=== PATIENT | male | born 1945 | race Caucasian/White ===

== ENCOUNTER 2016-04-08 06:10 | Inpatient (IN) | payer OTHER, MEDICARE ==
[~2016-04-08] VITALS: Ht 180.3 cm; Wt 88.0 kg
[~2016-04-08 06:10] MED LIST: ALBUTEROL0.09 MG/A1 INH; AMLODIPINE BESYL5 M1 PO; ASPIRIN EC81 M1 PO; AUGMENTIN 875875 MG PO; CIPRO500 M1 PO; FLAGYL500 MG PO; LOSARTAN POTAS100 M1 PO; METFORMIN HCL500 M3 PO; MULTI-DAY VITA1 EACH PO; PERCOCET 5-3251 EACH PO; PREDNISONE10 MG PO; ROBITUSSIN W/CO10 ML PO; SIMVASTATIN20 M2 PO; TOPROL XL50 M1 PO; VITAMIN B-121000 MC3 PO; VITAMIN C1000 M4 PO
--- NOTE | 2016-04-08 07:07 | ED DYSPNEA/ASTHMA COMPLAINT ---
History of Present Illness General Chief Complaint: Dyspnea (COPD, CHF, Other) Stated Complaint: PER PT HAVING DIFFICULTY CATCHING BREATH Source: patient, family, old records Exam Limitations: no limitations Vital Signs & Intake/Output Vital Signs & Intake/Output Vital Signs Date Time Temp Pulse Resp B/P Pulse O2 O2 Flow FiO2 Ox Delivery Rate 04/08 1536 98.0 84 20 130/82 94 Room Air 04/08 1100 97.0 84 20 115/04/08 1100 97.0 84 20 11504/08 1048 97.0 84 20 94 Room Air 04/08 0959 96.3 83 20 118/61 94 Room Air 04/08 0822 98.0 89 164/103 04/08 0800 94 Room Air 04/08 0630 98.9 90 21 127/63 95 Room Air Allergies Coded Allergies: Iodinated Contrast Media - Oral and (UNKNOWN 03/30/16) Reconcile Medications Amlodipine Besylate 5 MG TABLET 1 TAB PO DAILY BP (Reported) Ascorbic Acid (Vitamin C) (Unknown Strength) TABLET 250 MG PO DAILY SUPPLEMENT (Reported) Aspirin (Ecotrin*) 81 MG TABLET.DR 1 TAB PO DAILY HEART/BLOOD (Reported) Ciprofloxacin HCl (Cipro) 500 MG TABLET 1 TAB PO BID diverticulitis Cyanocobalamin (Vitamin B-12) (Vitamin B12) (Unknown Strength) TABLET (Unknown Dose) PO DAILY SUPPLEMENT (Reported) Losartan Potassium 100 MG TABLET 1 TAB PO DAILY BP (Reported) Metformin HCl 500 MG TABLET 1 TAB PO BID DM (Reported) Metoprolol Succ XL (Toprol XL) 25 MG TAB 100 MG PO DAILY HEART (Reported) Metronidazole (Flagyl) 500 MG TABLET 1 TAB PO BID diverticulitis Multivitamin (Multi-Day Vitamins) 1 EACH TABLET 1 TAB PO DAILY SUPPLEMENT ( Reported) Oxycodone HCl/Acetaminophen (Percocet 5-325 MG Tablet) 5 MG-325 MG TABLET 1 TAB PO TID severe pain Simvastatin (Simvastatin*) 20 MG TABLET 1 TAB PO QPM CHOLESTEROL (Reported) Triage Nurses Notes Reviewed? yes Onset: Abrupt Duration: minute(s): (30) Timing: single episode today Severity: severe Activities at Onset: trying to go to work this morning Associated Symptoms: chest/abdominal pain, vomiting, dyspnea, weakness HPI: This is a 70-year-old male with history of coronary disease, 2 stents recently diagnosed with cancer in his lung and liver last week presents to ER with his for chief complaint of an episode of chest pain, abdominal pain and lightheadedness this morning. He states he was attempting to go to work when he felt very dizzy. He felt it was impacted and vomited twice. He has some difficulty breathing at that time. Denies any chest pain or difficulty breathing lying down at this time. Denies any fever or chills. He's been having persistent left flank pain since his workup last week in the hospital which they should be to bronchitis. He is also currently on Cipro and Flagyl for a flare of diverticulitis. Secondary to the antibiotics and pain medicines he's been very bad up last bowel movement was a few days ago. He is due to see Dr. THORNTON on April 14. Past History Travel History Traveled to [place] past 21 day No Medical History Any Pertinent Medical History? see below for history Neurological: NONE EENT: NONE Cardiovascular: hypertension, hyperlipidemia, myocardial infarction Respiratory: bronchitis Gastrointestinal: NONE Hepatic: NONE Renal: right partial nephrectomy Musculoskeletal: disk herniation Endocrine: BORDERLINE DIABETIC Blood Disorders: NONE Cancer(s): BENIGN KIDNEY TUMOR CPAS/Reproductive: NONE History of MRSA: No History of VRE: No History of CDIFF: No Influenza Vaccine: 04/22/06 Surgical History Surgical History: PARTIAL RIGHT NEPHRECTOMY Psychosocial History Who do you live with Family What is your primary language Afghan Family History Hx Contributory? No Review of Systems Review of Systems Constitutional: Reports: weakness. Denies: chills, fever. EENTM: Reports: no symptoms. Respiratory: Reports: cough, short of breath. Denies: sputum production. Cardiovascular: Reports: chest pain. Denies: palpitations. GI: Reports: abdominal pain, nausea, vomiting. Genitourinary: Reports: no symptoms. Musculoskeletal: Reports: no symptoms. Skin: Reports: no symptoms. Neurological/Psychological: Reports: anxiety. Hematologic/Endocrine: Denies: bruising, bleeding, polyuria, polydipsia. Immunologic/Allergic: Denies: splenectomy. All Other Systems: Reviewed and Negative Physical Exam Physical Exam General Appearance: well developed/nourished, alert, awake, anxious, mild distress Head: atraumatic, normal appearance Eyes: Bilateral: normal appearance. Neck: normal inspection, supple, full range of motion Respiratory: DIMINISHED BREATH SOUNDS RIGHT BASE Cardiovascular: regular rate/rhythm Peripheral Pulses: 2+ radial (R), 2+ radial (L) Gastrointestinal: normal bowel sounds, soft, non-tender Extremities: normal inspection, normal capillary refill, normal range of motion, no edema Neurologic/Psych: no motor/sensory deficits, awake, alert, oriented x 3 Skin: intact, normal color, warm/dry Core Measures ACS in differential dx? No Severe Sepsis Present: No Septic Shock Present: No Progress Differential Diagnosis: AMI, bronchitis, pulmonary embolism, pneumonia, pneumothorax, unstable angina, DEHYDRATION, CARRILLO, ANXIETY Plan of Care: Orders Procedure Date/time Status HEPATIC FUNCTION PANEL 04/09 06 Active CBC WITHOUT DIFFERENTIAL 04/09 06 Active BASIC ELECTROLYTES PLUS BUN&CR 04/09 06 Active Nothing by Mouth 04/08 L Complete Clear Liquid Diet 04/08 D Active RAPID VIRAL INFLUENZA A 04/08 2021 Active Vital Signs 04/08 1716 Active Teach/Educate 04/08 171 Active Nutritional Intake, Monitor 04/08 1716 Active Isolation 04/08 1716 Active Intake & Output 04/08 1716 Active Patient Care Conference 04/08 1716 Active Activity/Ambulation 04/08 1716 Active Change service to 04/08 1333 Active Pathway - chart 04/08 1006 Active House Staff 04/08 1006 Active Code Status 04/08 1006 Active STREP PNEUMO URINARY ANTIGEN 04/08 1001 Active LEGIONELLA URINARY ANTIGEN 04/08 1001 Active LOWER RESPIRATORY CULTURE 04/08 0955 Active Patient Data 04/08 0912 Active Admit to inpatient 04/08 0847 Active Code Status 04/08 0847 Complete BLOOD CULTURE 04/08 0740 Active FingerStick- Glucose 04/08 0727 Active MISTAKE 04/08 0721 Active TROPONIN LEVEL 04/08 0648 Complete LIPASE 04/08 0648 Complete HEPATIC FUNCTION PANEL 04/08 0648 Complete D-DIMER 04/08 0648 Complete CBC WITHOUT DIFFERENTIAL 04/08 0648 Complete BASIC METABOLIC PANEL 04/08 0648 Complete AMYLASE 04/08 0648 Complete Intake & Output 04/08 0629 Active EKG 04/08 0612 Active VTE Mechanical Prophylaxis 04/08 UNK Active Current Medications Sig/Noemí Start time Last Medication Dose Stop Time Status Admin Ceftriaxone Sodium 1,000 MG DAILY 04/09 1000 CAN (Rocephin) Losartan Potassium 100 MG DAILY 04/09 1000 AC (Cozaar) Insulin Aspart 0 TIDAC 04/08 1200 AC (NovoLOG) Metronidazole 500 MG IQ8 04/08 1015 CAN (Flagyl) N/A 1 UNIT (No Carrier) Amlodipine Besylate 5 MG DAILY 04/08 1000 AC (Norvasc) Laboratory Tests 04/08/16 0717: Anion Gap 8, Estimated GFR > 60, BUN/Creatinine Ratio 15.5, Glucose 114 H, Calcium 9.5, Total Bilirubin 0.5, Direct Bilirubin 0.3, AST 92 H, ALT 64, Alkaline Phosphatase 214 H, Troponin I 0.02, Total Protein 6.2 L, Albumin 3.3 L, Amylase 370 H, Lipase 2537 H, D-Dimer 4381 H, CBC w Diff NO MAN DIFF REQ, RBC 4.08 L, MCV 89.1, MCH 30.8, RDW 13.5, MPV 7.4, Gran % 76.5 H, Lymphocytes % 15.0 L, Monocytes % 6.3, Eosinophils % 1.5, Basophils % 0.7, Absolute Granulocytes 4.7, Absolute Lymphocytes 0.9 L, Absolute Monocytes 0.4, Absolute Eosinophils 0.1, Absolute Basophils 0, PUBS MCHC 34.6 Microbiology 04/08 1001 URINE ROUT: Legionella Antigen - COLB 04/08 1001 URINE ROUT: Streptococcus pneumoniae Antigen (M - COLB 04/08 0955 LOWER RESP: Respiratory Culture - COLB 04/08 0955 LOWER RESP: Gram Stain - COLB 04/08 0805 BLOOD: Blood Culture - RECD 04/08 0800 BLOOD: Blood Culture - RECD LABS, CULTURES, XRAY, EKG, TROPONIN. NS ORDERED. MORPHINE ORDERED FOR PAIN. CXR SHOWS RLL INFILTRATED, ? POST OBSTRUCTIVE PNEUMONIA. PATIENT EXPERIENCING INCREASE IN DYSPNEA. IV ABX ORDERED. D/W HOSPITALIST FOR ADMISSION. 9:30 AM Dilaudid ordered for pain. (KIARA JONES,BILLIE) Diagnostic Imaging: Viewed by Me: Radiology Read. Discussed w/RAD: Radiology Read. Initial ED EKG: NSR Comments: EXAM TYPE: RAD - XRY-PORTABLE CHEST XRAY EXAMINATION: XR PORTABLE CHEST CLINICAL INFORMATION: Dyspnea COMPARISON: 03/27/2016 TECHNIQUE: Portable AP view of the chest was obtained. FINDINGS: There is an ill-defined opacity at the right lung base which may represent atelectasis and/or consolidation. Prominent right infrahilar and paratracheal soft tissue density compatible with the adenopathy demonstrated on the recent CT. Stable cardiomediastinal silhouette. The left lung appears clear. IMPRESSION: New ill-defined opacity at the right lung base may represent atelectasis and/or consolidation. Persistent right perihilar and right paratracheal adenopathy. Departure Departure Disposition: STILL A PATIENT Condition: Stable Clinical Impression Primary Impression: Pneumonia Secondary Impressions: Metastatic cancer, Pancreatitis Referrals: MELISSA JONES,PANCHO Zaman (PCP/Family) Referred to [facility] as new patient No Departure Forms: Customer Survey General Discharge Information Admission Note Spoke With: ENDY CHO MD Documentation of Exam: Documentation of any treatments & extenuating circumstances including Concerns Regarding Discharge (functional status, medication knowledge or non-compliance, living conditions, etc.) that warrant an admission rather than observation: [IV ABX, F/U BLOOD AND SPUTUM CULTURES, ONCOLOGY CONSULTATION] Critical Care Note Critical Care Note Critical Care Time: non-applicable ED Sepsis Exam Date of Focused Sepsis Exam: 04/08/16 Time of Focused Sepsis Exam: 0800 Sepsis Cardiac Exam: Regular Rate/Rhythm Sepsis Resp Exam: Ronchi (RIGHT BASE) Sepsis Cap Refill Exam: <2 Sec Sepsis Peripheral Pulse Exam: Normal Sepsis Peripheral Pulse Location: Radial Sepsis Skin Color Exam: Normal for Ethnicity Skin Temp/Moisture Exam: Warm/Dry
[2016-04-08 07:33] LABS: ABSOLUTE BASOPHIL COUNT 0 /CUMM (0.0-0.2); ABSOLUTE EOSINOPHIL COUNT 0.1 /CUMM (0.0-0.7); ABSOLUTE GRANULOCYTE CT 4.7 /CUMM (1.4-6.5); ABSOLUTE LYMPH COUNT 0.9 /CUMM (1.2-3.4); ABSOLUTE MONOCYTE COUNT 0.4 /CUMM (0.10-0.60); BASOPHIL % 0.7 % (0.0-2.0); EOSINOPHIL % 1.5 % (0-5); GRANULOCYTE % 76.5 % (42.2-75.2); HEMATOCRIT 36.3 % (42-52); MEAN CORPUSCULAR HGB 30.8 PG (27.0-31.0); MEAN CORPUSCULAR HGB CONC 34.6 G/DL (33.0-37.0); MEAN CORPUSCULAR VOLUME 89.1 FL (80.0-94.0); MEAN PLATELET VOLUME 7.4 FL (7.4-10.4); PLATELET COUNT 135 /CUMM (130-400); RBC DISTRIBUTION WIDTH 13.5 % (11.5-14.5); RED BLOOD CELL CT 4.08 /CUMM (4.70-6.10); WHITE BLOOD CELL COUNT 6.2 /CUMM (4.8-10.8)
--- NOTE | 2016-04-08 07:34 | RADIOLOGY REPORT ---
EXAMINATION: XR PORTABLE CHEST CLINICAL INFORMATION: Dyspnea COMPARISON: 03/27/2016 TECHNIQUE: Portable AP view of the chest was obtained. FINDINGS: There is an ill-defined opacity at the right lung base which may represent atelectasis and/or consolidation. Prominent right infrahilar and paratracheal soft tissue density compatible with the adenopathy demonstrated on the recent CT. Stable cardiomediastinal silhouette. The left lung appears clear. IMPRESSION: New ill-defined opacity at the right lung base may represent atelectasis and/or consolidation. Persistent right perihilar and right paratracheal adenopathy.
--- NOTE | 2016-04-08 10:10 | PN- Housestaff ---
Objective Last 24 Hrs of Vital Signs/I&O Vital Signs Date Time Temp Pulse Resp B/P Pulse O2 O2 Flow FiO2 Ox Delivery Rate 04/08 0959 96.3 83 20 118/61 94 Room Air 04/08 0822 98.0 89 164/103 04/08 0630 98.9 90 21 127/63 95 Room Air Intake & Output 04/08 1600 04/08 0800 04/08 0000 Intake Total 500 Output Total Balance 500 Intake, IV 500 Patient 192 lb Weight Physical Exam General Appearance: Alert, Oriented X3, Cooperative, No Acute Distress Assessment/Plan Pain Ratin Pain Location: left flank Pain Goal: Pain 4 or less Pain Plan: IV dilaudid
--- NOTE | 2016-04-08 11:41 | Admission Certification ---
Admission Certification Certification Statement - As attending physician, I certify that at the time of - admission, based on clinical presentation, severity of - symptoms, need for further diagnostic testing and - therapeutic interventions, and risk of adverse outcomes - without in-hospital treatment, in my clinical assessment, - this patient requires an acute hospital stay for a minimum - of two nights or longer. I have also considered psychsocial - factors such as support system, advanced age, financial - issues, cognitive issues, and failed out-patient treatments, - past re-admission history, safety of patient, and lack of - compliance as applicable. Specific rationale supporting this admission is: Flank pain and elevated lipase in patient with suspected metastatic carcinoma.
--- NOTE | 2016-04-08 14:04 | CT SCAN REPORT ---
EXAMINATION: CT CHEST AND ABDOMEN WITHOUT IV CONTRAST CLINICAL INFORMATION: Lung mass. Question pneumonia. Left upper quadrant pain. Elevated lipase. Evaluate for pancreatitis. COMPARISON: Previous chest x-rays most recent from earlier today, previous chest CT 03/31/[address] 03/30/2016. TECHNIQUE: Axial images through the chest and abdomen without oral or IV contrast. Sagittal and coronal reconstructions on the technologist workstation were performed. DLP: 467 mGy-cm. FINDINGS: CHEST: There is evidence of paraseptal. There is narrowing of the right lower lobe bronchus. There is abnormal soft tissue seen surrounding the segmental and subsegmental right lower lobe bronchi. There is question of right lower lobe postobstructive pneumonia versus neoplasm. There are multiple satellite right lower lobe nodules. These are not appreciably changed from 12/31/2015 CT. Largest nodule is a 9 mm right lower lobe nodule axial image 40 series 2. There is a 6 mm right middle lobe nodule axial image 45 series 2. There is a 4 x 5 mm lingular nodule axial image 43 series 2. There are markedly enlarged right-sided mediastinal and hilar lymph nodes. Largest lymph nodes are a subcarinal lymph nodes measuring approximately 3 x 4 cm axial image 33 series 2 and right paratracheal lymph node measuring 3 x 4 cm axial image 23 series 2. Mediastinal lymph nodes across the midline. There is substernal internal mammary or internal thoracic lymphadenopathy as well, measuring 2 x 4 cm on the right axial image 17 series 2 and a smaller 0.8 x 1.2 cm lymph node posterior to the left side of the sternum axial image 17 series 2. There is evidence of atherosclerotic disease and coronary artery calcification. The thoracic aorta is slightly dilated, ascending thoracic aorta measuring 4.2 cm. There is a trace pericardial effusion and trace right pleural effusion. There is no left pleural effusion. There is a small subcutaneous nodule in the right anterior chest wall measuring 5 mm axial image 47 series 2. No other chest wall mass or axillary adenopathy is seen. ABDOMEN AND PELVIS: There are multiple low-attenuation liver lesions. These are better appreciated on contrast enhanced exam but do not appear appreciably changed. Findings are again suggestive of metastatic disease to the liver. These spleen is upper normal in size measuring 13 cm. The pancreas is unremarkable. No evidence of pancreatitis is seen. The adrenal glands are normal. There is severe right hydronephrosis. This appears chronic with marked right renal cortical thinning. The right ureter does not appear dilated and this may represent UPJ obstruction. There are several low-attenuation left renal lesions questionable for cysts. The gallbladder is normal. There is evidence of diverticulosis. There is stranding of the fat of the visualized distal left colon, questionable for mild diverticulitis. This is similar to 03/30/2016 exam. The abdominal aorta is normal in caliber. IMPRESSION: 1. Chest: Emphysema. Markedly enlarged mediastinal and right hilar lymph nodes. Luminal narrowing of the right lower lobe bronchus and abnormal soft tissue extending to the right lung base. It is uncertain whether this represents neoplasm or postobstructive pneumonia. This does not appear appreciably changed from 03/31/2016 exam. Numerous pulmonary nodules also unchanged from previous exam. Small right pleural effusion and pericardial effusion also unchanged. Atherosclerotic disease, coronary artery calcification and upper normal size ascending thoracic aorta. Small 5 mm subcutaneous nodule in the right anterior lower chest wall. 2. Abdomen and Pelvis: Multiple low-attenuation liver lesions again suggestive of metastatic disease. Upper normal size spleen. Diverticulosis. Question diverticulitis of the visualized ascending colon. No evidence of pancreatitis. Severe chronic appearing right hydronephrosis. Question left renal cyst.
--- NOTE | 2016-04-08 14:30 | History & Physical ---
JACINDA ALLAN 04/08/16 1411: General Information and HPI MD Statement: I have seen and personally examined MARJORIE GLASER and documented this H&P. The patient is a 70 year old M who presented with a patient stated chief complaint of [nausea vomiting shortness of breath]. Source of Information: patient, family, old records Exam Limitations: no limitations History of Present Illness: 70-year-old man with past medical history of hypertension, partial right nephrectomy(2006), CAD with 2(1997) stents off aspirin for possible biopsy , hyperlipidemia, recently found lung mass with liver metastasis, heavy smoker quit about 10 days ago , recently discharged from the hospital with diagnosis of diverticulitis came back to the hospital with chief complaint of nausea, 2 times vomiting, shortness of breath and not feeling good. Patient reporting the morning he felt a pressure in his chest and dizzy and shortness of breath and had 2 episodes of nausea and vomiting. Patient denies any LOC, excessive cough, phlegm production, changes in urinary habits. patient does report that he has constipation due to using narcotics, he also has residual left flank pain which is chronic and 6 out of 6. Reports that he has completed his course of Cipro and Flagyl and one day left. he is off aspirin for possible liver and lung biopsy and he has not seen yet. Vital signs on admission were stable, no fevers, good o2 saturation on room air Hemoglobin 2.6, AST 92, IUP 214, albumin 3.3, amylase 370, lipase 2537 Dimer is 4384 Chest x-ray showed possible postobstructive pneumonia CT scan of the abdomen and chest did not show any major changes since last scan But cannot rule out the postobstructive pneumonia. Allergies/Medications Allergies: Coded Allergies: Iodinated Contrast Media - Oral and (UNKNOWN 03/30/16) Home Med list Amlodipine Besylate 5 MG TABLET 1 TAB PO DAILY BP (Reported) Ascorbic Acid (Vitamin C) (Unknown Strength) TABLET 250 MG PO DAILY SUPPLEMENT (Reported) Aspirin (Ecotrin*) 81 MG TABLET.DR 1 TAB PO DAILY HEART/BLOOD (Reported) Ciprofloxacin HCl (Cipro) 500 MG TABLET 1 TAB PO BID diverticulitis Cyanocobalamin (Vitamin B-12) (Vitamin B12) (Unknown Strength) TABLET (Unknown Dose) PO DAILY SUPPLEMENT (Reported) Losartan Potassium 100 MG TABLET 1 TAB PO DAILY BP (Reported) Metformin HCl 500 MG TABLET 1 TAB PO BID DM (Reported) Metoprolol Succ XL (Toprol XL) 25 MG TAB 100 MG PO DAILY HEART (Reported) Metronidazole (Flagyl) 500 MG TABLET 1 TAB PO BID diverticulitis Multivitamin (Multi-Day Vitamins) 1 EACH TABLET 1 TAB PO DAILY SUPPLEMENT ( Reported) Oxycodone HCl/Acetaminophen (Percocet 5-325 MG Tablet) 5 MG-325 MG TABLET 1 TAB PO TID severe pain Simvastatin (Simvastatin*) 20 MG TABLET 1 TAB PO QPM CHOLESTEROL (Reported) Past History Travel History Traveled to [place] past 21 day No Medical History Neurological: NONE EENT: NONE Cardiovascular: hypertension, hyperlipidemia, myocardial infarction Respiratory: bronchitis Gastrointestinal: diverticulitis Hepatic: NONE Renal: right partial nephrectomy Musculoskeletal: disk herniation Endocrine: BORDERLINE DIABETIC Blood Disorders: NONE Cancer(s): BENIGN KIDNEY TUMOR 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 Ambulation: independent IADLs Independent: shopping, housework, finances, food prep, telephone, transportation , medication admin. Review of Systems Review of Systems Constitutional: Reports: see HPI. Exam & Diagnostic Data Last 24 Hrs of Vital Signs/I&O Vital Signs Date Time Temp Pulse Resp B/P Pulse O2 O2 Flow FiO2 Ox Delivery Rate 04/08 1100 97.0 84 20 115/67 04/08 1100 97.0 84 20 11567 04/08 1048 97.0 84 94 Room Air 04/08 0959 96.3 83 20 118/61 94 Room Air 04/08 0822 98.0 89 164/103 04/08 0800 94 Room Air 04/08 0630 98.9 90 21 127/63 95 Room Air Intake & Output 04/08 1600 04/08 0800 04/08 0000 Intake Total 500 Output Total Balance 500 Intake, IV 500 Patient 192 lb Weight Physical Exam General Appearance Alert, Oriented X3, Cooperative, No Acute Distress Cardiovascular Regular Rate, No Murmurs Lungs reduced breath sounds on the right lung Abdomen Normal Bowel Sounds, Soft, tenderness under the left rib cage, no rebound Extremities No Clubbing, No Cyanosis, No Edema Assessment/Plan Assessment: 70-year-old man with past medical history of hypertension, partial right nephrectomy(2006), CAD with 2(1997) stents off aspirin for possible biopsy , hyperlipidemia, recently found lung mass with liver metastasis, heavy smoker quit about 10 days ago , recently discharged from the hospital with diagnosis of diverticulitis came back to the hospital with chief complaint of nausea, 2 times vomiting, shortness of breath and not feeling good. Patient reporting the morning he felt a pressure in his chest and dizzy and shortness of breath and had 2 episodes of nausea and vomiting. Patient denies any LOC, excessive cough, phlegm production, changes in urinary habits. Vital signs on admission were stable, no fevers, good o2 saturation on room air Hemoglobin 2.6, AST 92, ALP 214, albumin 3.3, amylase 370, lipase 2537 Dimer is 4384 Chest x-ray showed possible postobstructive pneumonia CT scan of the abdomen and chest did not show any major changes since last scan But cannot rule out the postobstructive pneumonia. EKG sinus rhythm, with PVCs, QTC 471, heart rate 94, no acute ST_T changes comparing to previous EKG Assessment and plan post obstructive pneumonia versus lung mass * Continue ceftriaxone and azithromycin for now * Try to get sputum cultures * Urine Legionella and and strep antigen * Dr. Neil has already been called Nausea, vomiting, abdominal pain/diverticulitis/elevated lipase * Zofran for nausea * Continue IV fluids for now * No evidence of pancreatitis in the CT scan * IV Dilaudid for pain * agreesive bowel regimen * No need to continue Flagyl and ciprofloxacin * Will monitor LFTs Diabetes * Sliding scale insulin * Accu-Cheks 3 times a day HTN, hyperlipidemia * Continue statin, Cozaar, metoprolol, amlodipine DVT prophylaxis mechanical and subcutaneous heparin, diabetic diet, IV Dilaudid for pain, full code As Ranked By This Provider Problem List: 1. Pancreatitis Core Measures/Miscellaneous Acute Coronary Syndrome ACS Diagnosis: No Cerebrovascular Accident CVA/TIA Diagnosis: No Congestive Heart Failure CHF Diagnosis: No Venous Thromboembolism VTE Risk Factors: Age > 40 VTE Prophylaxis Ordered Inpt: Mech & Pharm No Mech VTE prophylaxis d/t: No contraindications No VTE Pharm Prophylaxis d/t: No contraindications VTE Diagnosis: No VTE Type: NONE VTE Confirmed by (Test): NONE Severe Sepsis Severe Sepsis Present: No Septic Shock Septic Shock Present: No Miscellaneous Documentation Attending Case Discussed With: ENDY CHO MD Primary Care Physician: PANCHO TORRES MD Patient sees these Specialists yet to see dr neil yet Level of Patient Care: General Medicine REE TORRES MD 04/08/16 1523: Attending MD Review Statement Attending Statement Attending MD Statement: examined this patient, discuss w/resident/PA/ASSISTANT SPA DIRECTOR, agreed w/resident/PA/ASSISTANT SPA DIRECTOR, reviewed EMR data (avail), discussed with nursing, discussed with case mgmt Attending Assessment/Plan: 70-year-old male with past medical history of recently diagnosed diverticulitis on day 10 off his Cipro and Flagyl and recently found pulmonary nodule with liver lesion suspicious for metastase,s he was scheduled to see Dr. Neil is arrange a biopsy of these which he hasn't done. He is here with left-sided flank and left under the rib cage pain. In the ER the chest x-ray was suspicious for pneumonia so he's been brought in as a pneumonia. The CT of the chest and abdomen which we repeated shows the lung mass essentially unchanged and I think this is what they are reading as pneumonia. He doesn't have a fever or white count or a cough and he is already finished 9 days of antibiotics. I'm unclear as to the source of his pain. His lipase is elevated but he doesn't have anything suggestive of pancreatitis and I think this early diverticulitis on the CT is just a remnant of what he had before. At this point will advance his diet as tolerated, treat his constipation aggressively, have oncology see him and follow-up.
--- NOTE | 2016-04-08 18:07 | Cons- Oncology ---
General Information and HPI Consulting Request Date of Consult: 04/08/16 Requested By: REE TORRES MD Reason for Consult: liver mass Source of Information: patient, old records Exam Limitations: no limitations History of Present Illness: Mr. Morales is a 70-year-old man with CAD s/p 2 stent (1997), partial right nephrectomy(2006), HTN, and HLD who presents to the hospital with nausea, vomiting, shortness of breath, and generally feeling sick. He was recently hospitalized from 03/30 to 03/31/2016 for shortness of breath, cough, and left flank pain. During the hospitalization, CT of the chest demonstrated an irregular 2.3 x 2.9 cm subpleural nodule in the medial basal segment of the right lower lobe. There were bilateral pulmonary nodules likely represent metastases and there are multiple hepatic metastases. The right lower lobe bronchus is compressed by surrounding lymphadenopathy/tumor and there is extensive mediastinal lymphadenopathy. He was to follow up as an outpatient to obtain biopsy. He reports that he had chest pressure, dizziness, and shortness of breath this morning. He subsequently had nausea and vomiting. He has not had any fever or chills. He does report constipation with pain medication. On admission, chest x-ray showed possible postobstructive pneumonia. CT scan of the chest and abdomen without contrast were unchanged. Allergies/Medications Allergies: Coded Allergies: Iodinated Contrast Media - Oral and (UNKNOWN 03/30/16) Home Med List: Amlodipine Besylate 5 MG TABLET 1 TAB PO DAILY BP (Reported) Ascorbic Acid (Vitamin C) (Unknown Strength) TABLET 250 MG PO DAILY SUPPLEMENT (Reported) Aspirin (Ecotrin*) 81 MG TABLET.DR 1 TAB PO DAILY HEART/BLOOD (Reported) Ciprofloxacin HCl (Cipro) 500 MG TABLET 1 TAB PO BID diverticulitis Cyanocobalamin (Vitamin B-12) (Vitamin B12) (Unknown Strength) TABLET (Unknown Dose) PO DAILY SUPPLEMENT (Reported) Losartan Potassium 100 MG TABLET 1 TAB PO DAILY BP (Reported) Metformin HCl 500 MG TABLET 1 TAB PO BID DM (Reported) Metoprolol Succ XL (Toprol XL) 25 MG TAB 100 MG PO DAILY HEART (Reported) Metronidazole (Flagyl) 500 MG TABLET 1 TAB PO BID diverticulitis Multivitamin (Multi-Day Vitamins) 1 EACH TABLET 1 TAB PO DAILY SUPPLEMENT ( Reported) Oxycodone HCl/Acetaminophen (Percocet 5-325 MG Tablet) 5 MG-325 MG TABLET 1 TAB PO TID severe pain Simvastatin (Simvastatin*) 20 MG TABLET 1 TAB PO QPM CHOLESTEROL (Reported) Current Medications: Current Medications Sig/Noemí Start time Last Medication Dose Route Stop Time Status Admin Amlodipine Besylate 5 MG DAILY 04/08 1000 AC PO Ascorbic Acid 250 MG DAILY 04/08 1000 AC 04/08 PO 1100 Atorvastatin Calcium 10 MG 1700 04/08 1700 AC 04/08 PO 1714 Azithromycin 500 MG Q24H 04/09 1015 DC Sodium Chloride 250 ML IV Azithromycin 500 MG ONCE ONE 04/08 0745 DC 04/08 Sodium Chloride 250 ML IV 04/08 0844 0807 Ceftriaxone Sodium 1,000 MG DAILY 04/09 1000 CAN IV Ceftriaxone Sodium 0 .STK-MED ONE 04/08 0756 DC .ROUTE Ceftriaxone Sodium 1,000 MG ONCE ONE 04/08 0745 DC 04/08 IV 04/08 0746 0807 Docusate Sodium 100 MG BID 04/08 1141 AC 04/08 PO 1228 Heparin Sodium 5,000 UNIT Q8 04/08 1400 AC 04/08 (Porcine) SC 1400 Hydromorphone HCl 0 .STK-MED ONE 04/08 1222 DC .ROUTE Hydromorphone HCl 0.4 MG Q4P PRN 04/08 1000 AC 04/08 IV 1630 Hydromorphone HCl 1 MG ONCE ONE 04/08 0930 DC 04/08 IV 04/08 0931 0919 Hydromorphone HCl 0 .STK-MED ONE 04/08 0903 DC .ROUTE Insulin Aspart 0 TIDAC 04/08 1200 AC SC Losartan Potassium 100 MG DAILY 04/09 1000 AC PO Losartan Potassium 100 MG DAILY 04/08 1000 DC 04/08 PO 1047 Metoprolol Succinate 100 MG DAILY 04/08 1000 AC 04/08 PO 1100 Metronidazole 500 MG IQ8 04/08 1015 CAN N/A 1 UNIT IV Morphine Sulfate 4 MG ONCE ONE 04/08 0745 DC 04/08 IV 04/08 0746 0735 Morphine Sulfate 0 .STK-MED ONE 04/08 0731 DC .ROUTE Ondansetron HCl 4 MG Q6P PRN 04/08 1445 AC IV Polyethylene Glycol 17 GM DAILY 04/08 1433 AC 04/08 PO 1535 Senna/Docusate Sodium 1 TAB BID PRN 04/08 1145 AC PO Sodium Chloride 1,000 ML Q10H 04/08 1145 DC 04/08 IV 1228 Sodium Chloride 500 ML BOLUS ONE 04/08 0730 DC 04/08 IV 04/08 0829 0736 Thiamine HCl 100 MG DAILY 04/08 1000 AC 04/08 PO 1100 Review of Systems Review of Systems Constitutional: Reports: malaise. Denies: chills, fever, unexplained weight loss. EENTM: Denies: blurred vision, double vision. Cardiovascular: Denies: chest pain, palpitations. Respiratory: Reports: short of breath. Denies: cough, hemoptysis, sputum production. GI: Reports: abdominal pain, nausea, vomiting. Genitourinary: Denies: discharge, dysuria, frequency, hematuria. Musculoskeletal: Reports: back pain. Neurological/Psychological: Denies: anxiety. Immunologic/Allergic: Denies: lymphadenopathy. 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 Ambulation: independent IADLs Independent: shopping, housework, finances, food prep, telephone, transportation , medication admin. Exam & Diagnostic Data Vital Signs and I&O Vital Signs Date Time Temp Pulse Resp B/P Pulse O2 O2 Flow FiO2 Ox Delivery Rate 04/08 1536 98.0 84 20 130/82 94 Room Air 04/08 1100 97.0 84 20 115/67 04/08 1100 97.0 84 20 115/67 04/08 1048 97.0 84 20 115/67 94 Room Air 04/08 0959 96.3 83 20 118/61 94 Room Air 04/08 0822 98.0 89 164/103 04/08 0800 94 Room Air 04/08 0630 98.9 90 21 127/63 95 Room Air Intake & Output 04/08 1600 04/08 0800 04/08 0000 Intake Total 500 Output Total Balance 500 Intake, IV 500 Patient 87.09 kg Weight Physical Exam General Appearance: alert, awake, comfortable Head: atraumatic, normal appearance Eyes: Bilateral: PERRL. Ears, Nose, Throat: normal pharynx, normal ENT inspection, moist mucus membranes Neck: supple Respiratory: normal breath sounds, chest non-tender, no respiratory distress Cardiovascular: regular rate/rhythm Gastrointestinal: normal bowel sounds, soft, non-tender, no organomegaly Extremities: no edema Neurologic/Psych: alert, oriented x 3 Skin: normal color, warm/dry Lymphatic: no anterior cervical girish Last 48 Hours of Lab Results: Laboratory Tests 04/08 0717 Chemistry Sodium (137 - 145 mmol/L) 139 Potassium (3.5 - 5.1 mmol/L) 4.2 Chloride (98 - 107 mmol/L) 107 Carbon Dioxide (22 - 30 mmol/L) 24 Anion Gap (5 - 16) 8 BUN (9 - 20 mg/dL) 17 Creatinine (0.7 - 1.2 mg/dL) 1.1 Estimated GFR (>60 ml/min) > 60 BUN/Creatinine Ratio (7 - 25 %) 15.5 Glucose (65 - 99 mg/dL) 114 H Calcium (8.4 - 10.2 mg/dL) 9.5 Total Bilirubin (0.2 - 1.3 mg/dL) 0.5 Direct Bilirubin (< 0.4 mg/dL) 0.3 AST (17 - 59 U/L) 92 H ALT (21 - 72 U/L) 64 Alkaline Phosphatase (< 127 U/L) 214 H Troponin I (<0.11 ng/ml) 0.02 Total Protein (6.3 - 8.2 g/dL) 6.2 L Albumin (3.5 - 5.0 g/dL) 3.3 L Amylase (30 - 110 U/L) 370 H Lipase (23 - 300 U/L) 2537 H Coagulation D-Dimer (70 - 232 ng/ml) 4381 H Hematology CBC w Diff NO MAN DIFF REQ WBC (4.8 - 10.8 /CUMM) 6.2 RBC (4.70 - 6.10 /CUMM) 4.08 L Hgb (14.0 - 18.0 G/DL) 12.6 L Hct (42 - 52 %) 36.3 L MCV (80.0 - 94.0 FL) 89.1 MCH (27.0 - 31.0 PG) 30.8 RDW (11.5 - 14.5 %) 13.5 Plt Count (130 - 400 /CUMM) 135 MPV (7.4 - 10.4 FL) 7.4 Gran % (42.2 - 75.2 %) 76.5 H Lymphocytes % (20.5 - 51.1 %) 15.0 L Monocytes % (1.7 - 9.3 %) 6.3 Eosinophils % (0 - 5 %) 1.5 Basophils % (0.0 - 2.0 %) 0.7 Absolute Granulocytes (1.4 - 6.5 /CUMM) 4.7 Absolute Lymphocytes (1.2 - 3.4 /CUMM) 0.9 L Absolute Monocytes (0.10 - 0.60 /CUMM) 0.4 Absolute Eosinophils (0.0 - 0.7 /CUMM) 0.1 Absolute Basophils (0.0 - 0.2 /CUMM) 0 PUBS MCHC (33.0 - 37.0 G/DL) 34.6 Imaging/Other Studies: CT chest/abdomen without contrast 04/08/2016: 1. Chest: Emphysema. Markedly enlarged mediastinal and right hilar lymph nodes. Luminal narrowing of the right lower lobe bronchus and abnormal soft tissue extending to the right lung base. It is uncertain whether this represents neoplasm or postobstructive pneumonia. This does not appear appreciably changed from 03/31/2016 exam. Numerous pulmonary nodules also unchanged from previous exam. Small right pleural effusion and pericardial effusion also unchanged. Atherosclerotic disease, coronary artery calcification and upper normal size ascending thoracic aorta. Small 5 mm subcutaneous nodule in the right anterior lower chest wall. 2. Abdomen and Pelvis: Multiple low-attenuation liver lesions again suggestive of metastatic disease. Upper normal size spleen. Diverticulosis. Question diverticulitis of the visualized ascending colon. No evidence of pancreatitis. Severe chronic appearing right hydronephrosis. Question left renal cyst. CT abdomen/pelvis with contrast 03/30/2016: 1. Pancolonic diverticulosis, most extensive along the descending and rectosigmoid colon. Circumferential thickening and pericolonic inflammatory changes surrounding a short segment of the descending colon, spanning approximately 6.2 cm in length within the left lower quadrant of the abdomen. Primary diagnostic consideration is for acute diverticulitis. No extraluminal foci of air to suggest perforation. No pericolonic fluid collections. 2. Partially visualized masslike consolidation within the right hilar region with additional pulmonary nodules and masses visualized within the right middle lobe as well as within the right lower lobe, as described above. This finding is suspicious for underlying malignancy. Recommend correlation with contrast-enhanced chest CT. 3. Innumerable ill-defined hypoattenuating lesions scattered throughout the right and left hepatic lobes, incompletely characterized on this examination. These lesions were not definitely visualized on a prior CT of the abdomen and pelvis dating back to 2012. Primary diagnostic consideration is for widespread liver metastases. A dedicated multiphase contrast-enhanced CT or MRI of the abdomen may be obtained for further characterization, depending on the patient's renal status. Also consider interventional radiology consultation to assess for image guided biopsy of a liver lesion. 4. A contour deforming lesion along the upper to midpole of the left kidney. This lesion is incompletely characterized on this exam. This may be assessed on the recommended contrast enhanced CT or MRI of the abdomen. If the patient is not a candidate for intravenous contrast secondary to impaired renal function, an ultrasound of the kidney may be obtained for further evaluation. 5. 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 No appreciable nephrolithiasis of either kidney. No ureteral stones. Assessment/Plan Assessment: Mr. Morales is a 70-year-old man with CAD s/p 2 stent (1997), partial right nephrectomy(2006), HTN, and HLD who presents to the hospital with nausea, vomiting, shortness of breath, and generally feeling sick. He was recently hospitalized from 03/30 to 03/31/2016 for shortness of breath, cough, and left flank pain. During the hospitalization, CT of the chest demonstrated an irregular 2.3 x 2.9 cm subpleural nodule in the medial basal segment of the right lower lobe. There were bilateral pulmonary nodules likely represent metastases and there are multiple hepatic metastases. The right lower lobe bronchus is compressed by surrounding lymphadenopathy/tumor and there is extensive mediastinal lymphadenopathy. He likely has metastatic disease of pulmonary origin given his tobacco use history. Patient will need tissue biopsy to determine etiology. Liver biopsy would be the best option for the patient. Recommendations: 1. IR for biopsy of liver mass 2. Follow up as outpatient to discuss pathology 3. If persistent dizziness, would obtain brain MRI to evaluate for metastatic disease Problem List: 1. Metastatic disease Other Findings/Comments: Please call [phone] with any questions or concerns. Consult Acknowledgment - Thank you for your consult request.
[2016-04-09 00:13] VITALS: BP 128/84
--- NOTE | 2016-04-09 07:21 | PN- Housestaff ---
JACINDA ALLAN 04/09/16 0721: Subjective Follow-up For: nausea, vomiting lung malignancy Subjective: I have seen and examined the patient. still has abdominal pain. diluad dose increased. pt had a BM. patient will liver biopsy tomorrow. VSS. patient had one episode of nausea and vomiting. Review of Systems Constitutional: Reports: see HPI. Objective Last 24 Hrs of Vital Signs/I&O Vital Signs Date Time Temp Pulse Resp B/P Pulse O2 O2 Flow FiO2 Ox Delivery Rate 04/09 0013 98.3 85 19 128/84 92 Room Air 04/08 1536 98.0 84 20 130/82 94 Room Air 04/08 1100 97.0 84 20 115/67 04/08 1100 97.0 84 20 115/67 04/08 1048 97.0 84 20 115 94 Room Air 04/08 0959 96.3 83 20 118/61 94 Room Air 04/08 0822 98.0 89 164/103 Intake & Output 04/09 1600 04/09 0800 04/09 0000 Intake Total 100 900 Output Total 350 Balance 100 550 Intake, Oral 100 900 Output, Urine 350 Patient 194 lb Weight Physical Exam General Appearance: Alert, Oriented X3, Cooperative Lungs: Clear to Auscultation, Normal Air Movement Abdomen: Normal Bowel Sounds, Soft, tenderness in under left rib cage Extremities: No Clubbing, No Cyanosis, No Edema, Normal Pulses, No Tenderness/ Swelling Current Medications: Current Medications Sig/Noemí Start time Last Medication Dose Route Stop Time Status Admin Amlodipine Besylate 5 MG DAILY 04/08 1000 AC PO Ascorbic Acid 250 MG DAILY 04/08 1000 AC 04/08 PO 1100 Atorvastatin Calcium 10 MG 1700 04/08 1700 AC 04/08 PO 1714 Azithromycin 500 MG Q24H 04/09 1015 DC Sodium Chloride 250 ML IV Azithromycin 500 MG ONCE ONE 04/08 0745 DC 04/08 Sodium Chloride 250 ML IV 04/08 0844 0807 Ceftriaxone Sodium 1,000 MG DAILY 04/09 1000 CAN IV Docusate Sodium 100 MG BID 04/08 1141 DC 04/08 PO 2130 Heparin Sodium 5,000 UNIT Q8 04/08 1400 AC 04/09 (Porcine) SC 0540 Hydromorphone HCl 0 .STK-MED ONE 04/08 1222 DC .ROUTE Hydromorphone HCl 0.4 MG Q4P PRN 04/08 1000 AC 04/09 IV 0537 Hydromorphone HCl 1 MG ONCE ONE 04/08 0930 DC 04/08 IV 04/08 0931 0919 Hydromorphone HCl 0 .STK-MED ONE 04/08 0903 DC .ROUTE Ibuprofen 400 MG ONCE ONE 04/08 2030 DC 04/08 PO 04/08 203 2130 Influenza Virus 0.5 ML ONCE ONE 04/08 1930 DC Vaccine IM 04/08 193 Insulin Aspart 0 TIDAC 04/08 1200 AC SC Losartan Potassium 100 MG DAILY 04/09 1000 AC PO Losartan Potassium 100 MG DAILY 04/08 1000 DC 04/08 PO 1047 Metoprolol Succinate 100 MG DAILY 04/08 1000 AC 04/08 PO 1100 Metronidazole 500 MG IQ8 04/08 1015 CAN N/A 1 UNIT IV Ondansetron HCl 4 MG Q6P PRN 04/08 1445 AC 04/08 IV 2134 Polyethylene Glycol 17 GM DAILY 04/08 1433 AC 04/08 PO 1535 Senna/Docusate Sodium 1 TAB BID PRN 04/08 1145 AC 04/08 PO 2130 Sodium Chloride 1,000 ML Q10H 04/08 1145 DC 04/08 IV 1228 Sodium Chloride 500 ML BOLUS ONE 04/08 0730 DC 04/08 IV 04/08 0829 0736 Thiamine HCl 100 MG DAILY 04/08 1000 AC 04/08 PO 1100 Assessment/Plan Assessment: 70-year-old man with past medical history of hypertension, partial right nephrectomy(2006), CAD with 2(1997) stents off aspirin for possible biopsy , hyperlipidemia, recently found lung mass with liver metastasis, heavy smoker quit about 10 days ago , recently discharged from the hospital with diagnosis of diverticulitis came back to the hospital with chief complaint of nausea, 2 times vomiting, shortness of breath and not feeling good. Patient reporting the morning he felt a pressure in his chest and dizzy and shortness of breath and had 2 episodes of nausea and vomiting. Patient denies any LOC, excessive cough, phlegm production, changes in urinary habits. Vital signs on admission were stable, no fevers, good o2 saturation on room air Hemoglobin 2.6, AST 92, ALP 214, albumin 3.3, amylase 370, lipase 2537 Dimer is 4384 Chest x-ray showed possible postobstructive pneumonia CT scan of the abdomen and chest did not show any major changes since last scan But cannot rule out the postobstructive pneumonia. EKG sinus rhythm, with PVCs, QTC 471, heart rate 94, no acute ST_T changes comparing to previous EKG Assessment and plan post obstructive pneumonia versus lung mass * dc ceftriaxone and azithromycin , no fevers, elevated WBC * Try to get sputum cultures * Urine Legionella and and strep antigen * patient to get ultrasound-guided liver biopsy tomorrow * Outpatient follow-up with * No subcutaneous heparin today Nausea, vomiting, abdominal pain/diverticulitis/elevated lipase * Zofran for nausea * NPO from midnight for liver biopsy with IV fluids * No evidence of pancreatitis in the CT scan , * IV Dilaudid for pain, dose is increased * agreesive bowel regimen * No need to continue Flagyl and ciprofloxacin * Will monitor LFTs: Trending up Diabetes * Sliding scale insulin(Novolin for tomorrow because patient is NPO) * Accu-Cheks 3 times a day HTN, hyperlipidemia * Continue statin, Cozaar, metoprolol, amlodipine DVT prophylaxis mechanical and subcutaneous heparin, diabetic diet, IV Dilaudid for pain, full code Problem List: 1. Metastatic disease Pain Ratin Pain Location: left flank Pain Goal: Pain 4 or less Pain Plan: Increase Dilaudid Tomorrow's Labs & Rationales: cbc bep REE TORRES MD 04/09/16 1325: Attending MD Review Statement Attending Statement Attending MD Statement: examined this patient, discuss w/resident/PA/AUTOMOTIVE REFINISHER, agreed w/resident/PA/AUTOMOTIVE REFINISHER, reviewed EMR data (avail), discussed with nursing Attending Assessment/Plan: Patient was severely constipated and moved his bowels after multiple stool softeners. He is also in quite a lot of pain and I increased his Dilaudid from 0.4-0.8 mg. He is worried about the IR guided biopsy and he wants to talk to Dr. Rivero. Dr. Rivero had treated him with a partial nephrectomy in the past and he like to talk to him before making a decision. We are treating his pain and his constipation and the plan for IR guided liver biopsy in a.m. of the liver lesions.
[2016-04-09 08:06] LABS: ABSOLUTE BASOPHIL COUNT 0 /CUMM (0.0-0.2); ABSOLUTE EOSINOPHIL COUNT 0.1 /CUMM (0.0-0.7); ABSOLUTE GRANULOCYTE CT 3.5 /CUMM (1.4-6.5); ABSOLUTE LYMPH COUNT 1.2 /CUMM (1.2-3.4); ABSOLUTE MONOCYTE COUNT 0.5 /CUMM (0.10-0.60); BASOPHIL % 0.4 % (0.0-2.0); EOSINOPHIL % 2.4 % (0-5); GRANULOCYTE % 65.8 % (42.2-75.2); HEMATOCRIT 33.7 % (42-52); MEAN CORPUSCULAR HGB 30.2 PG (27.0-31.0); MEAN CORPUSCULAR VOLUME 88.9 FL (80.0-94.0); MEAN PLATELET VOLUME 7.7 FL (7.4-10.4); PLATELET COUNT 131 /CUMM (130-400); RBC DISTRIBUTION WIDTH 13.7 % (11.5-14.5); RED BLOOD CELL CT 3.79 /CUMM (4.70-6.10); WHITE BLOOD CELL COUNT 5.3 /CUMM (4.8-10.8)
[2016-04-09 08:37] VITALS: BP 122/70
--- NOTE | 2016-04-09 09:08 | PN- Oncology ---
Subjective Subjective: He reports persistent cough. He denies any fever or chills. He denies any new symptoms. He moved his bowel after multiple stool softener. Review of Systems: Constitutional: Reports: malaise. Denies: chills, fever, unexplained weight loss. EENTM: Denies: blurred vision, double vision. Cardiovascular: Denies: chest pain, palpitations. Respiratory: Reports: short of breath. Cough. Denies: hemoptysis, sputum production. GI: Reports: abdominal pain, nausea, vomiting. Genitourinary: Denies: discharge, dysuria, frequency, hematuria. Musculoskeletal: Reports: back pain. Neurological/Psychological: Denies: anxiety. Immunologic/Allergic: Denies: lymphadenopathy. All Other Systems: Reviewed and Negative Objective Vital Signs and I&Os Vital Signs Date Time Temp Pulse Resp B/P Pulse O2 O2 Flow FiO2 Ox Delivery Rate 04/09 0837 98.1 88 20 122/70 93 Room Air 04/09 0013 98.3 85 19 128/84 92 Room Air 04/08 1536 98.0 84 20 130/82 94 Room Air 04/08 1100 97.0 84 20 115/67 04/08 1100 97.0 84 20 115/67 04/08 1048 97.0 84 20 115/67 94 Room Air 04/08 0959 96.3 83 20 118/61 94 Room Air Intake & Output 04/09 1600 04/09 0800 04/09 0000 04/08 1600 04/08 0800 04/08 0000 Intake Total 100 900 500 Output Total 350 Balance 100 550 500 Intake, IV 500 Intake, Oral 100 900 Output, Urine 350 Patient 87.997 kg 87.09 kg Weight Physical Exam: General Appearance: alert, awake, comfortable Head: atraumatic, normal appearance Eyes: Bilateral: PERRL. Ears, Nose, Throat: normal pharynx, normal ENT inspection, moist mucus membranes Neck: supple Respiratory: normal breath sounds, chest non-tender, no respiratory distress Cardiovascular: regular rate/rhythm Gastrointestinal: normal bowel sounds, soft, non-tender, no organomegaly Extremities: no edema Neurologic/Psych: alert, oriented x 3 Skin: normal color, warm/dry Lymphatic: no anterior cervical girish Current Medications: Current Medications Sig/Noemí Start time Last Medication Dose Route Stop Time Status Admin Amlodipine Besylate 5 MG DAILY 04/08 1000 AC PO Ascorbic Acid 250 MG DAILY 04/08 1000 AC 04/08 PO 1100 Atorvastatin Calcium 10 MG 1700 04/08 1700 AC 04/08 PO 1714 Azithromycin 500 MG Q24H 04/09 1015 DC Sodium Chloride 250 ML IV Ceftriaxone Sodium 1,000 MG DAILY 04/09 1000 CAN IV Docusate Sodium 100 MG BID 04/08 1141 DC 04/08 PO 2130 Guaifenesin 600 MG Q12 04/09 1000 AC PO Heparin Sodium 5,000 UNIT Q8 04/08 1400 AC 04/09 (Porcine) SC 0540 Hydromorphone HCl 0 .STK-MED ONE 04/08 1222 DC .ROUTE Hydromorphone HCl 0.4 MG Q4P PRN 04/08 1000 AC 04/09 IV 0537 Hydromorphone HCl 1 MG ONCE ONE 04/08 0930 DC 04/08 IV 04/08 0931 0919 Hydromorphone HCl 0 .STK-MED ONE 04/08 0903 DC .ROUTE Ibuprofen 400 MG ONCE ONE 04/08 2030 DC 04/08 PO 04/080 Influenza Virus 0.5 ML ONCE ONE 04/08 1930 DC Vaccine IM 04/08 193 Insulin Aspart 0 TIDAC 04/08 1200 AC SC Losartan Potassium 100 MG DAILY 04/09 1000 AC PO Losartan Potassium 100 MG DAILY 04/08 1000 DC 04/08 PO 1047 Metoprolol Succinate 100 MG DAILY 04/08 1000 AC 04/08 PO 1100 Metronidazole 500 MG IQ8 04/08 1015 CAN N/A 1 UNIT IV Ondansetron HCl 4 MG Q6P PRN 04/08 1445 AC 04/08 IV 2134 Polyethylene Glycol 17 GM DAILY 04/08 1433 AC 04/08 PO 1535 Senna/Docusate Sodium 1 TAB BID PRN 04/08 1145 AC 04/08 PO 2130 Sodium Chloride 1,000 ML Q10H 04/08 1145 DC 04/08 IV 1228 Thiamine HCl 100 MG DAILY 04/08 1000 AC 04/08 PO 1100 Results Last 24 Hours of Lab Results: Laboratory Tests 04/09 0640 Chemistry Sodium (137 - 145 mmol/L) 139 Potassium (3.5 - 5.1 mmol/L) 3.9 Chloride (98 - 107 mmol/L) 104 Carbon Dioxide (22 - 30 mmol/L) 25 Anion Gap (5 - 16) 10 BUN (9 - 20 mg/dL) 14 Creatinine (0.7 - 1.2 mg/dL) 1.1 Estimated GFR (>60 ml/min) > 60 BUN/Creatinine Ratio (7 - 25 %) 12.7 Total Bilirubin (0.2 - 1.3 mg/dL) 0.5 Direct Bilirubin (< 0.4 mg/dL) 0.3 AST (17 - 59 U/L) 133 H ALT (21 - 72 U/L) 78 H Alkaline Phosphatase (< 127 U/L) 263 H Total Protein (6.3 - 8.2 g/dL) 5.9 L Albumin (3.5 - 5.0 g/dL) 3.2 L Hematology CBC w Diff NO MAN DIFF REQ WBC (4.8 - 10.8 /CUMM) 5.3 RBC (4.70 - 6.10 /CUMM) 3.79 L Hgb (14.0 - 18.0 G/DL) 11.5 L Hct (42 - 52 %) 33.7 L MCV (80.0 - 94.0 FL) 88.9 MCH (27.0 - 31.0 PG) 30.2 RDW (11.5 - 14.5 %) 13.7 Plt Count (130 - 400 /CUMM) 131 MPV (7.4 - 10.4 FL) 7.7 Gran % (42.2 - 75.2 %) 65.8 Lymphocytes % (20.5 - 51.1 %) 22.4 Monocytes % (1.7 - 9.3 %) 9.0 Eosinophils % (0 - 5 %) 2.4 Basophils % (0.0 - 2.0 %) 0.4 Absolute Granulocytes (1.4 - 6.5 /CUMM) 3.5 Absolute Lymphocytes (1.2 - 3.4 /CUMM) 1.2 Absolute Monocytes (0.10 - 0.60 /CUMM) 0.5 Absolute Eosinophils (0.0 - 0.7 /CUMM) 0.1 Absolute Basophils (0.0 - 0.2 /CUMM) 0 PUBS MCHC (33.0 - 37.0 G/DL) 34.0 Assessment/Plan Assessment/Recommendations: Mr. Morales is a 70-year-old man with CAD s/p 2 stent (1997), partial right nephrectomy(2006), HTN, and HLD who presents to the hospital with nausea, vomiting, shortness of breath, and generally feeling sick. He was recently hospitalized from 03/30 to 03/31/2016 for shortness of breath, cough, and left flank pain. During the hospitalization, CT of the chest demonstrated an irregular 2.3 x 2.9 cm subpleural nodule in the medial basal segment of the right lower lobe. There were bilateral pulmonary nodules likely represent metastases and there are multiple hepatic metastases. The right lower lobe bronchus is compressed by surrounding lymphadenopathy/tumor and there is extensive mediastinal lymphadenopathy. He likely has metastatic disease of pulmonary origin given his tobacco use history. Patient will need tissue biopsy to determine etiology. Liver biopsy would be the best option for the patient. He is currently being treated for potentially postobstructive pneumonia. He is afebrile. He denies any new symptoms. He has no neurological symptoms at the moment. Recommendations: 1. IR for biopsy of liver mass 2. Follow up as outpatient to discuss pathology 3. If new neurological symptoms, would obtain brain MRI to evaluate for metastatic disease Please call [phone] with any questions or concerns. Problem List: 1. Metastatic disease
[2016-04-09 11:31] LABS: PT 13.5 SEC (9.4-12.5); PTT 29 SEC (25-37)
[2016-04-09 17:16] VITALS: BP 122/78
[2016-04-10 01:02] VITALS: BP 170/86
[2016-04-10 01:46] VITALS: BP 149/105
[2016-04-10 07:06] VITALS: BP 131/71
--- NOTE | 2016-04-10 07:21 | PN- Housestaff ---
JACINDA ALLAN 04/10/16 0720: Subjective Follow-up For: abdominal pain liver mets Subjective: I have seen and examined the patient. He still has ke LUQ abdominal pain. patient had a bowel movement. we will increase the dilaudid to 1 mg Q3. Review of Systems Constitutional: Reports: see HPI. Objective Last 24 Hrs of Vital Signs/I&O Vital Signs Date Time Temp Pulse Resp B/P Pulse O2 O2 Flow FiO2 Ox Delivery Rate 04/10 0706 83 131/71 04/10 0146 149/105 04/10 0102 97.2 84 18 170/86 94 04/09 1928 94 Room Air Room Air 04/09 1716 97.6 88 20 122/78 92 04/09 0913 Room Air Room Air 04/09 0913 93 Room Air Room Air 04/09 0846 88 122/70 04/09 0845 88 122/70 04/09 0845 88 122/70 04/09 0837 98.1 88 20 122/70 93 Room Air Intake & Output 04/10 1600 04/10 0800 04/10 0000 Intake Total 700 Output Total Balance 700 Intake, Oral 700 Physical Exam General Appearance: Alert, Oriented X3, Cooperative, No Acute Distress Cardiovascular: Regular Rate, No Murmurs Lungs: decreased breath sounds on the right Abdomen: Normal Bowel Sounds, Soft, moderate to severe tenderness under the left rib cage Extremities: No Clubbing, No Cyanosis, No Edema, Normal Pulses, No Tenderness/ Swelling Current Medications: Current Medications Sig/Noemí Start time Last Medication Dose Route Stop Time Status Admin Albuterol Sulfate 3 ML BID 04/09 1000 AC 04/09 INH 1927 Amlodipine Besylate 5 MG DAILY 04/08 1000 AC 04/09 PO 0845 Ascorbic Acid 250 MG DAILY 04/08 1000 AC 04/09 PO 0846 Atorvastatin Calcium 10 MG 1700 04/08 1700 AC 04/09 PO 1716 Azithromycin 500 MG Q24H 04/09 1015 DC Sodium Chloride 250 ML IV Cyanocobalamin 1,000 MCG DAILY 04/09 1522 AC 04/09 PO 2101 Dextrose/Sodium 1,000 ML Q20H 04/10 0600 DC Chloride IV Dextrose/Sodium 1,000 ML Q20H 04/10 0130 AC 04/10 Chloride IV 0219 Guaifenesin 600 MG Q12 04/09 1000 AC 04/09 PO 2101 Heparin Sodium 5,000 UNIT Q8 04/08 1400 DC 04/09 (Porcine) SC 04/09 2000 140 Hydromorphone HCl 1 MG Q3P PRN 04/10 0730 AC 04/10 IV 0733 Hydromorphone HCl 0.8 MG Q4P PRN 04/09 0915 DC 04/10 IV 0421 Hydromorphone HCl 0.4 MG Q4P PRN 04/08 1000 DC 04/09 IV 0537 Insulin Aspart 0 TIDAC 04/08 1200 DC SC 04/10 0400 Insulin Human Regular 0 Q6 04/10 0600 AC 04/10 SC 0613 Losartan Potassium 100 MG DAILY 04/09 1000 AC 04/09 PO 0845 Metoprolol Succinate 100 MG DAILY 04/08 1000 AC 04/09 PO 0846 Ondansetron HCl 4 MG Q6P PRN 04/08 1445 AC 04/08 IV 2134 Polyethylene Glycol 17 GM DAILY 04/08 1433 DC 04/09 PO 0842 Senna/Docusate Sodium 1 TAB BID PRN 04/08 1145 AC 04/08 PO 2130 Thiamine HCl 100 MG DAILY 04/08 1000 AC 04/09 PO 0846 Assessment/Plan Assessment: 70-year-old man with past medical history of hypertension, partial right nephrectomy(2006), CAD with 2(1997) stents off aspirin for possible biopsy , hyperlipidemia, recently found lung mass with liver metastasis, heavy smoker quit about 10 days ago , recently discharged from the hospital with diagnosis of diverticulitis came back to the hospital with chief complaint of nausea, 2 times vomiting, shortness of breath and not feeling good. Patient reporting the morning he felt a pressure in his chest and dizzy and shortness of breath and had 2 episodes of nausea and vomiting. Patient denies any LOC, excessive cough, phlegm production, changes in urinary habits. Vital signs on admission were stable, no fevers, good o2 saturation on room air Hemoglobin 2.6, AST 92, ALP 214, albumin 3.3, amylase 370, lipase 2537 Dimer is 4384 Chest x-ray showed possible postobstructive pneumonia CT scan of the abdomen and chest did not show any major changes since last scan But cannot rule out the postobstructive pneumonia. EKG sinus rhythm, with PVCs, QTC 471, heart rate 94, no acute ST_T changes comparing to previous EKG Assessment and plan post obstructive pneumonia versus lung mass * dc ceftriaxone and azithromycin , no fevers, elevated WBC * Try to get sputum cultures * Urine Legionella and and strep antigen * patient to get ultrasound-guided liver biopsy possibly today * Outpatient follow-up with * No subcutaneous heparin today Nausea, vomiting, abdominal pain/diverticulitis/elevated lipase * Zofran for nausea * NPO from midnight for liver biopsy with IV fluids * No evidence of pancreatitis in the CT scan , * IV Dilaudid for pain, dose is increased * decrease the bowel regemin for now to Senna PRN * No need to continue Flagyl and ciprofloxacin * Will monitor LFTs: Trending up Diabetes * Sliding scale insulin(Novolin for tomorrow because patient is NPO) * Accu-Cheks 3 times a day HTN, hyperlipidemia * Continue statin, Cozaar, metoprolol, amlodipine DVT prophylaxis mechanical and subcutaneous heparin, diabetic diet, IV Dilaudid for pain, full code Problem List: 1. Metastatic disease Pain Ratin Pain Location: under the left rib cage Pain Goal: Pain 4 or less Pain Plan: increase Tomorrow's Labs & Rationales: bep cbc lung mets BRIAN JONES,REE 04/10/16 0958: Attending MD Review Statement Attending Statement Attending MD Statement: examined this patient, discuss w/resident/PA/ADULT EDUCATION MANAGER, agreed w/resident/PA/ADULT EDUCATION MANAGER, reviewed EMR data (avail), discussed with nursing Attending Assessment/Plan: Pt continues to have a lot of pain and the dilaudid needed to be increased to 1 mg. The etiology of his pain is unclear as it's primarily on the left upper quadrant under the left rib cage. He has a history of nephrectomy, coronary artery disease with stents in the remote past who now has a lung mass with possible liver metastases. The plan is an IR guided biopsy today. He got 1 dose of Motrin 400 mg on 04/08 but I believe, in my medical opinion, the benefits of doing the biopsy outweigh the risks of bleeding. His coags and platelets are normal and I don't believe the one dose of Motrin will cause any issues. I am worried as to the cause of his ongoing pain and the high LFTs and will call GI to see him.
[2016-04-10 08:06] LABS: ABSOLUTE BASOPHIL COUNT 0 /CUMM (0.0-0.2); ABSOLUTE EOSINOPHIL COUNT 0.1 /CUMM (0.0-0.7); ABSOLUTE LYMPH COUNT 1.3 /CUMM (1.2-3.4); ABSOLUTE MONOCYTE COUNT 0.4 /CUMM (0.10-0.60); BASOPHIL % 0.5 % (0.0-2.0); EOSINOPHIL % 2.2 % (0-5); GRANULOCYTE % 67.2 % (42.2-75.2); HEMATOCRIT 35.2 % (42-52); MEAN CORPUSCULAR HGB 30.4 PG (27.0-31.0); MEAN CORPUSCULAR HGB CONC 33.8 G/DL (33.0-37.0); MEAN CORPUSCULAR VOLUME 89.9 FL (80.0-94.0); MEAN PLATELET VOLUME 7.7 FL (7.4-10.4); PLATELET COUNT 144 /CUMM (130-400); RBC DISTRIBUTION WIDTH 13.5 % (11.5-14.5); RED BLOOD CELL CT 3.91 /CUMM (4.70-6.10); WHITE BLOOD CELL COUNT 5.9 /CUMM (4.8-10.8)
[2016-04-10 08:17] VITALS: BP 130/60
--- NOTE | 2016-04-10 10:59 | Discharge Summary ---
Visit Information Visit Dates Admission Date: 04/08/16 Discharge Date: 04/14/16 Hospital Course Course Attending Physician: BRIAN JONES,REE Jane Primary Care Physician: MELISSA JONES,PANCHO Zaman Consulting Request: Consulting Specialty: Hematology/Oncology Consulting Physician: Dr CABALLERO Reason for Consult: lung mass with liver mass Hospital Course: 70-year-old man with past medical history of hypertension, partial right nephrectomy(2006), CAD with 2(1997) stents off aspirin for possible biopsy , hyperlipidemia, recently found lung mass with liver metastasis, heavy smoker quit about 10 days ago , recently discharged from the hospital with diagnosis of diverticulitis came back to the hospital with chief complaint of nausea, 2 times vomiting, shortness of breath and not feeling good. Patient reported that in the morning he felt a pressure in his chest and dizzy and shortness of breath and had 2 episodes of nausea and vomiting. Patient denied any LOC, excessive cough, phlegm production, changes in urinary habits. Vital signs on admission were stable, no fevers, good o2 saturation on room air Hemoglobin 2.6, AST 92, ALP 214, albumin 3.3, amylase 370, lipase 2537 Dimer is 4384 Physical Exam General Appearance Alert, Oriented X3, Cooperative, No Acute Distress Cardiovascular Regular Rate, No Murmurs Lungs reduced breath sounds on the right lung Abdomen Normal Bowel Sounds, Soft, tenderness under the left rib cage, no rebound Extremities No Clubbing, No Cyanosis, No Edema Chest x-ray showed possible postobstructive pneumonia CT scan of the abdomen and chest did not show any major changes since last scan But cannot rule out the postobstructive pneumonia. EKG sinus rhythm, with PVCs, QTC 471, heart rate 94, no acute ST_T changes comparing to previous EKG Assessment and plan #post obstructive pneumonia versus lung mass(with liver mets) he was initially received ceftriaxone and azithromycin, however we stopped it once we reviewed the results of the CT scan. .Urine Legionella and and strep antigenwere negative. Subsequently, he underwent liver biopsy of the metatstaic lesion. While we were awaiting the biopsy results the ongoing issue was abdominal pain. Transition him from short-acting opiates to fentanyl patch and oral dilaudid Patient pain was treated with fentanyl patch 50 micgm and oral dilaudid. He should follow up with Hem/Onc in an outpatient setting. * Dr. Mosley has already been called and the patient's has scheduled an appointment to see him to go over the biopsy results. Nausea, vomiting, abdominal pain/elevated lipase Initially patient had midly elevated LFTs and lipase. lipase trended down during the hositalization but LFTs remained mildly elevated. The etiology of this ongoing abdominal pain was unclear. The pain was in the left upper quadrant his left rib cage. His lung mass was on the right side and the liver lesions were on the right side. We did call GI to see him with the patient was very unclean on seeing multiple doctors. He felt that there were too many doctors involved in his care and his primary priority was to see Dr. Oreilly. Later on we felt the pain was probably due to severe constipation which he was developing from the ongoing opiate use and we prescribed a very active bowel regimen. On April 14 he was stable to leave. He is going to leave on the high-dose opiates with a bowel regimen. I went over at length with him and his the likely diagnosis of metastatic lung CA, and the overall poor prognosis. I also went over the side effects off the opiate medications including constipation and respiratory depression. They understand the need for close follow-up specifically to follow-up on the results of the biopsy. I set him up with visiting nurse service and home health services. TTS coordinating dc was 38 minutes Allergies: Coded Allergies: Iodinated Contrast Media - Oral and (UNKNOWN 03/30/16) Disposition Summary Disposition Principal Diagnosis: Probable Lung carcinoma with liver metastases (biopsy results pending) Additional Diagnosis: Hypertension Diabetes Left upper quadrant abdominal pain and constipation Discharge Disposition: home health services Discharge Instructions General Discharge Information Code Status: Full Code Patient's Diet: Low fiber, diabetic Patient's Activity: As tolerated Follow-Up Instructions/Appts: -Please follow-up with your primary care provider within 7 days after discharge. -Please follow-up with your oncologist within 7 days after discharge. -We have made changes to your home medications, please read the instructions carefully. -Please come back to the hospital if your symptoms got worse. Medications at Discharge Discharge Medications: Stop taking the following medications: Ciprofloxacin HCl (Cipro) 500 MG TABLET ORAL TWICE DAILY Days = 9 Metronidazole (Flagyl) 500 MG TABLET ORAL TWICE DAILY Days = 9 Continue taking these medications: Metformin HCl (Metformin HCl) 500 MG TABLET 1 Tablet ORAL TWICE DAILY Qty = 60 Comments: Last Taken:NOT GIVEN IN HOSPITAL Time: Simvastatin (Simvastatin*) 20 MG TABLET 1 Tablet ORAL Every night Qty = 90 Comments: NOT GIVEN IN HOSPITAL ALTERNATIVE, LIPITOR Last Taken:04/13/16 Time: 4 PM Amlodipine Besylate (Amlodipine Besylate) 5 MG TABLET 1 Tablet ORAL DAILY Qty = 90 Comments: Last Taken:04/22/16 Time: 1000 Losartan Potassium (Losartan Potassium) 100 MG TABLET 1 Tablet ORAL DAILY Qty = 100 Comments: Last Taken:04/22/16 Time: 1000 Aspirin (Ecotrin*) 81 MG TABLET.DR 1 Tablet ORAL DAILY Days = 30 Comments: Last Taken:04/22/16 Time:1000 Multivitamin (Multi-Day Vitamins) 1 EACH TABLET 1 Tablet ORAL DAILY Comments: NOT GIVEN Start taking the following new medications: Fentanyl Citrate (Duragesic) 50 MCG/HOUR PATCH.TD72 50 Microgram On the skin Q72H Qty = 10 No Refills Comments: Last Taken:04/14/16 Time: 12 PM Polyethylene Glycol 3350 (Miralax) 17 GRAM/DOSE POWDER 17 Gram ORAL DAILY Days = 28 No Refills Comments: Last Taken:04/21/16 Time:1000 Sennosides/Docusate Sodium (Senna Plus Tablet) 8.6 MG-50 MG TABLET 1 Tablet ORAL TWICE DAILY as needed for CONSTIPATION Days = 28 No Refills Comments: Last Taken:04/22/16 Time:1230 PM Albuterol Sulfate (Proair Hfa) 90 MCG HFA.AER.AD 2 Puff Inhale through mouth EVERY 4-6 HOURS NEEDED as needed for COPD Qty = 1 No Refills Comments: ALBUTEROL NEB TX GIVEN IN HOSPITAL Last Taken: Time: NOT GIVEN IN HOSPITAL Ondansetron (Zofran Odt) 4 MG TAB.RAPDIS 1 Tablet SUBLINGUAL THREE TIMES DAILY as needed for NAUSEA Qty = 10 No Refills Comments: IV ZOFRAN GIVEN IN HOSPITAL Last Taken:04/08/16 Time: 9:30 PM Copies To: OLLIE CABALLERO MD; HILLARY JONES,EDA Jane; TAD JONES,IGNACIO Nogueira; MELISSA JONES,PANCHO Zaman Attending MD Review Statement Documenting Attending: REE TORRES MD Last Taken:04/08/16 Time: 9:30 PM Copies To: OLLIE CABALLERO MD; IGNACIO MISHRA MD; PANCHO TORRES MD. Copies To: OLLIE CABALLERO MD; IGNACIO MISHRA MD; PANCHO TORRES MD
[2016-04-10 16:48] VITALS: BP 114/82
--- NOTE | 2016-04-10 17:40 | ULTRASOUND REPORT ---
CLINICAL HISTORY: This patient is a 70 years old Male with multiple liver masses, suspect to be metastatic lung cancer, who presents to interventional radiology for percutaneous liver biopsy. PROCEDURE: 1. Limited sonographic evaluation of the liver. 2. Ultrasound-guided targeted needle biopsy of one of the right-sided liver lesions. PHYSICIANS: Dr. Brandi Mills (attending). MONITORING: The procedure was performed with conscious sedation and analgesia under my direct supervision. Continuous blood pressure, pulse oximetry as well as heartrate monitoring was performed by an independent registered nurse. Physician intraservice sedation time was 25 minutes. MEDICATIONS: 1. 2 mg of Versed and 100 micrograms of fentanyl were administered. 2. 10 mL of 1% lidocaine SQ. COMPLICATIONS: None. ESTIMATED BLOOD LOSS: <50 mL. SPECIMENS: Fine-needle aspiration. CONTRAST: None. PROCEDURE NOTE: Informed consent was obtained from the patient prior to the procedure. During this process, the procedure and potential alternatives were explained along with the intended outcome and benefits. The risks of the procedure, including the possibility of an unsuccessful procedure, as well as the risk of not doing the procedure, were discussed. The patient was given the opportunity to ask questions regarding the procedure and appeared competent to make decisions. A signed consent form documenting this discussion was placed in the medical record. A time-out procedure was performed. The patient was placed supine on the procedure table. The right upper abdomen was prepped and draped in the usual sterile fashion. Focal ultrasound of the right liver was performed to access for an approach. Local anesthetic with lidocaine was administered under ultrasound guidance. Under ultrasound guidance, a 20-gauge Hiwot needle was advanced into one of the liver lesions and an aspiration was performed. Initial cytological evaluation indicated an excellent diagnostic specimen. Manual pressure was applied to the track until hemostasis was achieved. FINDINGS: 1. Successful fine-needle aspiration biopsy of the right-sided liver lesion. 2. No hepatic hematoma or subcapsular hematoma after removal of the biopsy needle. IMPRESSION: Successful core needle biopsy of a right liver lesion. PLAN: 1. The patient was stable after the procedure and was transferred to the interventional recovery area for observation. The patient will be transferred to the floor. 2. Patient will be instructed to lay on the site of biopsy for 1 hour to minimize risk of subcapsular hematoma. 3. Fine-needle aspiration biopsy samples were sent to pathology.
--- NOTE | 2016-04-10 21:30 | Event Note ---
Event Note Event Note: I was asked to see this patient for abdominal pain and abnormal liver function tests. However, the patient declined the consultation. He stated that it was unexpected, and unnecessary. Please reconsult the gastroenterology service`if the situation changes. Thank you.
[2016-04-11 00:26] VITALS: BP 142/82
--- NOTE | 2016-04-11 07:31 | PN- Housestaff ---
JACINDA ALLAN 04/11/16 0731: Subjective Follow-up For: Lung cancer with liver metastases Abdominal pain Elevated liver enzymes Subjective: I have seen and examined the patient. Patient underwent liver biopsy yesterday with no complications. Patient did not want to see GI yesterday but possibly we will reconsult GI today. Patient also requested master barber. Vital Signs are stable. Review of Systems Constitutional: Reports: see HPI. Objective Last 24 Hrs of Vital Signs/I&O Vital Signs Date Time Temp Pulse Resp B/P Pulse O2 O2 Flow FiO2 Ox Delivery Rate 04/11 0818 97.9 84 20 130/70 94 Room Air 04/11 0800 92 Room Air 04/11 0026 97.5 89 20 142/82 92 04/10 1648 97.7 89 20 114/82 93 04/10 1540 93 Room Air 04/10 1153 93 Room Air 04/10 1000 90 130/60 04/10 1000 90 130/60 04/10 0959 90 130/60 Intake & Output 04/11 1600 04/11 0800 04/11 0000 Intake Total Output Total 200 750 Balance -200 -750 Output, Urine 200 750 Physical Exam General Appearance: Alert, Oriented X3, Cooperative Other Physical Findings: Cardiovascular: Regular Rate, No Murmurs Lungs: decreased breath sounds on the right Abdomen: Normal Bowel Sounds, Soft, moderate tenderness under the left rib cage Extremities: No Clubbing, No Cyanosis, No Edema, Normal Pulses, No Tenderness/ Swelling Current Medications: Current Medications Sig/Noemí Start time Last Medication Dose Route Stop Time Status Admin Albuterol Sulfate 3 ML BID 04/09 1000 AC 04/10 INH 2040 Amlodipine Besylate 5 MG DAILY 04/08 1000 AC 04/10 PO 1000 Ascorbic Acid 250 MG DAILY 04/08 1000 AC 04/10 PO 0959 Atorvastatin Calcium 10 MG 1700 04/08 1700 AC 04/10 PO 1752 Cyanocobalamin 1,000 MCG DAILY 04/09 1522 AC 04/10 PO 1001 Dextrose/Sodium 1,000 ML Q20H 04/10 0130 DC 04/10 Chloride IV 0219 Guaifenesin 600 MG Q12 04/09 1000 AC 04/10 PO 2058 Hydromorphone HCl 1 MG Q3P PRN 04/10 0730 AC 04/11 IV 0831 Insulin Aspart 0 TIDAC 04/10 1700 AC 04/10 SC 1757 Insulin Human Regular 0 Q6 04/10 0600 DC 04/10 SC 1221 Lidocaine 1 ML .STK-MED ONE 04/10 1528 DC ID 04/10 1529 Losartan Potassium 100 MG DAILY 04/09 1000 AC 04/10 PO 0959 Metoprolol Succinate 100 MG DAILY 04/08 1000 AC 04/10 PO 1000 Ondansetron HCl 4 MG Q6P PRN 04/08 1445 AC 04/08 IV 2134 Senna/Docusate Sodium 1 TAB BID PRN 04/08 1145 AC 04/11 PO 0002 Sodium Bicarbonate 50 MEQ .STK-MED ONE 04/10 1528 DC OTHER 04/10 1529 Thiamine HCl 100 MG DAILY 04/08 1000 AC 04/10 PO 0959 Last 24 Hrs of Lab/Wiliam Results Last 24 Hrs of Labs/Mics: Laboratory Tests 04/11/16 0700: Anion Gap 7, Estimated GFR > 60, BUN/Creatinine Ratio 13.0, Total Bilirubin 0.5, Direct Bilirubin 0.4, AST 141 H, ALT 93 H, Alkaline Phosphatase 275 H, Total Protein 6.1 L, Albumin 3.1 L, CBC w Diff NO MAN DIFF REQ, RBC 3.82 L, MCV 89.3, MCH 30.6, RDW 13.5, MPV 7.4, Gran % 67.9, Lymphocytes % 20.6, Monocytes % 9.0, Eosinophils % 2.1, Basophils % 0.4, Absolute Granulocytes 4.3, Absolute Lymphocytes 1.3, Absolute Monocytes 0.6, Absolute Eosinophils 0.1, Absolute Basophils 0, PUBS MCHC 34.2 Assessment/Plan Assessment: 70-year-old man with past medical history of hypertension, partial right nephrectomy(2006), CAD with 2(1997) stents off aspirin for possible biopsy , hyperlipidemia, recently found lung mass with liver metastasis, heavy smoker quit about 10 days ago , recently discharged from the hospital with diagnosis of diverticulitis came back to the hospital with chief complaint of nausea, 2 times vomiting, shortness of breath and not feeling good. Patient reporting the morning he felt a pressure in his chest and dizzy and shortness of breath and had 2 episodes of nausea and vomiting. Patient denies any LOC, excessive cough, phlegm production, changes in urinary habits. Vital signs on admission were stable, no fevers, good o2 saturation on room air Hemoglobin 2.6, AST 92, ALP 214, albumin 3.3, amylase 370, lipase 2537 Dimer is 4384 Chest x-ray showed possible postobstructive pneumonia CT scan of the abdomen and chest did not show any major changes since last scan But cannot rule out the postobstructive pneumonia. EKG sinus rhythm, with PVCs, QTC 471, heart rate 94, no acute ST_T changes comparing to previous EKG Assessment and plan post obstructive pneumonia versus lung mass * dc ceftriaxone and azithromycin , no fevers, normal WBC * Try to get sputum cultures * Urine Legionella and and strep antigen: Negative * Status post liver biopsy * Outpatient follow-up with * No subcutaneous heparin today, will restart tomorrow Nausea, vomiting, abdominal pain/diverticulitis/elevated lipase * Zofran for nausea * No evidence of pancreatitis in the CT scan * IV Dilaudid for pain, dose is increased + we will start the patient on 12 mg fentanyl patch * decrease the bowel regemin for now to Senna PRN * No need to continue Flagyl and ciprofloxacin * Will monitor LFTs: Plateaued today * Psych consult since patient is overwhelmed * pastural care Diabetes * Sliding scale insulin * Accu-Cheks 3 times a day * Blood sugars are controlled HTN, hyperlipidemia * Continue statin, Cozaar, metoprolol, amlodipine DVT prophylaxis mechanical and subcutaneous heparin, diabetic diet, IV Dilaudid for pain, full code Problem List: 1. Metastatic disease Pain Ratin Pain Location: left rib cage Pain Goal: Pain 4 or less Pain Plan: same, may change to PO dilauid or fentanyl patch Tomorrow's Labs & Rationales: cbc bEP Consulting Request: Consulting Specialty: Hematology/Oncology Consulting Physician: Dr CABALLERO Reason for Consult: lung mass with liver mass REE TORRES MD 04/11/16 0950: Attending MD Review Statement Attending Statement Attending MD Statement: examined this patient, discuss w/resident/PA/CASTING ROOM HELPER, agreed w/resident/PA/CASTING ROOM HELPER, reviewed EMR data (avail), discussed with nursing Attending Assessment/Plan: Patient still continues to have severe pain. His pain is all in the left upper quadrant and left lower chest area. He is getting the IV dilaudid and today we spoke to him about transitioning him to a fentanyl patch. With the hope of requiring less IV dilaudid. If he can get his pain under control and his constipation well treated and the plan will be discharge over the weekend. He is going to see the oncologist on Apr to follow-up on the biopsy results.
[2016-04-11 08:05] LABS: ABSOLUTE BASOPHIL COUNT 0 /CUMM (0.0-0.2); ABSOLUTE EOSINOPHIL COUNT 0.1 /CUMM (0.0-0.7); ABSOLUTE GRANULOCYTE CT 4.3 /CUMM (1.4-6.5); ABSOLUTE LYMPH COUNT 1.3 /CUMM (1.2-3.4); ABSOLUTE MONOCYTE COUNT 0.6 /CUMM (0.10-0.60); BASOPHIL % 0.4 % (0.0-2.0); EOSINOPHIL % 2.1 % (0-5); GRANULOCYTE % 67.9 % (42.2-75.2); HEMATOCRIT 34.1 % (42-52); MEAN CORPUSCULAR HGB 30.6 PG (27.0-31.0); MEAN CORPUSCULAR HGB CONC 34.2 G/DL (33.0-37.0); MEAN CORPUSCULAR VOLUME 89.3 FL (80.0-94.0); MEAN PLATELET VOLUME 7.4 FL (7.4-10.4); PLATELET COUNT 139 /CUMM (130-400); RBC DISTRIBUTION WIDTH 13.5 % (11.5-14.5); RED BLOOD CELL CT 3.82 /CUMM (4.70-6.10); WHITE BLOOD CELL COUNT 6.3 /CUMM (4.8-10.8)
[2016-04-11 08:18] VITALS: BP 130/70
--- NOTE | 2016-04-11 09:02 | Patient Discharge Instructions ---
Discharge Instructions General Discharge Information You were seen/treated for: Abdominal pain and nausea and vomiting Chest pain Elevated liver enzymes Malignancy in the lung with metastasis to the liver You had these procedures: Liver biopsy Special Instructions: -Please follow-up with your primary care provider within 7 days after discharge. -Please follow-up with your oncologist within 7 days after discharge. -We have made changes to your home medications, please read the instructions carefully. -Please come back to the hospital if your symptoms got worse. Diet Recommended Diet: Diabetic Activity Full Activity/No Limits: Yes (as tolerated) Acute Coronary Syndrome Inclusion Criteria At DC or during hospital stay patient has or had the following: ACS DIAGNOSIS No Discharge Core Measures Meds if any: Prescribed or Continued at Discharge Meds if any: NOT Prescribed or Continued at Discharge Congestive Heart Failure Inclusion Criteria At DC or during hospital stay patient has or had the following: CHF DIAGNOSIS No Discharge Core Measures Meds if any: Prescribed or Continued at Discharge Meds if any: NOT Prescribed or Continued at Discharge Cerebrovascular accident Inclusion Criteria At DC or during hospital stay patient has or had the following: CVA/TIA Diagnosis No Discharge Core Measures Meds if any: Prescribed or Continued at Discharge Meds if any: NOT Prescribed or Continued at Discharge Venous thromboembolism Inclusion Criteria VTE Diagnosis No VTE Type NONE VTE Confirmed by (Test) NONE Discharge Core Measures - Per Current guidelines, there needs to be overlap - treatment for the first 5 days of Warfarin therapy. - If discharged on Warfarin prior to 5 days of - overlap therapy, the patient will need to be - assessed for post discharge needs including - *Post discharge parental anticoagulation - *Warfarin and/or parental anticoagulation education - *Follow up date to check INR post discharge At least 5 days overlap therapy as Inpatient No Meds if any: Prescribed or Continued at Discharge Note: Overlap Therapy is Warfarin and Anticoagulant Meds if any: NOT Prescribed or Continued at Discharge
[2016-04-11 16:06] VITALS: BP 138/72
--- NOTE | 2016-04-11 19:15 | Cons- Psychiatry ---
See Addendum Psychiatric Consult Date of Consult: 04/11/16 Reason for Consult: "Newly found possible lung cancer with metastases. Patient is overwhelmed with news, we appreciate your in port better cope" History of Present Illness: 70-year-old male presented to the ED on 04/08/2016 at 0720, reporting that he felt hot and dizzy, complaining of abdominal pain and chest pain earlier in the day. The patient stated that he had recently been diagnosed with cancer the previous week, and was to follow up with Dr. Mosley in April. Allergies: Coded Allergies: Iodinated Contrast Media - Oral and (UNKNOWN 03/30/16) Current Medications: The patient currently has no prescribed psychotropic medications. Past History Past Medical History Neurological: NONE EENT: NONE Cardiovascular: hypertension, hyperlipidemia, myocardial infarction, STENTS Respiratory: bronchitis Gastrointestinal: diverticulitis Hepatic: NONE Renal: right partial nephrectomy Musculoskeletal: NONE, disk herniation Psychiatric: anxiety Endocrine: BORDERLINE DIABETIC Blood Disorders: NONE Cancer(s): BENIGN KIDNEY TUMOR ASSET AVAILABILITY LEADER/Reproductive: NONE Past Surgical History Surgical History: PARTIAL RIGHT NEPHRECTOMY L4-L5 DISCECTOMY, UMBILICAL TUMOR BURST WHEN HE WAS 8YRS OLD Psychosocial History Strengths/Capabilities: Motivated for treatment, and 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 Psychiatric Treatment History Psych Treatment Psychiatric Treatment No (denies) Risk Factors: age (under 24/over 65), male Substance Use/Abuse History Drug Use/Abuse Substances Used/Abused No (denies) Substance Abuse Treatment Substance Abuse Treatment Past Substance Abuse [place] No Assessment/Plan Mental Status Mental Status Exam: The patient is alert and oriented. His supportive spouse, Adeline, is present, at the patient's request. He reports his current level of anxiety as 4-5/10, and depression as 2-3/10; 10/10 would be the most severe in this scaling system. He denies feelings of hopelessness and worthlessness, but endorses helplessness. The patient's insight and judgment are intact, and he reports that he is quitting smoking, in light of his new cancer. He states that he does not use street or recreational drugs, and reports that he has a meeting with some friends every Sourav afternoon for several beers, and then goes home; this is corroborated by his spouse. He is concerned that his , who is disabled and unable to work, and has a history of depression, will need his financial support, since her treatments are not supported by insurance. The patient and his have an adopted daughter, who lives in [place], and who comes to visit frequently. The spouse reports that the patient has a history of anxiety, and that occasionally, she shares a lorazepam with him, which helps him get to sleep. They verbalize understanding that there are better solutions for insomnia, including melatonin, which I will last the medical team to order as a trial. He denies suicidal or homicidal ideation, and denies any history of suicide attempts. Diffential Diagnosis: Adjustment disorder Rule out anxiety disorder Rule out major depressive disorder, single event Impression: The patient is in agreement to come to [facility] outpatient psychiatry, and an appointment has been procured for him; the information, repeated below, was put on a business card and given to the patient's spouse. We do not recommend any psychotropic intervention at this moment, with the exception of a trial of melatonin 3-5 mg before bed to help with insomnia. All labs were reviewed. EKG of 04/08/2016 at 0619 shows sinus rhythm, 94 BPM, QTC 471 ms, with a PVC noted every sixth beat. Provisional Treatment Plan: 1. Intake appointment at [facility] outpatient psychiatry on April 23 at 245 p.m., at [address], [place] The patient has been instructed to bring his photo ID an insurance cards. 2. No psychotropic interventions at this time. Thank you for asking us to participate in Tommie's care. We do not anticipate further visits, as we expect the patient will discharge over the weekend. Vick Quevedo APRN, pager [phone].
[2016-04-12 00:41] VITALS: BP 126/88
[2016-04-12 08:00] VITALS: BP 124/80
[2016-04-12 08:42] LABS: ABSOLUTE BASOPHIL COUNT 0 /CUMM (0.0-0.2); ABSOLUTE EOSINOPHIL COUNT 0.1 /CUMM (0.0-0.7); ABSOLUTE GRANULOCYTE CT 4.2 /CUMM (1.4-6.5); ABSOLUTE LYMPH COUNT 1.3 /CUMM (1.2-3.4); ABSOLUTE MONOCYTE COUNT 0.5 /CUMM (0.10-0.60); BASOPHIL % 0.5 % (0.0-2.0); EOSINOPHIL % 1.9 % (0-5); GRANULOCYTE % 68.5 % (42.2-75.2); HEMATOCRIT 33.8 % (42-52); MEAN CORPUSCULAR HGB 30.5 PG (27.0-31.0); MEAN CORPUSCULAR HGB CONC 34.3 G/DL (33.0-37.0); MEAN CORPUSCULAR VOLUME 88.9 FL (80.0-94.0); MEAN PLATELET VOLUME 7.5 FL (7.4-10.4); PLATELET COUNT 139 /CUMM (130-400); WHITE BLOOD CELL COUNT 6.1 /CUMM (4.8-10.8)
--- NOTE | 2016-04-12 09:22 | PN- Housestaff ---
KAREN ACHARYA 04/12/16 0921: Subjective Follow-up For: Lung cancer with liver metastases Abdominal pain Elevated liver enzymes Complaints: left sided abdominal pain Subjective: Patient was seen and examined this morning. He was lying comfortable in bed as he had IV Dilaudid given earlier. He still complaining of left-sided abdominal pain and needs to get IV Dilaudid every 3 hours. At this moment his pain worse 3 out of 10 and his abdomen is tender also. He remains afebrile with normal vital signs. He denied nausea and vomiting and able to move around without any complaints. Review of Systems Constitutional: Denies: chills, fever, malaise. Cardiovascular: Denies: chest pain. Respiratory: Denies: cough, orthopnea. Gastrointestinal: Reports: abdominal pain. Genitourinary: Denies: dysuria. Objective Last 24 Hrs of Vital Signs/I&O Vital Signs Date Time Temp Pulse Resp B/P Pulse O2 O2 Flow FiO2 Ox Delivery Rate 04/12 1014 82 124/80 04/12 1014 82 124/80 04/12 1014 82 124/80 04/12 0800 Room Air 04/12 0800 97.6 82 18 124/80 93 Room Air 04/12 0041 97.8 83 19 126/88 94 Room Air 04/12 0000 Room Air 04/11 1910 93 Room Air 04/11 1606 97.8 78 20 138/72 93 04/11 1123 86 138/64 04/11 1122 86 138/64 04/11 1122 86 138/64 Intake & Output 04/12 1600 04/12 0800 04/12 0000 Intake Total 240 360 Output Total Balance 240 360 Intake, Oral 240 360 Output, Urine Physical Exam General Appearance: Alert, Oriented X3, No Acute Distress Cardiovascular: Normal S1, Normal S2, No Murmurs Lungs: Normal Air Movement Abdomen: left sided tenderness, Extremities: No Clubbing, No Cyanosis, No Edema Current Medications: Current Medications Sig/Noemí Start time Last Medication Dose Route Stop Time Status Admin Acetaminophen 650 MG Q4P PRN 04/12 0030 AC PO Albuterol Sulfate 3 ML BID 04/09 1000 AC 04/11 INH 1910 Amlodipine Besylate 5 MG DAILY 04/08 1000 AC 04/12 PO 1014 Ascorbic Acid 250 MG DAILY 04/08 1000 AC 04/12 PO 1014 Atorvastatin Calcium 10 MG 1700 04/08 1700 AC 04/11 PO 1648 Cyanocobalamin 1,000 MCG DAILY 04/09 1522 AC 04/12 PO 1014 Fentanyl Citrate 25 MCG Q72H 04/11 1515 AC 04/11 TOP 1647 Fentanyl Citrate 12 MCG Q72H 04/11 1000 NH 04/11 TOP 1121 Guaifenesin 600 MG Q12 04/09 1000 AC 04/12 PO 1014 Hydromorphone HCl 1 MG Q3P PRN 04/10 0730 AC 04/12 IV 1010 Insulin Aspart 0 TIDAC 04/10 1700 AC 04/10 SC 1757 Losartan Potassium 100 MG DAILY 04/09 1000 AC 04/12 PO 1014 Melatonin 5 MG AT BEDTIME 04/12 2200 UNVr PO Metoprolol Succinate 100 MG DAILY 04/08 1000 AC 04/12 PO 1014 Ondansetron HCl 4 MG Q6P PRN 04/08 1445 AC 04/08 IV 2134 Senna/Docusate Sodium 1 TAB BID PRN 04/08 1145 AC 04/11 PO 0002 Thiamine HCl 100 MG DAILY 04/08 1000 AC 04/12 PO 1014 Last 24 Hrs of Lab/Wiliam Results Last 24 Hrs of Labs/Mics: Laboratory Tests 04/12/16 0653: Anion Gap 9, Estimated GFR > 60, BUN/Creatinine Ratio 14.0, CBC w Diff NO MAN DIFF REQ, RBC 3.80 L, MCV 88.9, MCH 30.5, RDW 14.0, MPV 7.5, Gran % 68.5, Lymphocytes % 21.2, Monocytes % 7.9, Eosinophils % 1.9, Basophils % 0.5, Absolute Granulocytes 4.2, Absolute Lymphocytes 1.3, Absolute Monocytes 0.5, Absolute Eosinophils 0.1, Absolute Basophils 0, PUBS MCHC 34.3 Microbiology 04/11 1305 LOWER RESP: Respiratory Culture - COLB 04/11 1305 LOWER RESP: Gram Stain - COLB Assessment/Plan Assessment: 70-year-old man with past medical history of hypertension, partial right nephrectomy(2006), CAD with 2(1997) stents off aspirin for possible biopsy , hyperlipidemia, recently found lung mass with liver metastasis, heavy smoker quit about 10 days ago , recently discharged from the hospital with diagnosis of diverticulitis came back to the hospital with chief complaint of nausea, 2 times vomiting, shortness of breath and not feeling good. Patient reporting the morning he felt a pressure in his chest and dizzy and shortness of breath and had 2 episodes of nausea and vomiting. Patient denies any LOC, excessive cough, phlegm production, changes in urinary habits. Vital signs on admission were stable, no fevers, good o2 saturation on room air Hemoglobin 2.6, AST 92, ALP 214, albumin 3.3, amylase 370, lipase 2537 Dimer is 4384 Chest x-ray showed possible postobstructive pneumonia CT scan of the abdomen and chest did not show any major changes since last scan But cannot rule out the postobstructive pneumonia. EKG sinus rhythm, with PVCs, QTC 471, heart rate 94, no acute ST_T changes comparing to previous EKG Assessment and plan post obstructive pneumonia versus lung mass * Try to get sputum cultures * Urine Legionella and and strep antigen: Negative * Status post liver biopsy * Outpatient follow-up with * Subcutaneous heparin was started today Nausea, vomiting, abdominal pain/diverticulitis/elevated lipase * Zofran for nausea * No evidence of pancreatitis in the CT scan * IV Dilaudid for pain, dose is increased + we will start the patient on 12 mg fentanyl patch and patient is receiving IV Dilaudid every 3 hours. We will consider to start patient on long acting oral analgesics as well as IV when necessary. * decrease the bowel regemin for now to Senna PRN * No need to continue Flagyl and ciproflo * Psych consult since patient is overwhelmed * pastural care Diabetes * Sliding scale insulin * Accu-Cheks 3 times a day * Blood sugars are controlled HTN, hyperlipidemia * Continue statin, Cozaar, metoprolol, amlodipine DVT prophylaxis mechanical and subcutaneous heparin, diabetic diet, IV Dilaudid for pain, full code Problem List: 1. Metastatic disease Pain Ratin Pain Location: Left abdomen Pain Goal: Pain 4 or less Pain Plan: Dilaudid Tomorrow's Labs & Rationales: CBC, BMP and LFTs Consulting Request: Consulting Specialty: Hematology/Oncology Consulting Physician: Dr CABALLERO Reason for Consult: lung mass with liver mass REE TORRES MD 04/12/16 1314: Attending MD Review Statement Attending Statement Attending MD Statement: examined this patient, discuss w/resident/PA/PATENT CHEMIST, agreed w/resident/PA/PATENT CHEMIST, discussed with family, reviewed EMR data (avail), discussed with nursing Attending Assessment/Plan: Patient is having ongoing pain. The etiology of this pain is really unclear but he takes the Dilaudid every 3hrs [id number]. We started the fentanyl patch and we did 12 and upped it to 25 g but it doesn't seem to be affecting him. I'll order a UA urine culture although I did not appreciate any flank tenderness. I increased her fentanyl patch to 50 g and I also started oral Dilaudid when necessary and asked him to try the oral Dilaudid first before the IV. He has suspected lung cancer with liver metastases and I spoke to him and his at length. The plan is to get the pain under control and discharge him likely Thursday with plan to see Dr. Oreilly in the office early next week. Start Lovenox for DVT prophylaxis and follow closely.
--- NOTE | 2016-04-12 16:10 | RADIOLOGY REPORT ---
EXAMINATION: XR ABDOMEN MULTIPLE VIEWS CLINICAL INDICATION: Abdominal pain. COMPARISON: [facility] from 08/09/2013. Abdomen CT from 04/08/2016. TECHNIQUE: Abdomen, 2 views FINDINGS: Small right pleural effusion. The peribronchial thickening in the medial right lower lobe is suboptimally visualized on this radiographic exam. The bowel gas pattern is normal and gas is seen to level the rectum. No pneumoperitoneum. Atherosclerotic calcification of the aorta and splenic artery. No suspicious bone lesions. IMPRESSION: No acute findings; no evidence of bowel obstruction or pneumoperitoneum.
[2016-04-12 17:07] VITALS: BP 128/70
[2016-04-13 00:36] VITALS: BP 120/72
[2016-04-13 08:08] VITALS: BP 130/80
[2016-04-13 08:11] LABS: ABSOLUTE BASOPHIL COUNT 0 /CUMM (0.0-0.2); ABSOLUTE EOSINOPHIL COUNT 0.1 /CUMM (0.0-0.7); ABSOLUTE GRANULOCYTE CT 3.9 /CUMM (1.4-6.5); ABSOLUTE LYMPH COUNT 1.2 /CUMM (1.2-3.4); ABSOLUTE MONOCYTE COUNT 0.5 /CUMM (0.10-0.60); BASOPHIL % 0.5 % (0.0-2.0); EOSINOPHIL % 2.3 % (0-5); GRANULOCYTE % 67.5 % (42.2-75.2); HEMATOCRIT 33.8 % (42-52); MEAN CORPUSCULAR HGB 30.4 PG (27.0-31.0); MEAN CORPUSCULAR VOLUME 89.3 FL (80.0-94.0); MEAN PLATELET VOLUME 7.4 FL (7.4-10.4); PLATELET COUNT 141 /CUMM (130-400); RBC DISTRIBUTION WIDTH 13.5 % (11.5-14.5); RED BLOOD CELL CT 3.78 /CUMM (4.70-6.10); WHITE BLOOD CELL COUNT 5.8 /CUMM (4.8-10.8)
--- NOTE | 2016-04-13 09:00 | PN- Housestaff ---
[facility] 04/13/16 0859: Subjective Follow-up For: -Metastatic lung cancer -Liver metastasis -Abdominal pain -Elevated liver enzyme Complaints: pain scale (0-10) Subjective: Patient seen and examined at the bedside, he is comfortable in the bed with no acute distress Yesterday his pain management plan was changed to oral medication, fentanyl patch was increased to 50 MCG, patient stated that after his medication changed to oral his pain is improved, he feels longer duration of action compared to IV medication, his left side abdominal pain is improving but right side abdominal pain started to acting up. He thinks severe left-sided abdominal pain overcoming right-sided pain, and now when his left-sided pain controlled he started to feel right-sided pain. He passes all of the gases, yesterday he feels nauseated when he eats his supper but today he ate his breakfast with no nausea. He still feels constipated. No fever, chills, shortness of breath. Review of Systems Constitutional: Reports: no symptoms. EENTM: Reports: no symptoms. Cardiovascular: Reports: no symptoms. Respiratory: Reports: no symptoms. Gastrointestinal: Reports: abdominal pain, constipation. Genitourinary: Reports: no symptoms. Musculoskeletal: Reports: no symptoms. Skin: Reports: no symptoms. Neurological/Psychological: Reports: no symptoms. Hematologic/Endocrine: Reports: no symptoms. Immunologic/Allergic: Reports: no symptoms. Objective Last 24 Hrs of Vital Signs/I&O Vital Signs Date Time Temp Pulse Resp B/P Pulse O2 O2 Flow FiO2 Ox Delivery Rate 04/13 0925 80 130/80 04/13 0924 80 130/80 04/13 0924 80 130/80 04/13 0808 98.0 80 20 130/80 98 04/13 0036 98.3 94 20 120/72 93 04/13 0000 Room Air 04/12 2001 95 Room Air 04/12 1707 97.7 83 18 128/70 93 04/12 1108 93 Room Air 04/12 1014 82 124/80 04/12 1014 82 124/80 04/12 1014 82 124/80 Intake & Output 04/13 1600 04/13 0800 04/13 0000 Intake Total 480 Output Total Balance 480 Intake, Oral 480 Physical Exam General Appearance: Alert, Oriented X3, Cooperative Skin: No Rashes, No Breakdown, No Significant Lesion HEENT: Atraumatic, PERRLA, EOMI, Mucous Membr. moist/pink Neck: Supple, No JVD, No thryomegaly, +2 Carotid Pulse wo Bruit Lymphatic: Axillary nl, Cervical nl Cardiovascular: Regular Rate, Normal S1, Normal S2, No Murmurs Lungs: Clear to Auscultation, Normal Air Movement Abdomen: Normal Bowel Sounds, Soft, b/l upper quadrant tenderness Neurological: Normal Gait, Normal Speech, Normal Tone, Sensation Intact Extremities: No Clubbing, No Cyanosis, No Edema, Normal Pulses Vascular: Normal Pulses, Pulses Symmetrical Current Medications: Current Medications Sig/Noemí Start time Last Medication Dose Route Stop Time Status Admin Acetaminophen 650 MG Q4P PRN 04/12 0030 AC PO Albuterol Sulfate 3 ML BID 04/09 1000 AC 04/12 INH 1940 Amlodipine Besylate 5 MG DAILY 04/08 1000 AC 04/13 PO 0924 Ascorbic Acid 250 MG DAILY 04/08 1000 AC 04/13 PO 0924 Atorvastatin Calcium 10 MG 1700 04/08 1700 AC 04/12 PO 1617 Cyanocobalamin 1,000 MCG DAILY 04/09 1522 AC 04/13 PO 0924 Docusate Sodium 100 MG DAILY NEEDED PRN 04/13 1015 AC PO Enoxaparin Sodium 40 MG DAILY 04/12 1100 AC 04/13 SC 0925 Fentanyl Citrate 50 MCG Q72H 04/14 1515 MO TOP Fentanyl Citrate 50 MCG Q72H 04/14 1345 04/12 TOP 1346 Fentanyl Citrate 50 MCG .STK-MED ONE 04/12 1332 DC TOP 04/12 1333 Fentanyl Citrate 25 MCG Q72H 04/11 1515 MO 04/11 TOP 1647 Guaifenesin 600 MG Q12 04/09 1000 AC 04/13 PO 0924 Hydromorphone HCl 3 MG Q3P PRN 04/12 1315 AC 04/13 PO 0959 Hydromorphone HCl 1 MG Q3P PRN 04/10 0730 AC 04/12 IV 1314 Insulin Aspart 0 TIDAC 04/10 1700 AC 04/10 SC 1757 Losartan Potassium 100 MG DAILY 04/09 1000 AC 04/13 PO 0925 Melatonin 5 MG AT BEDTIME 04/12 2200 AC 04/12 PO 2250 Metoprolol Succinate 100 MG DAILY 04/08 1000 AC 04/13 PO 0924 Ondansetron HCl 4 MG Q6P PRN 04/08 1445 AC 04/08 IV 2134 Patient Medication 1 UNIT ONE NR 04/12 1115 [facility] ER ED 04/12 1130 Polyethylene Glycol 17 GM DAILY 04/13 1011 AC PO Senna/Docusate Sodium 1 TAB BID PRN 04/08 1145 AC 04/11 PO 0002 Thiamine HCl 100 MG DAILY 04/08 1000 AC 04/13 PO 0924 Last 24 Hrs of Lab/Wiliam Results Last 24 Hrs of Labs/Mics: Laboratory Tests 04/13/16 0650: Anion Gap 9, Estimated GFR > 60, BUN/Creatinine Ratio 15.0, Total Bilirubin 0.5, Direct Bilirubin 0.3, AST 136 H, ALT 100 H, Alkaline Phosphatase 279 H, Total Protein 6.3, Albumin 3.3 L, CBC w Diff NO MAN DIFF REQ, RBC 3.78 L, MCV 89.3, MCH 30.4, RDW 13.5, MPV 7.4, Gran % 67.5, Lymphocytes % 21.3, Monocytes % 8.4, Eosinophils % 2.3, Basophils % 0.5, Absolute Granulocytes 3.9, Absolute Lymphocytes 1.2, Absolute Monocytes 0.5, Absolute Eosinophils 0.1, Absolute Basophils 0, PUBS MCHC 34.0 04/12/16 1800: Urinalysis LIGHT H, Urine Color YEL, Urine Clarity CLEAR, Urine pH 6.0, Ur Specific [place] >= 1.030, Urine Protein 30 H, Urine Ketones NEG, Urine Nitrite NEG, Urine Bilirubin NEG, Urine Urobilinogen 0.2, Ur Leukocyte Esterase NEG, Ur Microscopic SEDIMENT EXAMINED, Urine RBC 1-3, Urine WBC 1-3 H, Hyaline Casts RARE H, Granular Casts RARE H, Urine Mucus MOD H, Urine Hemoglobin NEG, Urine Glucose NEG Microbiology 04/12 1800 URINE ROUT: Urine Culture - RECD Assessment/Plan Assessment: 70-year-old man with past medical history of hypertension, partial right nephrectomy(2006), CAD with 2(1997) stents off aspirin for possible biopsy , hyperlipidemia, recently found lung mass with liver metastasis, heavy smoker quit about 10 days ago , recently discharged from the hospital with diagnosis of diverticulitis came back to the hospital with chief complaint of nausea, 2 times vomiting, shortness of breath and not feeling good. Patient reporting the morning he felt a pressure in his chest and dizzy and shortness of breath and had 2 episodes of nausea and vomiting. Patient denies any LOC, excessive cough, phlegm production, changes in urinary habits. Vital signs on admission were stable, no fevers, good o2 saturation on room air Hemoglobin 2.6, AST 92, ALP 214, albumin 3.3, amylase 370, lipase 2537 Dimer is 4384 Chest x-ray showed possible postobstructive pneumonia CT scan of the abdomen and chest did not show any major changes since last scan But cannot rule out the postobstructive pneumonia. EKG sinus rhythm, with PVCs, QTC 471, heart rate 94, no acute ST_T changes comparing to previous EKG Assessment and plan post obstructive pneumonia versus lung mass * Urine Legionella and and strep antigen: Negative * Status post liver biopsy * Outpatient follow-up with Nausea, vomiting, abdominal pain/diverticulitis/elevated lipase * Zofran for nausea * No evidence of pancreatitis in the CT scan * We'll continue by mouth Dilaudid for pain management, and fentanyl patch at the current dose * Nausea, is improving, he is eating a regular diet * Liver enzyme is still elevated but it's stable * pastural care * His pain remains controlled, he is possible discharge tomorrow and he will follow-up with his oncologist Diabetes * Sliding scale insulin * Accu-Cheks 3 times a day * Blood sugars are controlled HTN, hyperlipidemia * Continue statin, Cozaar, metoprolol, amlodipine Constipation: * We'll start the patient on bowel regimen DVT prophylaxis mechanical and subcutaneous Lovenox, diabetic diet, IV Dilaudid for pain, full code Problem List: 1. Metastatic disease Pain Ratin Pain Location: Left and right upper quadrant Pain Goal: Pain 4 or less Pain Plan: Oral diluded, Fentanyl patch Tomorrow's Labs & Rationales: BEP, LFT, CBC DVT/Prophylaxis: pharmacological Consulting Request: Consulting Specialty: Hematology/Oncology Consulting Physician: Dr CABALLERO Reason for Consult: lung mass with liver mass REE TORRES MD 04/13/16 1047: Attending MD Review Statement Attending Statement Attending MD Statement: examined this patient, discuss w/resident/PA/CYBER [employer]SPORT SYSTEMS SPECIALIST, agreed w/resident/PA/CYBER [employer]SP[employer] SYSTEMS SPECIALIST, discussed with family, reviewed EMR data (avail), discussed with nursing Attending Assessment/Plan: Overall patient is doing better. He hasn't required any more IV pain meds since yesterday afternoon. He is on the fentanyl patch 50 g every 72 hours with the Dilaudid tablet when necessary. His constipation remains partially relieved and I have started the senna S twice a day standing and now today we also started MiraLAX. We were hesitant to start MiraLAX because of the resolving diverticulitis but given the lack of any white count or fever I think it's safe to do so. Plan is if he continues to be stable and the constipation gets relief then discharge in a.m.
[2016-04-13 16:37] VITALS: BP 142/70
[2016-04-13 17:53] VITALS: BP 132/74
[2016-04-13 23:51] VITALS: BP 130/70
[2016-04-14 08:13] VITALS: BP 118/70
[2016-04-14 09:06] VITALS: BP 118/70
--- NOTE | 2016-04-14 10:23 | PN- Housestaff ---
JACINDA ALLAN 04/14/16 1023: Subjective Follow-up For: lung mass with liver metastases Subjective: I Seen and examined the patient. Patient pain is somewhat controlled by Dilaudid. Possibly discharge today.. Review of Systems Constitutional: Reports: see HPI. Objective Last 24 Hrs of Vital Signs/I&O Vital Signs Date Time Temp Pulse Resp B/P Pulse O2 O2 Flow FiO2 Ox Delivery Rate 04/14 09 89 118/70 04/14 0905 89 118/70 04/14 0905 89 118/70 04/14 0813 98.2 89 20 118/70 93 / 0800 Room Air 04/14 0000 Room Air 04/13 2351 98.4 80 20 130/70 94 Room Air 04/13 1855 93 Room Air 04/13 1753 98.5 83 18 132/74 95 Room Air 04/13 1637 97.9 82 20 142/70 94 Intake & Output 04/14 1600 04/14 0800 04/14 0000 Intake Total 250 400 Output Total 400 Balance -150 400 Intake, Oral 250 400 Output, Urine 400 Physical Exam General Appearance: Alert, Oriented X3, Cooperative HEENT: PERRLA Cardiovascular: Regular Rate, Normal S1, Normal S2 Lungs: decreased rigth sided breath sounds Extremities: No Clubbing, No Cyanosis, No Edema Current Medications: Current Medications Sig/Noemí Start time Last Medication Dose Route Stop Time Status Admin Acetaminophen 650 MG Q4P PRN 04/12 0030 AC PO Albuterol Sulfate 3 ML BID 04/09 1000 AC 04/13 INH 1855 Alprazolam 0.5 MG ONCE ONE 04/13 1900 DC 04/13 PO 04/13 190 1902 Amlodipine Besylate 5 MG DAILY 04/08 1000 AC 04/14 PO 0905 Ascorbic Acid 250 MG DAILY 04/08 1000 AC 04/14 PO 0907 Atorvastatin Calcium 10 MG 1700 04/08 1700 AC 04/13 PO 1604 Bisacodyl 10 MG DAILY PRN 04/13 1100 AC [place] Cyanocobalamin 1,000 MCG DAILY 04/09 1522 AC 04/14 PO 0907 Docusate Sodium 100 MG DAILY NEEDED PRN 04/13 1015 AC 04/13 PO 1307 Enoxaparin Sodium 40 MG DAILY 04/12 1100 AC 04/14 SC 0903 Fentanyl Citrate 50 MCG Q72H 04/14 1345 AC 04/12 TOP 1346 Guaifenesin 600 MG Q12 04/09 1000 AC 04/14 PO 0905 Hydromorphone HCl 3 MG Q3P PRN 04/12 1315 AC 04/14 PO 1024 Hydromorphone HCl 1 MG Q3P PRN 04/10 0730 AC 04/12 IV 1314 Insulin Aspart 0 TIDAC 04/10 1700 AC 04/10 SC 1757 Losartan Potassium 100 MG DAILY 04/09 1000 AC 04/14 PO 0905 Melatonin 5 MG AT BEDTIME 04/12 2200 AC 04/13 PO 2212 Metoprolol Succinate 100 MG DAILY 04/08 1000 AC 04/14 PO 0906 Ondansetron HCl 4 MG Q6P PRN 04/08 1445 AC 04/08 IV 2134 Polyethylene Glycol 17 GM DAILY 04/13 1011 AC 04/14 PO 0902 Senna/Docusate Sodium 1 TAB BID 04/13 2200 AC 04/14 PO 0906 Senna/Docusate Sodium 1 TAB BID PRN 04/08 1145 DC 04/11 PO 04/13 2159 0002 Thiamine HCl 100 MG DAILY 04/08 1000 AC 04/14 PO 0907 Assessment/Plan Assessment: 70-year-old man with past medical history of hypertension, partial right nephrectomy(2006), CAD with 2(1997) stents off aspirin for possible biopsy , hyperlipidemia, recently found lung mass with liver metastasis, heavy smoker quit about 10 days ago , recently discharged from the hospital with diagnosis of diverticulitis came back to the hospital with chief complaint of nausea, 2 times vomiting, shortness of breath and not feeling good. Patient reporting the morning he felt a pressure in his chest and dizzy and shortness of breath and had 2 episodes of nausea and vomiting. Patient denies any LOC, excessive cough, phlegm production, changes in urinary habits. Vital signs on admission were stable, no fevers, good o2 saturation on room air Hemoglobin 2.6, AST 92, ALP 214, albumin 3.3, amylase 370, lipase 2537 Dimer is 4384 Chest x-ray showed possible postobstructive pneumonia CT scan of the abdomen and chest did not show any major changes since last scan But cannot rule out the postobstructive pneumonia. EKG sinus rhythm, with PVCs, QTC 471, heart rate 94, no acute ST_T changes comparing to previous EKG Assessment and plan post obstructive pneumonia versus lung mass * Urine Legionella and and strep antigen: Negative * Status post liver biopsy * Outpatient follow-up with Nausea, vomiting, abdominal pain/diverticulitis/elevated lipase * Zofran for nausea * No evidence of pancreatitis in the CT scan * We'll continue by mouth Dilaudid for pain management, and fentanyl patch at the current dose * Nausea, is improving, he is eating a regular diet * Liver enzyme is still elevated but it's stable * pastural care * His pain remains controlled, discharge today on Zofran, by mouth Dilaudid, aggressive bowel regimen, and fentanyl patch Diabetes * Sliding scale insulin * Accu-Cheks 3 times a day * Blood sugars are controlled HTN, hyperlipidemia * Continue statin, Cozaar, metoprolol, amlodipine Constipation: * We'll start the patient on bowel regimen DVT prophylaxis mechanical and subcutaneous Lovenox, diabetic diet,, full code Problem List: 1. Metastatic disease Pain Ratin Pain Location: left abdomen Pain Goal: Pain 4 or less Pain Plan: same Tomorrow's Labs & Rationales: dc today Consulting Request: Consulting Specialty: Hematology/Oncology Consulting Physician: Dr CABALLERO Reason for Consult: lung mass with liver mass REE TORRES MD 04/14/16 1105: Attending MD Review Statement Attending Statement Attending MD Statement: examined this patient, discuss w/resident/PA/TECHNICAL SPEC, agreed w/resident/PA/TECHNICAL SPEC, reviewed EMR data (avail), discussed with nursing Attending Assessment/Plan: Patient is feeling nauseous. But otherwise he is okay. He hasn't required any more IV dilaudid. He is a 70-year-old with newly diagnosed probable lung CA with liver metastases. He has a history of nephrectomy and coronary artery disease. The plan is discharge today on oral Dilaudid with fentanyl patch with an aggressive bowel regimen and Zofran when necessary nausea and he has an appointment to see the oncologist on to follow-up on the liver biopsy results. I'm also setting him up with visiting nurse services for home care.
[2016-04-14] MEDS ORDERED: ZOFRAN ODT4 M1 SL (10:55)
[2016-04-14] MEDS ORDERED: PROAIR HFA8.5 GM INH (10:55)
[2016-04-14] MEDS ORDERED: HYDROMORPHONE HC2 M1 PO (10:58)
[2016-04-14] MEDS ORDERED: MIRALAX119 GM PO (10:58)
[2016-04-14] MEDS ORDERED: SENNA PLUS TAB1 EACH PO (10:58)
[2016-04-14] MEDS ORDERED: DURAGESIC1 EAC2 TOP (10:58)
[2016-04-14] MEDS ORDERED: SPACE CHAMBER1 EACH PO (22:22)
[2016-04-14] MEDS ORDERED: PREDNISONE50 M1 PO (22:22)
[2016-04-14] MEDS ORDERED: LEVAQUIN500 M1 PO (22:22)
[2016-04-14] MEDS ORDERED: ALBUTEROL1.25 MG/1 INH/SOL (22:22)
[2016-04-14] MEDS ORDERED: AEROECLIPSE II1 EACH PO (22:22)
== END 2016-04-14 12:35 | disposition home health service (06) | DRG 181 ==
LOC: ERH 06:10 → 2NB 08:47 → ERHI 08:47 → 2NB 15:52
PROVIDERS: Internal Medicine; Pediatrics; ADMIT Internal Medicine
PROC: 0FB13ZX Excision of Right Lobe Liver, Percutaneous Approach, Diagnostic (ICD-10-PCS; principal; 2016-04-10)
DX: C34.31 Malignant neoplasm of lower lobe, right bronchus or lung (principal); C78.7 Secondary malignant neoplasm of liver and intrahepatic bile duct; I11.9 Hypertensive heart disease without heart failure; E11.9 Type 2 diabetes mellitus without complications; K76.9 Liver disease, unspecified; Z72.0 Tobacco use; I25.10 Atherosclerotic heart disease of native coronary artery without angina pectoris; Z95.5 Presence of coronary angioplasty implant and graft; E78.5 Hyperlipidemia, unspecified; Z79.84 Long term (current) use of oral hypoglycemic drugs
CPT/HCPCS: 2NBSP; 36415; 74020; 81001; 82436; 87040; 87070; 87086; 87449; 87450; 87804; 87804-59; 88305; 90662; 93005; 93010; 96365; 96366; 96375; 99232; J0456; J0696; J1170; J1644; J1650; J2250; J2405; J3010; J3490; J7040; J7042; J7508

== ENCOUNTER 2016-04-14 20:36 | Emergency (ER) | payer OTHER, MEDICARE ==
[~2016-04-14 20:36] MED LIST changes: +DURAGESIC1 EAC2 TOP; +HYDROMORPHONE HC2 M1 PO; +MIRALAX119 GM PO; +PROAIR HFA8.5 GM INH; +SENNA PLUS TAB1 EACH PO; +ZOFRAN ODT4 M1 SL
--- NOTE | 2016-04-14 20:39 | ED DYSPNEA/ASTHMA COMPLAINT ---
History of Present Illness General Chief Complaint: Dyspnea (COPD, CHF, Other) Stated Complaint: DIFFICULTY BREATHING Source: patient Exam Limitations: no limitations Vital Signs & Intake/Output Vital Signs & Intake/Output Vital Signs Date Time Temp Pulse Resp B/P Pulse O2 O2 Flow FiO2 Ox Delivery Rate 04/14 2301 98.6 107 16 131/78 93 Room Air 04/14 2050 93 04/14 2039 96.6 108 20 121/70 95 Room Air Allergies Coded Allergies: Iodinated Contrast Media - Oral and (UNKNOWN 03/30/16) Reconcile Medications Albuterol Sulfate 1.25 MG/3 ML VIAL.NEB 1 Vial INH/RASHAAD Q4-6 PRN WHEEZE DISPENSE 1 BOX Albuterol Sulfate (Proair Hfa) 90 MCG HFA.AER.AD 2 PUF INH Q4-6 PRN PRN COPD Amlodipine Besylate 5 MG TABLET 1 TAB PO DAILY BP (Reported) Ascorbic Acid (Vitamin C) (Unknown Strength) TABLET 250 MG PO DAILY SUPPLEMENT (Reported) Aspirin (Ecotrin*) 81 MG TABLET.DR 1 TAB PO DAILY HEART/BLOOD (Reported) Cyanocobalamin (Vitamin B-12) (Vitamin B12) 2,500 MCG TABLET 1 TAB PO DAILY SUPPLEMENT (Reported) Fentanyl Citrate (Duragesic) 50 MCG/HOUR PATCH.TD72 50 MCG TOP Q72H pain Hydromorphone HCl 2 MG TABLET 3 MG PO Q3P PRN PAIN SCALE 4-6 (MODERATE) Inhaler, Assist Devices (Space Chamber Plus) 1 EACH SPACER 1 UNIT PO 4 TIMES/ DAY PRN WHEEZE J45 ICD 10..... 1 SPACER Levofloxacin (Levaquin) 500 MG TABLET 1 TAB PO DAILY PNEUMOHNIA/BRONCHITIS Losartan Potassium 100 MG TABLET 1 TAB PO DAILY BP (Reported) Metformin HCl 500 MG TABLET 1 TAB PO BID DM (Reported) Metoprolol Succ XL (Toprol XL) 25 MG TAB 100 MG PO DAILY HEART (Reported) Multivitamin (Multi-Day Vitamins) 1 EACH TABLET 1 TAB PO DAILY SUPPLEMENT ( Reported) Nebulizer (Aeroeclipse II) 1 EACH EACH 1 KIT PO 4 TIMES/DAY PRN WHEEZE ICD 10 J45...... PLEASE DISPENSE NEBULIZER WITH TUBING (WHATEVER BRAND IS COVERED BY INSURANCE) Ondansetron (Zofran Odt) 4 MG TAB.RAPDIS 1 TAB SL TID PRN NAUSEA Oxycodone HCl/Acetaminophen (Percocet 5-325 MG Tablet) 5 MG-325 MG TABLET 1 TAB PO TID severe pain Polyethylene Glycol 3350 (Miralax) 17 GRAM/DOSE POWDER 17 GM PO DAILY constipation Prednisone 50 MG TABLET 1 TAB PO DAILY BRONCHITIS/PNEUMONIA Sennosides/Docusate Sodium (Senna Plus Tablet) 8.6 MG-50 MG TABLET 1 TAB PO BID PRN CONSTIPATION Simvastatin (Simvastatin*) 20 MG TABLET 1 TAB PO QPM CHOLESTEROL (Reported) Triage Nurses Notes Reviewed? yes Onset: Abrupt Duration: hour(s): Timing: single episode today Severity: moderate HPI: 70 yo gentleman discharged this AM with newly diagnosed lung cancer, presents with an episode of acute onset shortness of breath. "I felt like there was some phlegm in my chest ... I couldn't breath... I feel better now." No fever, chills, nausea, vomiting, fever, chest pain. Past History Travel History Traveled to [place] past 21 day No Medical History Any Pertinent Medical History? 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 No Review of Systems Review of Systems Constitutional: Reports: no symptoms. EENTM: Reports: no symptoms. Respiratory: Reports: no symptoms. Cardiovascular: Reports: no symptoms. GI: Reports: no symptoms. Genitourinary: Reports: no symptoms. Musculoskeletal: Reports: no symptoms. Skin: Reports: no symptoms. Neurological/Psychological: Reports: no symptoms. Hematologic/Endocrine: Reports: no symptoms. Immunologic/Allergic: Reports: no symptoms. All Other Systems: Reviewed and Negative Physical Exam Physical Exam General Appearance: well developed/nourished, mild distress Head: atraumatic, normal appearance Eyes: Bilateral: normal appearance. Ears, Nose, Throat: normal pharynx, normal ENT inspection Neck: normal inspection, supple, full range of motion Respiratory: rhonchi bilaterally Cardiovascular: regular rate/rhythm Gastrointestinal: normal bowel sounds, soft, non-tender, no organomegaly Extremities: normal inspection, normal capillary refill, normal range of motion, no edema Neurologic/Psych: no motor/sensory deficits, awake, alert, oriented x 3 Skin: intact, normal color, warm/dry Core Measures ACS in differential dx? No Severe Sepsis Present: No Septic Shock Present: No Progress Differential Diagnosis: asthma, bronchitis, costochondritis, CHF, COPD, pneumonia Plan of Care: Orders Procedure Date/time Status BLOOD CULTURE 04/14 2209 Active BLOOD CULTURE 04/14 2207 Active TROPONIN LEVEL 04/14 2038 Complete COMPREHENSIVE METABOLIC PANEL 04/14 2038 Complete CBC WITHOUT DIFFERENTIAL 04/14 2038 Complete Current Medications Sig/Noemí Start time Last Medication Dose Stop Time Status Admin Azithromycin 500 MG ONCE ONE 04/14 2214 CAN (Zithromax) 04/14 231 Sodium Chloride 250 ML (Normal Saline 0.9%) Ceftriaxone Sodium 1,000 MG ONCE ONE 04/14 2214 CAN (Rocephin) 04/14 2215 Hydromorphone HCl 1 MG ONCE ONE 04/14 2214 CAN (Dilaudid) 04/14 2215 Laboratory Tests 04/14/162044: Anion Gap 9, Estimated GFR > 60, BUN/Creatinine Ratio 20.9, Glucose 126 H, Calcium 9.6, Total Bilirubin 0.6, AST 120 H, ALT 83 H, Alkaline Phosphatase 317 H, Troponin I < 0.01, Total Protein 6.6, Albumin 3.5, Globulin 3.1, Albumin /Globulin Ratio 1.1, CBC w Diff NO MAN DIFF REQ, RBC 3.81 L, MCV 88.4, MCH 30.7 , RDW 13.7, MPV 6.4 L, Gran % 66.3, Lymphocytes % 22.5, Monocytes % 8.6, Eosinophils % 2.2, Basophils % 0.4, Absolute Granulocytes 3.5, Absolute Lymphocytes 1.2, Absolute Monocytes 0.5, Absolute Eosinophils 0.1, Absolute Basophils 0, PUBS MCHC 34.7 Microbiology 04/14 2255 BLOOD: Blood Culture - RECD 01/02 2249 BLOOD: Blood Culture - RECD Diagnostic Imaging: Viewed by Me: Radiology Read. Discussed w/RAD: Radiology Read. CXR Impression: progression of right lower lobe pneumonia Initial ED EKG: normal axis, normal intervals, normal p-waves, normal QRS complex, normal sinus rhythm Comments: PATIENT: MARJORIE GLASER PRESENT AGE: 70 PATIENT ACCOUNT NO: [id number] : 45 LOCATION: [facility] ORDERING PHYSICIAN: KENNY BELLAMY MD SERVICE DATE: 04/14/16 EXAM TYPE: RAD - XRY-PORTABLE CHEST XRAY EXAMINATION: XR PORTABLE CHEST CLINICAL INFORMATION: 70-year-old male with dyspnea. COMPARISON: Chest x-ray on 03/27/2016. (No pneumonia but infrahilar mass on the right and mediastinal adenopathy). CT exams of the chest done 03/30/2016 and 04/08/2016. TECHNIQUE: Portable view of the chest was obtained. FINDINGS: Reexamination shows the progression of the postobstructive right lower lobe pneumonia and combination right lower lobe mass in association with right hilar and mediastinal lymphadenopathy. Deviation of the trachea to the left at the thoracic aorta is due to paratracheal adenopathy. Two metallic clips are seen in the right infraclavicular soft tissues. IMPRESSION: Progressive post obstructive right lower lobe pneumonia/right lower lobe lung mass associated with right hilar and mediastinal lymphadenopathy. DICTATED BY: MANDY CRUZ MD DATE/TIME DICTATED:04/14/162149 BRINE PROCESS OPERATOR:LENNOX DATE/TIME TRANSCRIBED:04/14/162149 CONFIDENTIAL, DO NOT COPY WITHOUT APPROPRIATE AUTHORIZATION. <Electronically signed in Other Vendor System> SIGNED BY: MANDY CRUZ MD 2200 Departure Departure Disposition: STILL A PATIENT Condition: Stable Clinical Impression Primary Impression: Pneumonia Secondary Impressions: Lung cancer Referrals: MELISSA JONES,PANCHO Zaman (PCP/Family) Referred to [facility] as new patient No Departure Forms: Customer Survey General Discharge Information Prescriptions: Current Visit Scripts Inhaler, Assist Devices (Space Chamber Plus) 1 UNIT PO 4 TIMES/DAY PRN WHEEZE #1 KIT J45 ICD 10..... 1 SPACER Prednisone 1 TAB PO DAILY #4 TAB Levofloxacin (Levaquin) 1 TAB PO DAILY #10 TAB Nebulizer (Aeroeclipse II) 1 KIT PO 4 TIMES/DAY PRN WHEEZE #1 EACH ICD 10 J45...... PLEASE DISPENSE NEBULIZER WITH TUBING (WHATEVER BRAND IS COVERED BY INSURANCE) Albuterol Sulfate 1 Vial INH/RASHAAD Q4-6 PRN WHEEZE #150 ML DISPENSE 1 BOX Comments 04/14/16, 22:40... pt has been monitored in the ED for more than 2 hours. He is feeling well, with 02 sat 94-96% on room air throughout his ED stay. He ambulated and maintained his oxygen saturation. He would like to go home. Cxr reveals "worsening pneumonia." He is not on antibiotics. Given his symptoms, with mild wheeze on exam and history of copd, I will treat with abx and steroids. Close follow up encouraged. Critical Care Note Critical Care Note Critical Care Time: non-applicable
[2016-04-14 20:51] LABS: ABSOLUTE BASOPHIL COUNT 0 /CUMM (0.0-0.2); ABSOLUTE EOSINOPHIL COUNT 0.1 /CUMM (0.0-0.7); ABSOLUTE GRANULOCYTE CT 3.5 /CUMM (1.4-6.5); ABSOLUTE LYMPH COUNT 1.2 /CUMM (1.2-3.4); ABSOLUTE MONOCYTE COUNT 0.5 /CUMM (0.10-0.60); BASOPHIL % 0.4 % (0.0-2.0); EOSINOPHIL % 2.2 % (0-5); GRANULOCYTE % 66.3 % (42.2-75.2); HEMATOCRIT 33.7 % (42-52); MEAN CORPUSCULAR HGB 30.7 PG (27.0-31.0); MEAN CORPUSCULAR HGB CONC 34.7 G/DL (33.0-37.0); MEAN CORPUSCULAR VOLUME 88.4 FL (80.0-94.0); MEAN PLATELET VOLUME 6.4 FL (7.4-10.4); PLATELET COUNT 144 /CUMM (130-400); RBC DISTRIBUTION WIDTH 13.7 % (11.5-14.5); RED BLOOD CELL CT 3.81 /CUMM (4.70-6.10); WHITE BLOOD CELL COUNT 5.2 /CUMM (4.8-10.8)
--- NOTE | 2016-04-14 22:01 | RADIOLOGY REPORT ---
EXAMINATION: XR PORTABLE CHEST CLINICAL INFORMATION: 70-year-old male with dyspnea. COMPARISON: Chest x-ray on 03/27/2016. (No pneumonia but infrahilar mass on the right and mediastinal adenopathy). CT exams of the chest done 03/30/2016 and 04/08/2016. TECHNIQUE: Portable view of the chest was obtained. FINDINGS: Reexamination shows the progression of the postobstructive right lower lobe pneumonia and combination right lower lobe mass in association with right hilar and mediastinal lymphadenopathy. Deviation of the trachea to the left at the thoracic aorta is due to paratracheal adenopathy. Two metallic clips are seen in the right infraclavicular soft tissues. IMPRESSION: Progressive post obstructive right lower lobe pneumonia/right lower lobe lung mass associated with right hilar and mediastinal lymphadenopathy.
[2016-04-14] MEDS ORDERED: SPACE CHAMBER1 EACH PO (22:22)
[2016-04-14] MEDS ORDERED: LEVAQUIN500 M1 PO (22:22)
[2016-04-14] MEDS ORDERED: AEROECLIPSE II1 EACH PO (22:22)
[2016-04-14] MEDS ORDERED: PREDNISONE50 M1 PO (22:22)
[2016-04-14] MEDS ORDERED: ALBUTEROL1.25 MG/1 INH/SOL (22:22)
[2016-04-14 23:01] VITALS: BP 131/78
== END 2016-04-14 23:06 ==
LOC: ERH 20:36
PROVIDERS: Pediatrics
DX: J18.9 Pneumonia, unspecified organism (principal); C34.90 Malignant neoplasm of unspecified part of unspecified bronchus or lung; R06.02 Shortness of breath
CPT/HCPCS: 1263; 87040; J3490

== ENCOUNTER 2016-04-19 11:15 | Inpatient (IN) | payer OTHER, MEDICARE ==
[~2016-04-19] VITALS: Ht 180.3 cm; Wt 84.8 kg
[~2016-04-19 11:15] MED LIST changes: +AEROECLIPSE II1 EACH PO; +ALBUTEROL1.25 MG/1 INH/SOL; +LEVAQUIN500 M1 PO; +PREDNISONE50 M1 PO; +SPACE CHAMBER1 EACH PO
--- NOTE | 2016-04-19 11:19 | ED GI/GU/ABDOMINAL COMPLAINT ---
History of Present Illness General Chief Complaint: General Adult Stated Complaint: BIBA CONSTIPATION, LOW ABD PAIN, L SIDE PAIN Vital Signs & Intake/Output Vital Signs & Intake/Output Vital Signs Date Time Temp Pulse Resp B/P Pulse O2 O2 Flow FiO2 Ox Delivery Rate 04/19 1120 98.0 85 16 136/83 96 Room Air Allergies Coded Allergies: Iodinated Contrast Media - Oral and (UNKNOWN 03/30/16) Reconcile Medications Albuterol Sulfate 1.25 MG/3 ML VIAL.NEB 1 Vial INH/RASHAAD Q4-6 PRN WHEEZE DISPENSE 1 BOX Albuterol Sulfate (Proair Hfa) 90 MCG HFA.AER.AD 2 PUF INH Q4-6 PRN PRN COPD Amlodipine Besylate 5 MG TABLET 1 TAB PO DAILY BP (Reported) Ascorbic Acid (Vitamin C) (Unknown Strength) TABLET 250 MG PO DAILY SUPPLEMENT (Reported) Aspirin (Ecotrin*) 81 MG TABLET.DR 1 TAB PO DAILY HEART/BLOOD (Reported) Cyanocobalamin (Vitamin B-12) (Vitamin B12) 2,500 MCG TABLET 1 TAB PO DAILY SUPPLEMENT (Reported) Fentanyl Citrate (Duragesic) 50 MCG/HOUR PATCH.TD72 50 MCG TOP Q72H pain Hydromorphone HCl 2 MG TABLET 3 MG PO Q3P PRN PAIN SCALE 4-6 (MODERATE) Inhaler, Assist Devices (Space Chamber Plus) 1 EACH SPACER 1 UNIT PO 4 TIMES/ DAY PRN WHEEZE J45 ICD 10..... 1 SPACER Levofloxacin (Levaquin) 500 MG TABLET 1 TAB PO DAILY PNEUMOHNIA/BRONCHITIS Losartan Potassium 100 MG TABLET 1 TAB PO DAILY BP (Reported) Metformin HCl 500 MG TABLET 1 TAB PO BID DM (Reported) Metoprolol Succ XL (Toprol XL) 25 MG TAB 100 MG PO DAILY HEART (Reported) Multivitamin (Multi-Day Vitamins) 1 EACH TABLET 1 TAB PO DAILY SUPPLEMENT ( Reported) Nebulizer (Aeroeclipse II) 1 EACH EACH 1 KIT PO 4 TIMES/DAY PRN WHEEZE ICD 10 J45...... PLEASE DISPENSE NEBULIZER WITH TUBING (WHATEVER BRAND IS COVERED BY INSURANCE) Ondansetron (Zofran Odt) 4 MG TAB.RAPDIS 1 TAB SL TID PRN NAUSEA Oxycodone HCl/Acetaminophen (Percocet 5-325 MG Tablet) 5 MG-325 MG TABLET 1 TAB PO TID severe pain Polyethylene Glycol 3350 (Miralax) 17 GRAM/DOSE POWDER 17 GM PO DAILY constipation Prednisone 50 MG TABLET 1 TAB PO DAILY BRONCHITIS/PNEUMONIA Sennosides/Docusate Sodium (Senna Plus Tablet) 8.6 MG-50 MG TABLET 1 TAB PO BID PRN CONSTIPATION Simvastatin (Simvastatin*) 20 MG TABLET 1 TAB PO QPM CHOLESTEROL (Reported) Past History Travel History Traveled to [place] past 21 day No Medical History Neurological: NONE EENT: NONE Cardiovascular: hypertension, hyperlipidemia, myocardial infarction, STENTS Respiratory: bronchitis, lung cancer Gastrointestinal: diverticulitis Hepatic: NONE Renal: right partial nephrectomy Musculoskeletal: NONE, disk herniation Psychiatric: anxiety Endocrine: BORDERLINE DIABETIC Blood Disorders: NONE Cancer(s): BENIGN KIDNEY TUMOR 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
--- NOTE | 2016-04-19 11:19 | NUR ---
BIBA FROM HOME FOR CONSTIPATION X3 DAYS, SMALL MOVEMENT TODAY. RECENTLY DX WITH LUNG AND LIVER CA WEEK BEFORE JOANA. STARTED ON FENTANYL PATCH 5 DAYS AGO. TAKING SENNA AND MIRALAX WITH NO RELIEF. RECENTLY TREATED FOR DIVERTICULITIS WITH CIPRO AND FLAGYL. RECEIVING DUONEB TX'S AT HOME AND REPORTING TOP OF HEAD HEADACHE. DENIES VISUAL CHANGES. AWAITING REEVAL BY DR THORNTON FOR CT AND MRI OF HEAD AND PET SCAN TO R/O BONE AND BRAIN METS
--- NOTE | 2016-04-19 11:22 | NUR ---
LEFT SIDED PAIN TO HIP, ABLE TO FLEX JOINT WITH PAIN. DENIES SOB AND O2 SAT 96% RA. NORMAL SINUS ON CM WITH OCCASSIONAL PVC. DENIES CP. EKG IN PROGRESS
--- NOTE | 2016-04-19 11:47 | NUR ---
IV ESTABLISHED AND LABS DRAWN AND SENT (BLUE, SST X 2, LAV, CABRERA, PINK). MEDICATED WITH ZOFRAN AND DILAUDID PER eMAR. NS IVF BOLUS RUNNING.
[2016-04-19 11:53] LABS: ABSOLUTE BASOPHIL COUNT 0 /CUMM (0.0-0.2); ABSOLUTE EOSINOPHIL COUNT 0.1 /CUMM (0.0-0.7); ABSOLUTE GRANULOCYTE CT 4.3 /CUMM (1.4-6.5); ABSOLUTE LYMPH COUNT 1.4 /CUMM (1.2-3.4); ABSOLUTE MONOCYTE COUNT 0.4 /CUMM (0.10-0.60); BASOPHIL % 0.3 % (0.0-2.0); EOSINOPHIL % 0.9 % (0-5); GRANULOCYTE % 69.9 % (42.2-75.2); HEMATOCRIT 30.8 % (42-52); MEAN CORPUSCULAR HGB 30.5 PG (27.0-31.0); MEAN CORPUSCULAR VOLUME 89.7 FL (80.0-94.0); MEAN PLATELET VOLUME 6.9 FL (7.4-10.4); PLATELET COUNT 130 /CUMM (130-400); RBC DISTRIBUTION WIDTH 13.8 % (11.5-14.5); RED BLOOD CELL CT 3.44 /CUMM (4.70-6.10); WHITE BLOOD CELL COUNT 6.2 /CUMM (4.8-10.8)
--- NOTE | 2016-04-19 12:09 | NUR ---
PT RETURNS FROM CT
[2016-04-19] MEDS ORDERED: HYDROMORPHONE HC4 M1 PO (12:40)
[2016-04-19] MEDS ORDERED: MIRALAX17 G1 PO (12:44)
--- NOTE | 2016-04-19 13:01 | NUR ---
ADDITIONAL NS IV FLUID BOLUS RUNNING. PAIN 6/10 AT THIS TIME
--- NOTE | 2016-04-19 13:13 | NUR ---
PT MEDICATED WITH DILAUDID PER eMAR FOR CONTINUED PAIN. PLAN FOR U/S. NS IVF CONTINUE TO RUN. LIGHTS DIMMED FOR COMFORT. PT REQUESTING TO STAY IN PERSONAL CLOTHES AT THIS TIME. TRIGEMENY ON CM, DENIES CHEST PAIN. RATE 80'S
--- NOTE | 2016-04-19 13:36 | CT SCAN REPORT ---
EXAMINATION: CT HEAD WITHOUT CONTRAST CLINICAL INFORMATION: Headache. 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 COMPARISON: None. TECHNIQUE: Contiguous axial imaging was performed from the skull base to vertex without intravenous administration of contrast. DLP: 600.71 mGy-cm. FINDINGS: There is no evidence of acute intracranial hemorrhage or territorial infarction. No abnormal mass effect or midline shift is seen. Garces to white matter differentiation is well preserved. No extra-axial fluid collections are identified. The ventricles are normal in size. Mild age-appropriate diffuse cortical atrophy and mild chronic microvascular department ischemic changes are present. The osseous structures and soft tissues are normal. The mastoid air cells and visualized portions of the paranasal sinuses are well aerated. IMPRESSION: No acute intracranial pathology. Subtle intracranial metastasis is not excluded on these nonenhanced study. Follow-up nonemergent MRI of the brain with intravenous contrast may be considered to establish or exclude possibility of intracranial metastasis.
--- NOTE | 2016-04-19 14:02 | ED GI/GU/ABDOMINAL COMPLAINT ---
History of Present Illness General Chief Complaint: General Adult Stated Complaint: BIBA CONSTIPATION, LOW ABD PAIN, L SIDE PAIN Source: patient, family Exam Limitations: no limitations Vital Signs & Intake/Output Vital Signs & Intake/Output Vital Signs Date Time Temp Pulse Resp B/P Pulse O2 O2 Flow FiO2 Ox Delivery Rate 04/19 1439 96.6 87 18 114/62 94 Room Air 04/19 1310 96.6 80 132/66 95 04/19 1149 96 Room Air 04/19 1120 98.0 85 16 136/83 96 Room Air Allergies Coded Allergies: Iodinated Contrast Media - Oral and (UNKNOWN 03/30/16) Reconcile Medications Albuterol Sulfate 1.25 MG/3 ML VIAL.NEB 1 Vial INH/RASHAAD Q4-6 PRN WHEEZE DISPENSE 1 BOX Albuterol Sulfate (Proair Hfa) 90 MCG HFA.AER.AD 2 PUF INH Q4-6 PRN PRN COPD Amlodipine Besylate 5 MG TABLET 1 TAB PO DAILY BP (Reported) Ascorbic Acid (Vitamin C) 1,000 MG TABLET 1 TAB PO DAILY SUPPLEMENT (Reported ) Aspirin (Ecotrin*) 81 MG TABLET.DR 1 TAB PO DAILY HEART/BLOOD (Reported) Cyanocobalamin (Vitamin B-12) 1,000 MCG TABLET 1 TAB PO DAILY SUPPLEMENT ( Reported) Fentanyl Citrate (Duragesic) 50 MCG/HOUR PATCH.TD72 50 MCG TOP Q72H pain Hydromorphone HCl 4 MG TABLET 1 TAB PO Q3-4 PRN PAIN (Reported) Levofloxacin (Levaquin) 500 MG TABLET 1 TAB PO DAILY PNEUMOHNIA/BRONCHITIS Losartan Potassium 100 MG TABLET 1 TAB PO DAILY BP (Reported) Metformin HCl 500 MG TABLET 1 TAB PO BID DM (Reported) Metoprolol Succ XL (Toprol Xl) 50 MG TAB 1 TAB PO BID HEART (Reported) Multivitamin (Multi-Day Vitamins) 1 EACH TABLET 1 TAB PO DAILY SUPPLEMENT ( Reported) Nebulizer (Aeroeclipse II) 1 EACH EACH 1 KIT PO 4 TIMES/DAY PRN WHEEZE ICD 10 J45...... PLEASE DISPENSE NEBULIZER WITH TUBING (WHATEVER BRAND IS COVERED BY INSURANCE) Ondansetron (Zofran Odt) 4 MG TAB.RAPDIS 1 TAB SL TID PRN NAUSEA Polyethylene Glycol 3350 (Miralax) 17 GRAM/DOSE POWDER 17 GM PO DAILY constipation Sennosides/Docusate Sodium (Senna Plus Tablet) 8.6 MG-50 MG TABLET 1 TAB PO BID PRN CONSTIPATION Simvastatin (Simvastatin*) 20 MG TABLET 1 TAB PO QPM CHOLESTEROL (Reported) Triage Note: BIBA FROM HOME FOR CONSTIPATION X3 DAYS, SMALL MOVEMENT TODAY. RECENTLY DX WITH LUNG AND LIVER CA WEEK BEFORE . STARTED ON FENTANYL PATCH 5 DAYS AGO. TAKING SENNA AND MIRALAX WITH NO RELIEF. RECENTLY TREATED FOR DIVERTICULITIS WITH CIPRO AND FLAGYL. RECEIVING DUONEB TX'S AT HOME AND REPORTING TOP OF HEAD HEADACHE. DENIES VISUAL CHANGES. AWAITING REEVAL BY DR MOSLEY FOR CT AND MRI OF HEAD AND PET SCAN TO R/O BONE AND BRAIN METS Triage Nurses Notes Reviewed? yes HPI: 70-year-old male arrived by ambulance to room 6 from home for evaluation of abdominal pain that has been intermittent and ongoing for a few weeks. Edward has a history of lung cancer with metastases to the liver. This was found on imaging done a few months ago and confirmed with Dr. Mosley. He has been struggling with headaches that have been pounding and excruciating to left sided abdominal pain and constipation. He has been taking Tylenol added by mouth with a bowel regimen has not been working. The pain is intermittent and mostly on the left side of his abdomen left hip area and left upper abdomen. He has been having severe nausea with no vomiting or diarrhea. He did have a bowel movement this morning to moderate in size. He has also been having chest pressure, center of chest, that feels like something is obstructing his breathing. He recently had full blood work with Dr. Boudreaux again and there is more imaging studies scheduled this coming month including an MRI of his brain and abdomen. He has no appetite and has been eating very little. (TOD LIEBERMAN APRN) Past History Travel History Traveled to [place] past 21 day No Medical History Any Pertinent Medical History? see below for history Neurological: NONE EENT: NONE Cardiovascular: hypertension, hyperlipidemia, myocardial infarction, STENTS Respiratory: bronchitis, lung cancer Gastrointestinal: diverticulitis Hepatic: LIVER CA Renal: right partial nephrectomy Musculoskeletal: NONE, disk herniation Psychiatric: anxiety Endocrine: BORDERLINE DIABETIC Blood Disorders: NONE Cancer(s): BENIGN KIDNEY TUMOR LUNG CANCER LIVER CA RN ADMIT/Reproductive: NONE History of MRSA: No History of VRE: No History of CDIFF: No Surgical History Surgical History: PARTIAL RIGHT NEPHRECTOMY L4-L5 DISCECTOMY, UMBILICAL TUMOR BURST WHEN HE WAS 8YRS OLD Psychosocial History Who do you live with Family Services at Home None What is your primary language Beninese Tobacco Use: Quit <30 days ago Daily Tobacco Use Amount/Type: => 5 Cigarettes daily Family History Hx Contributory? No (TOD LIEBERMAN APRN) Review of Systems Review of Systems Constitutional: Reports: malaise, weakness. EENTM: Denies: no symptoms. Respiratory: Reports: see HPI, cough. Cardiovascular: Reports: chest pain. GI: Reports: abdominal pain, constipation, nausea. Genitourinary: Denies: no symptoms. Musculoskeletal: Denies: no symptoms. Skin: Denies: no symptoms. Neurological/Psychological: Reports: headache. Hematologic/Endocrine: Denies: no symptoms. Immunologic/Allergic: Denies: no symptoms. (TOD LIEBERMAN APRN) Physical Exam Physical Exam General Appearance: well developed/nourished, no apparent distress, alert, awake , comfortable Head: atraumatic, normal appearance Eyes: Bilateral: normal appearance, PERRL, EOMI. Ears, Nose, Throat, Mouth: hearing grossly normal Neck: normal inspection, supple, full range of motion Respiratory: decreased breath sounds Cardiovascular: regular rate/rhythm Peripheral Pulses: 2+ radial (R), 2+ radial (L), 2+ tibialis posterior (R), 2+ tibialis posterior ( L), 2+ dorsalis pedis (R), 2+ dorsalis pedis (L) Gastrointestinal: normal bowel sounds (also luq), soft, tenderness (llq and left hip) Back: normal inspection, normal range of motion Extremities: normal range of motion Neurologic/Psych: no motor/sensory deficits, awake, alert, oriented x 3, normal mood/affect Skin: intact, normal color, warm/dry Core Measures ACS in differential dx? No Severe Sepsis Present: No Septic Shock Present: No (TOD LIEBERMAN APRN) Progress Differential Diagnosis: AMI, biliary colic, bowel obstruction, colon cancer, cholecystitis, diverticulitis, thromboembolic etiology, PE, postobstructive pneumonia, electrolyte imbalance, constipation Plan of Care: Orders Procedure Date/time Status HEPATIC FUNCTION PANEL 04/20 599 Active CBC WITHOUT DIFFERENTIAL 04/20 599 Active BASIC ELECTROLYTES PLUS BUN&CR 01/08 0600 Active Clear Liquid Diet 04/19 D Active Pathway - chart 04/19 1513 Active House Staff 04/19 1513 Active Code Status 04/19 1513 Active Patient Data 04/19 1430 Active Admit to inpatient 04/19 1423 Active TROPONIN LEVEL 04/19 1127 Complete MAGNESIUM 04/19 1127 Complete LIPASE 04/19 1127 Complete COMPREHENSIVE METABOLIC PANEL 04/19 1127 Complete CBC WITHOUT DIFFERENTIAL 04/19 1127 Complete AMYLASE 04/19 1127 Complete EKG 04/19 1119 Active VTE Mechanical Prophylaxis 04/19 UNK Active Intake & Output 04/19 UNK Active Current Medications Sig/Noemí Start time Last Medication Dose Stop Time Status Admin Amlodipine Besylate 5 MG DAILY 04/20 1000 UNVr (Norvasc) Ascorbic Acid 1,000 MG DAILY 04/20 1000 UNVr (Vitamin C) Lactated Ringer's 1,000 ML Q6H 04/19 1515 AC (Lactated Ringers) Enoxaparin Sodium 40 MG DAILY 04/19 1509 UNVr (Lovenox) Sodium Chloride 1,000 ML BOLUS ONE 04/19 1330 CAN (Normal Saline 0.9%) 04/19 1429 Laboratory Tests 04/19/16 1140: Anion Gap 13, Estimated GFR 60, BUN/Creatinine Ratio 24.2, Glucose 96, Calcium 9.5, Magnesium 2.2, Total Bilirubin 0.5, AST 118 H, ALT 126 H, Alkaline Phosphatase 314 H, Troponin I < 0.01, Total Protein 6.4, Albumin 3.5, Globulin 2.9, Albumin/Globulin Ratio 1.2, Amylase 636 H, Lipase 5211 H, CBC w Diff NO MAN DIFF REQ, RBC 3.44 L, MCV 89.7, MCH 30.5, RDW 13.8, MPV 6.9 L, Gran % 69.9 , Lymphocytes % 21.9, Monocytes % 7.0, Eosinophils % 0.9, Basophils % 0.3, Absolute Granulocytes 4.3, Absolute Lymphocytes 1.4, Absolute Monocytes 0.4, Absolute Eosinophils 0.1, Absolute Basophils 0, PUBS MCHC 34.0 Diagnostic Imaging: Viewed by Me: CT Scan, Ultrasound. Discussed w/RAD: CT Scan, Ultrasound. Initial ED EKG: sinus rhythm, PVCs nonspecific ST-T wave changes no change from previous EKG Prior EKG: unchanged Comments: dilaudid 2 mg IV 2 doses given for pain. Zofran 4 mg given for nausea. 2 L of normal saline. Explained to Tommie and his blood work results and the need for an ultrasound of the abdomen but he will be admitted for pancreatitis and pain control. PATIENT: TOMMIE GLASER PRESENT AGE: 70 PATIENT ACCOUNT NO: [id number] : 45 LOCATION: [facility] ORDERING PHYSICIAN: TOD LIEBERMAN APRN SERVICE DATE: 04/19/16 EXAM TYPE: CAT - CT HEAD WO IV CONTRAST EXAMINATION: CT HEAD WITHOUT CONTRAST CLINICAL INFORMATION: Headache. 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 COMPARISON: None. TECHNIQUE: Contiguous axial imaging was performed from the skull base to vertex without intravenous administration of contrast. DLP: 600.71 mGy-cm. FINDINGS: There is no evidence of acute intracranial hemorrhage or territorial infarction. No abnormal mass effect or midline shift is seen. Garces to white matter differentiation is well preserved. No extra-axial fluid collections are identified. The ventricles are normal in size. Mild age-appropriate diffuse cortical atrophy and mild chronic microvascular department ischemic changes are present. The osseous structures and soft tissues are normal. The mastoid air cells and visualized portions of the paranasal sinuses are well aerated. IMPRESSION: No acute intracranial pathology. Subtle intracranial metastasis is not excluded on these nonenhanced study. Follow-up nonemergent MRI of the brain with intravenous contrast may be considered to establish or exclude possibility of intracranial metastasis. DICTATED BY: RIMMA PERKINS MD DATE/TIME DICTATED:04/19/161320 BEREAVEMENT COORDINATOR:LENNOX DATE/TIME TRANSCRIBED:04/19/161320 CONFIDENTIAL, DO NOT COPY WITHOUT APPROPRIATE AUTHORIZATION. <Electronically signed in Other Vendor System> SIGNED BY: RIMMA PERKINS MD 04/19/16 1336 2:14 PM call out to Dr. Henderson for admission 225 pm called back and we will admit to [facility] for pancreatitis. Patient well aware of labs, ct scan u/s results. PATIENT: TOMMIE GLASER PRESENT AGE: 70 PATIENT ACCOUNT NO: [id number] : 45 LOCATION: [facility] ORDERING PHYSICIAN: TOD LIEBERMAN APRN SERVICE DATE: 04/19/162058 EXAM TYPE: US - US-LIMITED ABDOMEN EXAMINATION: US ABDOMEN LIMITED CLINICAL INFORMATION: Patient with metastatic lung cancer to liver. Elevated lipase and amylase. Question common bile duct obstruction. COMPARISON: CT of the abdomen and pelvis dated 03/30/2016 TECHNIQUE: Real-time imaging of the right upper quadrant abdominal viscera. FINDINGS: PANCREAS: The visualized portions of the pancreas are normal in appearance LIVER: The liver is abnormal. There are multiple relatively hyperechoic solid masses with hypoechoic margins throughout the liver parenchyma, each averaging approximately 2 to 3 cm in diameter, consistent with metastatic lesions. This is similar in appearance to the prior abdominal CT. No central liquefaction or necrosis is identified. No dominant mass is delineated GALLBLADDER: Normal. The gallbladder is physiologically distended without evidence of stones, sludge, polyps, wall thickening or pericholecystic fluid. COMMON BILE DUCT: Normal in caliber measuring 0.5 cm in diameter. RIGHT KIDNEY: Grade 4 hydronephrosis with cortical thinning in the right kidney corresponds to findings on CT. This is presumably long-standing. There is no measurable or recognizable renal cortex. No stone or hydroureter is appreciated. The right kidney measures approximately 19 cm in sagittal diameter. FREE FLUID: No free fluid is seen in the upper abdomen IMPRESSION: The gallbladder is normal in appearance and there is no evidence for intra or extrahepatic biliary ductal dilatation. Multiple liver masses are similar to the prior CT and consistent with metastatic disease. Severely hydronephrotic right kidney with cortical thinning is presumably chronic with no apparent obstructing mass or stone DICTATED BY: SKYLAR TUCKER MD DATE/TIME DICTATED:04/19/161407 BEREAVEMENT COORDINATOR:LENNOX DATE/TIME TRANSCRIBED:04/19/161407 CONFIDENTIAL, DO NOT COPY WITHOUT APPROPRIATE AUTHORIZATION. <Electronically signed in Other Vendor System> SIGNED BY: SKYLAR TUCKER MD 04/19 1423 (TOD LIEBERMAN APRN) Departure Departure Time of Disposition: 1425 Disposition: STILL A PATIENT Condition: Stable Clinical Impression Primary Impression: Pancreatitis Qualifiers: Chronicity: acute Pancreatitis type: other Acute pancreatitis complication: unspecified Qualified Code: K85.80 - Other acute pancreatitis without necrosis or infection Referrals: MELISSA JONES,PANCHO Zaman (PCP/Family) Departure Forms: Customer Survey General Discharge Information Admission Note Spoke With: EDILSON JONES,STEVE Documentation of Exam: Documentation of any treatments & extenuating circumstances including Concerns Regarding Discharge (functional status, medication knowledge or non-compliance, living conditions, etc.) that warrant an admission rather than observation: NPO, IV fluids, pain control, oncology consultation. (TOD LIEBERMAN APRN) PA/GAUGE CONTROLLER Co-Sign Statement Statement: ED Attending supervision documentation- [X] I saw and evaluated the patient. I have also reviewed all the pertinent lab results and diagnostic results. I agree with the findings and the plan of care as documented in the PA's/GAUGE CONTROLLER's documentation. [X] I have reviewed the ED Record and agree with the PA's/GAUGE CONTROLLER's documentation. [] Additions or exceptions (if any) to the PAs/GAUGE CONTROLLER's note and plan are summarized below: [] (KIARA JONES,BILLIE)
--- NOTE | 2016-04-19 14:23 | ULTRASOUND REPORT ---
EXAMINATION: US ABDOMEN LIMITED CLINICAL INFORMATION: Patient with metastatic lung cancer to liver. Elevated lipase and amylase. Question common bile duct obstruction. COMPARISON: CT of the abdomen and pelvis dated 03/30/2016 TECHNIQUE: Real-time imaging of the right upper quadrant abdominal viscera. FINDINGS: PANCREAS: The visualized portions of the pancreas are normal in appearance LIVER: The liver is abnormal. There are multiple relatively hyperechoic solid masses with hypoechoic margins throughout the liver parenchyma, each averaging approximately 2 to 3 cm in diameter, consistent with metastatic lesions. This is similar in appearance to the prior abdominal CT. No central liquefaction or necrosis is identified. No dominant mass is delineated GALLBLADDER: Normal. The gallbladder is physiologically distended without evidence of stones, sludge, polyps, wall thickening or pericholecystic fluid. COMMON BILE DUCT: Normal in caliber measuring 0.5 cm in diameter. RIGHT KIDNEY: Grade 4 hydronephrosis with cortical thinning in the right kidney corresponds to findings on CT. This is presumably long-standing. There is no measurable or recognizable renal cortex. No stone or hydroureter is appreciated. The right kidney measures approximately 19 cm in sagittal diameter. FREE FLUID: No free fluid is seen in the upper abdomen IMPRESSION: The gallbladder is normal in appearance and there is no evidence for intra or extrahepatic biliary ductal dilatation. Multiple liver masses are similar to the prior CT and consistent with metastatic disease. Severely hydronephrotic right kidney with cortical thinning is presumably chronic with no apparent obstructing mass or stone
--- NOTE | 2016-04-19 14:31 | History & Physical ---
See Addendum General Information and HPI MD Statement: I have seen and personally examined MARJORIE GLASER and documented this H&P. The patient is a 70 year old M who presented with a patient stated chief complaint of [abdominal pain]. 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 Patient also complains of left-sided abdominal pain and constipation which is on and off going on for a while. Evidence of severe nausea with no vomiting or diarrhea. Abdominal pain about 6 x 10 in severity, squeezing in nature, sometimes radiating to the other side of the belly, associated with severe nausea. Denies vomiting, chest pain, shortness of breath, leg swelling, syncope, palpitations, diarrhea. Allergies/Medications Allergies: Coded Allergies: Iodinated Contrast Media - Oral and (UNKNOWN 03/30/16) Home Med list Albuterol Sulfate 1.25 MG/3 ML VIAL.NEB 1 Vial INH/RASHAAD Q4-6 PRN WHEEZE DISPENSE 1 BOX Albuterol Sulfate (Proair Hfa) 90 MCG HFA.AER.AD 2 PUF INH Q4-6 PRN PRN COPD Amlodipine Besylate 5 MG TABLET 1 TAB PO DAILY BP (Reported) Ascorbic Acid (Vitamin C) 1,000 MG TABLET 1 TAB PO DAILY SUPPLEMENT (Reported ) Aspirin (Ecotrin*) 81 MG TABLET.DR 1 TAB PO DAILY HEART/BLOOD (Reported) Cyanocobalamin (Vitamin B-12) 1,000 MCG TABLET 1 TAB PO DAILY SUPPLEMENT ( Reported) Fentanyl Citrate (Duragesic) 50 MCG/HOUR PATCH.TD72 50 MCG TOP Q72H pain Hydromorphone HCl 4 MG TABLET 1 TAB PO Q3-4 PRN PAIN (Reported) Losartan Potassium 100 MG TABLET 1 TAB PO DAILY BP (Reported) Metformin HCl 500 MG TABLET 1 TAB PO BID DM (Reported) Multivitamin (Multi-Day Vitamins) 1 EACH TABLET 1 TAB PO DAILY SUPPLEMENT ( Reported) Nebulizer (Aeroeclipse II) 1 EACH EACH 1 KIT PO 4 TIMES/DAY PRN WHEEZE ICD 10 J45...... PLEASE DISPENSE NEBULIZER WITH TUBING (WHATEVER BRAND IS COVERED BY INSURANCE) Ondansetron (Zofran Odt) 4 MG TAB.RAPDIS 1 TAB SL TID PRN NAUSEA Polyethylene Glycol 3350 (Miralax) 17 GRAM/DOSE POWDER 17 GM PO DAILY constipation Sennosides/Docusate Sodium (Senna Plus Tablet) 8.6 MG-50 MG TABLET 1 TAB PO BID PRN CONSTIPATION Simvastatin (Simvastatin*) 20 MG TABLET 1 TAB PO QPM CHOLESTEROL (Reported) Past History Travel History Traveled to [place] past 21 day No Medical History Neurological: NONE EENT: NONE Cardiovascular: hypertension, hyperlipidemia, myocardial infarction, STENTS Respiratory: bronchitis, lung cancer Gastrointestinal: diverticulitis Hepatic: LIVER CA Renal: right partial nephrectomy Musculoskeletal: NONE, disk herniation Psychiatric: anxiety Endocrine: BORDERLINE DIABETIC Blood Disorders: NONE Cancer(s): BENIGN KIDNEY TUMOR LUNG CANCER LIVER CA 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 Home Who Do You Live With? spouse Services at Home: None Smoking Status: Former Smoker (Quit 3 weeks ago) ETOH Use: occasional use Illicit Drug Use: denies illicit drug use Living Will? no Functional Ability ADLs Independent: dressing, eating, toileting, bathing. Ambulation: independent IADLs Independent: shopping, housework, finances, food prep, telephone, transportation , medication admin. Review of Systems Review of Systems Constitutional: Reports: see HPI. Exam & Diagnostic Data Last 24 Hrs of Vital Signs/I&O Vital Signs Date Time Temp Pulse Resp B/P Pulse O2 O2 Flow FiO2 Ox Delivery Rate 04/19 2310 95 Room Air 04/19 2300 Room Air 04/19 2153 98.0 86 20 145/68 93 04/19 1655 97.7 83 16 122/80 94 Room Air 04/19 1614 75 16 126/70 95 Room Air 04/19 1439 96.6 87 18 114/62 94 Room Air 04/19 1310 96.6 80 132/66 95 04/19 1149 96 Room Air 04/19 1120 98.0 85 16 136/83 96 Room Air Intake & Output 04/20 0800 04/20 0000 04/19 1600 Intake Total 450 2000 Output Total Balance 450 2000 Intake, IV 450 2000 Patient 188 lb 190 lb Weight Physical Exam General Appearance Alert, Oriented X3, Cooperative, No Acute Distress Skin No Rashes Cardiovascular Regular Rate, Normal S1, Normal S2, No Murmurs Lungs Decreased breath sounds in the right compared to the left. Abdomen Normal Bowel Sounds, Soft, Tenderness present in the epigastric region and left UQ Extremities No Clubbing, No Cyanosis, No Edema Last 24 Hrs of Labs/Wiliam: Laboratory Tests 04/19/16 1140: Anion Gap 13, Estimated GFR 60, BUN/Creatinine Ratio 24.2, Glucose 96, Calcium 9.5, Magnesium 2.2, Total Bilirubin 0.5, AST 118 H, ALT 126 H, Alkaline Phosphatase 314 H, Troponin I < 0.01, Total Protein 6.4, Albumin 3.5, Globulin 2.9, Albumin/Globulin Ratio 1.2, Amylase 636 H, Lipase 5211 H, CBC w Diff NO MAN DIFF REQ, RBC 3.44 L, MCV 89.7, MCH 30.5, RDW 13.8, MPV 6.9 L, Gran % 69.9 , Lymphocytes % 21.9, Monocytes % 7.0, Eosinophils % 0.9, Basophils % 0.3, Absolute Granulocytes 4.3, Absolute Lymphocytes 1.4, Absolute Monocytes 0.4, Absolute Eosinophils 0.1, Absolute Basophils 0, PUBS MCHC 34.0 Diagnostic Data Other Results Head CT: No acute intracranial pathology. Subtle intracranial metastasis is not excluded on these nonenhanced study. Follow-up nonemergent MRI of the brain with intravenous contrast may be considered to establish or exclude possibility of intracranial metastasis. U/S abd: The gallbladder is normal in appearance and there is no evidence for intra or extrahepatic biliary ductal dilatation. Multiple liver masses are similar to the prior CT and consistent with metastatic disease. Severely hydronephrotic right kidney with cortical thinning is presumably chronic with no apparent obstructing mass or stone Assessment/Plan Assessment: Assessment and plan 1. Uncontrollable abdominal pain with laboratory findings suggestive of pancreatitis along with a component of metastatic disease: We will treat him with IV fluids, increase his fentanyl patch to 75 g every 72 hours and adequate pain control with Dilaudid. We'll start him on lactated lingers with 1 L and recheck his LFTs in a.m. Ultrasound done in the ED did not show evidence of intrahepatic or extrahepatic biliary ductal dilation. Multiple liver masses similar to the prior CAT scan was present. Severely hydronephrotic right kidney which again has been present on the prior CAT scan was seen. We will call oncology evaluation in a.m. No evidence of infection at this time. Watch for fever and signs of cholangitis. If symptoms worsens will consider a pending CAT scan with IV contrast. 2. Hypertension: Discrepancy between patient's discharge medications recently and medication taken at home per patient. We will clarify it with pharmacy in a.m. 3. DVT prophylaxis with subcutaneous Lovenox As Ranked By This Provider Problem List: 1. Pancreatitis Qualifiers Chronicity: acute Pancreatitis type: other Acute pancreatitis complication: unspecified Qualified Code: K85.80 - Other acute pancreatitis without necrosis or infection 2. Lung cancer 3. Metastatic disease Core Measures/Miscellaneous Acute Coronary Syndrome ACS Diagnosis: No Cerebrovascular Accident CVA/TIA Diagnosis: No Congestive Heart Failure CHF Diagnosis: No Venous Thromboembolism VTE Risk Factors: Age > 40 VTE Prophylaxis Ordered Inpt: [facility]- [facility] prophylaxis d/t: No contraindications No VTE Pharm Prophylaxis d/t: No contraindications VTE Diagnosis: No VTE Type: NONE VTE Confirmed by (Test): NONE Severe Sepsis Severe Sepsis Present: No Septic Shock Septic Shock Present: No Miscellaneous Documentation Attending Case Discussed With: EDILSON JONES,STEVE Primary Care Physician: PANCHO TORRES MD Patient sees these Specialists Oncology Level of Patient Care: General Medicine
--- NOTE | 2016-04-19 14:42 | NUR ---
PT REPORTS PAIN 4/10 AT THIS TIME, MOSTLY TO LEFT SIDE. REQUESTING FOOD, INFORMED OF CONTINUED NPO STATUS WITH ICE CHIPS ONLY. WILL BE REEVALUATED BY HOUSE STAFF TO DETERMINE DIET PLAN
--- NOTE | 2016-04-19 15:48 | NUR ---
PT SLEEPING WITH EVEN, UNLABORED RESPIRATIONS OBSERVED. FOOD TRAY PROVIDED ON SIDE TABLE, CLEAR LIQUID DIET
--- NOTE | 2016-04-19 15:57 | NUR ---
BED ASSIGNMENT 235-2
--- NOTE | 2016-04-19 15:59 | Admission Certification ---
Admission Certification Certification Statement - As attending physician, I certify that at the time of - admission, based on clinical presentation, severity of - symptoms, need for further diagnostic testing and - therapeutic interventions, and risk of adverse outcomes - without in-hospital treatment, in my clinical assessment, - this patient requires an acute hospital stay for a minimum - of two nights or longer. I have also considered psychsocial - factors such as support system, advanced age, financial - issues, cognitive issues, and failed out-patient treatments, - past re-admission history, safety of patient, and lack of - compliance as applicable. Specific rationale supporting this admission is: Severe uncontrolled abdominal pain
--- NOTE | 2016-04-19 16:07 | PN- Att Addend ---
Attending Addendum Attending Brief Note Patient seen and examined. Plan of care discussed with the medical team and the patient. Available lab work and radiology test reports were reviewed. Patient was seen in the emergency room. In summary this is a 70-year-old man with past medical history of hypertension, partial right nephrectomy(2006), CAD with 2(1997) stents;,hyperlipidemia, recently found to have lung cancer with liver metastasis. Patient was a heavy smoker quit recently. Patient was discharged from hospital on April 10. He has been taking Dilaudid for chronic pain is likely due to liver metastasis. Pain is left-sided and has gotten worse over time. Patient current pain medication not able to control his pain. Note that patient Duragesic patch was recently increased on April 15 at 50 g. Please see resident note for current medication past medical history social history and family history. Vital Signs Date Time Temp Pulse Resp B/P Pulse O2 O2 Flow FiO2 Ox Delivery Rate 04/19 1439 96.6 87 18 114/62 94 Room Air 04/19 1310 96.6 80 132/66 95 04/19 1149 96 Room Air 04/19 1120 98.0 85 16 136/83 96 Room Air Intake & Output 04/19 1600 04/19 0800 04/19 0000 Intake Total 2000 Output Total Balance 2000 Intake, IV 1999 Patient 190 lb Weight Exam: General: Patient awake alert oriented with mild distress CVS: S1 plus S2 without any murmur or gallops Chest: Few scattered crepitation without any wheeze. There is no respiratory distress. 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 oriented without any focal neuro deficit and follows command appropriately Extremities: No edema; no clubbing or cyanosis noted Laboratory Tests 04/19 1140 Chemistry Sodium (137 - 145 mmol/L) 142 Potassium (3.5 - 5.1 mmol/L) 4.0 Chloride (98 - 107 mmol/L) 104 Carbon Dioxide (22 - 30 mmol/L) 25 Anion Gap (5 - 16) 13 BUN (9 - 20 mg/dL) 29 H Creatinine (0.7 - 1.2 mg/dL) 1.2 Estimated GFR (>60 ml/min) 60 BUN/Creatinine Ratio (7 - 25 %) 24.2 Glucose (65 - 99 mg/dL) 96 Calcium (8.4 - 10.2 mg/dL) 9.5 Magnesium (1.6 - 2.3 mg/dL) 2.2 Total Bilirubin (0.2 - 1.3 mg/dL) 0.5 AST (17 - 59 U/L) 118 H ALT (21 - 72 U/L) 126 H Alkaline Phosphatase (< 127 U/L) 314 H Troponin I (<0.11 ng/ml) < 0.01 Total Protein (6.3 - 8.2 g/dL) 6.4 Albumin (3.5 - 5.0 g/dL) 3.5 Globulin (1.9 - 4.2 gm/dL) 2.9 Albumin/Globulin Ratio (1.1 - 2.2 %) 1.2 Amylase (30 - 110 U/L) 636 H Lipase (23 - 300 U/L) 5211 H Hematology CBC w Diff NO MAN DIFF REQ WBC (4.8 - 10.8 /CUMM) 6.2 RBC (4.70 - 6.10 /CUMM) 3.44 L Hgb (14.0 - 18.0 G/DL) 10.5 L Hct (42 - 52 %) 30.8 L MCV (80.0 - 94.0 FL) 89.7 MCH (27.0 - 31.0 PG) 30.5 RDW (11.5 - 14.5 %) 13.8 Plt Count (130 - 400 /CUMM) 130 MPV (7.4 - 10.4 FL) 6.9 L Gran % (42.2 - 75.2 %) 69.9 Lymphocytes % (20.5 - 51.1 %) 21.9 Monocytes % (1.7 - 9.3 %) 7.0 Eosinophils % (0 - 5 %) 0.9 Basophils % (0.0 - 2.0 %) 0.3 Absolute Granulocytes (1.4 - 6.5 /CUMM) 4.3 Absolute Lymphocytes (1.2 - 3.4 /CUMM) 1.4 Absolute Monocytes (0.10 - 0.60 /CUMM) 0.4 Absolute Eosinophils (0.0 - 0.7 /CUMM) 0.1 Absolute Basophils (0.0 - 0.2 /CUMM) 0 PUBS MCHC (33.0 - 37.0 G/DL) 34.0 Liver ultrasound The gallbladder is normal in appearance and there is no evidence for intra or extrahepatic biliary ductal dilatation. Multiple liver masses are similar to the prior CT and consistent with metastatic disease. Severely hydronephrotic right kidney with cortical thinning is presumably chronic with no apparent obstructing mass or stone Had CT scan No acute intracranial pathology. Subtle intracranial metastasis is not excluded on these nonenhanced study. Follow-up nonemergent MRI of the brain with intravenous contrast may be considered to establish or exclude possibility of intracranial metastasis. Assessment and problem list * Uncontrollable abdominal pain * Lung cancer with liver metastasis * High-grade non-small cell lung cancer * Mild anemia * Acute pancreatitis * Transaminitis Plan * Given the patient's pain is not well controlled I would increase Duragesic patch to 75 g every 72 hours. Continue current dose of Dilaudid for moderate to severe pain; if pain score remains elevated above 8 despite these medication then patient can be given 1.5 mg IV Dilaudid every 4 hours when necessary. * Continue clear liquids * IV fluid Ringer lactate 1 L * Recheck lipase tomorrow * Recheck LFTs tomorrow * Oncology evaluation
--- NOTE | 2016-04-19 16:14 | NUR ---
REPORT GIVEN TO RECEIVING RN. DIST. CALLED. NO CALL BACK FROM [facility] REGARDING PAIN MED REQUEST, ALECIA PAGED
[2016-04-19 16:55] VITALS: BP 122/80
[2016-04-19 21:53] VITALS: BP 145/68
[2016-04-20 03:12] VITALS: BP 126/62
--- NOTE | 2016-04-20 03:40 | NUR ---
PT HAD EPISODE OF NAUSEA AT 0230. IV ZOFRAN GIVEN. 0315 PT STATES "I JUST DONT FEEL RIGHT"; VITALS TAKEN: 126/62, 86HR, 97.6, 95% ON RA. MD ASTORGA AWARE, ASSESSING AT BEDSIDE. 0.5L O2 APPLIED AND .5 MG XANAX GIVEN PER ORDER. EKG TAKEN. WILL MONITOR
--- NOTE | 2016-04-20 03:55 | Event Note ---
Event Note Event Note: Around 315am, I was called by his nurse because pt states that "he is not feeling right". I evaluated him, he seems to be in mild respiratory distress. He is receiving fluids at 75ml/hr. His lungs were clear to auscultation. He also looks anxious and has not been able to sleep. Although his sat was 95% on RA, he felt that he would be more comfortable with O2. So he is now on supplemental O2 at 1L. On heart examination, he was tachycardic. EKG was done and showed PVCs, consistent with previous EKGs, though more frequent on the current EKG. Looking at his lab today, his K and mag was within normal limits. He also complains of headache, for which imaging of the head done earlier was normal. Earlier, he was complaining of nausea and dry-heaving, relieved with zofran. The case and EKG findings discussed with the sourcing analyst, Dr. Ayala. Assessment: Shortness of breath most likely secondary to anxiety and headache. Although his lungs sound clear, pulmonary edema and ARDS should still be considered, given the current diagnosis of pancreatitis, small cell lung cancer, with liver metastases. Plan: Xanax 0.5 mg one time Give pain med that's due CXR portable now Trop and mag will be drawn with today's morning labs.
[2016-04-20 06:00] VITALS: BP 130/64
[2016-04-20 08:22] LABS: ABSOLUTE BASOPHIL COUNT 0 /CUMM (0.0-0.2); ABSOLUTE EOSINOPHIL COUNT 0.1 /CUMM (0.0-0.7); ABSOLUTE GRANULOCYTE CT 3.7 /CUMM (1.4-6.5); ABSOLUTE LYMPH COUNT 1.2 /CUMM (1.2-3.4); ABSOLUTE MONOCYTE COUNT 0.4 /CUMM (0.10-0.60); BASOPHIL % 0.3 % (0.0-2.0); EOSINOPHIL % 1.2 % (0-5); MEAN CORPUSCULAR HGB 30.7 PG (27.0-31.0); MEAN CORPUSCULAR HGB CONC 34.3 G/DL (33.0-37.0); MEAN CORPUSCULAR VOLUME 89.3 FL (80.0-94.0); MEAN PLATELET VOLUME 7.4 FL (7.4-10.4); PLATELET COUNT 111 /CUMM (130-400); RBC DISTRIBUTION WIDTH 14.3 % (11.5-14.5); RED BLOOD CELL CT 3.25 /CUMM (4.70-6.10); WHITE BLOOD CELL COUNT 5.4 /CUMM (4.8-10.8)
--- NOTE | 2016-04-20 08:56 | PN- Housestaff ---
Subjective Follow-up For: Pancreatitis Non-small cell Lung cancer with liver metastases Transaminitis Subjective: Seen and examined patient. Reports that he wants to start eating and pain is better controlled today Review of Systems Constitutional: Denies: chills, diaphoresis, fever, malaise, weakness, unexplained weight loss. Cardiovascular: Denies: chest pain, edema, orthopena, palpitations, peripheral edema, syncope. Respiratory: Denies: cough, hemoptysis, orthopnea, short of breath, sputum production. Objective Last 24 Hrs of Vital Signs/I&O Vital Signs Date Time Temp Pulse Resp B/P Pulse O2 O2 Flow FiO2 Ox Delivery Rate 04/20 1339 88 140/78 04/20 1005 90 132/76 04/20 0844 93 Room Air 04/20 0600 98.0 80 18 130/64 92 Room Air 04/20 0312 97.6 86 20 126/62 95 Room Air 04/19 2310 95 Room Air 04/19 2300 Room Air 04/19 2153 98.0 86 20 145/68 93 04/19 1655 97.7 83 16 122/80 94 Room Air 04/19 1614 75 16 126/70 95 Room Air 04/19 1439 96.6 87 18 114/62 94 Room Air Intake & Output 04/20 1600 04/20 0800 04/20 0000 Intake Total 600 450 Output Total 450 300 Balance 150 150 Intake, IV 600 450 Output, Urine 450 300 Patient 188 lb Weight Physical Exam General Appearance: Alert, Mild Distress Cardiovascular: Regular Rate, Normal S1, Normal S2 Lungs: Normal Air Movement Abdomen: Normal Bowel Sounds, Soft, tenderness in epigastric area Current Medications: Current Medications Sig/Noemí Start time Last Medication Dose Route Stop Time Status Admin Albuterol Sulfate 3 ML Q4P PRN 04/19 2330 AC 04/20 INH 0843 Alprazolam 0.5 MG ONCE ONE 04/20 0330 DC 04/20 PO 04/20 0331 0327 Amlodipine Besylate 5 MG DAILY 04/20 1000 AC 04/20 PO 1005 Ascorbic Acid 1,000 MG DAILY 04/20 1000 AC 04/20 PO 1006 Aspirin Buffered 81 MG DAILY 04/20 1000 AC 04/20 PO 1004 Cyanocobalamin 1,000 MCG DAILY 04/20 1000 AC 04/20 PO 1005 Enoxaparin Sodium 40 MG DAILY 04/19 1509 AC 04/20 SC 1007 Fentanyl Citrate 75 MCG Q72H 04/19 1630 AC 04/19 TOP 1719 Hydromorphone HCl 4 MG Q4P PRN 04/19 1630 AC PO Hydromorphone HCl 2 MG Q4P PRN 04/19 1630 AC 04/20 IV 1010 Insulin Aspart 0 TIDAC 04/19 1700 AC SC Lactated Ringer's 1,000 ML Q6H 04/19 1630 CAN IV Lactated Ringer's 1,000 ML Q6H 04/19 1515 AC 04/20 IV 1003 Losartan Potassium 100 MG DAILY 04/19 1618 DC PO Metoprolol Tartrate 50 MG BID 04/20 1100 AC 04/20 PO 1339 Metoprolol Tartrate 100 MG DAILY 04/20 1000 CAN PO Ondansetron HCl 4 MG ONCE ONE 04/20 0230 DC 04/20 IV 04/20 0231 0224 Patient Medication 1 UNIT ONE NR 04/19 1730 [facility] ED 04/19 1800 Patient Medication 1 UNIT ONE NR 04/19 1730 [facility] ED 04/19 1800 Patient Medication 1 UNIT ONE NR 04/19 1730 [facility] ED 04/19 1800 Patient Medication 1 UNIT ONE NR 04/19 1600 [facility] ED 04/19 1630 Patient Medication 1 UNIT ONE NR 04/19 1600 [facility] ED 04/19 1630 Polyethylene Glycol 17 GM DAILY 04/20 1000 AC PO Last 24 Hrs of Lab/Wiliam Results Last 24 Hrs of Labs/Mics: Laboratory Tests 04/20/16 0659: Anion Gap 12, Estimated GFR > 60, BUN/Creatinine Ratio 19.1, Magnesium 1.9, Total Bilirubin 0.4, Direct Bilirubin 0.3, AST 118 H, ALT 111 H, Alkaline Phosphatase 292 H, Troponin I < 0.01, Total Protein 5.4 L, Albumin 3.0 L, Lipase 3863 H, CBC w Diff NO MAN DIFF REQ, RBC 3.25 L, MCV 89.3, MCH 30.7, RDW 14.3, MPV 7.4, Gran % 69.0, Lymphocytes % 22.2, Monocytes % 7.3, Eosinophils % 1.2, Basophils % 0.3, Absolute Granulocytes 3.7, Absolute Lymphocytes 1.2, Absolute Monocytes 0.4, Absolute Eosinophils 0.1, Absolute Basophils 0, PUBS MCHC 34.3 Assessment/Plan Assessment: 70-year-old gentleman former heavy smoker, quit about 3 weeks with past medical history of hypertension, recently diagnosed with 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 Pain is improved today and patient would like to attempt eat . Plan: Acute pancreatitis Continue IV fluids Advance diet as tolerated Small cell lung cancer with liver metastases Call placed to inform Dr. Mosley of his admission Hypertension Continue metoprolol, Norvasc DVT prophylaxis sc lovenox Problem List: 1. Pancreatitis 2. Lung cancer 3. Metastatic disease Pain Ratin Pain Location: Abdomen Pain Goal: Pain 4 or less Pain Plan: Current regimen Tomorrow's Labs & Rationales: Pancreatitis follow-up lipase, and LFTs
--- NOTE | 2016-04-20 10:10 | RADIOLOGY REPORT ---
EXAMINATION: XR PORTABLE CHEST CLINICAL INFORMATION: Increased shortness of breath. Currently treated for pancreatitis. Possible edema/ARDS. COMPARISON: Portable chest 04/14/2016, 04/08/2017; CT chest 04/08/2016. TECHNIQUE: Semiupright portable AP view of the chest is performed at 0923 hours. FINDINGS: There are interval bibasilar effusions when compared with 04/14/2016. Right infrahilar airspace consolidation is likely stable. Unable to exclude superimposed consolidation left posterior base. The upper and mid lung zones are clear. The vascularity is normal. Again, there is fullness mediastinum consistent with the adenopathy noted on CT. There is mild cardiomegaly. 2 surgical clips again seen right upper chest. IMPRESSION: Interval bibasilar effusions when compared with 04/14/2016. Right base airspace consolidation likely stable. Unable to exclude consolidation left posterior base.
--- NOTE | 2016-04-20 13:41 | PN- Att Addend ---
Attending Addendum Attending Brief Note Patient seen and examined. Plan of care discussed with the medical team and the patient. Available lab work and radiology test reports were reviewed. Patient feels better and his pain has significantly decreased since yesterday. He is hungry and wants to eat this morning. Denies any nausea vomiting fever chills. Vital Signs Date Time Temp Pulse Resp B/P Pulse O2 O2 Flow FiO2 Ox Delivery Rate 04/20 1005 90 132/76 04/20 0844 93 Room Air 04/20 0600 98.0 80 18 130/64 92 Room Air 04/20 0312 97.6 86 20 126/62 95 Room Air 04/19 2310 95 Room Air 04/19 2300 Room Air 04/19 2153 98.0 86 20 145/68 93 04/19 1655 97.7 83 16 122/80 94 Room Air 04/19 1614 75 16 126/70 95 Room Air 04/19 1439 96.6 87 18 114/62 94 Room Air Intake & Output 04/20 1600 04/20 0800 04/20 0000 Intake Total 600 450 Output Total 450 300 Balance 150 150 Intake, IV 600 450 Output, Urine 450 300 Patient 188 lb Weight Exam: General: Patient awake alert oriented with mild distress CVS: S1 plus S2 without any murmur or gallops Chest: Few scattered crepitation without any wheeze. There is no respiratory distress. 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 without any focal neuro deficit and follows command appropriately Extremities: No edema; no clubbing or cyanosis noted Laboratory Tests 04/20 06 Chemistry Sodium (137 - 145 mmol/L) 140 Potassium (3.5 - 5.1 mmol/L) 4.3 Chloride (98 - 107 mmol/L) 103 Carbon Dioxide (22 - 30 mmol/L) 25 Anion Gap (5 - 16) 12 BUN (9 - 20 mg/dL) 21 H Creatinine (0.7 - 1.2 mg/dL) 1.1 Estimated GFR (>60 ml/min) > 60 BUN/Creatinine Ratio (7 - 25 %) 19.1 Magnesium (1.6 - 2.3 mg/dL) 1.9 Total Bilirubin (0.2 - 1.3 mg/dL) 0.4 Direct Bilirubin (< 0.4 mg/dL) 0.3 AST (17 - 59 U/L) 118 H ALT (21 - 72 U/L) 111 H Alkaline Phosphatase (< 127 U/L) 292 H Troponin I (<0.11 ng/ml) < 0.01 Total Protein (6.3 - 8.2 g/dL) 5.4 L Albumin (3.5 - 5.0 g/dL) 3.0 L Lipase (23 - 300 U/L) 3863 H Hematology CBC w Diff NO MAN DIFF REQ WBC (4.8 - 10.8 /CUMM) 5.4 RBC (4.70 - 6.10 /CUMM) 3.25 L Hgb (14.0 - 18.0 G/DL) 10.0 L Hct (42 - 52 %) 29.0 L MCV (80.0 - 94.0 FL) 89.3 MCH (27.0 - 31.0 PG) 30.7 RDW (11.5 - 14.5 %) 14.3 Plt Count (130 - 400 /CUMM) 111 L MPV (7.4 - 10.4 FL) 7.4 Gran % (42.2 - 75.2 %) 69.0 Lymphocytes % (20.5 - 51.1 %) 22.2 Monocytes % (1.7 - 9.3 %) 7.3 Eosinophils % (0 - 5 %) 1.2 Basophils % (0.0 - 2.0 %) 0.3 Absolute Granulocytes (1.4 - 6.5 /CUMM) 3.7 Absolute Lymphocytes (1.2 - 3.4 /CUMM) 1.2 Absolute Monocytes (0.10 - 0.60 /CUMM) 0.4 Absolute Eosinophils (0.0 - 0.7 /CUMM) 0.1 Absolute Basophils (0.0 - 0.2 /CUMM) 0 PUBS MCHC (33.0 - 37.0 G/DL) 34.3 Assessment and problem list * Uncontrollable abdominal pain * Lung cancer with liver metastasis * High-grade non-small cell lung cancer * Mild anemia * Acute pancreatitis clinically improving * Transaminitis Plan * Continue Duragesic patch 75 g every 72 hours. Continue current dose of Dilaudid for moderate to severe pain; * Advance diet as tolerated * Recheck lipase tomorrow * Recheck LFTs tomorrow * Oncology evaluation tomorrow
[2016-04-20 14:57] VITALS: BP 120/72
[2016-04-20 22:18] VITALS: BP 148/32
[2016-04-21 06:52] VITALS: BP 146/80
--- NOTE | 2016-04-21 07:27 | Cons- Oncology ---
General Information and HPI Consulting Request Date of Consult: 04/21/16 Requested By: EDILSON JONES,STEVE History of Present Illness: The patient is a 70-year-old man who I met 3 days ago the recent diagnosis of data static small cell lung cancer. Patient is now admitted with marked increase in his abdominal pain. Currently he feels somewhat improved. Review of the [facility] records suggests that the patient a distant past has had pancreatitis. Currently the patient's pain is much improved with no nausea or vomiting. Allergies/Medications Allergies: Coded Allergies: Iodinated Contrast Media - Oral and (UNKNOWN 03/30/16) Home Med List: Albuterol Sulfate 1.25 MG/3 ML VIAL.NEB 1 Vial INH/RASHAAD Q4-6 PRN WHEEZE DISPENSE 1 BOX Albuterol Sulfate (Proair Hfa) 90 MCG HFA.AER.AD 2 PUF INH Q4-6 PRN PRN COPD Amlodipine Besylate 5 MG TABLET 1 TAB PO DAILY BP (Reported) Ascorbic Acid (Vitamin C) 1,000 MG TABLET 1 TAB PO DAILY SUPPLEMENT (Reported ) Aspirin (Ecotrin*) 81 MG TABLET.DR 1 TAB PO DAILY HEART/BLOOD (Reported) Cyanocobalamin (Vitamin B-12) 1,000 MCG TABLET 1 TAB PO DAILY SUPPLEMENT ( Reported) Fentanyl Citrate (Duragesic) 50 MCG/HOUR PATCH.TD72 50 MCG TOP Q72H pain Hydromorphone HCl 4 MG TABLET 1 TAB PO Q3-4 PRN PAIN (Reported) Losartan Potassium 100 MG TABLET 1 TAB PO DAILY BP (Reported) Metformin HCl 500 MG TABLET 1 TAB PO BID DM (Reported) Multivitamin (Multi-Day Vitamins) 1 EACH TABLET 1 TAB PO DAILY SUPPLEMENT ( Reported) Nebulizer (Aeroeclipse II) 1 EACH EACH 1 KIT PO 4 TIMES/DAY PRN WHEEZE ICD 10 J45...... PLEASE DISPENSE NEBULIZER WITH TUBING (WHATEVER BRAND IS COVERED BY INSURANCE) Ondansetron (Zofran Odt) 4 MG TAB.RAPDIS 1 TAB SL TID PRN NAUSEA Polyethylene Glycol 3350 (Miralax) 17 GRAM/DOSE POWDER 17 GM PO DAILY constipation Sennosides/Docusate Sodium (Senna Plus Tablet) 8.6 MG-50 MG TABLET 1 TAB PO BID PRN CONSTIPATION Simvastatin (Simvastatin*) 20 MG TABLET 1 TAB PO QPM CHOLESTEROL (Reported) Current Medications: .. Current Medications Sig/Noemí Start time Last Medication Dose Route Stop Time Status Admin Albuterol Sulfate 3 ML Q4P PRN 04/19 2330 AC 04/20 INH 0843 Alprazolam 0.25 MG ONCE ONE 04/20 2100 DC 04/20 PO 04/20 2101 2117 Alprazolam 0.25 MG ONCE ONE 04/20 1615 DC 04/20 PO 04/20 1616 1627 Amlodipine Besylate 5 MG DAILY 04/20 1000 AC 04/20 PO 1005 Ascorbic Acid 1,000 MG DAILY 04/20 1000 AC 04/20 PO 1006 Aspirin Buffered 81 MG DAILY 04/20 1000 AC 04/20 PO 1004 Cyanocobalamin 1,000 MCG DAILY 04/20 1000 AC 04/20 PO 1005 Enoxaparin Sodium 40 MG DAILY 04/19 1509 AC 04/20 SC 1007 Fentanyl Citrate 75 MCG Q72H 04/19 1630 AC 04/19 TOP 1719 Hydromorphone HCl 4 MG Q4P PRN 04/19 1630 AC PO Hydromorphone HCl 2 MG Q4P PRN 04/19 1630 AC 04/21 IV 0635 Insulin Aspart 0 TIDAC 04/19 1700 AC SC Lactated Ringer's 1,000 ML Q6H 04/19 1515 AC 04/20 IV 2229 Metoprolol Tartrate 50 MG BID 04/20 1100 AC 04/20 PO 2223 Ondansetron HCl 4 MG Q6P PRN 04/20 2245 AC 04/21 IV 0234 Polyethylene Glycol 17 GM DAILY 04/20 1000 AC PO Review of Systems Review of Systems: Patient had chronic headaches. Patient denied hemoptysis productive sputum. Patient denied dysuria hematuria. Patient denies focal neurologic complaints. 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 Home Who Do You Live With? spouse Services at Home: None Smoking Status: Former Smoker (Quit 3 weeks ago) ETOH Use: occasional use Illicit Drug Use: denies illicit drug use Living Will? no Functional Ability ADLs Independent: dressing, eating, toileting, bathing. Ambulation: independent IADLs Independent: shopping, housework, finances, food prep, telephone, transportation , medication admin. Exam & Diagnostic Data Vital Signs and I&O Vital Signs Date Time Temp Pulse Resp B/P Pulse O2 O2 Flow FiO2 Ox Delivery Rate 04/21 651 97.8 86 18 146/80 94 Room Air 04/20 2223 90 148/92 04/20 2218 97.3 90 20 148/32 94 04/20 2110 93 Room Air 04/20 1457 97.5 83 20 120/72 94 04/20 1339 88 140/78 04/20 1005 90 132/76 04/20 0844 93 Room Air 04/20 0800 92 Room Air Intake & Output 04/21 0800 04/21 0000 04/20 1600 Intake Total 012 349 9066 Output Total 725 150 Balance -25 195 1200 Intake, IV 600 225 600 Intake, Oral 100 120 600 Number 1 Bowel Movements Output, Urine 725 150 Gen.: in NAD ENT: Sclera anicteric Chest: Normal respiratory effort, decreased breath sounds Cor: RRR, no extra sounds Abdomen: Soft, bowel sounds present, mild diffuse tenderness, no rebound Extremities: Without clubbing, cyanosis, or asymmetric edema Neurology: Alert and oriented 3, no gross deficit Skin: No rashes Last 48 Hours of Lab Results: Laboratory Tests 04/20 04/19 0659 1140 Chemistry Sodium (137 - 145 mmol/L) 140 142 Potassium (3.5 - 5.1 mmol/L) 4.3 4.0 Chloride (98 - 107 mmol/L) 103 104 Carbon Dioxide (22 - 30 mmol/L) 25 25 Anion Gap (5 - 16) 12 13 BUN (9 - 20 mg/dL) 21 H 29 H Creatinine (0.7 - 1.2 mg/dL) 1.1 1.2 Estimated GFR (>60 ml/min) > 60 60 BUN/Creatinine Ratio (7 - 25 %) 19.1 24.2 Glucose (65 - 99 mg/dL) 96 Calcium (8.4 - 10.2 mg/dL) 9.5 Magnesium (1.6 - 2.3 mg/dL) 1.9 2.2 Total Bilirubin (0.2 - 1.3 mg/dL) 0.4 0.5 Direct Bilirubin (< 0.4 mg/dL) 0.3 AST (17 - 59 U/L) 118 H 118 H ALT (21 - 72 U/L) 111 H 126 H Alkaline Phosphatase (< 127 U/L) 292 H 314 H Troponin I (<0.11 ng/ml) < 0.01 < 0.01 Total Protein (6.3 - 8.2 g/dL) 5.4 L 6.4 Albumin (3.5 - 5.0 g/dL) 3.0 L 3.5 Globulin (1.9 - 4.2 gm/dL) 2.9 Albumin/Globulin Ratio (1.1 - 2.2 %) 1.2 Amylase (30 - 110 U/L) 636 H Lipase (23 - 300 U/L) 3863 H 5211 H Hematology CBC w Diff NO MAN DIFF REQ NO MAN DIFF REQ WBC (4.8 - 10.8 /CUMM) 5.4 6.2 RBC (4.70 - 6.10 /CUMM) 3.25 L 3.44 L Hgb (14.0 - 18.0 G/DL) 10.0 L 10.5 L Hct (42 - 52 %) 29.0 L 30.8 L MCV (80.0 - 94.0 FL) 89.3 89.7 MCH (27.0 - 31.0 PG) 30.7 30.5 RDW (11.5 - 14.5 %) 14.3 13.8 Plt Count (130 - 400 /CUMM) 111 L 130 MPV (7.4 - 10.4 FL) 7.4 6.9 L Gran % (42.2 - 75.2 %) 69.0 69.9 Lymphocytes % (20.5 - 51.1 %) 22.2 21.9 Monocytes % (1.7 - 9.3 %) 7.3 7.0 Eosinophils % (0 - 5 %) 1.2 0.9 Basophils % (0.0 - 2.0 %) 0.3 0.3 Absolute Granulocytes (1.4 - 6.5 /CUMM) 3.7 4.3 Absolute Lymphocytes (1.2 - 3.4 /CUMM) 1.2 1.4 Absolute Monocytes (0.10 - 0.60 /CUMM) 0.4 0.4 Absolute Eosinophils (0.0 - 0.7 /CUMM) 0.1 0.1 Absolute Basophils (0.0 - 0.2 /CUMM) 0 0 PUBS MCHC (33.0 - 37.0 G/DL) 34.3 34.0 Imaging/Other Studies: [id number]-nothing definite Assessment/Plan Assessment: 1. Abdominal pain-data suggesting pancreatitis. This is of uncertain etiology given the prior episode and malignancy cannot have been causative. Recommend-GI consult 2. Stage IV small cell lung cancer-unenhanced head CAT scan is insufficient to rule out metastatic disease. Therefore [id number] contrast Bone scan-scheduled this week as outpatient MRI-total spine with gadolinium-scheduled this week as outpatient Recommendations: .. Consult Acknowledgment - Thank you for your consult request.
--- NOTE | 2016-04-21 11:19 | PN- Housestaff ---
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 Denies nausea vomiting, abdominal pain, fever, chills Review of Systems Constitutional: Denies: chills, diaphoresis, fever, malaise, weakness, unexplained weight loss. Cardiovascular: Denies: chest pain, edema, orthopena, palpitations, peripheral edema, syncope. Respiratory: Denies: cough, hemoptysis, orthopnea, short of breath, sputum production, stridor, wheezing. Objective Last 24 Hrs of Vital Signs/I&O Vital Signs Date Time Temp Pulse Resp B/P Pulse O2 O2 Flow FiO2 Ox Delivery Rate 04/21 1416 98.5 66 19 120/80 93 04/21 1358 94 Room Air Room Air 04/21 1021 86 146/80 04/21 0652 97.8 86 18 146/80 94 Room Air 04/20 2223 90 148/92 04/20 2218 97.3 90 20 148/32 94 04/20 2110 93 Room Air Intake & Output 04/21 1600 04/21 0800 04/21 0000 Intake Total 700 345 Output Total 150 725 150 Balance -150 -25 195 Intake, IV 600 225 Intake, Oral 100 120 Output, Urine 150 725 150 Physical Exam General Appearance: Alert, Oriented X3, Cooperative, No Acute Distress Cardiovascular: Regular Rate, Normal S1, Normal S2 Lungs: Clear to Auscultation, Normal Air Movement Abdomen: Normal Bowel Sounds, Soft, No Tenderness Current Medications: Current Medications Sig/Noemí Start time Last Medication Dose Route Stop Time Status Admin Albuterol Sulfate 3 ML Q4P PRN 04/19 2330 AC 04/20 INH 0843 Alprazolam 0.5 MG ONCE ONE 04/21 1030 DC 04/21 PO 04/21 1031 1306 Alprazolam 0.25 MG ONCE ONE 04/20 2100 DC 04/20 PO 04/20 2101 2117 Alprazolam 0.25 MG ONCE ONE 04/20 1615 DC 04/20 PO 04/20 1616 1627 Amlodipine Besylate 5 MG DAILY 04/20 1000 AC 04/21 PO 1021 Ascorbic Acid 1,000 MG DAILY 04/20 1000 AC 04/21 PO 1021 Aspirin Buffered 81 MG DAILY 04/20 1000 AC 04/21 PO 1021 Cyanocobalamin 1,000 MCG DAILY 04/20 1000 AC 04/21 PO 1021 Enoxaparin Sodium 40 MG DAILY 04/19 1509 AC 04/21 SC 1022 Fentanyl Citrate 75 MCG Q72H 04/19 1630 AC 04/19 TOP 1719 Hydromorphone HCl 4 MG Q4P PRN 04/19 1630 AC PO Hydromorphone HCl 2 MG Q4P PRN 04/19 1630 AC 04/21 IV 1021 Insulin Aspart 0 TIDAC 04/19 1700 AC SC Lactated Ringer's 1,000 ML Q6H 04/19 1515 AC 04/21 IV 1020 Metoprolol Tartrate 50 MG BID 04/20 1100 AC 04/20 PO 2223 Ondansetron HCl 4 MG .STK-MED ONE 04/21 0226 DC IM 04/21 0227 Ondansetron HCl 4 MG Q6P PRN 04/20 2245 AC 04/21 IV 0234 Patient Medication 1 ED .STK-MED ONE 04/21 1358 DC Teaching ED 04/21 1359 Polyethylene Glycol 17 GM DAILY 04/20 1000 AC 04/21 PO 1022 Last 24 Hrs of Lab/Wiliam Results Last 24 Hrs of Labs/Mics: Laboratory Tests 04/21/16 0745: Lipase 5457 H, TSH 3.640 Assessment/Plan Assessment: 70-year-old gentleman former heavy smoker, quit about 3 weeks with past medical history of hypertension, recently diagnosed with 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 Currently painfree and tolerating his diet Plan: Acute pancreatitis Continue IV RL fluids at 75 mL per hour GI consulted Small cell lung cancer with liver metastases Oncology following, recommending CT head with IV contrast to rule out metastases to the brain Patient has iodine allergy and therefore will need to be premedicated prior to CT. CT to be obtained tomorrow morning. Patient has a bone scan scheduled on the at [facility] and MRI of spine with CAD at [facility] on the . Call placed to his office to inquire whether bone scan and MRI-total spine with gadolinium should be coordinated updated today Hypertension Continue metoprolol, Norvasc DVT prophylaxis sc lovenox Problem List: 1. Pancreatitis 2. Lung cancer 3. Metastatic disease Pain Ratin Pain Location: na Pain Goal: Pain 4 or less Pain Plan: current regimen Tomorrow's Labs & Rationales: None required ENDY CHO MD 04/21/16 1304: Attending MD Review Statement Attending Statement Attending MD Statement: examined this patient, discuss w/resident/PA/OUTREACH LIAISON, agreed w/resident/PA/OUTREACH LIAISON, reviewed EMR data (avail) Attending Assessment/Plan: 70M PMH newly diagnosed SCLC admitted with acute pancreatitis, improving slowly. Will continue pain management, IV fluids, follow oncology recommendations, DVT PPx
[2016-04-21 14:16] VITALS: BP 120/80
--- NOTE | 2016-04-21 15:12 | Cons- Gastroenterology ---
General Information and HPI Consulting Request Date of Consult: 04/21/16 Requested By: EDILSON JONES,STEVE Reason for Consult: Pancreatitis, increased LFTs Source of Information: patient, old records Exam Limitations: no limitations History of Present Illness: Mr. Morales is a 70-year-old male recently diagnosed with metastatic small cell lung cancer at the end of last year who presented to [facility] on April 19 with complains of abdominal pain. He has been having intermittent abdominal pain that started thanksgiving. He complains of pain in the left flank and it radiates to his midepigastrium and to his back. He describes the pain as a sharp, cramping sensation. He was admitted for the pain a few weeks ago and was diagnsoed with diverticulitis which was treated with antibiotics with resolution of the symptoms, but his pain has recurred since finishing the antibiotics. Over the past 2 days he has been having worsening pain in his left flank associated with bilious vomiting which caused him to come back to the ER. He has been without any complaints of kathleen colored stool, dark urine or any fevers or chills at home. He has been without any jaundice or complaints of pruritus. In the ER he was noted to have a moderately elevated lipase and he was admitted to the medical service with a diagnosis of acute pancreatitis. He has been afebrile and hemodynamically stable since admission and he has been tolerating an oral diet. His flank pain has also improved with narcotics. Allergies/Medications Allergies: Coded Allergies: Iodinated Contrast Media - Oral and (UNKNOWN 03/30/16) Home Med List: Albuterol Sulfate 1.25 MG/3 ML VIAL.NEB 1 Vial INH/RASHAAD Q4-6 PRN WHEEZE DISPENSE 1 BOX Albuterol Sulfate (Proair Hfa) 90 MCG HFA.AER.AD 2 PUF INH Q4-6 PRN PRN COPD Amlodipine Besylate 5 MG TABLET 1 TAB PO DAILY BP (Reported) Ascorbic Acid (Vitamin C) 1,000 MG TABLET 1 TAB PO DAILY SUPPLEMENT (Reported ) Aspirin (Ecotrin*) 81 MG TABLET.DR 1 TAB PO DAILY HEART/BLOOD (Reported) Cyanocobalamin (Vitamin B-12) 1,000 MCG TABLET 1 TAB PO DAILY SUPPLEMENT ( Reported) Escitalopram Oxalate 5 MG TABLET 1 TAB PO DAILY DEPRESSION Fentanyl Citrate (Duragesic) 75 MCG/HOUR PATCH.TD72 75 MCG TOP Q72H PAIN Hydromorphone HCl 4 MG TABLET 1 TAB PO Q3-4 PRN PAIN (Reported) Losartan Potassium 100 MG TABLET 1 TAB PO DAILY BP (Reported) Metformin HCl 500 MG TABLET 1 TAB PO BID DM (Reported) Multivitamin (Multi-Day Vitamins) 1 EACH TABLET 1 TAB PO DAILY SUPPLEMENT ( Reported) Nebulizer (Aeroeclipse II) 1 EACH EACH 1 KIT PO 4 TIMES/DAY PRN WHEEZE ICD 10 J45...... PLEASE DISPENSE NEBULIZER WITH TUBING (WHATEVER BRAND IS COVERED BY INSURANCE) Ondansetron (Zofran Odt) 4 MG TAB.RAPDIS 1 TAB SL TID PRN NAUSEA Polyethylene Glycol 3350 (Miralax) 17 GRAM/DOSE POWDER 17 GM PO DAILY constipation Sennosides/Docusate Sodium (Senna Plus Tablet) 8.6 MG-50 MG TABLET 1 TAB PO BID PRN CONSTIPATION Simvastatin (Simvastatin*) 20 MG TABLET 1 TAB PO QPM CHOLESTEROL (Reported) Current Medications: Current Medications Sig/Noemí Start time Last Medication Dose Route Stop Time Status Admin Albuterol Sulfate 3 ML Q4P PRN 04/19 2330 AC 04/20 INH 0843 Alprazolam 0.5 MG ONCE ONE 04/21 1030 DC 04/21 PO 04/21 1031 1306 Alprazolam 0.25 MG ONCE ONE 04/20 2100 DC 04/20 PO 04/20 2101 2117 Alprazolam 0.25 MG ONCE ONE 04/20 1615 DC 04/20 PO 04/20 1616 1627 Amlodipine Besylate 5 MG DAILY 04/20 1000 AC 04/21 PO 1021 Ascorbic Acid 1,000 MG DAILY 04/20 1000 AC 04/21 PO 1021 Aspirin Buffered 81 MG DAILY 04/20 1000 AC 04/21 PO 1021 Cyanocobalamin 1,000 MCG DAILY 04/20 1000 AC 04/21 PO 1021 Enoxaparin Sodium 40 MG DAILY 04/19 1509 AC 04/21 SC 1022 Fentanyl Citrate 75 MCG Q72H 04/19 1630 AC 04/19 TOP 1719 Hydromorphone HCl 4 MG Q4P PRN 04/19 1630 AC PO Hydromorphone HCl 2 MG Q4P PRN 04/19 1630 AC 04/21 IV 1021 Insulin Aspart 0 TIDAC 04/19 1700 AC SC Lactated Ringer's 1,000 ML Q6H 04/19 1515 AC 04/21 IV 1020 Metoprolol Tartrate 50 MG BID 04/20 1100 AC 04/20 PO 2223 Ondansetron HCl 4 MG .STK-MED ONE 04/21 0226 DC IM 04/21 0227 Ondansetron HCl 4 MG Q6P PRN 04/20 2245 AC 04/21 IV 0234 Patient Medication 1 ED .STK-MED ONE 04/21 1358 DC Teaching ED 04/21 1359 Polyethylene Glycol 17 GM DAILY 04/20 1000 AC 04/21 PO 1022 Past History Travel History Traveled to May past 21 day No Medical History Blood Transfusion Hx: No Neurological: NONE EENT: NONE Cardiovascular: hypertension, hyperlipidemia, myocardial infarction, STENTS Respiratory: bronchitis, lung cancer Gastrointestinal: diverticulitis Hepatic: LIVER CA Renal: right partial nephrectomy Musculoskeletal: NONE, disk herniation Psychiatric: anxiety Endocrine: BORDERLINE DIABETIC Blood Disorders: NONE Cancer(s): BENIGN KIDNEY TUMOR LUNG CANCER LIVER CA INDUSTRIAL WELDER/Reproductive: NONE Surgical History Surgical History: PARTIAL RIGHT NEPHRECTOMY L4-L5 DISCECTOMY, UMBILICAL TUMOR BURST WHEN HE WAS 8YRS OLD Family History Relations & Conditions If Any: Relation not specified for: *No pertinent family history Psychosocial History Where Do You Live? Home Who Do You Live With? spouse Services at Home: None Smoking Status: Former Smoker (Quit 3 weeks ago) ETOH Use: occasional use Illicit Drug Use: denies illicit drug use Living Will? no Functional Ability ADLs Independent: dressing, eating, toileting, bathing. Ambulation: independent IADLs Independent: shopping, housework, finances, food prep, telephone, transportation , medication admin. Review of Systems Review of Systems Constitutional: Reports: malaise, weakness. Denies: chills, fever. EENTM: Denies: no symptoms. Cardiovascular: Denies: chest pain. Respiratory: Reports: cough, short of breath. GI: Reports: see HPI. Genitourinary: Denies: no symptoms. Musculoskeletal: Reports: back pain, muscle pain. Skin: Denies: no symptoms. Neurological/Psychological: Denies: no symptoms. Hematologic/Endocrine: Denies: no symptoms. Immunologic/Allergic: Denies: no symptoms. All Other Systems: Reviewed and Negative Exam & Diagnostic Data Vital Signs and I&O Vital Signs Date Time Temp Pulse Resp B/P Pulse O2 O2 Flow FiO2 Ox Delivery Rate 04/21 1416 98.5 66 19 120/80 93 04/21 1358 94 Room Air Room Air 04/21 1021 86 146/80 04/21 0652 97.8 86 18 146/80 94 Room Air 04/20 2223 90 148/92 04/20 2218 97.3 90 20 148/32 94 04/20 2110 93 Room Air Intake & Output 04/21 04004/19 040 Intake Total 716 609 2769 450 2000 Output Total 475 550 350 400 Balance 225 -205 1450 50 2000 Intake, IV 416 494 9609 450 2000 Intake, Oral 100 120 600 Number 1 Bowel Movements Output, Urine 475 550 350 400 Patient 188 lb 190 lb Weight Physical Exam General Appearance: well developed/nourished, no apparent distress, anxious Head: atraumatic, normal appearance Eyes: Bilateral: normal appearance. Ears, Nose, Throat: normal pharynx, normal ENT inspection Neck: normal inspection, supple, full range of motion Respiratory: chest non-tender, no respiratory distress, decreased breath sounds, wheezing Cardiovascular: regular rate/rhythm Gastrointestinal: normal bowel sounds, soft, tenderness Rectal: deferred Back: CVA tenderness (L) Extremities: normal inspection Neurologic/Psych: no motor/sensory deficits, awake, alert, oriented x 3 Skin: intact, normal color, warm/dry Results Pertinent Lab Results: Laboratory Tests 04/21 04/20 0745 0659 Chemistry Sodium (137 - 145 mmol/L) 140 Potassium (3.5 - 5.1 mmol/L) 4.3 Chloride (98 - 107 mmol/L) 103 Carbon Dioxide (22 - 30 mmol/L) 25 Anion Gap (5 - 16) 12 BUN (9 - 20 mg/dL) 21 H Creatinine (0.7 - 1.2 mg/dL) 1.1 Estimated GFR (>60 ml/min) > 60 BUN/Creatinine Ratio (7 - 25 %) 19.1 Magnesium (1.6 - 2.3 mg/dL) 1.9 Total Bilirubin (0.2 - 1.3 mg/dL) 0.4 Direct Bilirubin (< 0.4 mg/dL) 0.3 AST (17 - 59 U/L) 118 H ALT (21 - 72 U/L) 111 H Alkaline Phosphatase (< 127 U/L) 292 H Troponin I (<0.11 ng/ml) < 0.01 Total Protein (6.3 - 8.2 g/dL) 5.4 L Albumin (3.5 - 5.0 g/dL) 3.0 L Lipase (23 - 300 U/L) 5457 H 3863 H TSH (0.270 - 4.200 uIU/mL) 3.640 Hematology CBC w Diff NO MAN DIFF REQ WBC (4.8 - 10.8 /CUMM) 5.4 RBC (4.70 - 6.10 /CUMM) 3.25 L Hgb (14.0 - 18.0 G/DL) 10.0 L Hct (42 - 52 %) 29.0 L MCV (80.0 - 94.0 FL) 89.3 MCH (27.0 - 31.0 PG) 30.7 RDW (11.5 - 14.5 %) 14.3 Plt Count (130 - 400 /CUMM) 111 L MPV (7.4 - 10.4 FL) 7.4 Gran % (42.2 - 75.2 %) 69.0 Lymphocytes % (20.5 - 51.1 %) 22.2 Monocytes % (1.7 - 9.3 %) 7.3 Eosinophils % (0 - 5 %) 1.2 Basophils % (0.0 - 2.0 %) 0.3 Absolute Granulocytes (1.4 - 6.5 /CUMM) 3.7 Absolute Lymphocytes (1.2 - 3.4 /CUMM) 1.2 Absolute Monocytes (0.10 - 0.60 /CUMM) 0.4 Absolute Eosinophils (0.0 - 0.7 /CUMM) 0.1 Absolute Basophils (0.0 - 0.2 /CUMM) 0 PUBS MCHC (33.0 - 37.0 G/DL) 34.3 04/19 1140 Chemistry Sodium (137 - 145 mmol/L) 142 Potassium (3.5 - 5.1 mmol/L) 4.0 Chloride (98 - 107 mmol/L) 104 Carbon Dioxide (22 - 30 mmol/L) 25 Anion Gap (5 - 16) 13 BUN (9 - 20 mg/dL) 29 H Creatinine (0.7 - 1.2 mg/dL) 1.2 Estimated GFR (>60 ml/min) 60 BUN/Creatinine Ratio (7 - 25 %) 24.2 Glucose (65 - 99 mg/dL) 96 Calcium (8.4 - 10.2 mg/dL) 9.5 Magnesium (1.6 - 2.3 mg/dL) 2.2 Total Bilirubin (0.2 - 1.3 mg/dL) 0.5 AST (17 - 59 U/L) 118 H ALT (21 - 72 U/L) 126 H Alkaline Phosphatase (< 127 U/L) 314 H Troponin I (<0.11 ng/ml) < 0.01 Total Protein (6.3 - 8.2 g/dL) 6.4 Albumin (3.5 - 5.0 g/dL) 3.5 Globulin (1.9 - 4.2 gm/dL) 2.9 Albumin/Globulin Ratio (1.1 - 2.2 %) 1.2 Amylase (30 - 110 U/L) 636 H Lipase (23 - 300 U/L) 5211 H Hematology CBC w Diff NO MAN DIFF REQ WBC (4.8 - 10.8 /CUMM) 6.2 RBC (4.70 - 6.10 /CUMM) 3.44 L Hgb (14.0 - 18.0 G/DL) 10.5 L Hct (42 - 52 %) 30.8 L MCV (80.0 - 94.0 FL) 89.7 MCH (27.0 - 31.0 PG) 30.5 RDW (11.5 - 14.5 %) 13.8 Plt Count (130 - 400 /CUMM) 130 MPV (7.4 - 10.4 FL) 6.9 L Gran % (42.2 - 75.2 %) 69.9 Lymphocytes % (20.5 - 51.1 %) 21.9 Monocytes % (1.7 - 9.3 %) 7.0 Eosinophils % (0 - 5 %) 0.9 Basophils % (0.0 - 2.0 %) 0.3 Absolute Granulocytes (1.4 - 6.5 /CUMM) 4.3 Absolute Lymphocytes (1.2 - 3.4 /CUMM) 1.4 Absolute Monocytes (0.10 - 0.60 /CUMM) 0.4 Absolute Eosinophils (0.0 - 0.7 /CUMM) 0.1 Absolute Basophils (0.0 - 0.2 /CUMM) 0 PUBS MCHC (33.0 - 37.0 G/DL) 34.0 Imaging/Other Studies: US: FINDINGS: PANCREAS: The visualized portions of the pancreas are normal in appearance LIVER: The liver is abnormal. There are multiple relatively hyperechoic solid masses with hypoechoic margins throughout the liver parenchyma, each averaging approximately 2 to 3 cm in diameter, consistent with metastatic lesions. This is similar in appearance to the prior abdominal CT. No central liquefaction or necrosis is identified. No dominant mass is delineated GALLBLADDER: Normal. The gallbladder is physiologically distended without evidence of stones, sludge, polyps, wall thickening or pericholecystic fluid. COMMON BILE DUCT: Normal in caliber measuring 0.5 cm in diameter. RIGHT KIDNEY: Grade 4 hydronephrosis with cortical thinning in the right kidney corresponds to findings on CT. This is presumably long-standing. There is no measurable or recognizable renal cortex. No stone or hydroureter is appreciated. The right kidney measures approximately 19 cm in sagittal diameter. FREE FLUID: No free fluid is seen in the upper abdomen IMPRESSION: The gallbladder is normal in appearance and there is no evidence for intra or extrahepatic biliary ductal dilatation. Multiple liver masses are similar to the prior CT and consistent with metastatic disease. Severely hydronephrotic right kidney with cortical thinning is presumably chronic with no apparent obstructing mass or stone Assessment/Plan Assessment/Recommendations: Assessment: Mr. Morales is a 70 year old with a new diagnosis of metastatic small cell lung cancer confirmed by a liver biopsy on a hospitalization last month who presents with complaints of worsening left-sided flank and mid epigastric pain associated with an elevated lipase of uncertain etiology. While his lipase is moderately elevated, his symptoms are not consistent with acute pancreatitis and previous imaging of his pancreas when he also had a moderately elevated lipase was unremarkable albeit this was done without IV contrast. I feel the elevated lipase is most likely a nonspecific finding related to widespread metastatic disease in his abdomen and pelvis from the small cell lung cancer. It is possible he could have metastases to his pancreas as well and this may have been missed on his previous CAT scan as it was done without IV contrast. His bilirubin is currently normal and he is without any evidence of biliary dilatation or gallstones on his ultrasound so it is unlikely that he had gallstone pancreatitis and I do not necessarily feel that pursuing further imaging such as an MRCP is necessary at this time as it is unlikely to oil changer. He does have increased LFTs, but this is most like secondary to widespread metastatic disease as he did not have any gallstones on ultrasound and he does not have symptoms suggestive of biliary colic. It should also be noted that he had a moderately elevated lipase on a hospitalization in 2009 for diverticulitis without radiographic or clinical evidence of pancreatitis so it could be that it is 'normal' for him in the setting of diverticulitis to moderately raise his lipase or it is also possible that he could have a cystic neoplasm of the tail of the pancreas which has progressed in size over the past several years and this could also potentially explain his left sided pain, but I would of expected the ct scan last month to show something if this was the case, even if it was done without IV contrast. Recommendations: 1. Diet as tolerated. 2. Analgesia as needed. 3. Continue to follow LFTs, but if his bilirubin remains normal it does not need to be followed every day. 4. Will defer to oncology for further imaging for staging purposes, but I do not feel that pursuing imaging to rule out metastases to the pancreas or a cystic neoplasm of the pancreas is absolutely necessary as this is unlikely to oil changer. 5. GI should be notified if the patient develops any signs of cholangitis such as an increasing bilirubin, fevers and right upper quadrant pain in which case an MRCP will be recommended. I will continue to follow this patient and make further recommendations based on his clinical course and results of repeat blood work and imaging if it is obtained. Problem List: 1. Metastatic disease 2. Pancreatitis 3. Diverticulitis large intestine Copies To: HILLARY JONES,EDA Jane; MELISSA JONES,PANCHO Zaman Consult Acknowledgment - Thank you for your consult request.
[2016-04-21 22:23] VITALS: BP 130/60
--- NOTE | 2016-04-22 06:57 | PN- Oncology ---
Subjective Subjective: Decreased abdominal pain Review of Systems: 12 point review of systems unchanged Objective Vital Signs and I&Os Vital Signs Date Time Temp Pulse Resp B/P Pulse O2 O2 Flow FiO2 Ox Delivery Rate 04/21 2222 98.4 99 20 130/60 93 Room Air 04/21 2214 98.1 100 18 138/80 04/21 2138 91 Room Air 04/21 1416 98.5 66 19 120/80 93 04/21 1358 94 Room Air Room Air 04/21 1021 86 146/80 04/21 1000 66 120/80 Intake & Output 04/22 0000 04/21 1600 04/21 0804/21 0000 04/20 1600 Intake Total 1005 1240 540 541 0045 Output Total 900 1150 725 150 Balance 105 90 -25 195 1200 Intake, IV 525 560 600 225 600 Intake, Oral 480 680 100 120 600 Number 0 1 Bowel Movements Output, Urine 900 1150 725 150 Gen.: in NAD ENT: Sclera anicteric Chest: Normal respiratory effort, decreased breath sounds Cor: RRR, no extra sounds Abdomen: Soft, bowel sounds present, minimal tenderness, no rebound Extremities: Without clubbing, cyanosis, or edema Neurology: Alert and oriented 3, Current Medications: Current Medications Sig/Noemí Start time Last Medication Dose Route Stop Time Status Admin Albuterol Sulfate 3 ML Q4P PRN 04/19 2330 AC 04/20 INH 0843 Alprazolam 0.5 MG ONCE ONE 04/22 0500 DC PO 04/22 0501 Alprazolam 0.5 MG ONCE ONE 04/21 2230 DC 04/21 PO 04/21 2231 2301 Alprazolam 0.5 MG ONCE ONE 04/21 1030 DC 04/21 PO 04/21 1031 1306 Amlodipine Besylate 5 MG DAILY 04/20 1000 AC 04/21 PO 1021 Ascorbic Acid 1,000 MG DAILY 04/20 1000 AC 04/21 PO 1021 Aspirin Buffered 81 MG DAILY 04/20 1000 AC 04/21 PO 1021 Cyanocobalamin 1,000 MCG DAILY 04/20 1000 AC 04/21 PO 1021 Diphenhydramine HCl 50 MG ONCE ONE 04/22 0700 AC 04/22 PO 04/22 0701 0623 Enoxaparin Sodium 40 MG DAILY 04/19 1509 AC 04/21 SC 1022 Fentanyl Citrate 75 MCG Q72H 04/19 1630 AC 04/19 TOP 1719 Hydromorphone HCl 4 MG Q4P PRN 04/19 1630 AC PO Hydromorphone HCl 2 MG Q4P PRN 04/19 1630 AC 04/22 IV 0524 Insulin Aspart 0 TIDAC 04/19 1700 AC SC Lactated Ringer's 1,000 ML Q6H 04/19 1515 AC 04/21 IV 2216 Metoprolol Tartrate 50 MG BID 04/20 1100 AC 04/21 PO 2214 Ondansetron HCl 4 MG .STK-MED ONE 04/21 1616 DC IM 04/21 1617 Ondansetron HCl 4 MG Q6P PRN 04/20 2245 AC 04/21 IV 1621 Patient Medication 1 ED .STK-MED ONE 04/21 1358 DC Teaching ED 04/21 1359 Polyethylene Glycol 17 GM DAILY 04/20 1000 AC 04/21 PO 1022 Prednisone 50 MG ONCE ONE 04/22 0700 AC 04/22 PO 04/22 0701 0623 Prednisone 50 MG ONCE ONE 04/22 0100 DC 04/22 PO 04/22 0101 0101 Prednisone 50 MG ONCE ONE 04/21 1900 DC 04/21 PO 04/21 1901 1921 Results Last 24 Hours of Lab Results: Laboratory Tests 04/21 0745 Chemistry Lipase (23 - 300 U/L) 5457 H TSH (0.270 - 4.200 uIU/mL) 3.640 Assessment/Plan Assessment/Recommendations: 1.? Pancreatitis-GI has seen the patient. This may or may not be due to his metastatic cancer, particularly given the events of 2009 2. Small cell lung cancer- Await contrast scan of the head Bone scan MRI of the spine with gadolinium hopefully can be accomplished during this hospitalization
[2016-04-22 07:06] VITALS: BP 140/70
--- NOTE | 2016-04-22 07:29 | PN- Housestaff ---
KD ROLDAN 04/22/16 0729: Subjective Follow-up For: Small cell lung cancer Abdominal pain Subjective: seen and examined patient. Continues to feel anxiety. Denies shortness of breath, chest pain, headaches. Review of Systems Constitutional: Denies: chills, diaphoresis, fever, malaise, weakness, unexplained weight loss. Cardiovascular: Denies: chest pain, edema, orthopena, palpitations, peripheral edema, syncope. Respiratory: Denies: cough, hemoptysis, orthopnea, short of breath, sputum production, stridor, wheezing. Objective Last 24 Hrs of Vital Signs/I&O Vital Signs Date Time Temp Pulse Resp B/P Pulse O2 O2 Flow FiO2 Ox Delivery Rate 04/22 0706 97.4 80 20 140/70 93 Room Air 04/21 2223 98.4 99 20 130/60 93 Room Air 04/21 2214 98.1 100 18 138/80 04/21 2138 91 Room Air 04/21 1416 98.5 66 19 120/80 93 04/21 1358 94 Room Air Room Air 04/21 1021 86 146/80 04/21 1000 66 120/80 Intake & Output 04/22 1600 04/22 0800 04/22 0000 Intake Total 700 1005 Output Total 150 175 900 Balance -150 525 105 Intake, IV 600 525 Intake, Oral 100 480 Output, Urine 150 175 900 Physical Exam General Appearance: Alert, Oriented X3, Cooperative, No Acute Distress Cardiovascular: Regular Rate, Normal S1, Normal S2 Lungs: Clear to Auscultation, Normal Air Movement Abdomen: Normal Bowel Sounds, Soft, No Tenderness Current Medications: Current Medications Sig/Noemí Start time Last Medication Dose Route Stop Time Status Admin Albuterol Sulfate 3 ML Q4P PRN 04/19 2330 AC 04/20 INH 0843 Alprazolam 0.5 MG ONCE ONE 04/22 0500 DC 04/22 PO 04/22 0501 0819 Alprazolam 0.5 MG ONCE ONE 04/21 2230 DC 04/21 PO 04/21 2231 2301 Alprazolam 0.5 MG ONCE ONE 04/21 1030 DC 04/21 PO 04/21 1031 1306 Amlodipine Besylate 5 MG DAILY 04/20 1000 AC 04/21 PO 1021 Ascorbic Acid 1,000 MG DAILY 04/20 1000 AC 04/21 PO 1021 Aspirin Buffered 81 MG DAILY 04/20 1000 AC 04/21 PO 1021 Cyanocobalamin 1,000 MCG DAILY 04/20 1000 AC 04/21 PO 1021 Diphenhydramine HCl 50 MG ONCE ONE 04/22 0700 DC 04/22 PO 04/22 0701 0623 Enoxaparin Sodium 40 MG DAILY 04/19 1509 AC 04/21 SC 1022 Fentanyl Citrate 75 MCG Q72H 04/19 1630 AC 04/19 TOP 1719 Hydromorphone HCl 4 MG Q4P PRN 04/19 1630 AC PO Hydromorphone HCl 2 MG Q4P PRN 04/19 1630 AC 04/22 IV 0524 Insulin Aspart 0 TIDAC 04/19 1700 AC SC Lactated Ringer's 1,000 ML Q6H 04/19 1515 AC 04/21 IV 2216 Metoprolol Tartrate 50 MG BID 04/20 1100 AC 04/21 PO 2214 Ondansetron HCl 4 MG .STK-MED ONE 04/21 1616 DC IM 04/21 1617 Ondansetron HCl 4 MG Q6P PRN 04/20 2245 AC 04/21 IV 1621 Patient Medication 1 ED .STK-MED ONE 04/21 1358 DC Teaching ED 04/21 1359 Polyethylene Glycol 17 GM DAILY 04/20 1000 AC 04/21 PO 1022 Prednisone 50 MG ONCE ONE 04/22 0700 DC 04/22 PO 04/22 0701 0623 Prednisone 50 MG ONCE ONE 04/22 0100 DC 04/22 PO 04/22 0101 0101 Prednisone 50 MG ONCE ONE 04/21 1900 DC 04/21 PO 04/21 1901 1921 Assessment/Plan Assessment: 70-year-old gentleman former heavy smoker, quit about 3 weeks with past medical history of hypertension, recently diagnosed with 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 Having some anxiety this morning. Tolerating his diet Plan: Acute pancreatitis VS diverticultitis Will dc fluids GI consulted GI should be notified if the patient develops any signs of cholangitis such as an increasing bilirubin, fevers and right upper quadrant pain in which case an MRCP will be recommended. Small cell lung cancer with liver metastases Oncology following CT head with contrast to be done today Patient has a bone scan scheduled on the here at [facility] and MRI of spine with HARDY at [facility] on the . Anxiety Patient had outpatient appointment tomorrow Psychiatry consulted, appreciate recommendations Per their recommendations patient just to start start on esitalopram 5mg daily and appointment has been made for outpatient psych on May 05 with Salome at 12:15 PM at [address] Instructed to bring photo ID and insurance card Hypertension Continue metoprolol, Norvasc DVT prophylaxis sc lovenox Problem List: 1. Lung cancer Pain Ratin Pain Location: na Pain Goal: Pain 4 or less Pain Plan: current regimen Tomorrow's Labs & Rationales: LFT EMILIA CHO MD 04/22/16 1430: Attending MD Review Statement Attending Statement Attending MD Statement: examined this patient, discuss w/resident/PA/PHYSICAL SCIENCES INSTRUCTOR, agreed w/resident/PA/PHYSICAL SCIENCES INSTRUCTOR, reviewed EMR data (avail) Attending Assessment/Plan: 70M PMH newly diagnosed SCLC admitted with acute pancreatitis. Pain is controlled, taking regular diet well. Patient is stable for discharge home. Will have outpatient bone scan and MRI, follow up with oncology, continue all home medications.
--- NOTE | 2016-04-22 09:58 | CT SCAN REPORT ---
EXAMINATION: CT HEAD WITHOUT AND WITH CONTRAST CLINICAL INFORMATION: Headache. Patient with a history of non-small cell lung carcinoma and liver metastases. Evaluate for intracranial metastatic disease. COMPARISON: CT head 04/19/2016. TECHNIQUE: Contiguous axial imaging was performed from the skull base to vertex before and after the administration of 95 mL of Optiray 320 intravenous contrast. DLP: 1201.41 mGy-cm. FINDINGS: There is no acute intracranial hemorrhage or abnormal extra-axial collection. No abnormal intracranial mass or enhancement on postcontrast images. There is no intracranial mass effect or midline shift. Lateral and third ventricles are normal. No hydrocephalus. Garces-white matter differentiation is preserved and there is no evidence of acute territorial infarct. A small well marginated ovoid focus of hypoattenuation at the inferior aspect of the right putamen most likely represents a prominent perivascular space. The calvarium and skull base are intact. There is a left mastoid effusion. Visualized paranasal sinuses are well aerated. IMPRESSION: Stable examination with no evidence of abnormal intracranial mass or enhancement. No evidence of acute intracranial hemorrhage. Stable appearance of a small left mastoid effusion.
--- NOTE | 2016-04-22 10:28 | Patient Discharge Instructions ---
Discharge Instructions General Discharge Information You were seen/treated for: Abdominal pain Special Instructions: Please follow-up with your primary care physician within one week of discharge Please follow-up with the oncologist within 1 week of discharge Please follow-up with outpatient psych on May 05 with Salome at 12:15 PM at [address] Please bring photo ID and insurance card Acute Coronary Syndrome Inclusion Criteria At DC or during hospital stay patient has or had the following: ACS DIAGNOSIS No Discharge Core Measures Meds if any: Prescribed or Continued at Discharge Meds if any: NOT Prescribed or Continued at Discharge Congestive Heart Failure Inclusion Criteria At DC or during hospital stay patient has or had the following: CHF DIAGNOSIS No Discharge Core Measures Meds if any: Prescribed or Continued at Discharge Meds if any: NOT Prescribed or Continued at Discharge Cerebrovascular accident Inclusion Criteria At DC or during hospital stay patient has or had the following: CVA/TIA Diagnosis No Discharge Core Measures Meds if any: Prescribed or Continued at Discharge Meds if any: NOT Prescribed or Continued at Discharge Venous thromboembolism Inclusion Criteria VTE Diagnosis No VTE Type NONE VTE Confirmed by (Test) NONE Discharge Core Measures - Per Current guidelines, there needs to be overlap - treatment for the first 5 days of Warfarin therapy. - If discharged on Warfarin prior to 5 days of - overlap therapy, the patient will need to be - assessed for post discharge needs including - *Post discharge parental anticoagulation - *Warfarin and/or parental anticoagulation education - *Follow up date to check INR post discharge At least 5 days overlap therapy as Inpatient No Meds if any: Prescribed or Continued at Discharge Note: Overlap Therapy is Warfarin and Anticoagulant Meds if any: NOT Prescribed or Continued at Discharge
[2016-04-22] MEDS ORDERED: ESCITALOPRAM OXA5 MG PO (10:36)
--- NOTE | 2016-04-22 10:50 | Cons- Psychiatry ---
Psychiatric Consult Date of Consult: 04/22/16 Reason for Consult: Anxiety History of Present Illness: 70 year old male with new diagnosis of SCLC with mets to liver admitted for pancreatitis. Allergies: Coded Allergies: Iodinated Contrast Media - Oral and (UNKNOWN 03/30/16) Current Medications: No current psychotropic medications. Past History Past Medical History Neurological: NONE EENT: NONE Cardiovascular: hypertension, hyperlipidemia, myocardial infarction, STENTS Respiratory: bronchitis, lung cancer Gastrointestinal: diverticulitis Hepatic: LIVER CA Renal: right partial nephrectomy Musculoskeletal: NONE, disk herniation Psychiatric: anxiety Endocrine: BORDERLINE DIABETIC Blood Disorders: NONE Cancer(s): BENIGN KIDNEY TUMOR LUNG CANCER LIVER CA MONOGRAM TECHNICIAN/Reproductive: NONE Past Surgical History Surgical History: PARTIAL RIGHT NEPHRECTOMY L4-L5 DISCECTOMY, UMBILICAL TUMOR BURST WHEN HE WAS 8YRS OLD Psychosocial History Strengths/Capabilities: Motivated for treatment. Sole provider for disabled Psychiatric Treatment History Psych Treatment Psychiatric Treatment No Substance Use/Abuse History Drug Use/Abuse Substances Used/Abused No Assessment/Plan Mental Status Orientation: Person, Place, Situation Mental Status Exam: Patient is tearful throughout interview, and is very concerned about how his will manage when he is gone. Provisional Treatment Plan: 1. New Outpatient intake appointment at [address] [place] [address], on 05/05/2016 at 12:15 with Nan. Bring ins. card and photo ID. 2. Start escitalopram 5 mg PO daily. B/R/SE reviewed with patient. Vick Quevedo APRN, Pager [phone]
[2016-04-22] MEDS ORDERED: DURAGESIC1 EAC3 TOP (14:04)
[2016-04-22 14:29] VITALS: BP 144/77
--- NOTE | 2016-04-22 15:22 | Discharge Summary ---
Visit Information Visit Dates Admission Date: 04/19/16 Discharge Date: 04/22/16 Hospital Course Course Attending Physician: ENDY CHO MD Primary Care Physician: PANCHO TORRES MD Hospital Course: 70-year-old gentleman, heavy smoker quit about 3 weeks prior to admission with past medical history of hypertension, recently diagnosed with small cell malignancy in his previous admission on 04/08/2016, partial right nephrectomy( 2006), CAD with 2(1997) stents off aspirin for possible biopsy, hyperlipidemia, recently found lung mass with liver metastasis, presented to the ED with complaints of abdominal pain which has been intermittent and ongoing for a few weeks duration. Vitals on admission: Temperature 90.8, pulse rate 85, respiration rate 16, vitals 136/83, saturating 96 on room air. Labs pertinent for hemoglobin 10, hematocrit 29 lipase 5211, amylase 636, AST 118, ALT 126, ALP 314. Chest x-ray showed interval bibasilar fusion and stable right base airspace consolidation Abdomen ultrasound showed normal appearance of gallbladder, multiple liver masses similar to prior CT and severely hydronephrotic right kidney. Patient was admitted to the general medicine for the following issues were addressed: Elevated lipase Initially kept nothing by mouth, started on Ringer lactate fluids and pain control with Dilaudid. Diet was advanced as tolerated. GI was consulted and it was felt that the elevated lipase was most likely a nonspecific finding related to widespread metastatic disease in his abdomen and pelvis from the small cell lung cancer or possibly metastases to his pancreas. Small cell lung cancer with liver metastases Oncology was on board and recommended CT head with IV contrast which to ruled out metastases to the brain. Mr. Morales has a bone scan scheduled on the here at [facility] and MRI of spine with HARDY at [facility] on the . Anxiety He wished to address his anxiety during this difficult time and was agreeable to consulting psychiatry. Per their recommendations Esitalopram 5mg daily was started and an appointment was made for outpatient psych on May 05 with Salome at 12:15 PM at [address] Hypertension Continued metoprolol, Norvasc DVT prophylaxis sc lovenox Complications: None Allergies: Coded Allergies: Iodinated Contrast Media - Oral and (UNKNOWN 03/30/16) Significant Procedures: EXAM TYPE: US - US-LIMITED ABDOMEN FINDINGS: PANCREAS: The visualized portions of the pancreas are normal in appearance LIVER: The liver is abnormal. There are multiple relatively hyperechoic solid masses with hypoechoic margins throughout the liver parenchyma, each averaging approximately 2 to 3 cm in diameter, consistent with metastatic lesions. This is similar in appearance to the prior abdominal CT. No central liquefaction or necrosis is identified. No dominant mass is delineated GALLBLADDER: Normal. The gallbladder is physiologically distended without evidence of stones, sludge, polyps, wall thickening or pericholecystic fluid. COMMON BILE DUCT: Normal in caliber measuring 0.5 cm in diameter. RIGHT KIDNEY: Grade 4 hydronephrosis with cortical thinning in the right kidney corresponds to findings on CT. This is presumably long-standing. There is no measurable or recognizable renal cortex. No stone or hydroureter is appreciated. The right kidney measures approximately 19 cm in sagittal diameter. FREE FLUID: No free fluid is seen in the upper abdomen IMPRESSION: The gallbladder is normal in appearance and there is no evidence for intra or extrahepatic biliary ductal dilatation. Multiple liver masses are similar to the prior CT and consistent with metastatic disease. Severely hydronephrotic right kidney with cortical thinning is presumably chronic with no apparent obstructing mass or stone CT HEAD W&WO IV CONTRAST FINDINGS: There is no acute intracranial hemorrhage or abnormal extra-axial collection. No abnormal intracranial mass or enhancement on postcontrast images. There is no intracranial mass effect or midline shift. Lateral and third ventricles are normal. No hydrocephalus. Garces-white matter differentiation is preserved and there is no evidence of acute territorial infarct. A small well marginated ovoid focus of hypoattenuation at the inferior aspect of the right putamen most likely represents a prominent perivascular space. The calvarium and skull base are intact. There is a left mastoid effusion. Visualized paranasal sinuses are well aerated. IMPRESSION: Stable examination with no evidence of abnormal intracranial mass or enhancement. No evidence of acute intracranial hemorrhage. Stable appearance of a small left mastoid effusion. Disposition Summary Disposition Principal Diagnosis: Elevated lipase Additional Diagnosis: Small cell lung cancer with metastases Anxiety Hypertension Discharge Disposition: home or self care Discharge Instructions General Discharge Information Code Status: Full Code Patient's Diet: Regular Patient's Activity: As tolerated Follow-Up Instructions/Appts: follow-up with your primary care physician within one week of discharge follow-up with the oncologist within 1 week of discharge follow-up with outpatient psych on May 05 with Salome at 12:15 PM at [address] Please bring photo ID and insurance card Medications at Discharge Discharge Medications: Stop taking the following medications: Fentanyl Citrate (Duragesic) 50 MCG/HOUR PATCH.TD72 On the skin Q72H Qty = 10 Continue taking these medications: Metformin HCl (Metformin HCl) 500 MG TABLET 1 Tablet ORAL TWICE DAILY Qty = 60 Comments: Last Taken:NOT GIVEN IN HOSPITAL Time: Simvastatin (Simvastatin*) 20 MG TABLET 1 Tablet ORAL Every night Qty = 90 Comments: NOT GIVEN IN HOSPITAL ALTERNATIVE, LIPITOR Last Taken:04/13/16 Time: 4 PM Amlodipine Besylate (Amlodipine Besylate) 5 MG TABLET 1 Tablet ORAL DAILY Qty = 90 Comments: Last Taken:04/22/16 Time: 1000 Losartan Potassium (Losartan Potassium) 100 MG TABLET 1 Tablet ORAL DAILY Qty = 100 Comments: Last Taken:04/22/16 Time: 1000 Aspirin (Ecotrin*) 81 MG TABLET.DR 1 Tablet ORAL DAILY Days = 30 Comments: Last Taken:04/22/16 Time:1000 Multivitamin (Multi-Day Vitamins) 1 EACH TABLET 1 Tablet ORAL DAILY Comments: NOT GIVEN Cyanocobalamin (Vitamin B-12) 1,000 MCG TABLET 1 Tablet ORAL DAILY Comments: Last Taken:04/22/16 Time: 1000 Ascorbic Acid (Vitamin C) 1,000 MG TABLET 1 Tablet ORAL DAILY Days = 30 Comments: Last Taken:04/22/16 Time: 1000 Albuterol Sulfate (Proair Hfa) 90 MCG HFA.AER.AD 2 Puff Inhale through mouth EVERY 4-6 HOURS NEEDED as needed for COPD Qty = 1 Comments: ALBUTEROL NEB TX GIVEN IN HOSPITAL Last Taken: Time: NOT GIVEN IN HOSPITAL Ondansetron (Zofran Odt) 4 MG TAB.RAPDIS 1 Tablet SUBLINGUAL THREE TIMES DAILY as needed for NAUSEA Qty = 10 Comments: IV ZOFRAN GIVEN IN HOSPITAL Last Taken:04/08/16 Time: 9:30 PM Polyethylene Glycol 3350 (Miralax) 17 GRAM/DOSE POWDER 17 Gram ORAL DAILY Days = 28 Comments: Last Taken:04/21/16 Time:1000 Sennosides/Docusate Sodium (Senna Plus Tablet) 8.6 MG-50 MG TABLET 1 Tablet ORAL TWICE DAILY as needed for CONSTIPATION Days = 28 Comments: Last Taken:04/22/16 Time:1230 PM Nebulizer (Aeroeclipse II) 1 EACH EACH 1 Kit ORAL 4 TIMES A DAY as needed for WHEEZE Qty = 1 Instructions: ICD 10 J45...... PLEASE DISPENSE NEBULIZER WITH TUBING (WHATEVER BRAND IS COVERED BY INSURANCE) Comments: Last Taken:NOT GIVEN IN HOSPITAL Time: Albuterol Sulfate (Albuterol Sulfate) 1.25 MG/3 ML VIAL.NEB 1 Vial Inhale Solution EVERY 4-6 HOURS as needed for WHEEZE Qty = 150 Instructions: DISPENSE 1 BOX Comments: Last Taken:04/20/16 Time:0900 Hydromorphone HCl (Hydromorphone HCl) 4 MG TABLET 1 Tablet ORAL Every 3-4 hours as needed for PAIN Qty = 100 Comments: Last Taken:04/22/16 Time: 2 PM Start taking the following new medications: Fentanyl Citrate (Duragesic) 75 MCG/HOUR PATCH.TD72 75 Microgram On the skin Q72H Days = 30 No Refills Comments: Last Taken:04/22/16 Time:1230 PM Escitalopram Oxalate (Escitalopram Oxalate) 5 MG TABLET 1 Tablet ORAL DAILY Days = 30 No Refills Comments: Last Taken:04/22/16 Time:1230 PM Copies To: HILLARY JONES,EDA Jane; MELISSA JONES,PANCHO Zaman Attending MD Review Statement Documenting Attending: ENDY CHO MD
== END 2016-04-22 14:45 | DRG 439 ==
LOC: ERH 11:15 → ERHI 14:23 → 2NA 14:23
PROVIDERS: Internal Medicine; Nurse Practitioner Family; ADMIT Hospitalist
DX: K85.90 Acute pancreatitis without necrosis or infection, unspecified (principal); C34.90 Malignant neoplasm of unspecified part of unspecified bronchus or lung; C78.7 Secondary malignant neoplasm of liver and intrahepatic bile duct; I11.9 Hypertensive heart disease without heart failure; Z87.891 Personal history of nicotine dependence; I25.10 Atherosclerotic heart disease of native coronary artery without angina pectoris; Z95.5 Presence of coronary angioplasty implant and graft; E78.5 Hyperlipidemia, unspecified; F17.210 Nicotine dependence, cigarettes, uncomplicated
CPT/HCPCS: 2NAP; 2NASP; 36415; 82436; 93005; 93010; 96361; 96374; 96375; 96376; 99232; J1170; J1650; J2405; J3490; J7120

== ENCOUNTER 2016-04-23 17:21 | Inpatient (IN) | payer OTHER, MEDICARE ==
[~2016-04-23] VITALS: Ht 177.8 cm; Wt 84.8 kg
[~2016-04-23 17:21] MED LIST changes: +DURAGESIC1 EAC3 TOP; +ESCITALOPRAM OXA5 MG PO; +HYDROMORPHONE HC4 M1 PO; +MIRALAX17 G1 PO
--- NOTE | 2016-04-23 18:24 | RADIOLOGY REPORT ---
EXAMINATION: XR PORTABLE CHEST CLINICAL INFORMATION: Shortness of breath. COMPARISON: Chest x-ray 05/02/2016 CT chest 04/08/2016 TECHNIQUE: Portable view of the chest was obtained. 5:57 PM FINDINGS: Persistent density at the right lung base of infiltrate and/or atelectasis. This is unchanged since prior exam. Left lung remains clear. No pulmonary vascular congestion. Heart size normal. Calcifications thoracic aortic arch. Surgical clips over the right lung apex. IMPRESSION: Persistent density at right lung base of infiltrate and/or atelectasis unchanged since prior studies.
[2016-04-23 18:36] LABS: ABSOLUTE BASOPHIL COUNT 0.1 /CUMM (0.0-0.2); ABSOLUTE EOSINOPHIL COUNT 0.1 /CUMM (0.0-0.7); ABSOLUTE GRANULOCYTE CT 4.9 /CUMM (1.4-6.5); ABSOLUTE LYMPH COUNT 1.5 /CUMM (1.2-3.4); ABSOLUTE MONOCYTE COUNT 0.5 /CUMM (0.10-0.60); BASOPHIL % 1.7 % (0.0-2.0); EOSINOPHIL % 0.9 % (0-5); GRANULOCYTE % 68.9 % (42.2-75.2); HEMATOCRIT 28.7 % (42-52); MEAN CORPUSCULAR HGB CONC 33.9 G/DL (33.0-37.0); MEAN CORPUSCULAR VOLUME 88.6 FL (80.0-94.0); PLATELET COUNT 122 /CUMM (130-400); RBC DISTRIBUTION WIDTH 14.4 % (11.5-14.5); RED BLOOD CELL CT 3.24 /CUMM (4.70-6.10); WHITE BLOOD CELL COUNT 7.1 /CUMM (4.8-10.8)
--- NOTE | 2016-04-23 18:44 | ED GENERAL ADULT ---
See Addendum History of Present Illness General Chief Complaint: Dyspnea (COPD, CHF, Other) Stated Complaint: DYSPNEA Source: patient, old records Exam Limitations: no limitations Vital Signs & Intake/Output Vital Signs & Intake/Output Vital Signs Date Time Temp Pulse Resp B/P Pulse O2 O2 Flow FiO2 Ox Delivery Rate 04/23 2217 Room Air 04/23 2150 103 20 123/65 95 Room Air 04/23 1938 98.2 119 16 112/72 04/23 1917 103 18 108/67 95 Room Air 04/23 1807 95 Room Air 04/23 1726 97.2 116 16 106/69 95 Room Air Allergies Coded Allergies: Iodinated Contrast Media - Oral and (UNKNOWN 03/30/16) Reconcile Medications Albuterol Sulfate 1.25 MG/3 ML VIAL.NEB 1 Vial INH/RASHAAD Q4-6 PRN WHEEZE DISPENSE 1 BOX Albuterol Sulfate (Proair Hfa) 90 MCG HFA.AER.AD 2 PUF INH Q4-6 PRN PRN COPD Amlodipine Besylate 5 MG TABLET 1 TAB PO DAILY BP (Reported) Ascorbic Acid (Vitamin C) 1,000 MG TABLET 1 TAB PO DAILY SUPPLEMENT (Reported ) Aspirin (Ecotrin*) 81 MG TABLET.DR 1 TAB PO DAILY HEART/BLOOD (Reported) Cyanocobalamin (Vitamin B-12) 1,000 MCG TABLET 1 TAB PO DAILY SUPPLEMENT ( Reported) Escitalopram Oxalate 5 MG TABLET 1 TAB PO DAILY DEPRESSION Fentanyl Citrate (Duragesic) 75 MCG/HOUR PATCH.TD72 75 MCG TOP Q72H PAIN Hydromorphone HCl 4 MG TABLET 1 TAB PO Q3-4 PRN PAIN (Reported) Losartan Potassium 100 MG TABLET 1 TAB PO DAILY BP (Reported) Metformin HCl 500 MG TABLET 1 TAB PO BID DM (Reported) Multivitamin (Multi-Day Vitamins) 1 EACH TABLET 1 TAB PO DAILY SUPPLEMENT ( Reported) Nebulizer (Aeroeclipse II) 1 EACH EACH 1 KIT PO 4 TIMES/DAY PRN WHEEZE ICD 10 J45...... PLEASE DISPENSE NEBULIZER WITH TUBING (WHATEVER BRAND IS COVERED BY INSURANCE) Ondansetron (Zofran Odt) 4 MG TAB.RAPDIS 1 TAB SL TID PRN NAUSEA Polyethylene Glycol 3350 (Miralax) 17 GRAM/DOSE POWDER 17 GM PO DAILY constipation Sennosides/Docusate Sodium (Senna Plus Tablet) 8.6 MG-50 MG TABLET 1 TAB PO BID PRN CONSTIPATION Simvastatin (Simvastatin*) 20 MG TABLET 1 TAB PO QPM CHOLESTEROL (Reported) Triage Note: BIBA FOR SHORTNESS OF BREATH AND ABDONINAL PAIN. PT D/C 04/22/16 FROM [facility]. Triage Nurses Notes Reviewed? yes Onset: Abrupt Duration: day(s):, constant, continues in ED Timing: recent history Injury Environment: home No Modifying Factors: none HPI: 70-year-old male comes into emergency room for further evaluation of difficulty swallowing food earlier today. Patient reports at the food got stuck and then he coughed it up. 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 Patient was discharged from hospital yesterday. Patient is due to start chemotherapy this week and is due to have a nuclear study done this coming Thursday. Patient has been feeling shortness of breath. Patient was diagnosed with cancer recently within the past month and a half. Denies any vomiting. Denies any pressure in his chest and he does not feel like anything is stuck currently. (MICHELINE SILVA) Past History Travel History Traveled to [place] past 21 day No Medical History Any Pertinent Medical History? see below for history Neurological: NONE EENT: NONE Cardiovascular: hypertension, hyperlipidemia, myocardial infarction, STENTS Respiratory: bronchitis, lung cancer Gastrointestinal: diverticulitis Hepatic: LIVER CA Renal: right partial nephrectomy Musculoskeletal: NONE, disk herniation Psychiatric: anxiety Endocrine: BORDERLINE DIABETIC Blood Disorders: NONE Cancer(s): BENIGN KIDNEY TUMOR LUNG CANCER LIVER CA FIRE PREVENTION FORESTER/Reproductive: NONE History of MRSA: No History of VRE: No History of CDIFF: No Influenza Vaccine: 03/28/16 Surgical History Surgical History: PARTIAL RIGHT NEPHRECTOMY L4-L5 DISCECTOMY, UMBILICAL TUMOR BURST WHEN HE WAS 8YRS OLD Psychosocial History Who do you live with Family Services at Home None What is your primary language [place] Tobacco Use: Quit >30 days ago ETOH Use: occasional use Family History Family History, If Any: Relation not specified for: *No pertinent family history Hx Contributory? No (MICHELINE SILVA) Review of Systems Review of Systems Constitutional: Reports: no symptoms. EENTM: Reports: no symptoms. Respiratory: Reports: see HPI. Cardiovascular: Reports: see HPI. GI: Reports: see HPI. Genitourinary: Reports: no symptoms. Musculoskeletal: Reports: no symptoms. Skin: Reports: no symptoms. Neurological/Psychological: Reports: no symptoms. Hematologic/Endocrine: Reports: no symptoms. Immunologic/Allergic: Reports: no symptoms. All Other Systems: Reviewed and Negative (MICHELINE SILVA) Physical Exam Physical Exam General Appearance: well developed/nourished, alert, awake, mild distress Head: atraumatic Eyes: Bilateral: normal appearance. Ears, Nose, Throat: normal pharynx, normal ENT inspection Neck: normal inspection Respiratory: no respiratory distress, decreased breath sounds (rll) Cardiovascular: irregularly irregular Gastrointestinal: soft Back: normal inspection Extremities: normal inspection, normal range of motion Neurologic/Psych: awake, alert, oriented x 3, normal gait, normal mood/affect Skin: intact, normal color Core Measures ACS in differential dx? No CVA/TIA Diagnosis: No Severe Sepsis Present: No Septic Shock Present: No (MICHELINE SILVA) Progress Differential Diagnoses I considered the following diagnoses in my evaluation of the patient: esophogeal food bolus, gastritis, PE, pneumonia, UT, stenosis of the esophagus, esophagitis Plan of Care: Orders Procedure Date/time Status Heart Healthy Diet 04/24 B Active Intake & Output 04/23 2011 Active Patient Data 04/23 2003 Active Admit to inpatient 04/23 1916 Active Vital Signs 04/23 1915 Active Code Status 04/23 1915 Active Add-on Test (ER Only) 04/23 1913 Active PARTIAL THROMBOPLASTIN TIME 04/23 181 Complete PROTHROMBIN TIME 04/23 181 Complete URINALYSIS 04/23 175 Complete TROPONIN LEVEL 04/23 175 Complete COMPREHENSIVE METABOLIC PANEL 04/23 175 Complete CBC WITHOUT DIFFERENTIAL 04/23 175 Complete EKG 04/23 1726 Active Laboratory Tests 04/23/162001: Urine Color YEL, Urine Clarity CLEAR, Urine pH 6.0, Ur Specific [place] 1.020, Urine Protein 30 H, Urine Ketones NEG, Urine Nitrite NEG, Urine Bilirubin NEG, Urine Urobilinogen 1.0, Ur Leukocyte Esterase NEG, Ur Microscopic SEDIMENT EXAMINED, Urine WBC 1-3 H, Urine Hemoglobin NEG, Urine Glucose NEG 04/23/16 1810: Anion Gap 12, Estimated GFR > 60, BUN/Creatinine Ratio 21.8, Glucose 89, Calcium 9.0, Total Bilirubin 0.4, AST 108 H, ALT 107 H, Alkaline Phosphatase 325 H, Troponin I 0.01, Total Protein 5.7 L, Albumin 3.0 L, Globulin 2.7, Albumin/ Globulin Ratio 1.1, PT 12.2, INR 1.16, APTT 24 L, CBC w Diff NO MAN DIFF REQ, RBC 3.24 L, MCV 88.6, MCH 30.0, RDW 14.4, MPV 7.0 L, Gran % 68.9, Lymphocytes % 21.3, Monocytes % 7.2, Eosinophils % 0.9, Basophils % 1.7, Absolute Granulocytes 4.9, Absolute Lymphocytes 1.5, Absolute Monocytes 0.5, Absolute Eosinophils 0.1, Absolute Basophils 0.1, PUBS MCHC 33.9 DISCUSSED WITH HOSPITALIST FOR ADMISSION. WILL BE ADMITTED FOR IV CARDIZEM DRIP , IV HEPARIN DRIP, CARDIOLOGY EVLAUTION, W/U FOR NEW ONSET AFIB. (BILLIE CRAIG MD) Diagnostic Imaging: Viewed by Me: Radiology Read. Discussed w/RAD: Radiology Read. Radiology Impression: SERVICE DATE: 04/23/16 EXAM TYPE: RAD - XRY- PORTABLE CHEST XRAY EXAMINATION: XR PORTABLE CHEST CLINICAL INFORMATION: Shortness of breath. COMPARISON: Chest x-ray 05/02/2016 CT chest 04/08/2016 TECHNIQUE: Portable view of the chest was obtained. 5:57 PM FINDINGS: Persistent density at the right lung base of infiltrate and/or atelectasis. This is unchanged since prior exam. Left lung remains clear. No pulmonary vascular congestion. Heart size normal. Calcifications thoracic aortic arch. Surgical clips over the right lung apex. IMPRESSION: Persistent density at right lung base of infiltrate and/or atelectasis unchanged since prior studies. DICTATED BY : LORENA TEIXEIRA MD Initial ED EKG: rate (134), AFIB (MICHELINE SILVA) Differential Diagnoses I considered the following diagnoses in my evaluation of the patient: (BILLIE CRAIG MD) Departure Departure Disposition: STILL A PATIENT Condition: Stable Clinical Impression Primary Impression: New onset a-fib Referrals: MELISSA JONES,PANCHO Zaman (PCP/Family) Departure Forms: Customer Survey General Discharge Information Admission Note Spoke With: GERMAN DRUMMOND MD Documentation of Exam: Documentation of any treatments & extenuating circumstances including Concerns Regarding Discharge (functional status, medication knowledge or non-compliance, living conditions, etc.) that warrant an admission rather than observation: Patient in new onset A. fib. Patient will require IV Cardizem. IV heparin. A cardiac consultation. high risk. (MICHELINE SILVA) Admission Note Spoke With: BHANU JONES,GERMAN PA/COMPOSITION INSTRUCTOR Co-Sign Statement Statement: ED Attending supervision documentation- [X] I saw and evaluated the patient. I have also reviewed all the pertinent lab results and diagnostic results. I agree with the findings and the plan of care as documented in the PA's/COMPOSITION INSTRUCTOR's documentation. [X] I have reviewed the ED Record and agree with the PA's/COMPOSITION INSTRUCTOR's documentation. [] Additions or exceptions (if any) to the PAs/COMPOSITION INSTRUCTOR's note and plan are summarized below: [] (KIARA JONES,BILLIE) Critical Care Note Critical Care Note Critical Care Time: 30-74 min (MICHELINE SILVA)
[2016-04-23 19:43] LABS: PT 12.2 SEC (9.4-12.5); PTT 24 SEC (25-37)
--- NOTE | 2016-04-23 22:02 | History & Physical ---
JOSEPH JONES,[facility] 04/23/16 2200: General Information and HPI MD Statement: I have seen and personally examined MARJORIE GLASER and documented this H&P. The patient is a 70 year old M who presented with a patient stated chief complaint of [food stuck in my throat] Exam Limitations: no limitations History of Present Illness: This is a 70-year-old man with past medical history of hypertension, recently diagnosed with small cell malignancy in his previous admission on 04/08/2016, partial right nephrectomy(2006), CAD with 2(1997) stents off aspirin for possible biopsy ,hyperlipidemia, heavy smoker who quit about three and a half weeks ago, recently found with lung mass with liver metastasis, and was discharged yesterday after 3 day hospitalization for abdominal pain and evaluated fo pancreatitis versus diverticulitis, presents to [place] ED with chief complaint of "food stuck in my throat". Patient states that after being discharge yesterday, other than his chronic abdominal pain and shortness of breath,he did not have any acute complaints or change in his status. Around 4 PM today,while having a piece of sandwich, it stuck in his throat and was unable to completely swallow it. Patient was able to cough up the stuck piece of sandwich.He does not report any previous similar episode. He denies any difficulties swallowing liquids. He does deny odynophagia. No neurological complaints such as facial droop, weakness, or any localization. No complaints of chest pain,palpitations,fever/chills,or dysuria At the ED, patient was found to be in A. fib with heart rates of 110s and received Cardizem 10 mg IV bolus and heparin drip started. Of note, patient was scheduled today for bone scan today in preparation for the treatment of the small cell carcinoma. Allergies/Medications Allergies: Coded Allergies: Iodinated Contrast Media - Oral and (UNKNOWN 03/30/16) Home Med list Albuterol Sulfate 1.25 MG/3 ML VIAL.NEB 1 Vial INH/RASHAAD Q4-6 PRN WHEEZE DISPENSE 1 BOX Albuterol Sulfate (Proair Hfa) 90 MCG HFA.AER.AD 2 PUF INH Q4-6 PRN PRN COPD Amlodipine Besylate 5 MG TABLET 1 TAB PO DAILY BP (Reported) Ascorbic Acid (Vitamin C) 1,000 MG TABLET 1 TAB PO DAILY SUPPLEMENT (Reported ) Aspirin (Ecotrin*) 81 MG TABLET.DR 1 TAB PO DAILY HEART/BLOOD (Reported) Cyanocobalamin (Vitamin B-12) 1,000 MCG TABLET 1 TAB PO DAILY SUPPLEMENT ( Reported) Escitalopram Oxalate 5 MG TABLET 1 TAB PO DAILY DEPRESSION Fentanyl Citrate (Duragesic) 75 MCG/HOUR PATCH.TD72 75 MCG TOP Q72H PAIN Hydromorphone HCl 4 MG TABLET 1 TAB PO Q3-4 PRN PAIN (Reported) Losartan Potassium 100 MG TABLET 1 TAB PO DAILY BP (Reported) Metformin HCl 500 MG TABLET 1 TAB PO BID DM (Reported) Multivitamin (Multi-Day Vitamins) 1 EACH TABLET 1 TAB PO DAILY SUPPLEMENT ( Reported) Nebulizer (Aeroeclipse II) 1 EACH EACH 1 KIT PO 4 TIMES/DAY PRN WHEEZE ICD 10 J45...... PLEASE DISPENSE NEBULIZER WITH TUBING (WHATEVER BRAND IS COVERED BY INSURANCE) Ondansetron (Zofran Odt) 4 MG TAB.RAPDIS 1 TAB SL TID PRN NAUSEA Polyethylene Glycol 3350 (Miralax) 17 GRAM/DOSE POWDER 17 GM PO DAILY constipation Sennosides/Docusate Sodium (Senna Plus Tablet) 8.6 MG-50 MG TABLET 1 TAB PO BID PRN CONSTIPATION Simvastatin (Simvastatin*) 20 MG TABLET 1 TAB PO QPM CHOLESTEROL (Reported) Past History Travel History Traveled to [place] past 21 day No Medical History Neurological: NONE EENT: NONE Cardiovascular: hypertension, hyperlipidemia, myocardial infarction, STENTS Respiratory: bronchitis, lung cancer Gastrointestinal: diverticulitis Hepatic: LIVER CA Renal: right partial nephrectomy Musculoskeletal: NONE, disk herniation Psychiatric: anxiety Endocrine: BORDERLINE DIABETIC Blood Disorders: NONE Cancer(s): BENIGN KIDNEY TUMOR LUNG CANCER LIVER CA 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 spouse Services at Home: None ETOH Use: occasional use Living Will? no Functional Ability ADLs Independent: dressing, eating, toileting, bathing. Ambulation: independent IADLs Independent: shopping, housework, finances, food prep, telephone, transportation , medication admin. Review of Systems Review of Systems Constitutional: Denies: chills, diaphoresis, fever. EENTM: Denies: double vision, visual changes, eye pain, eye drainage. Cardiovascular: Denies: edema, orthopena, palpitations. Respiratory: Denies: cough, hemoptysis, orthopnea. GI: Denies: bloating, constipation, diarrhea. Genitourinary: Denies: dysuria, frequency, hematuria. Musculoskeletal: Denies: back pain, gout. Skin: Denies: erythema, jaundice, lesions. Neurological/Psychological: Denies: cognitive dysfunction, confusion, depressed. Exam & Diagnostic Data Last 24 Hrs of Vital Signs/I&O Vital Signs Date Time Temp Pulse Resp B/P Pulse O2 O2 Flow FiO2 Ox Delivery Rate 04/23 2300 97.3 99 18 120/88 96 04/23 2218 Room Air 04/23 2151 103 20 123/65 95 Room Air 04/23 1938 98.2 119 16 112/72 04/23 1917 103 18 108/67 95 Room Air 04/23 1807 95 Room Air 04/23 1726 97.2 116 16 106/69 95 Room Air Intake & Output 04/24 0800 04/24 0000 04/23 1600 Intake Total Output Total 200 Balance -200 Output, Urine 200 Patient 88.451 kg Weight Physical Exam General Appearance Alert, Oriented X3, Cooperative Skin No Significant Lesion HEENT Atraumatic, PERRLA, EOMI Neck Supple, No JVD, No thryomegaly, +2 Carotid Pulse wo Bruit Lymphatic Cervical nl Cardiovascular Regular Rate, Normal S1, Normal S2 Lungs Clear to Auscultation, Normal Air Movement Abdomen Normal Bowel Sounds, Soft, No Tenderness Neurological Normal Speech, Sensation Intact, Cranial Nerves 3-12 NL Extremities No Clubbing, No Cyanosis, No Edema Vascular Normal Pulses, Pulses Symmetrical Last 24 Hrs of Labs/Wiliam: Laboratory Tests 04/24/16 0013: Troponin I 0.02 04/23/162001: Urine Color YEL, Urine Clarity CLEAR, Urine pH 6.0, Ur Specific [place] 1.020, Urine Protein 30 H, Urine Ketones NEG, Urine Nitrite NEG, Urine Bilirubin NEG, Urine Urobilinogen 1.0, Ur Leukocyte Esterase NEG, Ur Microscopic SEDIMENT EXAMINED, Urine WBC 1-3 H, Urine Hemoglobin NEG, Urine Glucose NEG 04/23/16 1810: Anion Gap 12, Estimated GFR > 60, BUN/Creatinine Ratio 21.8, Glucose 89, Calcium 9.0, Total Bilirubin 0.4, AST 108 H, ALT 107 H, Alkaline Phosphatase 325 H, Troponin I 0.01, Total Protein 5.7 L, Albumin 3.0 L, Globulin 2.7, Albumin/ Globulin Ratio 1.1, PT 12.2, INR 1.16, APTT 24 L, CBC w Diff NO MAN DIFF REQ, RBC 3.24 L, MCV 88.6, MCH 30.0, RDW 14.4, MPV 7.0 L, Gran % 68.9, Lymphocytes % 21.3, Monocytes % 7.2, Eosinophils % 0.9, Basophils % 1.7, Absolute Granulocytes 4.9, Absolute Lymphocytes 1.5, Absolute Monocytes 0.5, Absolute Eosinophils 0.1, Absolute Basophils 0.1, PUBS MCHC 33.9 Assessment/Plan Assessment: This is a 70-year-old male with a recent diagnosis of small cell carcinoma with liver metastasis, hypertension hyperlipidemia, CAD with 2 stent placement, bronchitis presents after having an episode of dysphagia. While at the ED he is found to have new onset of A. fib , given Cardizem bolus 10mg and started on Heparin drip. Impression * New onset A. fib. CHADS-VASC score 3. Patient hase multiple cardiac and respiratory risk factors that could cause the afib. No recent fever, TSH normal (04/21). It is possible hypoxic episode while coughing out food might have precipated the afib. * Dysphagia. Oropharnygeal phase and not esophageal. Most likely mechanical than neurological. Patient passed bedside swallow eval. Could this have been an isolated episode? cannot r/o till formal swallow/barium eval. * History of small cell carcinoma with liver mets * Chronic anemia. Normocytic, probably anemia of chronic disease. * Transaminitis. Not new onset. Plan * Admit to telemetry for close cardiac monitoring * Continue heparin drip protocol for afib. High risk for PE and stroke, new onset of afib in a patient with malignancy. * Trend serial EKG and troponins * Echocardiogram in the morning * Cardiology consult * Will trend LFTs for the transaminitis * Formal swallow evaluation including barium swallow * CBC and iron studies * Hydromorphone IV for moderate to severe pain * Continue home BP meds. As Ranked By This Provider Problem List: 1. New onset a-fib Core Measures/Miscellaneous Acute Coronary Syndrome ACS Diagnosis: No Cerebrovascular Accident CVA/TIA Diagnosis: No Congestive Heart Failure CHF Diagnosis: No Venous Thromboembolism VTE Risk Factors: Age > 40 VTE Prophylaxis Ordered Inpt: Pharm- Heparin No Mech VTE prophylaxis d/t: No contraindications No VTE Pharm Prophylaxis d/t: No contraindications VTE Diagnosis: No VTE Type: NONE VTE Confirmed by (Test): NONE Severe Sepsis Severe Sepsis Present: No Septic Shock Septic Shock Present: No Miscellaneous Documentation Attending Case Discussed With: GERMAN DRUMMOND MD Primary Care Physician: PANCHO TORRES MD Patient sees these Specialists HEME/ONCOLOGIST Level of Patient Care: Telemetry GERMAN DRUMMOND 04/24/16 0404: Attending MD Review Statement Attending Statement Attending MD Statement: examined this patient, discuss w/resident/PA/STORE HOST, agreed w/resident/PA/STORE HOST, reviewed EMR data (avail), reviewed images, amended to note Attending Assessment/Plan: CC : Difficulty swallowing food PMH: HTN, HLD, CAD/[place] S/P stent, DM, right partial nephrectomy, recently diagnosed small cell carcinoma lung. Patient was discharged yesterday was admitted for abdominal pain. Patient had an episode where he noticed difficulty swallowing his food, he coughed the food up but no history suggestive of choking. He did not have any acute chest pain, vomiting, palpitation during this episode. He does have some shortness of breath which is chronic for him and unchanged from baseline. Vitals: Afebrile, HR in 116- 119, RR, BP, O2 saturation within acceptable range. On exam: A O 3, no acute distress, anxious, CVS: S1-S2 irregular, no JVD. RS: coarse sound on right side . Abdomen: Soft, NT, ND, BS present. No focal neurological deficit, no obvious skin rashes or inflammation, no dependent edema. Labs: Hemoglobin 9.7 ( gradually trending down compared to previous hospital stay), platelets 122, BUN 24, bilirubin 0.4, AST 108, ALT 107, alkaline phosphatase 325, total protein 5.7, INR 1.16, troponin 0.01. CXR: Persistent density right lung base EKG: A. fib A&P #1 new onset A. fib: Patient received 10 mg diltiazem in ER, rate controlled < 110. Patient denies chest pain, palpitations, any worsening shortness of breath. Checked through his previous EKGs, no evidence of A. fib. -Continue to observe on telemetry, trend troponin, serial EKG, cardiology consult in a.m., continue heparin . (Patient is guaiac positive, but no dixie blood) watch for an acute blood loss, monitor CBC, [id number] risk stratification > 2. May need long-term AC. #2 difficulty swallowing: This is new onset, no odynophagia, no chest pain. CT chest done on April 08 shows: There are markedly enlarged right-sided mediastinal and hilar lymph nodes. Along with multiple lung nodules. Unclear if External Compression on esophagus causing difficulty swallowing, may benefit from modified barium swallow. No new infiltrates on chest x-ray for aspiration. #3 anemia: No acute blood loss. Patient's hemoglobin gradually trending down since last few admissions. Check iron studies. Patient is guaiac positive, had history of multiple colonic polyps in the past. #4 DM: Hold metformin, continue sliding scale low-dose insulin. #5 HTN: Continue his home medications #6 small cell lung cancer: Await outpatient chemotherapy, inform oncologist about patient's admission. #7 constipation: Continue MiraLAX and senna, when necessary Dulcolax required. #8 adequate pain control with fentanyl patch and when necessary by mouth Dilaudid #9 DVT prophylaxis patient currently on heparin #10 patient had elevated lipase in previous hospitalization, along with abdominal pain. No evidence of pancreatitis on CT imaging. GI was consulted at that time and pancreatitis was ruled out. Currently patient has vague abdominal pain, no acute changes. FLAVIO MENDEZ 04/24/16 0518: Resident Review Statement Resident Statement: examined this patient, discussed with record label intern, agreed with record label intern, discussed with family, reviewed EMR data (avail), discussed with nursing , reviewed images Other Findings: Mr Glaser is a 70-year-old gentleman with a PMH of HTN, DM, HLD, [place] S/P stent placement (1997), diverticulitis, recent diagnosis of small cell lung cancer with metastasis to the liver, planned chemotherapy and follow-up PET scan who presents today after an episode of food getting stuck while swallowing. The event was sudden in onset, not associated with any pain, choking and he was able to cough up and expel the food bolus. He denies any preceeding/associated blurred vision, headache, difficulty speaking, drooling, CP, palpitations, numbness, choking on liquids, numbness/ weakness in any extremities. VS on admission: BP 106/69, HR 116, RR 16, SPO2 95% on RA, T 97.2 Physical examination: Patient is resting comfortably in bed in mild discomfort. Irregular rhythm. Lungs CTA BL. Normal bowel sounds with mild discomfort on generalized palpation. Normal pulses, no pitting edema Pertinent labs: WBC 9.7/28.7, platelets 122, BUN/Cr CR 20/1.1, glucose 89 INR: 1.16 AST/ALT 108/107, alkaline phosphatase 325 Iron studies: Serum iron 71, TIBC 248L, ferritin 178 CXR: Persistent density at right lung base of infiltrate and/or atelectasis unchanged since prior studies. EKG: Atrial fibrillation, HR 134. QTC 472 Problem list: 1. New onset atrial fibrillation: CHADsVASc = 3 2. Dysphagia 3. Anemia, Thrombocytopenia 4. CAD s/p stent placement 5. Chronic pain Plan: * New onset atrial fibrillation. Positive guaiac stools. Started on heparin per protocol * Serial EKG/troponin: 0000, 0600hrs * Records indicate patient was seen by Dr. Howard in the past. Consult in the AM * Echocardiogram * Follow-up lipid panel in the a.m. * Pt passed a bedside swallow eval. If recurence of symptoms consider MBS and GI consult * Will contact Dr. Oreilly in the a.m. as patient is tentatively scheduled for chemotherapy later this week * Records indicate episodes of hypoglycemia on recent admission. Will place patient on TIDAC accucheks * Pain management with Dilaudid 4 mg Q3-4PRN, fentanyl 50mcg Q72 * Scheduled bowel regimen. consider movantik for opiod induced constipation if no reponse with current regimen * DVT prophylaxis: Heparin drip * CODE STATUS: Full code
[2016-04-23 23:00] VITALS: BP 120/88
[2016-04-24 03:11] LABS: PTT 33 SEC (25-37)
--- NOTE | 2016-04-24 04:07 | Admission Certification ---
Admission Certification Certification Statement - As attending physician, I certify that at the time of - admission, based on clinical presentation, severity of - symptoms, need for further diagnostic testing and - therapeutic interventions, and risk of adverse outcomes - without in-hospital treatment, in my clinical assessment, - this patient requires an acute hospital stay for a minimum - of two nights or longer. I have also considered psychsocial - factors such as support system, advanced age, financial - issues, cognitive issues, and failed out-patient treatments, - past re-admission history, safety of patient, and lack of - compliance as applicable. Specific rationale supporting this admission is: new onset Afib
[2016-04-24 06:06] LABS: ABSOLUTE BASOPHIL COUNT 0 /CUMM (0.0-0.2); ABSOLUTE EOSINOPHIL COUNT 0.1 /CUMM (0.0-0.7); ABSOLUTE GRANULOCYTE CT 4.3 /CUMM (1.4-6.5); ABSOLUTE LYMPH COUNT 1.5 /CUMM (1.2-3.4); ABSOLUTE MONOCYTE COUNT 0.5 /CUMM (0.10-0.60); BASOPHIL % 0 % (0.0-2.0); GRANULOCYTE % 67.7 % (42.2-75.2); MEAN CORPUSCULAR HGB 30.2 PG (27.0-31.0); MEAN CORPUSCULAR HGB CONC 33.9 G/DL (33.0-37.0); MEAN CORPUSCULAR VOLUME 89.1 FL (80.0-94.0); MEAN PLATELET VOLUME 6.3 FL (7.4-10.4); PLATELET COUNT 92 /CUMM (130-400); RBC DISTRIBUTION WIDTH 13.9 % (11.5-14.5); RED BLOOD CELL CT 3.04 /CUMM (4.70-6.10); WHITE BLOOD CELL COUNT 6.4 /CUMM (4.8-10.8)
[2016-04-24 06:59] VITALS: BP 150/78
--- NOTE | 2016-04-24 07:20 | PN- Housestaff ---
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 He is alert, awake and oriented to time place and person. No acute events noticed overnight. Patient complains of 10 out of 10 chest pressure, nonradiating, relieved with Xanax. Also complains of left lower abdominal pain, 5 out of 10, receiving Dilaudid. On fentanyl patch. Denies any nausea, vomiting, change in bladder habits. Reports constipation Denies racing of heart, headache, dizziness or lightheadedness, short of breath. Vitals were stable. Afebrile. Heart rate 102, respiratory rate 20, blood pressure 160/80, saturating at 96% on 2 L Review of Systems Constitutional: Denies: see HPI. Objective Last 24 Hrs of Vital Signs/I&O Vital Signs Date Time Temp Pulse Resp B/P Pulse O2 O2 Flow FiO2 Ox Delivery Rate 04/24 1700 Nasal 2.0L Cannula 04/24 1653 97.9 89 20 156/82 95 Nasal 2.0L Cannula 04/24 1609 93 Nasal 2.0L Cannula 04/24 1554 97.6 95 133/89 04/24 1530 97.6 95 20 133/89 93 Nasal 2.0L Cannula 04/24 1000 89 18 151/74 04/24 0949 98.1 89 18 151/74 04/24 0806 97.7 102 20 163/87 96 Nasal 2.0L Cannula 04/24 0737 96 04/24 0659 99.5 97 20 150/78 96 Nasal 2.0L Cannula 04/24 0614 96 20 154/78 94 Nasal 2.0L Cannula 04/24 0245 93 16 130/77 Room Air 04/24 0148 105 16 145/76 96 Room Air 04/23 2300 97.3 99 18 120/88 98 Room Air 04/23 2218 Room Air 04/23 2151 103 20 123/65 95 Room Air Intake & Output 04/24 1600 04/24 0800 04/24 0000 Intake Total Output Total 200 Balance -200 Output, Urine 200 Patient 88.451 kg 88.451 kg Weight Physical Exam General Appearance: Alert, Oriented X3, Cooperative, No Acute Distress Skin: No Rashes HEENT: Atraumatic, Mucous Membr. moist/pink Neck: Supple, No JVD Lymphatic: Cervical nl Cardiovascular: Normal S1, Normal S2 Lungs: Normal Air Movement Abdomen: Normal Bowel Sounds, Soft, No Tenderness Extremities: No Clubbing, No Cyanosis, No Edema, Normal Pulses Vascular: Normal Pulses Current Medications: Current Medications Sig/Noemí Start time Last Medication Dose Route Stop Time Status Admin Alprazolam 0 .STK-MED ONE 04/24 1553 DC PO Alprazolam 0.25 MG BID PRN 04/24 1500 AC 04/24 PO 05/01 1459 1554 Amlodipine Besylate 5 MG DAILY 04/24 1000 AC 04/24 PO 0949 Aspirin 81 MG DAILY 04/24 1000 AC 04/24 PO 1000 Aspirin 0 .STK-MED ONE 04/24 0954 DC PO Cyanocobalamin 1,000 MCG DAILY 04/24 1000 AC 04/24 PO 0949 Escitalopram Oxalate 5 MG DAILY 04/24 1000 AC 04/24 PO 0949 Fentanyl Citrate 50 MCG Q72 04/25 1000 AC TOP Heparin Sodium 0 .STK-MED ONE 04/24 1151 DC (Porcine) .ROUTE Heparin Sodium 6,600 UNIT ONCE ONE 04/24 0400 DC 04/24 (Porcine) IV 04/24 0401 0355 Heparin Sodium 0 .STK-MED ONE 04/24 0344 DC (Porcine) .ROUTE Heparin Sodium 0 .STK-MED ONE 04/23 1950 DC (Porcine) .ROUTE Heparin Sodium 25,000 UNIT Q24H 04/23 1945 DC 04/23 (Porcine) IV 2027 Sodium Chloride 500 ML Hydromorphone HCl 0 .STK-MED ONE 04/24 0800 DC PO Hydromorphone HCl 4 MG Q 3-4 HRS PRN PRN 04/23 2330 AC 04/24 PO 1658 Lorazepam 1 MG ONE ONE 04/24 0815 DC 04/24 IV 04/24 0816 0816 Lorazepam 0 .STK-MED ONE 04/24 0813 DC .ROUTE Lorazepam 0 .STK-MED ONE 04/23 2311 DC .ROUTE Lorazepam 0.5 MG ONCE ONE 04/23 2300 DC 04/23 IV 04/23 2301 2310 Metoprolol Tartrate 0 .STK-MED ONE 04/24 1551 DC PO Metoprolol Tartrate 25 MG TID 04/24 1000 AC 04/24 PO 1554 Metoprolol Tartrate 0 .STK-MED ONE 04/24 0954 DC PO Morphine Sulfate 1 MG ONCE ONE 04/24 0815 DC IV 04/24 0816 Nitroglycerin 0 .STK-MED ONE 04/24 0804 DC SL Nitroglycerin 0.4 MG ONCE ONE 04/24 0800 DC 04/24 SL 04/24 0801 0806 Ondansetron HCl 4 MG ONCE ONE 04/23 2130 DC 04/23 IV 04/230 Ondansetron HCl 0 .STK-MED ONE 04/23 2128 DC .ROUTE Polyethylene Glycol 17 GM DAILY 04/24 1000 AC 04/24 PO 0949 Promethazine HCl 12.5 MG ONCE ONE 04/23 2245 DC 04/23 IV 04/23 2246 2252 Promethazine HCl 0 .STK-MED ONE 04/23 2243 DC .ROUTE Senna/Docusate Sodium 1 TAB BID PRN 04/23 2330 AC PO Last 24 Hrs of Lab/Wiliam Results Last 24 Hrs of Labs/Mics: Laboratory Tests 04/24/16 1006: APTT 56 H 04/24/16 0822: D-Dimer 2166 H 04/24/16 0811: D-Dimer Cancelled 04/24/16 0600: Triglycerides 142, Cholesterol 118, LDL Cholesterol, Calc 56 L, HDL Cholesterol 34 L, Cholesterol/HDL Ratio 3 04/24/16 0600: Anion Gap 10, Estimated GFR > 60, BUN/Creatinine Ratio 20.9, Phosphorus 2.5, Magnesium 1.9, Troponin I 0.01, CBC w Diff NO MAN DIFF REQ, RBC 3.04 L, MCV 89.1, MCH 30.2, RDW 13.9, MPV 6.3 L, Gran % 67.7, Lymphocytes % 24.2, Monocytes % 7.1, Eosinophils % 1.0, Basophils % 0 L, Absolute Granulocytes 4.3, Absolute Lymphocytes 1.5, Absolute Monocytes 0.5, Absolute Eosinophils 0.1, Absolute Basophils 0, PUBS MCHC 33.9 04/24/16 0242: APTT 33 04/24/16 0013: Troponin I 0.02 04/23/162001: Urine Color YEL, Urine Clarity CLEAR, Urine pH 6.0, Ur Specific [place] 1.020, Urine Protein 30 H, Urine Ketones NEG, Urine Nitrite NEG, Urine Bilirubin NEG, Urine Urobilinogen 1.0, Ur Leukocyte Esterase NEG, Ur Microscopic SEDIMENT EXAMINED, Urine WBC 1-3 H, Urine Hemoglobin NEG, Urine Glucose NEG Assessment/Plan Assessment: This is a 70-year-old man with past medical history of hypertension, diabetes mellitus, hyperlipidemia, recently diagnosed with small cell malignancy in his previous admission on 04/08/2016, partial right nephrectomy(2006), CAD with 2( 1997) stents ,hyperlipidemia, heavy smoker who quit about three and a half weeks ago, recently found with lung mass with liver metastasis, diverticulitis and was discharged 04/22/16 after 3 day hospitalization for abdominal pain and evaluated for pancreatitis versus diverticulitis, presents to [place] ED with chief complaint of "food stuck in my throat". The event was sudden in onset, not associated with any pain, choking and he was able to cough up and expel the food bolus. VS on admission: BP 106/69, HR 116, RR 16, SPO2 95% on RA, T 97.2 Pertinent labs: WBC 7, 9.7/28.7, platelets 122, BUN/Cr CR 20/1.1, glucose 89 INR: 1.16 AST/ALT 108/107, alkaline phosphatase 325 Iron studies: Serum iron 71, TIBC 248L, ferritin 178 CXR: Persistent density at right lung base of infiltrate and/or atelectasis unchanged since prior studies. EKG: Atrial fibrillation, HR 134. QTC 472 echo- CONCLUSIONS Normal left and right ventricular systolic function. Trace pericardial effusion could be a normal variant. No significant valvular abnormalities noted. lung v/q scan- RULED OUT PULMONARY EMBOLUS. At the ED, patient was found to be in A. fib with heart rates of 110s and received Cardizem 10 mg IV bolus and heparin drip started. Problem list: 1. New onset atrial fibrillation 2. Dysphagia 3. Anemia, Thrombocytopenia 4. CAD s/p stent placement 5. Chronic pain 6. Diabetes mellitus 7. Hypertension 8. 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 Constipation 10. Depression New onset atrial fibrillation Patient presented to emergency department with chief complaint of food stuck in the throat. In the emergency room EKG showed new onset atrial fibrillation. * Admitted to telemetry floor for further monitoring * Patient is on continuous buckle strap puncher * Serial EKGs and troponins negative * He was given 10 mg Cardizem IV push in the ER * Rate under control * Started on IV heparin drip, later discontinued. * Chadsvasc score 3 * Patient was started on metoprolol 25 mg TID. * Continue aspirin * Accounting Clerks Supervisor on board. Dysphagia * presented after an episode of food getting stuck while swallowing. * The event was sudden in onset, not associated with any pain, choking and he was able to cough up and expel the food bolus. * Past formal swallow evaluation * Started on chopped diet. * Denies any dysphagia this morning. Anemia H and h 9.7 and 28.7 on admission We'll continue to monitor thrombocytopenia 122 on admission Coronary artery disease Continue aspirin Chronic pain Continue hydromorphone Continue fentanyl patch Anxiety Started on Xanax Diabetes mellitus Accu-Cheks before each meal NovoLog sliding scale Squamous cell carcinoma of lung Patient was diagnosed with squamous cell carcinoma of lung in March and metastasis to liver. * He is following Dr. Oreilly is an outpatient. * Planning to get MRI spine and bone scan on 04/29/2016 * We ordered MRI spine now * Follow-up with the results Constipation On aggressive bowel regimen Continue MiraLAX and senna whenever necessary - as patient is on opioids Depression continue home dose of Lexapro Full code DVT prophylaxis-alps Chopped diet Pain pathway-hydromorphone and fentanyl patch Patient was admitted on March 30 for diverticulitis at [facility] Patient was readmitted again on April 08 for nausea and vomiting, abdominal pain.found liver metastases. Patient was readmitted again on April 19 for left-sided abdominal pain, nausea and constipation and treated for pancreatitis. Problem List: 1. New onset a-fib 2. Lung cancer Pain Ratin Pain Location: abdomen Pain Goal: Remain pain free Pain Plan: Tylenol Hydromorphone Fentanyl patch Tomorrow's Labs & Rationales: CBC in the setting of anemia and thrombocytopenia REE MULLINS MD 04/24/16 1519: Attending MD Review Statement Attending Statement Attending MD Statement: examined this patient, discuss w/resident/PA/LIQUOR DEPARTMENT MANAGER, agreed w/resident/PA/LIQUOR DEPARTMENT MANAGER, reviewed EMR data (avail), discussed with nursing, discussed with case mgmt Attending Assessment/Plan: Patient known to me and I recently discharged him on 04/15/2016. He is a 74-year -old with mild borderline diabetes, coronary artery disease with percutaneous intervention many years ago and heavy tobacco use who was recently diagnosed within the past 10 days or so with metastatic small cell carcinoma. He has a primary lung mass with liver metastases and the liver was biopsied and this is small cell CA. After discharge he was readmitted for severe abdominal pain initially thought to be pancreatitis but later attributed it to his metastatic disease. He barely went home for 24 hours and came in with an episode of dysphagia and was noted to be in new onset rapid A. fib in the ER which spontaneously converted and the rate slowed down with one push of IV Cardizem. He was empirically started on IV heparin. I had a conversation both with the criminal attorney Dr. Francisco Javier Mullins and the oncologist Dr. Oreilly. Because of his metastatic disease, worry of metastases to the pericardium and his high bleeding risk we are going to get a VQ scan to make sure this is not a PE. Patient has a shellfish allergy and has always been premedicated before he gets contrast. His chest x-ray is relatively okay so we' ll get a V/Q and if the VQ is low probability we'll stop the heparin. Will rate control him with metoprolol. Control his pain. Get an MRI of his spine which is rather urgent at this point as per Dr. Oreilly to make sure he doesn't have any neurological compromise and follow-up.
--- NOTE | 2016-04-24 07:33 | Cons- Oncology ---
General Information and HPI Consulting Request Date of Consult: 04/24/16 Requested By: GERMAN DRUMMOND MD History of Present Illness: 70-year-old man who I met recently with stage IV small cell lung cancer. The patient is now admitted with new onset atrial fibrillation. He shouldn't is complaining atypical chest pain without hemoptysis or leg swelling. Patient now complains of dysphagia. Allergies/Medications Allergies: Coded Allergies: Iodinated Contrast Media - Oral and (UNKNOWN 03/30/16) Home Med List: Albuterol Sulfate 1.25 MG/3 ML VIAL.NEB 1 Vial INH/RASHAAD Q4-6 PRN WHEEZE DISPENSE 1 BOX Albuterol Sulfate (Proair Hfa) 90 MCG HFA.AER.AD 2 PUF INH Q4-6 PRN PRN COPD Amlodipine Besylate 5 MG TABLET 1 TAB PO DAILY BP (Reported) Ascorbic Acid (Vitamin C) 1,000 MG TABLET 1 TAB PO DAILY SUPPLEMENT (Reported ) Aspirin (Ecotrin*) 81 MG TABLET.DR 1 TAB PO DAILY HEART/BLOOD (Reported) Cyanocobalamin (Vitamin B-12) 1,000 MCG TABLET 1 TAB PO DAILY SUPPLEMENT ( Reported) Escitalopram Oxalate 5 MG TABLET 1 TAB PO DAILY DEPRESSION Fentanyl Citrate (Duragesic) 75 MCG/HOUR PATCH.TD72 75 MCG TOP Q72H PAIN Hydromorphone HCl 4 MG TABLET 1 TAB PO Q3-4 PRN PAIN (Reported) Losartan Potassium 100 MG TABLET 1 TAB PO DAILY BP (Reported) Metformin HCl 500 MG TABLET 1 TAB PO BID DM (Reported) Multivitamin (Multi-Day Vitamins) 1 EACH TABLET 1 TAB PO DAILY SUPPLEMENT ( Reported) Nebulizer (Aeroeclipse II) 1 EACH EACH 1 KIT PO 4 TIMES/DAY PRN WHEEZE ICD 10 J45...... PLEASE DISPENSE NEBULIZER WITH TUBING (WHATEVER BRAND IS COVERED BY INSURANCE) Ondansetron (Zofran Odt) 4 MG TAB.RAPDIS 1 TAB SL TID PRN NAUSEA Polyethylene Glycol 3350 (Miralax) 17 GRAM/DOSE POWDER 17 GM PO DAILY constipation Sennosides/Docusate Sodium (Senna Plus Tablet) 8.6 MG-50 MG TABLET 1 TAB PO BID PRN CONSTIPATION Simvastatin (Simvastatin*) 20 MG TABLET 1 TAB PO QPM CHOLESTEROL (Reported) Current Medications: Current Medications Sig/Noemí Start time Last Medication Dose Route Stop Time Status Admin Amlodipine Besylate 5 MG DAILY 04/24 1000 AC PO Cyanocobalamin 1,000 MCG DAILY 04/24 1000 AC PO Diltiazem HCl 0 .STK-MED ONE 04/23 1923 DC .ROUTE Diltiazem HCl 10 MG ONCE ONE 04/23 1914 DC 04/23 IV PUSH 04/23 191 1938 Escitalopram Oxalate 5 MG DAILY 04/24 1000 AC PO Fentanyl Citrate 50 MCG Q72 04/25 1000 AC TOP Heparin Sodium 6,600 UNIT ONCE ONE 04/24 0400 DC 04/24 (Porcine) IV 04/24 400 0355 Heparin Sodium 0 .STK-MED ONE 04/24 0344 DC (Porcine) .ROUTE Heparin Sodium 0 .STK-MED ONE 04/23 1950 DC (Porcine) .ROUTE Heparin Sodium 4,000 UNIT ONCE ONE 04/23 1944 DC 04/23 (Porcine) IV 04/23 Heparin Sodium 25,000 UNIT Q24H 04/23 1944 AC 04/23 (Porcine) IV 2026 Sodium Chloride 500 ML Hydromorphone HCl 4 MG Q 3-4 HRS PRN PRN 04/23 2330 AC PO Hydromorphone HCl 0 .STK-MED ONE 04/23 1850 DC .ROUTE Hydromorphone HCl 1 MG ONCE ONE 04/23 1845 DC 04/23 IV 04/23 1846 1852 Hydromorphone HCl 1 MG ONCE ONE 04/23 1815 DC 04/23 IV 04/23 1816 1814 Hydromorphone HCl 0 .STK-MED ONE 04/23 181 DC .ROUTE Lorazepam 0 .STK-MED ONE 04/23 231 DC .ROUTE Lorazepam 0.5 MG ONCE ONE 04/23 2300 DC 04/23 IV 04/23 2301 2310 Ondansetron HCl 4 MG ONCE ONE 04/23 213 DC 04/23 IV 04/23 2130 213 Ondansetron HCl 0 .STK-MED ONE 04/23 2128 DC .ROUTE Polyethylene Glycol 17 GM DAILY 04/24 1000 AC PO Promethazine HCl 12.5 MG ONCE ONE 04/23 2245 DC 04/23 IV 04/23 224 225 Promethazine HCl 0 .STK-MED ONE 04/23 224 DC .ROUTE Senna/Docusate Sodium 1 TAB BID PRN 04/23 2330 AC PO Review of Systems Review of Systems: Patient denies headaches or dizziness. Patient denies nausea vomiting change in bowel habits. Patient denies dysuria hematuria.He denies new bone aches or focal neurologic deficit Past History Travel History Traveled to [place] past 21 day No Medical History Neurological: NONE EENT: NONE Cardiovascular: hypertension, hyperlipidemia, myocardial infarction, STENTS Respiratory: bronchitis, lung cancer Gastrointestinal: diverticulitis Hepatic: LIVER CA Renal: right partial nephrectomy Musculoskeletal: NONE, disk herniation Psychiatric: anxiety Endocrine: BORDERLINE DIABETIC Blood Disorders: NONE Cancer(s): BENIGN KIDNEY TUMOR LUNG CANCER LIVER CA MECHANICAL INTEGRITY SPECIALIST/Reproductive: NONE Surgical History Surgical History: PARTIAL RIGHT NEPHRECTOMY L4-L5 DISCECTOMY, UMBILICAL TUMOR BURST WHEN HE WAS 8YRS OLD Family History Relations & Conditions If Any: Relation not specified for: *No pertinent family history Psychosocial History Where Do You Live? Home Who Do You Live With? spouse Services at Home: None Smoking Status: Former Smoker ETOH Use: occasional use Living Will? no Functional Ability ADLs Independent: dressing, eating, toileting, bathing. Ambulation: independent IADLs Independent: shopping, housework, finances, food prep, telephone, transportation , medication admin. Exam & Diagnostic Data Vital Signs and I&O Vital Signs Date Time Temp Pulse Resp B/P Pulse O2 O2 Flow FiO2 Ox Delivery Rate 04/24 0659 99.5 97 20 150/78 96 Nasal 2.0L Cannula 04/24 0614 96 20 154/78 94 Nasal 2.0L Cannula 04/24 0245 93 16 130/77 Room Air 04/24 0148 105 16 145/76 96 Room Air 04/23 2300 97.3 99 18 120/88 98 Room Air 04/23 2218 Room Air 04/23 2151 103 20 123/65 95 Room Air 04/23 1938 98.2 119 16 112/72 04/23 1917 103 18 108/67 95 Room Air 04/23 1807 95 Room Air 04/23 1726 97.2 116 16 106/69 95 Room Air Intake & Output 04/24 0800 04/24 0000 04/23 1600 Intake Total Output Total 200 Balance -200 Output, Urine 200 Patient 195 lb 195 lb Weight Gen.: in NAD ENT: Sclera anicteric Chest: Normal respiratory effort, decreased breath sounds Cor: RRR, no definite rub Abdomen: Soft, bowel sounds present, diffuse tenderness without rebound Extremities: Without clubbing, cyanosis, or edema Neurology: Alert and oriented 3, no gross deficit Skin: No rashes Stool reported positive for occult blood Last 48 Hours of Lab Results: Laboratory Tests 04/24 04/24 04/24 04/24 0600 0600 0242 0013 Chemistry Sodium (137 - 145 mmol/L) 141 Potassium (3.5 - 5.1 mmol/L) 4.3 Chloride (98 - 107 mmol/L) 103 Carbon Dioxide (22 - 30 mmol/L) 29 Anion Gap (5 - 16) 10 BUN (9 - 20 mg/dL) 23 H Creatinine (0.7 - 1.2 mg/dL) 1.1 Estimated GFR (>60 ml/min) > 60 BUN/Creatinine Ratio (7 - 25 %) 20.9 Phosphorus (2.5 - 4.5 mg/dL) 2.5 Magnesium (1.6 - 2.3 mg/dL) 1.9 Troponin I (<0.11 ng/ml) 0.01 0.02 Triglycerides (<150 mg/dL) 142 Cholesterol (< 200 MG/DL) 118 LDL Cholesterol, Calc (65 - 129 mg/dL) 56 L HDL Cholesterol (40 - 60 mg/dL) 34 L Cholesterol/HDL Ratio (0.00 - 4.88 %) 3 Coagulation APTT (25 - 37 SEC) 33 Hematology CBC w Diff NO MAN DIFF REQ WBC (4.8 - 10.8 /CUMM) 6.4 RBC (4.70 - 6.10 /CUMM) 3.04 L Hgb (14.0 - 18.0 G/DL) 9.2 L Hct (42 - 52 %) 27.0 L MCV (80.0 - 94.0 FL) 89.1 MCH (27.0 - 31.0 PG) 30.2 RDW (11.5 - 14.5 %) 13.9 Plt Count (130 - 400 /CUMM) 92 L MPV (7.4 - 10.4 FL) 6.3 L Gran % (42.2 - 75.2 %) 67.7 Lymphocytes % (20.5 - 51.1 %) 24.2 Monocytes % (1.7 - 9.3 %) 7.1 Eosinophils % (0 - 5 %) 1.0 Basophils % (0.0 - 2.0 %) 0 L Absolute Granulocytes (1.4 - 6.5 /CUMM) 4.3 Absolute Lymphocytes (1.2 - 3.4 /CUMM) 1.5 Absolute Monocytes (0.10 - 0.60 /CUMM) 0.5 Absolute Eosinophils (0.0 - 0.7 /CUMM) 0.1 Absolute Basophils (0.0 - 0.2 /CUMM) 0 PUBS MCHC (33.0 - 37.0 G/DL) 33.9 04/23 1810 Chemistry Sodium (137 - 145 mmol/L) 140 Potassium (3.5 - 5.1 mmol/L) 3.9 Chloride (98 - 107 mmol/L) 102 Carbon Dioxide (22 - 30 mmol/L) 26 Anion Gap (5 - 16) 12 BUN (9 - 20 mg/dL) 24 H Creatinine (0.7 - 1.2 mg/dL) 1.1 Estimated GFR (>60 ml/min) > 60 BUN/Creatinine Ratio (7 - 25 %) 21.8 Glucose (65 - 99 mg/dL) 89 Calcium (8.4 - 10.2 mg/dL) 9.0 Iron (49 - 181 ug/dL) 71 TIBC (261 - 462 ug/dL) 248 L Ferritin (17.9 - 464 ng/mL) 178.0 Total Bilirubin (0.2 - 1.3 mg/dL) 0.4 AST (17 - 59 U/L) 108 H ALT (21 - 72 U/L) 107 H Alkaline Phosphatase (< 127 U/L) 325 H Troponin I (<0.11 ng/ml) 0.01 Total Protein (6.3 - 8.2 g/dL) 5.7 L Albumin (3.5 - 5.0 g/dL) 3.0 L Globulin (1.9 - 4.2 gm/dL) 2.7 Albumin/Globulin Ratio (1.1 - 2.2 %) 1.1 Amylase (30 - 110 U/L) 513 H Lipase (23 - 300 U/L) 3768 H Coagulation PT (9.4 - 12.5 SEC) 12.2 INR (0.90 - 1.17) 1.16 APTT (25 - 37 SEC) 24 L Hematology CBC w Diff NO MAN DIFF REQ WBC (4.8 - 10.8 /CUMM) 7.1 RBC (4.70 - 6.10 /CUMM) 3.24 L Hgb (14.0 - 18.0 G/DL) 9.7 L Hct (42 - 52 %) 28.7 L MCV (80.0 - 94.0 FL) 88.6 MCH (27.0 - 31.0 PG) 30.0 RDW (11.5 - 14.5 %) 14.4 Plt Count (130 - 400 /CUMM) 122 L MPV (7.4 - 10.4 FL) 7.0 L Gran % (42.2 - 75.2 %) 68.9 Lymphocytes % (20.5 - 51.1 %) 21.3 Monocytes % (1.7 - 9.3 %) 7.2 Eosinophils % (0 - 5 %) 0.9 Basophils % (0.0 - 2.0 %) 1.7 Absolute Granulocytes (1.4 - 6.5 /CUMM) 4.9 Absolute Lymphocytes (1.2 - 3.4 /CUMM) 1.5 Absolute Monocytes (0.10 - 0.60 /CUMM) 0.5 Absolute Eosinophils (0.0 - 0.7 /CUMM) 0.1 Absolute Basophils (0.0 - 0.2 /CUMM) 0.1 PUBS MCHC (33.0 - 37.0 G/DL) 33.9 Urines Urine Color (YEL,AMB,STR) YEL Urine Clarity (CLEAR) CLEAR Urine pH (5.0 - 8.0) 6.0 Ur Specific [place] (1.001 - 1.035) 1.020 Urine Protein (NEG,<30 MG/DL) 30 H Urine Ketones (NEG) NEG Urine Nitrite (NEG) NEG Urine Bilirubin (NEG) NEG Urine Urobilinogen (0.1 - 1.0 EU/dl) 1.0 Ur Leukocyte Esterase (NEG) NEG Ur Microscopic SEDIMENT EXAMINED Urine WBC (0 - 2 /HPF) 1-3 H Urine Hemoglobin (NEG) NEG Urine Glucose (N MG/DL) NEG Imaging/Other Studies: Chest x-ray no changes Recent CT head with contrast-no metastatic disease Previous CT chest in March-no description of pericardial involvement Assessment/Plan Assessment: 1. New onset atrial fibrillation now in sinus rhythm. In this gentleman, this concern for pericardial involvement. Given his heme positive stools, conversion to regular sinus rhythm and possible pericardial involvement, ? Need for anticoagulation ? Rule out PE Recommend- Await echo Await cardiology service input 2. Small cell lung cancer-patient was scheduled for MRI of total spine with gadolinium and bone scan this week. This needs to be accomplished as an inpatient given the urgency for the need of treatment 3. Dysphagia-? Secondary to malignancy Await swallowing study 4. Modest anemia and thrombocytopenia-follow for now Recommendations: .. Consult Acknowledgment - Thank you for your consult request.
--- NOTE | 2016-04-24 08:42 | Cons- Cardiology ---
General Information and HPI Consulting Request Date of Consult: 04/24/16 Requested By: REE TORRES MD Reason for Consult: Atrial fibrillation Source of Information: patient, old records Exam Limitations: unable to give history, not alert/orientated, poor historian History of Present Illness: The following is an HPI recorded by the admitting house staff. This is a 70-year-old man with past medical history of hypertension, recently diagnosed with small cell malignancy in his previous admission on 04/08/2016, partial right nephrectomy(2006), CAD with 2(1997) stents off aspirin for possible biopsy ,hyperlipidemia, heavy smoker who quit about three and a half weeks ago, recently found with lung mass with liver metastasis, and was discharged yesterday after 3 day hospitalization for abdominal pain and evaluated fo pancreatitis versus diverticulitis, presents to [facility] ED with chief complaint of "food stuck in my throat". Patient states that after being discharge yesterday, other than his chronic abdominal pain and shortness of breath,he did not have any acute complaints or change in his status. Around 4 PM today,while having a piece of sandwich, it stuck in his throat and was unable to completely swallow it. Patient was able to cough up the stuck piece of sandwich.He does not report any previous similar episode. He denies any difficulties swallowing liquids. He does deny odynophagia. No neurological complaints such as facial droop, weakness, or any localization. No complaints of chest pain,palpitations,fever/chills,or dysuria At the ED, patient was found to be in A. fib with heart rates of 110s and received Cardizem 10 mg IV bolus and heparin drip started. Of note, patient was scheduled today for bone scan today in preparation for the treatment of the small cell carcinoma. The patient has not been to our office for at least 12 years. He previously had 2 percutaneous interventions on the coronary artery. He claims not to have had any cardiac issues since that time. Although he was admitted with dysphagia and some abdominal pain he claims that since he was told he had "atrial fibrillation " when he came in his has been having some chest pain as well. His chest pain seems to be constant and maybe have a pleuritic component. Since he has been chronically ill he is a poor historian. Allergies/Medications Allergies: Coded Allergies: Iodinated Contrast Media - Oral and (UNKNOWN 03/30/16) Home Med List: Albuterol Sulfate 1.25 MG/3 ML VIAL.NEB 1 Vial INH/RASHAAD Q4-6 PRN WHEEZE DISPENSE 1 BOX Albuterol Sulfate (Proair Hfa) 90 MCG HFA.AER.AD 2 PUF INH Q4-6 PRN PRN COPD Amlodipine Besylate 5 MG TABLET 1 TAB PO DAILY BP (Reported) Ascorbic Acid (Vitamin C) 1,000 MG TABLET 1 TAB PO DAILY SUPPLEMENT (Reported ) Aspirin (Ecotrin*) 81 MG TABLET.DR 1 TAB PO DAILY HEART/BLOOD (Reported) Cyanocobalamin (Vitamin B-12) 1,000 MCG TABLET 1 TAB PO DAILY SUPPLEMENT ( Reported) Escitalopram Oxalate 5 MG TABLET 1 TAB PO DAILY DEPRESSION Fentanyl Citrate (Duragesic) 75 MCG/HOUR PATCH.TD72 75 MCG TOP Q72H PAIN Hydromorphone HCl 4 MG TABLET 1 TAB PO Q3-4 PRN PAIN (Reported) Losartan Potassium 100 MG TABLET 1 TAB PO DAILY BP (Reported) Metformin HCl 500 MG TABLET 1 TAB PO BID DM (Reported) Multivitamin (Multi-Day Vitamins) 1 EACH TABLET 1 TAB PO DAILY SUPPLEMENT ( Reported) Nebulizer (Aeroeclipse II) 1 EACH EACH 1 KIT PO 4 TIMES/DAY PRN WHEEZE ICD 10 J45...... PLEASE DISPENSE NEBULIZER WITH TUBING (WHATEVER BRAND IS COVERED BY INSURANCE) Ondansetron (Zofran Odt) 4 MG TAB.RAPDIS 1 TAB SL TID PRN NAUSEA Polyethylene Glycol 3350 (Miralax) 17 GRAM/DOSE POWDER 17 GM PO DAILY constipation Sennosides/Docusate Sodium (Senna Plus Tablet) 8.6 MG-50 MG TABLET 1 TAB PO BID PRN CONSTIPATION Simvastatin (Simvastatin*) 20 MG TABLET 1 TAB PO QPM CHOLESTEROL (Reported) Current Medications: Current Medications Sig/Noemí Start time Last Medication Dose Route Stop Time Status Admin Amlodipine Besylate 5 MG DAILY 04/24 1000 AC PO Cyanocobalamin 1,000 MCG DAILY 04/24 1000 AC PO Diltiazem HCl 0 .STK-MED ONE 04/23 1923 DC .ROUTE Diltiazem HCl 10 MG ONCE ONE 04/23 1914 DC 04/23 IV PUSH 04/23 Escitalopram Oxalate 5 MG DAILY 04/24 1000 AC PO Fentanyl Citrate 50 MCG Q72 04/25 1000 AC TOP Heparin Sodium 6,600 UNIT ONCE ONE 04/24 0400 DC 04/24 (Porcine) IV 04/24 0401 0355 Heparin Sodium 0 .STK-MED ONE 04/24 0344 DC (Porcine) .ROUTE Heparin Sodium 0 .STK-MED ONE 04/23 1950 DC (Porcine) .ROUTE Heparin Sodium 4,000 UNIT ONCE ONE 04/23 194 DC 04/23 (Porcine) IV 04/23 Heparin Sodium 25,000 UNIT Q24H 04/23 1944 AC 04/23 (Porcine) IV 2026 Sodium Chloride 500 ML Hydromorphone HCl 0 .STK-MED ONE 04/24 0800 DC PO Hydromorphone HCl 4 MG Q 3-4 HRS PRN PRN 04/23 2330 AC 04/24 PO 0802 Hydromorphone HCl 0 .STK-MED ONE 04/23 1850 DC .ROUTE Hydromorphone HCl 1 MG ONCE ONE 04/23 1845 DC 04/23 IV 04/23 1846 1852 Hydromorphone HCl 1 MG ONCE ONE 04/23 1815 DC 04/23 IV 04/23 1816 1814 Hydromorphone HCl 0 .STK-MED ONE 04/23 1812 DC .ROUTE Lorazepam 1 MG ONE ONE 04/24 0815 DC 04/24 IV 04/24 0816 0816 Lorazepam 0 .STK-MED ONE 04/24 0813 DC .ROUTE Lorazepam 0 .STK-MED ONE 04/23 2311 DC .ROUTE Lorazepam 0.5 MG ONCE ONE 04/23 2300 DC 04/23 IV 04/23 2301 2310 Morphine Sulfate 1 MG ONCE ONE 04/24 0815 DC IV 04/24 0816 Nitroglycerin 0 .STK-MED ONE 04/24 0804 DC SL Nitroglycerin 0.4 MG ONCE ONE 04/24 0800 DC 04/24 SL 04/24 0801 0806 Ondansetron HCl 4 MG ONCE ONE 04/23 2130 DC 04/23 IV 04/23 2130 213 Ondansetron HCl 0 .STK-MED ONE 04/23 2128 DC .ROUTE Polyethylene Glycol 17 GM DAILY 04/24 1000 AC PO Promethazine HCl 12.5 MG ONCE ONE 04/23 2245 DC 04/23 IV 04/23 2245 2252 Promethazine HCl 0 .STK-MED ONE 04/23 2243 DC .ROUTE Senna/Docusate Sodium 1 TAB BID PRN 04/23 2330 AC PO Review of Systems Review of Systems: 12 system review was not obtainable because the patient was in chronic pain and uncooperative to answer. Past History Travel History Traveled to [place] past 21 day No Medical History Neurological: NONE EENT: NONE Cardiovascular: hypertension, hyperlipidemia, myocardial infarction, STENTS Respiratory: bronchitis, lung cancer Gastrointestinal: diverticulitis Hepatic: LIVER CA Renal: right partial nephrectomy Musculoskeletal: NONE, disk herniation Psychiatric: anxiety Endocrine: BORDERLINE DIABETIC Blood Disorders: NONE Cancer(s): BENIGN KIDNEY TUMOR LUNG CANCER LIVER CA [employer]/Reproductive: NONE Surgical History Surgical History: PARTIAL RIGHT NEPHRECTOMY L4-L5 DISCECTOMY, UMBILICAL TUMOR BURST WHEN HE WAS 8YRS OLD Family History Relations & Conditions If Any: Relation not specified for: *No pertinent family history Psychosocial History Where Do You Live? Home Who Do You Live With? spouse Services at Home: None Smoking Status: Former Smoker ETOH Use: occasional use Living Will? no Functional Ability ADLs Independent: dressing, eating, toileting, bathing. Ambulation: independent IADLs Independent: shopping, housework, finances, food prep, telephone, transportation , medication admin. Exam & Diagnostic Data Vital Signs and I&O Vital Signs Date Time Temp Pulse Resp B/P Pulse O2 O2 Flow FiO2 Ox Delivery Rate 04/24 0806 97.7 102 20 163/87 96 Nasal 2.0L Cannula 04/24 0737 96 04/24 0659 99.5 97 20 150/78 96 Nasal 2.0L Cannula 04/24 0614 96 20 154/78 94 Nasal 2.0L Cannula 04/24 0245 93 16 130/77 Room Air 04/24 0148 105 16 145/76 96 Room Air 04/23 2300 97.3 99 18 120/88 98 Room Air 04/23 2218 Room Air 04/23 2151 103 20 123/65 95 Room Air 04/23 1938 98.2 119 16 112/72 04/23 1917 103 18 108/67 95 Room Air 04/23 1807 95 Room Air 04/23 1726 97.2 116 16 106/69 95 Room Air Intake & Output 04/24 1600 04/24 0800 04/24 0000 04/23 1600 04/23 0800 04/23 0000 Intake Total Output Total 200 Balance -200 Output, Urine 200 Patient 195 lb 195 lb Weight Physical Exam: On general exam the patient was moaning in pain. Patient appeared cachectic Head normocephalic atraumatic Eyes sclera anicteric conjunctiva showed no pallor extraocular muscles were normal Neck no jugular venous distention no thyroid masses no palpable nodes Chest lungs appeared clear bilaterally Heart regular rhythm without murmurs or rubs. Abdomen soft but diffusely tender unable to appreciate organomegaly Extremities no clubbing cyanosis or pedal edema Neurological no gross motor or sensory deficits Labs/Wiliam Results: Laboratory Tests 04/24 04/24 04/24 0822 0811 0600 Chemistry Triglycerides (<150 mg/dL) 142 Cholesterol (< 200 MG/DL) 118 LDL Cholesterol, Calc (65 - 129 mg/dL) 56 L HDL Cholesterol (40 - 60 mg/dL) 34 L Cholesterol/HDL Ratio (0.00 - 4.88 %) 3 Coagulation D-Dimer Pending Cancelled 04/24 04/24 04/24 0600 0242 0013 Chemistry Sodium (137 - 145 mmol/L) 141 Potassium (3.5 - 5.1 mmol/L) 4.3 Chloride (98 - 107 mmol/L) 103 Carbon Dioxide (22 - 30 mmol/L) 29 Anion Gap (5 - 16) 10 BUN (9 - 20 mg/dL) 23 H Creatinine (0.7 - 1.2 mg/dL) 1.1 Estimated GFR (>60 ml/min) > 60 BUN/Creatinine Ratio (7 - 25 %) 20.9 Phosphorus (2.5 - 4.5 mg/dL) 2.5 Magnesium (1.6 - 2.3 mg/dL) 1.9 Troponin I (<0.11 ng/ml) 0.01 0.02 Coagulation APTT (25 - 37 SEC) 33 Hematology CBC w Diff NO MAN DIFF REQ WBC (4.8 - 10.8 /CUMM) 6.4 RBC (4.70 - 6.10 /CUMM) 3.04 L Hgb (14.0 - 18.0 G/DL) 9.2 L Hct (42 - 52 %) 27.0 L MCV (80.0 - 94.0 FL) 89.1 MCH (27.0 - 31.0 PG) 30.2 RDW (11.5 - 14.5 %) 13.9 Plt Count (130 - 400 /CUMM) 92 L MPV (7.4 - 10.4 FL) 6.3 L Gran % (42.2 - 75.2 %) 67.7 Lymphocytes % (20.5 - 51.1 %) 24.2 Monocytes % (1.7 - 9.3 %) 7.1 Eosinophils % (0 - 5 %) 1.0 Basophils % (0.0 - 2.0 %) 0 L Absolute Granulocytes (1.4 - 6.5 /CUMM) 4.3 Absolute Lymphocytes (1.2 - 3.4 /CUMM) 1.5 Absolute Monocytes (0.10 - 0.60 /CUMM) 0.5 Absolute Eosinophils (0.0 - 0.7 /CUMM) 0.1 Absolute Basophils (0.0 - 0.2 /CUMM) 0 PUBS MCHC (33.0 - 37.0 G/DL) 33.9 04/23 1810 Chemistry Sodium (137 - 145 mmol/L) 140 Potassium (3.5 - 5.1 mmol/L) 3.9 Chloride (98 - 107 mmol/L) 102 Carbon Dioxide (22 - 30 mmol/L) 26 Anion Gap (5 - 16) 12 BUN (9 - 20 mg/dL) 24 H Creatinine (0.7 - 1.2 mg/dL) 1.1 Estimated GFR (>60 ml/min) > 60 BUN/Creatinine Ratio (7 - 25 %) 21.8 Glucose (65 - 99 mg/dL) 89 Calcium (8.4 - 10.2 mg/dL) 9.0 Iron (49 - 181 ug/dL) 71 TIBC (261 - 462 ug/dL) 248 L Ferritin (17.9 - 464 ng/mL) 178.0 Total Bilirubin (0.2 - 1.3 mg/dL) 0.4 AST (17 - 59 U/L) 108 H ALT (21 - 72 U/L) 107 H Alkaline Phosphatase (< 127 U/L) 325 H Troponin I (<0.11 ng/ml) 0.01 Total Protein (6.3 - 8.2 g/dL) 5.7 L Albumin (3.5 - 5.0 g/dL) 3.0 L Globulin (1.9 - 4.2 gm/dL) 2.7 Albumin/Globulin Ratio (1.1 - 2.2 %) 1.1 Amylase (30 - 110 U/L) 513 H Lipase (23 - 300 U/L) 3768 H Coagulation PT (9.4 - 12.5 SEC) 12.2 INR (0.90 - 1.17) 1.16 APTT (25 - 37 SEC) 24 L Hematology CBC w Diff NO MAN DIFF REQ WBC (4.8 - 10.8 /CUMM) 7.1 RBC (4.70 - 6.10 /CUMM) 3.24 L Hgb (14.0 - 18.0 G/DL) 9.7 L Hct (42 - 52 %) 28.7 L MCV (80.0 - 94.0 FL) 88.6 MCH (27.0 - 31.0 PG) 30.0 RDW (11.5 - 14.5 %) 14.4 Plt Count (130 - 400 /CUMM) 122 L MPV (7.4 - 10.4 FL) 7.0 L Gran % (42.2 - 75.2 %) 68.9 Lymphocytes % (20.5 - 51.1 %) 21.3 Monocytes % (1.7 - 9.3 %) 7.2 Eosinophils % (0 - 5 %) 0.9 Basophils % (0.0 - 2.0 %) 1.7 Absolute Granulocytes (1.4 - 6.5 /CUMM) 4.9 Absolute Lymphocytes (1.2 - 3.4 /CUMM) 1.5 Absolute Monocytes (0.10 - 0.60 /CUMM) 0.5 Absolute Eosinophils (0.0 - 0.7 /CUMM) 0.1 Absolute Basophils (0.0 - 0.2 /CUMM) 0.1 PUBS MCHC (33.0 - 37.0 G/DL) 33.9 Urines Urine Color (YEL,AMB,STR) YEL Urine Clarity (CLEAR) CLEAR Urine pH (5.0 - 8.0) 6.0 Ur Specific [place] (1.001 - 1.035) 1.020 Urine Protein (NEG,<30 MG/DL) 30 H Urine Ketones (NEG) NEG Urine Nitrite (NEG) NEG Urine Bilirubin (NEG) NEG Urine Urobilinogen (0.1 - 1.0 EU/dl) 1.0 Ur Leukocyte Esterase (NEG) NEG Ur Microscopic SEDIMENT EXAMINED Urine WBC (0 - 2 /HPF) 1-3 H Urine Hemoglobin (NEG) NEG Urine Glucose (N MG/DL) NEG Diagnostic Data EKG Results EKG on 04/24/2026 indicated atrial fibrillation with a ventricular rate of around 100 and nonspecific T-wave changes. Shortly after EKG on 04/24/2026 at 736 reveals sinus rhythm with some minor T changes. Admission EKG at 07/12/2006 reveals sinus rhythm. EKG 111 revealed atrial fibrillation with PVCs. CXR Results IMPRESSION: Persistent density at right lung base of infiltrate and/or atelectasis unchanged since prior studies. Assessment/Plan Assessment/Plan In summary this 70-year-old gentleman was admitted with the following problems #1. New onset atrial fibrillation which appears to be paroxysmal. He would be considered CHADSVASC 3-4. The etiology of his atrial fibrillation could be atherosclerotic heart disease but also could be malignancy involving the pericardium. Surprisingly he has experienced is chest pain only since he noted he had atrial fibrillation but he was admitted with dysphagia. There may be an issue and risk initiating anticoagulation at this time. I would've wanted to obtain an echocardiogram and certainly consider the risk of bleeding into the pericardium considering his overall prognosis may might tend to be poor related to his malignancy and metastatic disease. Rate control would be important. Even if he has paroxysmal atrial fibrillation if his average rate is 110 or less , I would prefer his average rate to be around 80-90 with beta elke initiation I would add metoprolol tartrate 25 mg every 8 hours. Obtain echocardiogram as soon as possible. We need to discuss with oncology risk of anticoagulation and bleeding. I would prefer to be conservative and just manage this patient with rate control and aspirin. Pulmonary embolus must also be considered and a CTA of the chest would be helpful both for evaluating the pulmonary vasculature and the chest anatomy. #2. Metastatic small cell cancer #3. Hypertension #4. Hyperlipidemia. At this stage I would hold off on statins seeing his chronic illness and his low LDL #5. Nephrectomy #6. Anemia and thrombocytopenia probably related to malignancy Overall condition appears poor and prognosis is poor related to underlying malignancy. Thank you for me the opportunity of participating in his care Consult Acknowledgment - Thank you for your consult request.
[2016-04-24 10:36] LABS: PTT 56 SEC (25-37)
--- NOTE | 2016-04-24 12:41 | NUCLEAR MEDICINE REPORT ---
EXAMINATION: PULMONARY VENTILATION PERFUSION STUDY CLINICAL INFORMATION: Chest pain, history of lung SEC. COMPARISON: No previous radionuclide lung scan is available for comparison. A radiograph of the chest dated 04/23/2016 is available for comparison. The diagnostic CT scan of the chest, abdomen, and pelvis, dated 04/08/2016, is available for comparison. TECHNIQUE: Serial gamma scintillation camera images were obtained over the posterior chest during the single breath, equilibrium rebreathing and washout of 17.6 mCi Xe 133 gas. The patient then received 4.3 mCi Tc-99m MAA intravenously and a 6-view perfusion study was performed. FINDINGS: Ventilation images: On the single breath and equilibrium images there is a diffuse decrease in activity in the right lung with almost absent activity at the right lung base. Ventilation in the left lung appears normal. Perfusion images: There is a diffuse decrease in activity posteriorly in the right lung. In addition there is a focal segmental perfusion defect involving the superior segment of the right lower lobe. The CT scan dated 04/08/2016 showed extensive mediastinal lymphadenopathy as well as consolidation or mass posteriorly in the right lower lobe which cause narrowing of the right lower lobe pulmonary arteries. The chest radiograph dated 04/23/2016 also shows opacity at the right lung base and some pleural fluid. IMPRESSION: Low probability of pulmonary embolism. The perfusion abnormality in the right lower lobe is probably due to compression of the right lower lobe pulmonary arteries by mediastinal and perihilar lymphadenopathy evident on the recent CT scan. However, coexisting pulmonary embolism cannot be entirely ruled out. There are no abnormalities in the other lung frey suspicious for pulmonary emboli.
[2016-04-24 16:53] VITALS: BP 156/82
--- NOTE | 2016-04-24 18:38 | ECHOCARDIOGRAM REPORT ---
MARJORIE GLASER Age: 70 : 1945 Gender: M Exam Date: 04/24/2016 15:54 Exam Location: ER Ht (in): 71 Wt (lb): 195 BSA: 2.12 BP: 151 / 74 Ordering Physician: TYSON RESTREPO, Referring Physician: Francisco Javier Mullins MD Technologist: Davida Liz RDCS Room Number: [id number] Indications: AFIB/FLUTTER Rhythm: Sinus Technical Quality: fair FINDINGS Left Ventricle Normal size left ventricle. Left ventricular wall thickness mildly increased. Normal left ventricular ejection fraction estimated at 65-70%. Right Ventricle Normal right ventricular size and function. Right Atrium Normal right atrial size. Left Atrium Mild left atrial dilatation. Mitral Valve Mild mitral annular calcification. Trace to mild mitral regurgitation. Aortic Valve Aortic valve is normal in structure and function. Tricuspid Valve Tricuspid valve is normal in structure and function. Trace to mild tricuspid regurgitation. Pulmonic Valve Pulmonic valve not well visualized, grossly normal. Pericardium Trace Pericardial effusion. Great Vessels Mildly dilated proximal ascending aorta (tube). CONCLUSIONS Normal left and right ventricular systolic function. Trace pericardial effusion could be a normal variant. No significant valvular abnormalities noted. Francisco Javier Mullins M.D. (Electronically Signed) Final Date: 24 April 2016 18:38 MEASUREMENTS (Male / Female) Normal Values 2D ECHO LV Diastolic Diameter PLAX 5.5 cm 4.2 - 5.9 / 3.9 - 5.3 cm LV Systolic Diameter PLAX 3.6 cm 2.1 - 4.0 cm LV Fractional Shortening PLAX 34.5 % 25 - 46 % LV Ejection Fraction 2D Teich 63.1 % IVS Diastolic Thickness 1.3 cm LVPW Diastolic Thickness 1.3 cm LV Relative Wall Thickness 0.5 RV Internal Dim ED PLAX 3.1 cm 1.9 - 3.8 cm LVOT Diameter 2.2 cm Aortic Root Diameter 3.5 cm LA Systolic Diameter LX 4.5 cm 3.0 - 4.0 / 2.7 - 3.8 cm LA Volume 50.0 cm 18 - 58 / 22 - 52 cm Ascending Aorta Diameter 4.1 cm DOPPLER AV Peak Velocity 170.0 cm/s AV Peak Gradient 11.6 mmHg AV Mean Velocity 125.0 cm/s AV Mean Gradient 7.0 mmHg AV Velocity Time Integral 34.1 cm LVOT Peak Velocity 146.0 cm/s LVOT Peak Gradient 8.5 mmHg LVOT Mean Velocity 82.2 cm/s LVOT Mean Gradient 3.0 mmHg LVOT Velocity Time Integral 23.1 cm LVOT Stroke Volume 87.8 cm AV Area Cont Eq vti 2.6 cm AV Area Cont Eq pk 3.3 cm MV Peak Velocity 94.2 cm/s MV Peak Gradient 3.5 mmHg MV Mean Velocity 62.6 cm/s MV Mean Gradient 2.0 mmHg Mitral E Point Velocity 73.5 cm/s Mitral A Point Velocity 82.9 cm/s Mitral E to A Ratio 0.9 MV PHT Velocity 79.9 cm/s MV Deceleration [place] 466.0 cm/s MV Pressure Half Time 51.4 ms MV Area PHT 4.3 cm MV Deceleration Time 172.0 ms PV Peak Velocity 135.0 cm/s PV Peak Gradient 7.3 mmHg PV Mean Velocity 83.5 cm/s PV Mean Gradient 3.0 mmHg PV Velocity Time Integral 21.6 cm LV E' Lateral Velocity 14.0 cm/s Mitral E to LV E' Lateral Ratio 5.3 LV E' Septal Velocity 10.2 cm/s Mitral E to LV E' Septal Ratio 7.2
[2016-04-25 00:10] VITALS: BP 148/70
[2016-04-25 03:35] VITALS: BP 148/80
[2016-04-25 04:13] LABS: ABSOLUTE BASOPHIL COUNT 0 /CUMM (0.0-0.2); ABSOLUTE EOSINOPHIL COUNT 0 /CUMM (0.0-0.7); ABSOLUTE GRANULOCYTE CT 4.5 /CUMM (1.4-6.5); ABSOLUTE LYMPH COUNT 1.1 /CUMM (1.2-3.4); ABSOLUTE MONOCYTE COUNT 0.4 /CUMM (0.10-0.60); BASOPHIL % 0.8 % (0.0-2.0); EOSINOPHIL % 0.7 % (0-5); GRANULOCYTE % 73.4 % (42.2-75.2); HEMATOCRIT 26.7 % (42-52); MEAN CORPUSCULAR HGB 30.4 PG (27.0-31.0); MEAN CORPUSCULAR HGB CONC 34.3 G/DL (33.0-37.0); MEAN CORPUSCULAR VOLUME 88.4 FL (80.0-94.0); MEAN PLATELET VOLUME 6.3 FL (7.4-10.4); PLATELET COUNT 93 /CUMM (130-400); RBC DISTRIBUTION WIDTH 13.9 % (11.5-14.5); RED BLOOD CELL CT 3.02 /CUMM (4.70-6.10); WHITE BLOOD CELL COUNT 6.1 /CUMM (4.8-10.8)
--- NOTE | 2016-04-25 07:32 | PN- Oncology ---
Subjective Subjective: Not feeling well but decreased shortness of breath and chest pain Review of Systems: 12 point review of systems unchanged Objective Vital Signs and I&Os Vital Signs Date Time Temp Pulse Resp B/P Pulse O2 O2 Flow FiO2 Ox Delivery Rate 04/25 0335 98.2 90 18 148/80 94 Room Air 04/25 0010 98.1 95 22 148/70 95 Room Air 04/25 0000 94 Nasal 2.0L Cannula 04/24 2027 94 154/78 04/24 1700 Nasal 2.0L Cannula 04/24 1653 97.9 89 20 156/82 95 Nasal 2.0L Cannula 04/24 1609 93 Nasal 2.0L Cannula 04/24 1554 97.6 95 133/89 04/24 1530 97.6 95 20 133/89 93 Nasal 2.0L Cannula 04/24 1000 89 18 151/74 04/24 0949 98.1 89 18 151/74 04/24 0806 97.7 102 20 163/87 96 Nasal 2.0L Cannula 04/24 0737 96 Intake & Output 04/25 0800 04/25 0000 04/24 1600 04/24 0800 04/24 0000 04/23 1600 Intake Total 300 480 Output Total 240 350 200 Balance 60 130 -200 Intake, Oral 300 480 Output, Urine 240 350 200 Patient 195 lb 195 lb Weight Gen.: in NAD ENT: Sclera anicteric Chest: Normal respiratory effort, decreased breath sounds Cor: RRR, no extra sounds Abdomen: Soft, bowel sounds present, no dramatic tenderness, no rebound Extremities: Without clubbing, cyanosis, or asymmetric edema Neurology: Alert and oriented 3, no gross deficit Current Medications: Current Medications Sig/Noemí Start time Last Medication Dose Route Stop Time Status Admin Alprazolam 0 .STK-MED ONE 04/24 1553 DC PO Alprazolam 0.25 MG BID PRN 04/24 1500 AC 04/24 PO 05/01 1459 1554 Amlodipine Besylate 5 MG DAILY 04/24 1000 AC 04/24 PO 0949 Aspirin 81 MG DAILY 04/24 1000 AC 04/24 PO 1000 Aspirin 0 .STK-MED ONE 04/24 0954 DC PO Cyanocobalamin 1,000 MCG DAILY 04/24 1000 AC 04/24 PO 0949 Escitalopram Oxalate 5 MG DAILY 04/24 1000 AC 04/24 PO 0949 Fentanyl Citrate 50 MCG Q72 04/25 1000 AC TOP Heparin Sodium 0 .STK-MED ONE 04/24 1151 DC (Porcine) .ROUTE Heparin Sodium 25,000 UNIT Q24H 04/23 1945 DC 04/23 (Porcine) IV 2026 Sodium Chloride 500 ML Hydromorphone HCl 0 .STK-MED ONE 04/24 0800 DC PO Hydromorphone HCl 4 MG Q 3-4 HRS PRN PRN 04/23 2330 AC 04/25 PO 0350 Lorazepam 1 MG ONE ONE 04/24 0815 DC 04/24 IV 04/24 0816 0816 Lorazepam 0 .STK-MED ONE 04/24 0813 DC .ROUTE Metoprolol Tartrate 0 .STK-MED ONE 04/24 1551 DC PO Metoprolol Tartrate 25 MG TID 04/24 1000 AC 04/24 PO 2026 Metoprolol Tartrate 0 .STK-MED ONE 04/24 0954 DC PO Morphine Sulfate 1 MG ONCE ONE 04/24 0815 DC IV 04/24 0816 Nitroglycerin 0 .STK-MED ONE 04/24 0804 DC SL Nitroglycerin 0.4 MG ONCE ONE 04/24 0800 DC 04/24 SL 04/24 0801 0806 Ondansetron HCl 4 MG ONCE ONE 04/25 0545 DC 04/25 IV 04/25 0546 0544 Polyethylene Glycol 17 GM DAILY 04/24 1000 AC 04/24 PO 0949 Senna/Docusate Sodium 1 TAB BID PRN 04/23 2330 AC PO Results Last 24 Hours of Lab Results: Laboratory Tests 04/25 04/25 04/25 04/24 0350 0350 0350 1006 Chemistry Sodium (137 - 145 mmol/L) 139 Potassium (3.5 - 5.1 mmol/L) 4.0 Chloride (98 - 107 mmol/L) 102 Carbon Dioxide (22 - 30 mmol/L) 26 Anion Gap (5 - 16) 11 BUN (9 - 20 mg/dL) 22 H Creatinine (0.7 - 1.2 mg/dL) 1.0 Estimated GFR (>60 ml/min) > 60 BUN/Creatinine Ratio (7 - 25 %) 22.0 Lactic Acid (0.7 - 2.1 mmol/L) 1.0 Total Bilirubin (0.2 - 1.3 mg/dL) 0.8 Direct Bilirubin (< 0.4 mg/dL) 0.4 AST (17 - 59 U/L) 162 H ALT (21 - 72 U/L) 129 H Alkaline Phosphatase (< 127 U/L) 396 H Total Protein (6.3 - 8.2 g/dL) 5.6 L Albumin (3.5 - 5.0 g/dL) 3.0 L Coagulation APTT (25 - 37 SEC) 56 H Hematology CBC w Diff NO MAN DIFF REQ WBC (4.8 - 10.8 /CUMM) 6.1 RBC (4.70 - 6.10 /CUMM) 3.02 L Hgb (14.0 - 18.0 G/DL) 9.2 L Hct (42 - 52 %) 26.7 L MCV (80.0 - 94.0 FL) 88.4 MCH (27.0 - 31.0 PG) 30.4 RDW (11.5 - 14.5 %) 13.9 Plt Count (130 - 400 /CUMM) 93 L MPV (7.4 - 10.4 FL) 6.3 L Gran % (42.2 - 75.2 %) 73.4 Lymphocytes % (20.5 - 51.1 %) 18.2 L Monocytes % (1.7 - 9.3 %) 6.9 Eosinophils % (0 - 5 %) 0.7 Basophils % (0.0 - 2.0 %) 0.8 Absolute Granulocytes (1.4 - 6.5 /CUMM) 4.5 Absolute Lymphocytes (1.2 - 3.4 /CUMM) 1.1 L Absolute Monocytes (0.10 - 0.60 /CUMM) 0.4 Absolute Eosinophils (0.0 - 0.7 /CUMM) 0 Absolute Basophils (0.0 - 0.2 /CUMM) 0 PUBS MCHC (33.0 - 37.0 G/DL) 34.3 04/24 04/24 04/24 0822 0811 0730 Chemistry Troponin I Cancelled Coagulation D-Dimer (70 - 232 ng/ml) 2166 H Cancelled Recent Imaging Studies: V/Q scan-low probability Echocardiogram-no significant pericardial disease Assessment/Plan Assessment/Recommendations: 1. Small cell lung cancer-await MRI of spine, if negative can be discharged to home for my perspective with immediate follow-up in my office PLEASE PREMEDICATE WITH ANTIANXIETY MED PRIOR TO MRI 2. A. fib-in sinus rhythm, as per cardiology
--- NOTE | 2016-04-25 07:38 | PN- Housestaff ---
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 He is alert, awake and oriented to time place and person. No acute events noticed overnight. complains of left lower abdominal pain, 5 out of 10, receiving Dilaudid. On fentanyl patch. Denies any nausea, vomiting, change in bladder/bowel habits. Denies chest pain, racing of heart, headache, dizziness or lightheadedness, short of breath. Vitals were stable. Afebrile. Heart rate 90, respiratory rate 20, blood pressure 140/80, saturating at 94 on room air Review of Systems Constitutional: Denies: see HPI. Objective Last 24 Hrs of Vital Signs/I&O Vital Signs Date Time Temp Pulse Resp B/P Pulse O2 O2 Flow FiO2 Ox Delivery Rate 04/25 0916 100 140/90 04/25 0915 100 140/90 04/25 0805 97.8 94 18 140/70 92 Room Air 04/25 0335 98.2 90 18 148/80 94 Room Air 04/25 0010 98.1 95 22 148/70 95 Room Air 04/25 0000 94 Nasal 2.0L Cannula 04/24 2027 94 154/78 04/24 1700 Nasal 2.0L Cannula 04/24 1653 97.9 89 20 156/82 95 Nasal 2.0L Cannula 04/24 1609 93 Nasal 2.0L Cannula 04/24 1554 97.6 95 133/89 04/24 1530 97.6 95 20 133/89 93 Nasal 2.0L Cannula 04/24 1000 89 18 151/74 04/24 0949 98.1 89 18 151/74 Intake & Output 04/25 1600 04/25 0800 04/25 0000 Intake Total 300 480 Output Total 350 240 350 Balance -350 60 130 Intake, Oral 300 480 Output, Urine 350 240 350 Physical Exam General Appearance: Alert, Oriented X3, Cooperative, No Acute Distress Skin: No Rashes, No Breakdown HEENT: Atraumatic, Mucous Membr. moist/pink Neck: Supple, No JVD Lymphatic: Cervical nl Cardiovascular: Normal S1, Normal S2 Lungs: Normal Air Movement Abdomen: Normal Bowel Sounds, Soft, mild tenderness on palpation Extremities: No Clubbing, No Cyanosis, No Edema Vascular: Normal Pulses Current Medications: Current Medications Sig/Noemí Start time Last Medication Dose Route Stop Time Status Admin Alprazolam 0 .STK-MED ONE 04/24 1553 DC PO Alprazolam 0.25 MG BID PRN 04/24 1500 AC 04/24 PO 05/01 1459 1554 Amlodipine Besylate 5 MG DAILY 04/24 1000 AC 04/25 PO 0916 Aspirin 81 MG DAILY 04/24 1000 AC 04/25 PO 0913 Aspirin 0 .STK-MED ONE 04/24 0954 DC PO Cyanocobalamin 1,000 MCG DAILY 04/24 1000 AC 04/25 PO 0916 Escitalopram Oxalate 5 MG DAILY 04/24 1000 AC 04/25 PO 0915 Fentanyl Citrate 50 MCG Q72 04/25 1000 AC 04/25 TOP 0913 Heparin Sodium 0 .STK-MED ONE 04/24 1151 DC (Porcine) .ROUTE Heparin Sodium 25,000 UNIT Q24H 04/23 1945 DC 04/23 (Porcine) IV 2026 Sodium Chloride 500 ML Hydromorphone HCl 4 MG Q 3-4 HRS PRN PRN 04/23 2330 AC 04/25 PO 0916 Lorazepam 0.5 MG ONCE PRN 04/25 0900 AC IV Metoprolol Tartrate 0 .STK-MED ONE 04/24 1551 DC PO Metoprolol Tartrate 25 MG TID 04/24 1000 AC 04/25 PO 0915 Metoprolol Tartrate 0 .STK-MED ONE 04/24 0954 DC PO Ondansetron HCl 4 MG ONCE ONE 04/25 0545 DC 04/25 IV 04/25 0546 0544 Polyethylene Glycol 17 GM DAILY 04/24 1000 AC 04/25 PO 0915 Senna/Docusate Sodium 1 TAB BID PRN 04/23 2330 AC PO Last 24 Hrs of Lab/Wiliam Results Last 24 Hrs of Labs/Mics: Laboratory Tests 04/25/16 0350: Lactic Acid 1.0 04/25/16 0350: Anion Gap 11, Estimated GFR > 60, BUN/Creatinine Ratio 22.0 04/25/16 0350: Total Bilirubin 0.8, Direct Bilirubin 0.4, AST 162 H, ALT 129 H, Alkaline Phosphatase 396 H, Total Protein 5.6 L, Albumin 3.0 L, CBC w Diff NO MAN DIFF REQ, RBC 3.02 L, MCV 88.4, MCH 30.4, RDW 13.9, MPV 6.3 L, Gran % 73.4, Lymphocytes % 18.2 L, Monocytes % 6.9, Eosinophils % 0.7, Basophils % 0.8, Absolute Granulocytes 4.5, Absolute Lymphocytes 1.1 L, Absolute Monocytes 0.4, Absolute Eosinophils 0, Absolute Basophils 0, PUBS MCHC 34.3 04/24/16 1006: APTT 56 H Assessment/Plan Assessment: This is a 70-year-old man with past medical history of hypertension, diabetes mellitus, hyperlipidemia, recently diagnosed with small cell malignancy in his previous admission on 04/08/2016, partial right nephrectomy(2006), CAD with 2( 1997) stents ,hyperlipidemia, heavy smoker who quit about three and a half weeks ago, recently found with lung mass with liver metastasis, diverticulitis and was discharged 04/22/16 after 3 day hospitalization for abdominal pain and evaluated for pancreatitis versus diverticulitis, presents to [facility] ED with chief complaint of "food stuck in my throat". The event was sudden in onset, not associated with any pain, choking and he was able to cough up and expel the food bolus. VS on admission: BP 106/69, HR 116, RR 16, SPO2 95% on RA, T 97.2 Pertinent labs: WBC 7, 9.7/28.7, platelets 122, BUN/Cr CR 20/1.1, glucose 89 INR: 1.16 AST/ALT 108/107, alkaline phosphatase 325 Iron studies: Serum iron 71, TIBC 248L, ferritin 178 CXR: Persistent density at right lung base of infiltrate and/or atelectasis unchanged since prior studies. EKG: Atrial fibrillation, HR 134. QTC 472 echo- CONCLUSIONS Normal left and right ventricular systolic function. Trace pericardial effusion could be a normal variant. No significant valvular abnormalities noted. lung v/q scan- RULED OUT PULMONARY EMBOLUS. At the ED, patient was found to be in A. fib with heart rates of 110s and received Cardizem 10 mg IV bolus and heparin drip started. Problem list: 1. New onset atrial fibrillation 2. Dysphagia 3. Anemia, Thrombocytopenia 4. CAD s/p stent placement 5. Chronic pain 6. Diabetes mellitus 7. Hypertension 8. 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 Constipation 10. Depression New onset atrial fibrillation Patient presented to emergency department with chief complaint of food stuck in the throat. In the emergency room EKG showed new onset atrial fibrillation. * Admitted to telemetry floor for further monitoring * Patient is on continuous case monitor * Serial EKGs and troponins negative * He was given 10 mg Cardizem IV push in the ER * Rate under control * Started on IV heparin drip, later discontinued. 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 Dysphagia * presented after an episode of food getting stuck while swallowing. * The event was sudden in onset, not associated with any pain, choking and he was able to cough up and expel the food bolus. * Passed formal swallow evaluation * Started on chopped diet. * Denies any dysphagia this morning. Anemia H and h 9.7 and 28.7 on admission We'll continue to monitor h and h 9.2 and 26.7 this morning thrombocytopenia 122 on admission 93 this morning Coronary artery disease Continue aspirin Chronic pain Continue hydromorphone Continue fentanyl patch Anxiety Started on Xanax Diabetes mellitus Accu-Cheks before each meal NovoLog sliding scale Small cell carcinoma of lung Patient was diagnosed with small cell carcinoma of lung in March and metastasis to liver. * He is following Dr. Oreilly is an outpatient. mri spine- pt has diffuse osseous metastasis cord compression at T10 level. started Decadron 10 mg IV now and every 6 hrs getting focal radiation therapy at the level of t10 Constipation On aggressive bowel regimen Continue MiraLAX and senna whenever necessary - as patient is on opioids Depression continue home dose of Lexapro Full code DVT prophylaxis-alps Chopped diet Pain pathway-hydromorphone and fentanyl patch Patient was admitted on March 30 for diverticulitis at [facility] Patient was readmitted again on April 08 for nausea and vomiting, abdominal pain.found liver metastases. Patient was readmitted again on April 19 for left-sided abdominal pain, nausea and constipation and treated for pancreatitis. Problem List: 1. New onset a-fib 2. Lung cancer 3. Metastatic disease Pain Ratin Pain Location: left lower abdominal pain Pain Goal: Pain 4 or less Pain Plan: tylinol dilaudid on fentanyl patch Tomorrow's Labs & Rationales: none D'LEIGH MD,REE 04/25/16 0946: Attending MD Review Statement Attending Statement Attending MD Statement: examined this patient, discuss w/resident/PA/SOLDER TECHNICIAN, agreed w/resident/PA/SOLDER TECHNICIAN, discussed with family, reviewed EMR data (avail), discussed with nursing, discussed with case mgmt Attending Assessment/Plan: Patient feels tired and weak. He is overwhelmed by the diagnosis and everything going on. He is a 70-year-old male with a newly diagnosed metastatic small cell lung CA. Primary in the lung with documented metastases to the liver. He came here after an episode of choking and was transiently in A. fib. His VQ was low probability and his echo shows a trace pericardial effusion. We are treating his pain with a fentanyl patch and by mouth Dilaudid. The plan is that he is going to have an MRI of his entire spine today. If there is no cord compromise than the likely plan will be discharge with close outpatient follow-up to start chemotherapy. I have tried to have goals of care discussion with him but he is very overwhelmed and would like to defer this discussion to have it with Dr. Oreilly.
[2016-04-25 08:05] VITALS: BP 140/70
--- NOTE | 2016-04-25 12:28 | PN- Cardiology ---
Subjective Subjective: Patient notes feeling weak and still has some abdominal discomfort. Denies any palpitations. Remains in sinus rhythm on telemetry. Objective Vital Signs and I&Os Vital Signs Date Time Temp Pulse Resp B/P Pulse O2 O2 Flow FiO2 Ox Delivery Rate 04/25 0916 100 140/90 04/25 0915 100 140/90 04/25 0805 97.8 94 18 140/70 92 Room Air 04/25 0335 98.2 90 18 148/80 94 Room Air 04/25 0010 98.1 95 22 148/70 95 Room Air 04/25 0000 94 Nasal 2.0L Cannula 04/24 2027 94 154/78 04/24 1700 Nasal 2.0L Cannula 04/24 1653 97.9 89 20 156/82 95 Nasal 2.0L Cannula 04/24 1609 93 Nasal 2.0L Cannula 04/24 1554 97.6 95 133/89 04/24 1530 97.6 95 20 133/89 93 Nasal 2.0L Cannula Intake & Output 04/25 1600 04/25 0800 04/25 0000 04/24 1600 04/24 0800 04/24 0000 Intake Total 300 480 Output Total 350 240 350 200 Balance -350 60 130 -200 Intake, Oral 300 480 Output, Urine 350 240 350 200 Patient 195 lb 195 lb Weight Physical Exam: General: no apparent distress. Alert. Eyes: No obvious scleral icterus. HEENT: No jugular venous distention or abnormal jugular venous pulsations. Cardiovascular: Normal intensity S1/S2. Regular. Respiratory: No rales or rhonchi Musculoskeletal: No clubbing or cyanosis noted, no edema Skin: Warm Neurologic: No gross focal deficits noted. Current Medications: Current Medications Sig/Noemí Start time Last Medication Dose Route Stop Time Status Admin Alprazolam 0 .STK-MED ONE 04/24 1553 DC PO Alprazolam 0.25 MG BID PRN 04/24 1500 AC 04/24 PO 05/01 1459 1554 Amlodipine Besylate 5 MG DAILY 04/24 1000 AC 04/25 PO 0916 Aspirin 81 MG DAILY 04/24 1000 AC 04/25 PO 09 Cyanocobalamin 1,000 MCG DAILY 04/24 1000 AC 04/25 PO 0916 Escitalopram Oxalate 5 MG DAILY 04/24 1000 AC 04/25 PO 0915 Fentanyl Citrate 50 MCG Q72 04/25 1000 AC 04/25 TOP 0913 Heparin Sodium 25,000 UNIT Q24H 04/23 1945 DC 04/23 (Porcine) IV 2026 Sodium Chloride 500 ML Hydromorphone HCl 4 MG Q 3-4 HRS PRN PRN 04/23 2330 AC 04/25 PO 0916 Lorazepam 0.5 MG ONCE PRN 04/25 0900 AC 04/25 IV 1009 Metoprolol Tartrate 0 .STK-MED ONE 04/24 1551 DC PO Metoprolol Tartrate 25 MG TID 04/24 1000 AC 04/25 PO 0915 Ondansetron HCl 4 MG ONCE ONE 04/25 0545 DC 04/25 IV 04/25 0546 0544 Polyethylene Glycol 17 GM DAILY 04/24 1000 AC 04/25 PO 0915 Senna/Docusate Sodium 1 TAB BID PRN 04/23 2330 AC PO Results Last 48 Hrs of Labs/Mics: Laboratory Tests 04/25/16 0350: Lactic Acid 1.0 04/25/16 0350: Anion Gap 11, Estimated GFR > 60, BUN/Creatinine Ratio 22.0 04/25/16 0350: Total Bilirubin 0.8, Direct Bilirubin 0.4, AST 162 H, ALT 129 H, Alkaline Phosphatase 396 H, Total Protein 5.6 L, Albumin 3.0 L, CBC w Diff NO MAN DIFF REQ, RBC 3.02 L, MCV 88.4, MCH 30.4, RDW 13.9, MPV 6.3 L, Gran % 73.4, Lymphocytes % 18.2 L, Monocytes % 6.9, Eosinophils % 0.7, Basophils % 0.8, Absolute Granulocytes 4.5, Absolute Lymphocytes 1.1 L, Absolute Monocytes 0.4, Absolute Eosinophils 0, Absolute Basophils 0, PUBS MCHC 34.3 04/24/16 1006: APTT 56 H 04/24/16 0822: D-Dimer 2166 H 04/24/16 0811: D-Dimer Cancelled 04/24/16 0730: Troponin I Cancelled 04/24/16 0600: Triglycerides 142, Cholesterol 118, LDL Cholesterol, Calc 56 L, HDL Cholesterol 34 L, Cholesterol/HDL Ratio 3 04/24/16 0600: Anion Gap 10, Estimated GFR > 60, BUN/Creatinine Ratio 20.9, Phosphorus 2.5, Magnesium 1.9, Troponin I 0.01, CBC w Diff NO MAN DIFF REQ, RBC 3.04 L, MCV 89.1, MCH 30.2, RDW 13.9, MPV 6.3 L, Gran % 67.7, Lymphocytes % 24.2, Monocytes % 7.1, Eosinophils % 1.0, Basophils % 0 L, Absolute Granulocytes 4.3, Absolute Lymphocytes 1.5, Absolute Monocytes 0.5, Absolute Eosinophils 0.1, Absolute Basophils 0, PUBS MCHC 33.9 04/24/16 0242: APTT 33 04/24/16 0013: Troponin I 0.02 04/23/162001: Urine Color YEL, Urine Clarity CLEAR, Urine pH 6.0, Ur Specific [place] 1.020, Urine Protein 30 H, Urine Ketones NEG, Urine Nitrite NEG, Urine Bilirubin NEG, Urine Urobilinogen 1.0, Ur Leukocyte Esterase NEG, Ur Microscopic SEDIMENT EXAMINED, Urine WBC 1-3 H, Urine Hemoglobin NEG, Urine Glucose NEG 04/23/16 1810: Anion Gap 12, Estimated GFR > 60, BUN/Creatinine Ratio 21.8, Glucose 89, Calcium 9.0, Iron 71, TIBC 248 L, Ferritin 178.0, Total Bilirubin 0.4, AST 108 H, ALT 107 H, Alkaline Phosphatase 325 H, Troponin I 0.01, Total Protein 5.7 L, Albumin 3.0 L, Globulin 2.7, Albumin/Globulin Ratio 1.1, Amylase 513 H, Lipase 3768 H, PT 12.2, INR 1.16, APTT 24 L, CBC w Diff NO MAN DIFF REQ, RBC 3.24 L, MCV 88.6, MCH 30.0, RDW 14.4, MPV 7.0 L, Gran % 68.9, Lymphocytes % 21.3, Monocytes % 7.2, Eosinophils % 0.9, Basophils % 1.7, Absolute Granulocytes 4.9, Absolute Lymphocytes 1.5, Absolute Monocytes 0.5, Absolute Eosinophils 0.1, Absolute Basophils 0.1, PUBS MCHC 33.9 Recent Imaging Studies: Telemetry tracings were personally reviewed and shows sinus rhythm Echocardiogram Normal left and right ventricular systolic function. Trace pericardial effusion could be a normal variant. No significant valvular abnormalities noted. Assessment/Plan Assessment/Plan 1. Transient atrial fibrillation now in sinus rhythm 2. Metastatic small cell lung CA 3. Hypertension/hyperlipidemia 4. Anemia/thrombocytopenia 5. History of CAD with remote PCI 6. History of partial nephrectomy Telemetry shows no evidence of recurrent atrial fibrillation. Given the transient nature of the atrial fibrillation and his significantly elevated bleeding risk in the setting of metastatic lung CA with anemia and thrombocytopenia he is felt to not be an appropriate candidate for full anticoagulation at this time. V/Q scan was low probability for pulmonary embolism. Spinal MRI is pending. Echocardiogram showed only a trace pericardial effusion which had also been seen on a chest CT from March. OK to change the metoprolol to Toprol XL 50 mg PO daily. Continue on low-dose aspirin therapy but agree with holding statin therapy in the setting of liver metastases. He is planned to start outpatient chemotherapy in the near future. Esdras Richards MD [facility] Continue telemetry? No
--- NOTE | 2016-04-25 13:07 | MRI REPORT ---
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 COMPARISON: Abdominal and chest CT from 04/08/2016. TECHNIQUE: Multiplanar multisequence MR imaging of the cervical, thoracic, and lumbar spine is obtained without and following the administration of 18 mL of Optiray intravenous contrast without complication. FINDINGS: Cervical Spine: There is diffuse marrow placement throughout the anterior and posterior elements of the cervical spine associated with mild enhancement and heterogeneous T2 signal change in keeping with diffuse osseous metastatic disease. There are areas of ventral epidural enhancement at the C3 and C6 levels that mildly indents the ventral thecal sac at these levels concerning for small volume ventral epidural tumor. The vertebral body heights are maintained. There is mild to moderate disc volume loss at the C3-C4, C4-C5, C5-C6, and C6-C7 levels. No acute fractures are appreciated. Disc osteophyte complexes at the C3-C4, C4-C5, C5-C6, and C6-C7 levels result in mild central canal stenosis at these levels without cord deformity. There is moderate to severe bilateral foraminal stenosis at C5-C6. Favored focus of artifact within the left cord at the C3 level on image 8 of series 7 that is not confirmed on the sagittal T2-weighted series. Artifact significantly obscures the cord on axial imaging. The craniocervical junction is intact. Retropharyngeal course of the cervical internal carotid arteries. Thoracic Spine: There is diffuse marrow replacement throughout the anterior and posterior elements of the thoracic spine that exhibits heterogeneous enhancement and heterogeneous T2 signal change in keeping with diffuse osseous metastatic disease. There are areas of ventral epidural soft tissue enhancement throughout the thoracic spine, the largest appreciated at the T10 level which is eccentric to the left side with this enhancing epidural tumor resulting in thoracic cord compression and extending into the left greater than right T10-T11 neural foramen. The remaining areas of ventral epidural soft tissue enhancement result in indentation of the ventral thecal sac without significant mass effect and are greatest on the right side at the T2 level, on the left side at the T5 and T6 levels, and at the T11 and T12 levels. Enhancing epidural tumor at T12 does result in asymmetric right lateral recess effacement. Vertebral body heights are maintained. No significant disc herniations. Partially imaged mediastinal lymphadenopathy. Partially imaged right greater than left pleural effusions. Lumbar Spine: Extensive marrow replacement throughout the anterior and posterior elements of the lumbar spine with associated heterogeneous enhancement and T2 signal change in keeping with diffuse osseous metastatic disease but also affects the sacrum and imaged bony pelvis. Vertebral body heights are maintained. Mild disc volume loss and disc desiccation at L4-L5 and L5-S1. Slight degenerative anterolisthesis of L5 on S1. At S2 there is left ventral epidural tumor that compresses the left S2 nerve root within the left S2 lateral recess. Conus terminates at the L1 level. Chronic severe right-sided hydronephrosis and right renal atrophy are stable. At L1-L2 and L2-L3 the disc contours remain normal. No central canal stenosis and no foraminal stenosis. At L3-L4 there is a diffuse annular disc bulge and there is mild bilateral facet arthropathy. No central canal stenosis. While foraminal narrowing bilaterally. At L4-L5 there is a diffuse annular disc bulge exhibiting a dorsal annular fissure and there is mild bilateral facet arthropathy. No central canal stenosis. Mild to moderate foraminal stenosis bilaterally without exiting nerve root compression. At L5-S1 there are slight degenerative anterolisthesis. Small central disc protrusion associated with an annular fissure. Moderate bilateral facet arthropathy. No central canal stenosis. Moderate left and mild right foraminal stenosis. IMPRESSION: - Extensive osseous metastatic disease throughout the anterior and posterior elements of the cervical, thoracic, and lumbar spine as well as the partially imaged sacrum and bony pelvis. There is enhancing ventral epidural tumor at multiple cervical, thoracic, and sacral levels, the most significant appreciated at T10 which is eccentric to the left side with enhancing epidural soft tissue tumor at T10 resulting in severe central canal stenosis with thoracic cord compression, left greater than right lateral recess effacement, and tumoral extension into the left greater than right T10-T11 neural foramen. At T12, enhancing epidural tumor results in asymmetric right lateral recess effacement. At S2 there is left ventral epidural tumor that compresses the left S2 nerve root within the left S2 lateral recess. Additional small volume epidural tumor as discussed above. Nondiagnostic assessment for cord signal abnormality given the degree of artifact. - Partially imaged mediastinal lymphadenopathy and right greater than left pleural effusions/ - Chronic severe right-sided hydronephrosis and right renal atrophy are stable. Critical findings discussed with Caty Bay MD at 12:45 PM on 04/25/2016.
--- NOTE | 2016-04-25 13:33 | Event Note ---
Event Note Event Note: Called by Radiology that pt has diffuse osseous metastasis cord compression at T10 level. I called Dr. Oreilly and we are going to start Decadron 10 mg IV now and every 6 hrs and he is going to Dr. Shannan Kay MD to start radiation as soon as possible. I spoke to the patient, patient's and patient's daughter. Emotional support provided and I called the pastoral care provider to come and talk to them.
--- NOTE | 2016-04-25 15:04 | Cons- Oncology ---
General Information and HPI Consulting Request Date of Consult: 04/25/16 Requested By: DR. Mosley Reason for Consult: Radicular type mid thoracic back pain Source of Information: patient, family, old records Exam Limitations: no limitations History of Present Illness: palliative radiation therapy HISTORY OF PRESENT ILLNESS: Patient underwent chest imaging in February 2016 after experiencing symptoms of bronchitis. Patient imaging included CT scan of the chest abdomen and pelvis, PET scan and more recently MRI scan of the total spine. He Is currently admitted with new onset atrial fibrillation. He reports no symptoms of localized back pain, numbness, motor weakness. He reports that the symptom of reticular type mid back pain. 04/08/16: CT chestextensive mediastinal lymphadenopathy as well as consolidation or mass posterior in the right lower lobe with narrowing of the right lower lobe pulmonary arteries; markedly enlarged right-sided mediastinal and hilar lymph nodes the largest measuring 3 x 4 cm in the subcarinal region, right paratracheal region 3 x 4 cm; mediastinal lymph nodes Kross midline there is substernal internal mammary or intra-thoracic lymphadenopathy measuring up to 4 cm multiple low-attenuation liver lesions suggestive of metastatic disease 04/10/16: Fine-needle aspirate liver biopsypositive for malignant cellshigh- grade neuroendocrine neoplasm consistent with small cell carcinoma 04/22/16: CT head with contraststable exam with no evidence of abnormal intracranial mass or enhancement 04/24/16: Pulmonary ventilation/perfusion studylow probability pulmonary embolism 04/25/16 MRI total spine: Cervical spine diffuse marrow replacement consistent with diffuse osseous metastatic disease; areas of ventral epidural enhancement at C2 3 and C6 that mildly indents the ventral thecal sac concerning for small volume ventral epidural tumor. Thoracic spine: Diffuse marrow replacement consistent with diffuse osseous metastatic disease; areas of ventral epidural soft tissue enhancement throughout the thoracic spine the largest appreciated at the T10 level which is eccentric to the left side with this enhancing epidural tumor resulting in thoracic cord compression extending into the left greater than the right T10-T11 neural foramen; remaining areas of ventral epidural soft tissue enhancement results in indentation of the ventral thecal sac without significant mass effect or greatest at the right side of T2, left side of T5 and T6 and at T11 and T12; enhancing epidural tumor at T12 results in asymmetric right lateral recess effacement. Lumbar spineextensive marrow replacement consistent with metastatic disease with involvement of the sacrum and imaged bony pelvis; at S2 there is left ventral epidural tumor that compresses the left S2 nerve root within the left S2 lateral recess Allergies/Medications Allergies: Coded Allergies: Iodinated Contrast Media - Oral and (UNKNOWN 03/30/16) Home Med List: Albuterol Sulfate 1.25 MG/3 ML VIAL.NEB 1 Vial INH/RASHAAD Q4-6 PRN WHEEZE DISPENSE 1 BOX Albuterol Sulfate (Proair Hfa) 90 MCG HFA.AER.AD 2 PUF INH Q4-6 PRN PRN COPD Amlodipine Besylate 5 MG TABLET 1 TAB PO DAILY BP (Reported) Ascorbic Acid (Vitamin C) 1,000 MG TABLET 1 TAB PO DAILY SUPPLEMENT (Reported ) Aspirin (Ecotrin*) 81 MG TABLET.DR 1 TAB PO DAILY HEART/BLOOD (Reported) Cyanocobalamin (Vitamin B-12) 1,000 MCG TABLET 1 TAB PO DAILY SUPPLEMENT ( Reported) Escitalopram Oxalate 5 MG TABLET 1 TAB PO DAILY DEPRESSION Fentanyl Citrate (Duragesic) 75 MCG/HOUR PATCH.TD72 75 MCG TOP Q72H PAIN Hydromorphone HCl 4 MG TABLET 1 TAB PO Q3-4 PRN PAIN (Reported) Losartan Potassium 100 MG TABLET 1 TAB PO DAILY BP (Reported) Metformin HCl 500 MG TABLET 1 TAB PO BID DM (Reported) Multivitamin (Multi-Day Vitamins) 1 EACH TABLET 1 TAB PO DAILY SUPPLEMENT ( Reported) Nebulizer (Aeroeclipse II) 1 EACH EACH 1 KIT PO 4 TIMES/DAY PRN WHEEZE ICD 10 J45...... PLEASE DISPENSE NEBULIZER WITH TUBING (WHATEVER BRAND IS COVERED BY INSURANCE) Ondansetron (Zofran Odt) 4 MG TAB.RAPDIS 1 TAB SL TID PRN NAUSEA Polyethylene Glycol 3350 (Miralax) 17 GRAM/DOSE POWDER 17 GM PO DAILY constipation Sennosides/Docusate Sodium (Senna Plus Tablet) 8.6 MG-50 MG TABLET 1 TAB PO BID PRN CONSTIPATION Simvastatin (Simvastatin*) 20 MG TABLET 1 TAB PO QPM CHOLESTEROL (Reported) Current Medications: Current Medications Sig/Noemí Start time Last Medication Dose Route Stop Time Status Admin Alprazolam 0 .STK-MED ONE 04/24 1553 DC PO Alprazolam 0.25 MG BID PRN 04/24 1500 AC 04/24 PO 05/01 6829 1554 Amlodipine Besylate 5 MG DAILY 04/24 1000 AC 04/25 PO 0916 Aspirin 81 MG DAILY 04/24 1000 AC 04/25 PO 0913 Cyanocobalamin 1,000 MCG DAILY 04/24 1000 AC 04/25 PO 0916 Dexamethasone 4 MG Q6H 04/25 1930 AC Dextrose/Water 50 ML IV Dexamethasone 10 MG ONCE ONE 04/25 1330 DC 04/25 Dextrose/Water 50 ML IV 04/25 1359 1402 Dexamethasone 10 MG ONCE ONE 04/25 1315 DC IV PUSH 04/25 1316 Escitalopram Oxalate 5 MG DAILY 04/24 1000 AC 04/25 PO 0915 Fentanyl Citrate 50 MCG Q72 04/25 1000 AC 04/25 TOP 0913 Hydromorphone HCl 2 MG Q3P PRN 04/25 1430 AC 04/25 IV 1426 Hydromorphone HCl 2 MG Q3P PRN 04/25 1415 DC IV Hydromorphone HCl 4 MG Q 3-4 HRS PRN PRN 04/23 2330 AC 04/25 PO 1245 Lorazepam 0.5 MG ONCE PRN 04/25 0900 AC 04/25 IV 1009 Metoprolol Tartrate 0 .STK-MED ONE 04/24 1551 DC PO Metoprolol Tartrate 25 MG TID 04/24 1000 AC 04/25 PO 0915 Ondansetron HCl 4 MG ONCE ONE 04/25 0545 DC 04/25 IV 04/25 0546 0544 Polyethylene Glycol 17 GM DAILY 04/24 1000 AC 04/25 PO 0915 Senna/Docusate Sodium 1 TAB BID PRN 04/23 2330 AC PO Review of Systems Review of Systems: Review of Systems CONSTITUTIONAL Negative for weight loss, fever/chills, night sweats. KARNOFSKY STATUS: 100% HEENT: Negative for blurred or double vision. Negative for ringing, hoarseness or dysphagia. CARDIOVASCULAR: Negative for fatigue, chest pains, palpitations or claudication. RESPIRATORY History of bronchitis like symptoms; intermittent cough negative for hemoptysis GASTROINTESTINAL Negative for anorexia, weight loss, indigestion, nausea, vomiting, constipation or diarrhea. GENITOURINARY: Negative for frequency, nocturia, or hematuria. ENDOCRINE: Negative for diabetes, thyroid, and pituitary problems. MUSCULOSKELETAL: Negative for arthritis, gout, or bone pain. SKIN: Negative for itching, bruising, or rashes. NEUROLOGIC: Negative for headaches, dizziness, numbness, tingling, mental status changes. PSYCHIATRIC: Negative for anxiety or depression. HEMATOLOGIC: Negative for history or anemia or thrombocytopenia. PAIN: No pain or discomfort. 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 Home Who Do You Live With? spouse Services at Home: None Smoking Status: Former Smoker ETOH Use: occasional use Living Will? no Functional Ability ADLs Independent: dressing, eating, toileting, bathing. Ambulation: independent IADLs Independent: shopping, housework, finances, food prep, telephone, transportation , medication admin. Exam & Diagnostic Data Vital Signs and I&O Vital Signs Date Time Temp Pulse Resp B/P Pulse O2 O2 Flow FiO2 Ox Delivery Rate 04/25 0916 100 140/90 04/25 0915 100 140/90 04/25 0805 97.8 94 18 140/70 92 Room Air 04/25 0335 98.2 90 18 148/80 94 Room Air 04/25 0010 98.1 95 22 148/70 95 Room Air 04/25 0000 94 Nasal 2.0L Cannula 04/24 2027 94 154/78 04/24 1700 Nasal 2.0L Cannula 04/24 1653 97.9 89 20 156/82 95 Nasal 2.0L Cannula 04/24 1609 93 Nasal 2.0L Cannula 04/24 1554 97.6 95 133/89 04/24 1530 97.6 95 20 13389 93 Nasal 2.0L Cannula Intake & Output 04/25 1600 04/25 0800 04/25 0000 Intake Total 300 480 Output Total 350 240 350 Balance -350 60 130 Intake, Oral 300 480 Output, Urine 350 240 350 Patient 187 lb Weight Physical Exam: Physical Exam GENERAL: Well appearing in no acute distress. EYES: Anicteric sclera, EOMI, PERRLA. Conjunctivae pink. ENT: Oral cavity is clear. No evidence of thrush. Uvula is midline. NECK: There is no adenopathy in the head or neck area. No palpable thyroid nodules. HEART: S1, S2 heard. There are no murmurs or rubs Patient has regular rate and rhythm. LUNGS: Clear to auscultation. No wheezes or rales. No dullness to percussion. EXTREMITIES: No clubbing, edema, or cyanosis. SKIN: There are no suspicious lesions, no nodules, no signs or infection. LYMPH NODES: No cervical, supraclavicular, axillary and inguinal adenopathy. PSYCHIATRIC: The patient is pleasant and cooperative. No overt signs on anxiety or depression. NEUROLOGICAL: Alert and oriented x3, CN 2-12 intact, gait steady Assessment/Plan Assessment: 70-year-old white male with newly diagnosed metastatic small cell lung cancer with extensive involvement of the spine with epidural extension. MRI was reviewed and findings were discussed with the patient and his daughter. I recommended focal radiation therapy to the site of spinal cord disease at the level of T10 and extend treatment coverage from T5 to T11. He will begin chemotherapy per medical oncology. I discussed the rationale of treatments and the potential side effects of fatigue, esophagitis, decreased blood counts and less likely myelitis. He will undergo CT simulation followed by daily external beam radiation therapy to 3000 cGy in 10 fractions. Recommendations: Radiation Therapy to T spine (T5-T11) Consult Acknowledgment - Thank you for your consult request.
[2016-04-25 18:14] VITALS: BP 102/50
[2016-04-25 19:28] VITALS: BP 112/60
[2016-04-26 00:09] VITALS: BP 128/80
[2016-04-26 01:22] LABS: PTT 34 SEC (25-37)
[2016-04-26 08:15] VITALS: BP 126/70
--- NOTE | 2016-04-26 08:40 | PN- Housestaff ---
Subjective Follow-up For: New onset atrial fibrillation Small cell carcinoma of lung with liver metastasis METASTSIS TO SPINE WITH cord compression Complaints: pain scale (0-10) Tele-Events Since Last Visit: Sinus rhythm Rate 70-80. Overnight he was in atrial fibrillation Subjective: Patient was seen and examined this morning . He is alert, awake and oriented to time place and person. No acute events noticed overnight. complains of left lower abdominal pain, 5 out of 10, receiving IV Dilaudid. On fentanyl patch. Denies any nausea, vomiting, change in bladder/bowel habits. Complaints mildly low back pain. On IV pain medication Denies chest pain, racing of heart, headache, dizziness or lightheadedness, short of breath. Vitals were stable. Afebrile. Heart rate 80, respiratory rate 20, blood pressure 140/80, saturating at 95 ON 2L. Review of Systems Constitutional: Denies: see HPI. Objective Last 24 Hrs of Vital Signs/I&O Vital Signs Date Time Temp Pulse Resp B/P Pulse O2 O2 Flow FiO2 Ox Delivery Rate 04/26 1600 98.0 85 20 140/80 95 Nasal 2.0L Cannula 04/26 1122 84 126/70 04/26 1122 84 126/70 04/26 0815 97.8 84 20 126/70 94 Nasal 2.0L Cannula 04/26 0009 97.5 91 20 128/80 92 Room Air 04/26 0000 Nasal 2.0L Cannula 04/25 1945 99 112/60 04/25 1928 98 20 112/60 04/25 1827 148 104/50 04/25 1818 97.9 04/25 1814 148 22 102/50 95 Nasal 2.0L Cannula 04/25 1800 95 Nasal 2.0L Cannula Intake & Output 04/26 1600 04/26 0800 04/26 0000 Intake Total 314 300 Output Total 200 Balance 314 100 Intake, IV 194 150 Intake, Oral 120 150 Number 1 0 Bowel Movements Output, Urine 200 Physical Exam General Appearance: Alert, Oriented X3, Cooperative, No Acute Distress Skin: No Rashes, No Breakdown HEENT: Atraumatic, Mucous Membr. moist/pink Neck: Supple, No JVD Lymphatic: Cervical nl Cardiovascular: Normal S1, Normal S2 Lungs: Normal Air Movement Abdomen: Normal Bowel Sounds, Soft, No Tenderness Extremities: No Clubbing, No Cyanosis, No Edema Vascular: Normal Pulses Current Medications: Current Medications Sig/Noemí Start time Last Medication Dose Route Stop Time Status Admin Alprazolam 0.25 MG BID PRN 04/24 1500 AC 04/24 PO 05/01 1459 1554 Amlodipine Besylate 5 MG DAILY 04/24 1000 AC 04/26 PO 1122 Aspirin 325 MG DAILY 04/26 1317 AC 04/26 PO 1331 Aspirin 81 MG DAILY 04/24 1000 DC 04/26 PO 1121 Cyanocobalamin 1,000 MCG DAILY 04/24 1000 AC 04/26 PO 1122 Dexamethasone 4 MG Q6H 04/25 1930 AC 04/26 Dextrose/Water 50 ML IV 1331 Escitalopram Oxalate 5 MG DAILY 04/24 1000 AC 04/26 PO 1121 Fentanyl Citrate 50 MCG Q72 04/25 1000 AC 04/25 TOP 0913 Heparin Sodium 3,393 UNIT ONE ONE 04/26 1045 DC 04/26 (Porcine) IV 04/26 1046 1213 Heparin Sodium 25,000 UNIT Q24H 04/26 0215 DC 04/26 (Porcine) IV 0232 Sodium Chloride 500 ML Heparin Sodium 6,360 UNIT ONCE ONE 04/26 0215 DC 04/26 (Porcine) IV 04/26 0216 0222 Heparin Sodium 10,000 UNIT .STK-MED ONE 04/26 0215 DC (Porcine) IV 04/26 0216 Heparin Sodium 4,000 UNIT ONCE ONE 04/25 1845 DC 04/25 (Porcine) IV 04/25 1846 1909 Heparin Sodium 25,000 UNIT Q24H 04/25 1830 DC 04/25 (Porcine) IV 1908 Sodium Chloride 500 ML Hydromorphone HCl 2 MG Q3P PRN 04/25 1430 AC 04/26 IV 1115 Hydromorphone HCl 4 MG Q 3-4 HRS PRN PRN 04/23 2330 AC 04/26 PO 0459 Lorazepam 0.5 MG ONCE PRN 04/25 0900 AC 04/25 IV 1009 Metoprolol Succinate 50 MG DAILY 04/25 1602 AC 04/26 PO 1122 Metoprolol Tartrate 2.5 MG ONCE ONE 04/25 1830 DC 04/25 IV 04/25 1831 1827 Polyethylene Glycol 17 GM DAILY 04/24 1000 AC 04/26 PO 1122 Senna/Docusate Sodium 1 TAB BID PRN 04/23 2330 AC 04/25 PO 2313 Last 24 Hrs of Lab/Wiliam Results Last 24 Hrs of Labs/Mics: Laboratory Tests 04/26/16 0745: Anion Gap 11, Estimated GFR > 60, BUN/Creatinine Ratio 22.0, APTT 45 H, CBC w Diff NO MAN DIFF REQ, RBC 3.15 L, MCV 88.1, MCH 30.3, RDW 13.7, MPV 7.4, Gran % 80.6 H, Lymphocytes % 12.8 L, Monocytes % 6.2, Eosinophils % 0.3, Basophils % 0.1, Absolute Granulocytes 6.2, Absolute Lymphocytes 1.0 L, Absolute Monocytes 0.5, Absolute Eosinophils 0, Absolute Basophils 0, PUBS MCHC 34.4 04/26/16 0055: APTT 34 04/25/16 1850: Anion Gap 13, Estimated GFR > 60, BUN/Creatinine Ratio 22.0, Phosphorus 3.2, Magnesium 2.0 Assessment/Plan Assessment: This is a 70-year-old man with past medical history of hypertension, diabetes mellitus, hyperlipidemia, recently diagnosed with small cell malignancy in his previous admission on 04/08/2016, partial right nephrectomy(2006), CAD with 2( 1997) stents ,hyperlipidemia, heavy smoker who quit about three and a half weeks ago, recently found with lung mass with liver metastasis, diverticulitis and was discharged 04/22/16 after 3 day hospitalization for abdominal pain and evaluated for pancreatitis versus diverticulitis, presents to [place] ED with chief complaint of "food stuck in my throat". The event was sudden in onset, not associated with any pain, choking and he was able to cough up and expel the food bolus. VS on admission: BP 106/69, HR 116, RR 16, SPO2 95% on RA, T 97.2 Pertinent labs: WBC 7, 9.7/28.7, platelets 122, BUN/Cr CR 20/1.1, glucose 89 INR: 1.16 AST/ALT 108/107, alkaline phosphatase 325 Iron studies: Serum iron 71, TIBC 248L, ferritin 178 CXR: Persistent density at right lung base of infiltrate and/or atelectasis unchanged since prior studies. EKG: Atrial fibrillation, HR 134. QTC 472 echo- CONCLUSIONS Normal left and right ventricular systolic function. Trace pericardial effusion could be a normal variant. No significant valvular abnormalities noted. lung v/q scan- RULED OUT PULMONARY EMBOLUS. At the ED, patient was found to be in A. fib with heart rates of 110s and received Cardizem 10 mg IV bolus and heparin drip started. Problem list: 1. New onset atrial fibrillation 2. Dysphagia 3. Anemia, Thrombocytopenia 4. CAD s/p stent placement 5. Chronic pain 6. Diabetes mellitus 7. Hypertension 8. 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 Constipation 10. Depression New onset atrial fibrillation Patient presented to emergency department with chief complaint of food stuck in the throat. In the emergency room EKG showed new onset atrial fibrillation. * Admitted to telemetry floor for further monitoring * Patient is on continuous nurse monitoring * Serial EKGs and troponins negative * He was given 10 mg Cardizem IV push in the ER * Rate under control * Started on IV heparin drip, later discontinued. * Chadsvasc score 3 * on toprol xl 50 mg orallly daily * Continue aspirin 325 * Measurement Technician on board. One more episode of atrial fibrillation overnight. IV heparin was started and later discontinued because of bleeding risk. Measurement Technician was consulted. Aspirin dose increased TO 325 mg from 81 mg. Dysphagia * presented after an episode of food getting stuck while swallowing. * The event was sudden in onset, not associated with any pain, choking and he was able to cough up and expel the food bolus. * Passed formal swallow evaluation * Started on chopped diet. * Denies any dysphagia this morning. Anemia H and h 9.7 and 28.7 on admission We'll continue to monitor h and h 9.2 and 26.7 now thrombocytopenia 122 on admission 93 this morning Coronary artery disease Continue aspirin Chronic pain Continue iv hydromorphone Continue fentanyl patch Anxiety Started on Xanax Diabetes mellitus Accu-Cheks before each meal NovoLog sliding scale Small cell carcinoma of lung Patient was diagnosed with small cell carcinoma of lung in March and metastasis to liver. * He is following Dr. Oreilly is an outpatient. mri spine- Extensive osseous metastatic disease throughout the anterior and posterior elements of the cervical, thoracic, and lumbar spine as well as the partially imaged sacrum and bony pelvis.here is enhancing ventral epidural tumor at multiple cervical, thoracic, and sacral levels, the most significant appreciated at T10 which is eccentric to the left side with enhancing epidural soft tissue tumor at T10 resulting in severe central canal stenosis with thoracic cord compression started Decadron 10 mg IV loading dose and 4mg every 6 hrs getting focal radiation therapy at the level of t10- 2 schedules so far Constipation On aggressive bowel regimen Continue MiraLAX and senna whenever necessary - as patient is on opioids Depression continue home dose of Lexapro Full code DVT prophylaxis-alps Chopped diet Pain pathway-hydromorphone and fentanyl patch Patient was admitted on March 30 for diverticulitis at [facility] Patient was readmitted again on April 08 for nausea and vomiting, abdominal pain.found liver metastases. Patient was readmitted again on April 19 for left-sided abdominal pain, nausea and constipation and treated for pancreatitis. Problem List: 1. Metastatic disease 2. Lung cancer 3. New onset a-fib Pain Ratin Pain Location: Back pain and abdominal pain Pain Goal: Pain 4 or less Pain Plan: Tylenol IV Dilaudid Fentanyl patch Tomorrow's Labs & Rationales: CBC and BEP in the setting of metastatic disease
[2016-04-26 08:58] LABS: ABSOLUTE BASOPHIL COUNT 0 /CUMM (0.0-0.2); ABSOLUTE EOSINOPHIL COUNT 0 /CUMM (0.0-0.7); ABSOLUTE GRANULOCYTE CT 6.2 /CUMM (1.4-6.5); ABSOLUTE MONOCYTE COUNT 0.5 /CUMM (0.10-0.60); BASOPHIL % 0.1 % (0.0-2.0); EOSINOPHIL % 0.3 % (0-5); GRANULOCYTE % 80.6 % (42.2-75.2); HEMATOCRIT 27.8 % (42-52); MEAN CORPUSCULAR HGB 30.3 PG (27.0-31.0); MEAN CORPUSCULAR HGB CONC 34.4 G/DL (33.0-37.0); MEAN CORPUSCULAR VOLUME 88.1 FL (80.0-94.0); MEAN PLATELET VOLUME 7.4 FL (7.4-10.4); PLATELET COUNT 92 /CUMM (130-400); RBC DISTRIBUTION WIDTH 13.7 % (11.5-14.5); RED BLOOD CELL CT 3.15 /CUMM (4.70-6.10); WHITE BLOOD CELL COUNT 7.8 /CUMM (4.8-10.8)
[2016-04-26 09:02] LABS: PTT 45 SEC (25-37)
--- NOTE | 2016-04-26 15:05 | PN- Att Addend ---
Attending MD Review Statement Attending Statement Attending MD Statement: examined this patient, discuss w/resident/PA/CHOCOLATE MOLDER, agreed w/resident/PA/CHOCOLATE MOLDER, reviewed EMR data (avail), discussed w/nursing Attending Assessment/Plan: Patient seen at bedside and discussed with the resident and internet e commerce specialist the care plan for the patient. New onset A. fib which resolved after admission. Patient again went back into atrial fibrillation with RVR last night and was started on IV heparin drip. Given that the patient's chads vasc score is 2 and is high risk for bleeding given his multiple metastases to the spinal cord and other regions of his body will DC the IV heparin drip and start him on full dose of aspirin 325 mg. This was discussed with cardiology and they are agreeable with this plan. This was also discussed with patient and he is also agreeable with being on aspirin rather than heparin. Patient was explained that he has a 2.2% risk of having a stroke but his risk of bleeding is higher. Cord compression at T10 status post radiation yesterday and another dose of radiation today. We will also continue him on steroids. Continue to monitor him neurologically. Discussed with patient the care plan in detail and answered his questions.
[2016-04-26 16:00] VITALS: BP 140/80
[2016-04-27 08:14] VITALS: BP 132/64
[2016-04-27 08:58] LABS: ABSOLUTE BASOPHIL COUNT 0 /CUMM (0.0-0.2); ABSOLUTE EOSINOPHIL COUNT 0 /CUMM (0.0-0.7); ABSOLUTE GRANULOCYTE CT 5.8 /CUMM (1.4-6.5); ABSOLUTE LYMPH COUNT 0.9 /CUMM (1.2-3.4); ABSOLUTE MONOCYTE COUNT 0.4 /CUMM (0.10-0.60); BASOPHIL % 0.4 % (0.0-2.0); EOSINOPHIL % 0.4 % (0-5); GRANULOCYTE % 80.8 % (42.2-75.2); HEMATOCRIT 26.1 % (42-52); MEAN CORPUSCULAR HGB 30.6 PG (27.0-31.0); MEAN CORPUSCULAR HGB CONC 34.4 G/DL (33.0-37.0); MEAN CORPUSCULAR VOLUME 88.8 FL (80.0-94.0); MEAN PLATELET VOLUME 7.5 FL (7.4-10.4); PLATELET COUNT 85 /CUMM (130-400); RBC DISTRIBUTION WIDTH 14.1 % (11.5-14.5); RED BLOOD CELL CT 2.94 /CUMM (4.70-6.10); WHITE BLOOD CELL COUNT 7.1 /CUMM (4.8-10.8)
--- NOTE | 2016-04-27 09:29 | PN- Housestaff ---
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 Resting comfortably in his hospital bed. Offers no complaints. States that at times he does have some minor chest discomfort and some dysphagia. Review of Systems Constitutional: Reports: see HPI. Objective Last 24 Hrs of Vital Signs/I&O Vital Signs Date Time Temp Pulse Resp B/P Pulse O2 O2 Flow FiO2 Ox Delivery Rate 04/27 0918 86 132/64 04/27 0907 86 132/64 04/27 0814 97.6 86 20 132/64 94 Nasal 2.0L Cannula 04/27 0000 Nasal 2.0L Cannula 04/26 1600 98.0 85 20 140/80 95 Nasal 2.0L Cannula 04/26 1122 84 126/70 04/26 1122 84 126/70 Intake & Output 04/27 1600 04/27 0800 04/27 0000 Intake Total 356 270 Output Total 180 Balance 356 90 Intake, IV 116 70 Intake, Oral 240 200 Output, Urine 180 Physical Exam General Appearance: Alert, Oriented X3, Cooperative HEENT: Atraumatic, PERRLA, EOMI Lymphatic: Axillary nl, Cervical nl Cardiovascular: Normal S1, Normal S2 Lungs: Normal Air Movement Abdomen: Normal Bowel Sounds, Soft, No Tenderness Extremities: No Clubbing, No Cyanosis, No Edema Current Medications: Current Medications Sig/Noemí Start time Last Medication Dose Route Stop Time Status Admin Alprazolam 0.25 MG BID PRN 04/24 1500 AC 04/26 PO 05/01 1459 2208 Amlodipine Besylate 5 MG DAILY 04/24 1000 AC 04/27 PO 0918 Aspirin 325 MG DAILY 04/26 1317 AC 04/27 PO 0907 Aspirin 81 MG DAILY 04/24 1000 DC 04/26 PO 1121 Cyanocobalamin 1,000 MCG DAILY 04/24 1000 AC 04/27 PO 0907 Dexamethasone 4 MG Q6H 04/27 0730 AC 04/27 IV 0659 Dexamethasone 4 MG Q6H 04/25 1930 DC 04/27 Dextrose/Water 50 ML IV 0059 Escitalopram Oxalate 5 MG DAILY 04/24 1000 AC 04/27 PO 0907 Fentanyl Citrate 50 MCG Q72 04/25 1000 AC 04/25 TOP 0913 Heparin Sodium 3,393 UNIT ONE ONE 04/26 1045 DC 04/26 (Porcine) IV 04/26 1046 1213 Heparin Sodium 25,000 UNIT Q24H 04/26 0215 DC 04/26 (Porcine) IV 0232 Sodium Chloride 500 ML Hydromorphone HCl 2 MG Q3P PRN 04/25 1430 AC 04/27 IV 0910 Hydromorphone HCl 4 MG Q 3-4 HRS PRN PRN 04/23 2330 AC 04/27 PO 0251 Lorazepam 0.5 MG ONCE PRN 04/25 0900 AC 04/25 IV 1009 Metoprolol Succinate 50 MG DAILY 04/25 1602 AC 04/27 PO 0907 Polyethylene Glycol 17 GM DAILY 04/24 1000 AC 04/27 PO 0907 Senna/Docusate Sodium 1 TAB BID PRN 04/23 2330 AC 04/25 PO 2313 Last 24 Hrs of Lab/Wiliam Results Last 24 Hrs of Labs/Mics: Laboratory Tests 04/27/16 0615: Sodium Pending, Potassium Pending, Chloride Pending, Carbon Dioxide Pending, Anion Gap Pending, BUN Pending, Creatinine Pending, BUN/Creatinine Ratio Pending , CBC w Diff Pending, WBC Pending, RBC Pending, Hgb Pending, Hct Pending, MCV Pending, MCH Pending, RDW Pending, Plt Count Pending, MPV Pending, PUBS MCHC Pending 04/26/16 1700: APTT Cancelled Assessment/Plan Assessment: Problem list: 1. New onset atrial fibrillation 2. Dysphagia 3. Anemia, Thrombocytopenia 4. CAD s/p stent placement 5. Chronic pain 6. Diabetes mellitus 7. Hypertension 8. 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 Constipation 10. Depression Plan- On full dose aspirin and beta elke, he is a high risk for bleeding with full anticoagulation Did receive 2 bouts of radiation therapy on Thursday and Thursday, no plans for radiation today, will continue follow-up with radiation oncology and hematology oncology Continue Dilaudid and fentanyl pain patch for adequate analgesia, also continue stool softeners Continue chopped diet Continue Xanax Continue antihypertensives On IV Decadron cord compression, will continue the same Blood sugars remain stable Problem List: 1. New onset a-fib 2. Lung cancer 3. Metastatic disease Pain Ratin Pain Location: anterior left thorax Pain Goal: Pain 4 or less Pain Plan: per emr Tomorrow's Labs & Rationales: cbc, bep
[2016-04-27 16:00] VITALS: BP 124/82
[2016-04-27] MEDS ORDERED: TOPROL XL50 M1 PO (19:38)
[2016-04-27] MEDS ORDERED: ASPIRIN325 M2 PO (19:39)
--- NOTE | 2016-04-27 20:29 | Patient Discharge Instructions ---
Discharge Instructions General Discharge Information You were seen/treated for: new onset atrial fibrillation. small cell lung cancer with metastasis to spine and cord compression. You had these procedures: radiation therapy to spine Watch for these problems: back pain lower extremity weekness or sensory changes urination problems Special Instructions: follow up with your primary care doctor in 1-2 weeks. Follow up with your oncologist, in 1 week. Follow-up with Dr. Oreilly regarding tapering doses of Decadron. follow up with your theatrical agent, Francisco Javier Canchola in 1-2 weeks. follow up with your RADIATION oncologist, in 1 week. Needs 10 MORE days of radiation therapy every day and follow-up with Dr. Rahul Campbell radiation oncologist. -Recommended outpatient speech therapy/swallow evaluation -Recommended ground , mechanical soft and thin liquid diet because of dysphagia Diet Recommended Diet: ground, mechanical soft, thin liquid diet Activity Full Activity/No Limits: Yes Acute Coronary Syndrome Inclusion Criteria At DC or during hospital stay patient has or had the following: ACS DIAGNOSIS No Discharge Core Measures Meds if any: Prescribed or Continued at Discharge Meds if any: NOT Prescribed or Continued at Discharge Congestive Heart Failure Inclusion Criteria At DC or during hospital stay patient has or had the following: CHF DIAGNOSIS No Discharge Core Measures Meds if any: Prescribed or Continued at Discharge Meds if any: NOT Prescribed or Continued at Discharge Cerebrovascular accident Inclusion Criteria At DC or during hospital stay patient has or had the following: CVA/TIA Diagnosis No Discharge Core Measures Meds if any: Prescribed or Continued at Discharge Meds if any: NOT Prescribed or Continued at Discharge Venous thromboembolism Inclusion Criteria VTE Diagnosis No VTE Type NONE VTE Confirmed by (Test) NONE Discharge Core Measures - Per Current guidelines, there needs to be overlap - treatment for the first 5 days of Warfarin therapy. - If discharged on Warfarin prior to 5 days of - overlap therapy, the patient will need to be - assessed for post discharge needs including - *Post discharge parental anticoagulation - *Warfarin and/or parental anticoagulation education - *Follow up date to check INR post discharge At least 5 days overlap therapy as Inpatient No Meds if any: Prescribed or Continued at Discharge Note: Overlap Therapy is Warfarin and Anticoagulant Meds if any: NOT Prescribed or Continued at Discharge
[2016-04-27 23:55] VITALS: BP 140/70
--- NOTE | 2016-04-28 01:14 | Event Note ---
Event Note Event Note: Situation: Patient complaining of chest pain. Stabbing, non radiating, localized at lower mid sternum, no diaphoresis,nausea/vomiting. Brief Assesment: * VS at the moment were stable. BP 130/70, HR:70, O2=94% (2L NC), afebrile * Physical examination: AOx3 NAD, CV: mild tenderness on palpation lower midsternum area, RRR, no murmurs. Resp: CTA B/L. * Stat troponin:0.01, EKG unremarkable for any acute ST changes. Assesment and Plan Chest pain. ACS unlikley in the setting of reproducible pain with negative trops and unremarkable EKG. Pulmonary embolism always a concern in the context of hypercoagulable state in patients with malignancy. However, PE is less likley as patient was not in any respiratory distress, with saturation unchanged from baseline and was hemodynamically stable. Patient CP presentation could be muscular/chest wall tenderness. He does have pain medication on board that can be used for the pain.
--- NOTE | 2016-04-28 07:29 | PN- Housestaff ---
JAMSHID ALEX 04/28/16 0728: Subjective Follow-up For: New onset atrial fibrillation Small cell carcinoma of lung with liver metastasis METASTSIS TO SPINE WITH cord compression Complaints: pain scale (0-10) Tele-Events Since Last Visit: Sinus rhythm Rate 70-90 Subjective: Patient was seen and examined this morning . He is alert, awake and oriented to time place and person. complains of left lower abdominal pain, 3 out of 10, receiving IV Dilaudid. On fentanyl patch. Denies any nausea, vomiting, change in bladder/bowel habits. Complaints mildly low back pain. On IV pain medication Denies chest pain, racing of heart, headache, dizziness or lightheadedness, short of breath. Vitals were stable. Afebrile. Heart rate 84, respiratory rate 20, blood pressure 140/80, saturating at 93 ON 2L. overnight- Patient complained of chest pain. Stabbing, non radiating, localized at lower mid sternum, no diaphoresis,nausea/vomiting.Stat troponin:0.01, EKG unremarkable for any acute ST changes. Review of Systems Constitutional: Denies: see HPI. Objective Last 24 Hrs of Vital Signs/I&O Vital Signs Date Time Temp Pulse Resp B/P Pulse O2 O2 Flow FiO2 Ox Delivery Rate 04/28 0800 97.6 82 20 138/68 96 Nasal 2.0L Cannula 04/28 0000 Nasal 2.0L Cannula 04/27 2355 97.7 84 20 140/70 93 Nasal 2.0L Cannula 04/27 1600 94 Nasal 2.0L Cannula 04/27 1600 97.8 82 20 124/82 92 Room Air 04/27 0918 86 132/64 04/27 0907 86 132/64 Intake & Output 04/28 1600 04/28 0800 04/28 0000 Intake Total 400 530 Output Total 400 250 Balance 0 280 Intake, IV 30 Intake, Oral 400 500 Output, Urine 400 250 Physical Exam General Appearance: Alert, Oriented X3, Cooperative, No Acute Distress Skin: No Rashes, No Breakdown HEENT: Atraumatic, Mucous Membr. moist/pink Neck: Supple, No JVD Lymphatic: Cervical nl Cardiovascular: Normal S1, Normal S2 Lungs: Normal Air Movement Abdomen: Normal Bowel Sounds, Soft, No Tenderness Extremities: No Clubbing, No Cyanosis, No Edema Vascular: Normal Pulses Current Medications: Current Medications Sig/Noemí Start time Last Medication Dose Route Stop Time Status Admin Alprazolam 0.25 MG BID PRN 04/24 1500 AC 04/27 PO 05/01 1459 2031 Amlodipine Besylate 5 MG DAILY 04/24 1000 AC 04/27 PO 0918 Aspirin 325 MG DAILY 04/26 1317 AC 04/27 PO 0907 Cyanocobalamin 1,000 MCG DAILY 04/24 1000 AC 04/27 PO 0907 Dexamethasone 4 MG Q6H 04/27 0730 AC 04/28 IV 0721 Escitalopram Oxalate 5 MG DAILY 04/24 1000 AC 04/27 PO 0907 Fentanyl Citrate 50 MCG Q72 04/25 1000 AC 04/25 TOP 0913 Hydromorphone HCl 2 MG Q3P PRN 04/25 1430 AC 04/28 IV 0721 Hydromorphone HCl 4 MG Q 3-4 HRS PRN PRN 04/23 2330 AC 04/27 PO 1643 Lorazepam 0.5 MG ONCE PRN 04/25 0900 AC 04/25 IV 1009 Metoprolol Succinate 50 MG DAILY 04/25 1602 AC 04/27 PO 0907 Polyethylene Glycol 17 GM DAILY 04/24 1000 AC 04/27 PO 0907 Senna/Docusate Sodium 1 TAB BID PRN 04/23 2330 AC 04/27 PO 1020 Last 24 Hrs of Lab/Wiliam Results Last 24 Hrs of Labs/Mics: Laboratory Tests 04/28/16 0700: Anion Gap 5, Estimated GFR > 60, BUN/Creatinine Ratio 29.0 H, CBC w Diff NO MAN DIFF REQ, RBC 2.97 L, MCV 89.5, MCH 30.1, RDW 14.0, MPV 7.4, Gran % 80.7 H, Lymphocytes % 12.4 L, Monocytes % 6.4, Eosinophils % 0.3, Basophils % 0.2, Absolute Granulocytes 5.2, Absolute Lymphocytes 0.8 L, Absolute Monocytes 0.4, Absolute Eosinophils 0, Absolute Basophils 0, PUBS MCHC 33.7 04/28/16 0125: Troponin I 0.01 Assessment/Plan Assessment: This is a 70-year-old man with past medical history of hypertension, diabetes mellitus, hyperlipidemia, recently diagnosed with small cell malignancy in his previous admission on 04/08/2016, partial right nephrectomy(2006), CAD with 2( 1997) stents ,hyperlipidemia, heavy smoker who quit about three and a half weeks ago, recently found with lung mass with liver metastasis, diverticulitis and was discharged 04/22/16 after 3 day hospitalization for abdominal pain and evaluated for pancreatitis versus diverticulitis, presents to [facility] ED with chief complaint of "food stuck in my throat". The event was sudden in onset, not associated with any pain, choking and he was able to cough up and expel the food bolus. VS on admission: BP 106/69, HR 116, RR 16, SPO2 95% on RA, T 97.2 Pertinent labs: WBC 7, 9.7/28.7, platelets 122, BUN/Cr CR 20/1.1, glucose 89 INR: 1.16 AST/ALT 108/107, alkaline phosphatase 325 Iron studies: Serum iron 71, TIBC 248L, ferritin 178 CXR: Persistent density at right lung base of infiltrate and/or atelectasis unchanged since prior studies. EKG: Atrial fibrillation, HR 134. QTC 472 echo- CONCLUSIONS Normal left and right ventricular systolic function. Trace pericardial effusion could be a normal variant. No significant valvular abnormalities noted. lung v/q scan- RULED OUT PULMONARY EMBOLUS. At the ED, patient was found to be in A. fib with heart rates of 110s and received Cardizem 10 mg IV bolus and heparin drip started. Problem list: 1. New onset atrial fibrillation 2. Dysphagia 3. Anemia, Thrombocytopenia 4. CAD s/p stent placement 5. Chronic pain 6. Diabetes mellitus 7. Hypertension 8. 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 Constipation 10. Depression New onset atrial fibrillation Patient presented to emergency department with chief complaint of food stuck in the throat. In the emergency room EKG showed new onset atrial fibrillation. * Admitted to telemetry floor for further monitoring * Patient is on continuous tie worker * Serial EKGs and troponins negative * He was given 10 mg Cardizem IV push in the ER * Rate under control * Started on IV heparin drip, later discontinued. * Chadsvasc score 3 * on toprol xl 50 mg orallly daily * Continue aspirin 81 * Saturator Operator on board. One more episode of atrial fibrillation 04/25/16. IV heparin was started and later discontinued because of bleeding risk. Saturator Operator was consulted. Dysphagia * presented after an episode of food getting stuck while swallowing. * The event was sudden in onset, not associated with any pain, choking and he was able to cough up and expel the food bolus. * Passed formal swallow evaluation * Started on chopped diet. * dysphagia this morning. * Getting modified barium swallow today Anemia H and h 9.7 and 28.7 on admission We'll continue to monitor h and h 8.9 and 26.5 now thrombocytopenia 122 on admission 88 this morning Coronary artery disease Continue aspirin Chronic pain Continue iv hydromorphone Continue fentanyl patch Anxiety Started on Xanax Diabetes mellitus Accu-Cheks before each meal NovoLog sliding scale Small cell carcinoma of lung Patient was diagnosed with small cell carcinoma of lung in March and metastasis to liver. He is following Dr. Oreilly is an outpatient. mri spine- Extensive osseous metastatic disease throughout the anterior and posterior elements of the cervical, thoracic, and lumbar spine as well as the partially imaged sacrum and bony pelvis.here is enhancing ventral epidural tumor at multiple cervical, thoracic, and sacral levels, the most significant appreciated at T10 which is eccentric to the left side with enhancing epidural soft tissue tumor at T10 resulting in severe central canal stenosis with thoracic cord compression started Decadron 10 mg IV loading dose and 4mg every 6 hrs getting focal radiation therapy at the level of t10- done with 3 schedules so far. Needs 10 more days of radiation therapy. Advised to follow-up with the radiation oncologist Dr. Rahul brunner Planning to discharge on Decadron 4 mg tablet orally every 6 hours and advised him to follow-up with Dr. Oreilly regarding tapering doses of Decadron Constipation On aggressive bowel regimen Continue MiraLAX and senna whenever necessary - as patient is on opioids Depression continue home dose of Lexapro Full code DVT prophylaxis-alps Chopped diet Pain pathway-hydromorphone and fentanyl patch Patient was admitted on March 30 for diverticulitis at [facility] Patient was readmitted again on April 08 for nausea and vomiting, abdominal pain.found liver metastases. Patient was readmitted again on April 19 for left-sided abdominal pain, nausea and constipation and treated for pancreatitis. Problem List: 1. New onset a-fib 2. Lung cancer 3. Metastatic disease Pain Ratin Pain Location: low back pain Pain Goal: Remain pain free Pain Plan: tylinol iv dialaudid fentanyl patch Tomorrow's Labs & Rationales: none REE TORRES MD 04/28/16 1042: Attending MD Review Statement Attending Statement Attending MD Statement: examined this patient, discuss w/resident/PA/TMD TEACHER, agreed w/resident/PA/TMD TEACHER, reviewed EMR data (avail), discussed with nursing, discussed with case mgmt Attending Assessment/Plan: Events over the weekend noted. Patient had another episode of rapid A. fib after he came back from radiation on Thursday was transiently started on IV heparin but because the bleeding risks exceed the stroke risks it was stopped and aspirin was continued. He is a 70-year-old with metastatic small cell lung carcinoma. He has metastases to his liver and diffuse osseous metastases with cord compression. He started radiation on Thursday. And is on IV Decadron. Today we'll transition his meds to by mouth. He had a formal swallow eval which cleared him for aspiration. If he is able to tolerate by mouth pain meds, will anticipate discharge as he needs to start his outpatient chemotherapy urgently. His has the suspected influenza so because of that we curb-sided ID and will be sending him out on Tamiflu for prophylaxis.
[2016-04-28] MEDS ORDERED: XANAX0.25 M1 PO (07:35)
[2016-04-28 08:00] VITALS: BP 138/68
[2016-04-28 08:23] LABS: ABSOLUTE BASOPHIL COUNT 0 /CUMM (0.0-0.2); ABSOLUTE EOSINOPHIL COUNT 0 /CUMM (0.0-0.7); ABSOLUTE GRANULOCYTE CT 5.2 /CUMM (1.4-6.5); ABSOLUTE LYMPH COUNT 0.8 /CUMM (1.2-3.4); ABSOLUTE MONOCYTE COUNT 0.4 /CUMM (0.10-0.60); BASOPHIL % 0.2 % (0.0-2.0); EOSINOPHIL % 0.3 % (0-5); GRANULOCYTE % 80.7 % (42.2-75.2); HEMATOCRIT 26.5 % (42-52); MEAN CORPUSCULAR HGB 30.1 PG (27.0-31.0); MEAN CORPUSCULAR HGB CONC 33.7 G/DL (33.0-37.0); MEAN CORPUSCULAR VOLUME 89.5 FL (80.0-94.0); MEAN PLATELET VOLUME 7.4 FL (7.4-10.4); PLATELET COUNT 88 /CUMM (130-400); RED BLOOD CELL CT 2.97 /CUMM (4.70-6.10); WHITE BLOOD CELL COUNT 6.4 /CUMM (4.8-10.8)
--- NOTE | 2016-04-28 11:52 | PN- Cardiology ---
Subjective Subjective: Patient's pain is a little better this morning. Previously did have some dyspnea but that is improved this morning. He is planned to go back to the cancer center for additional radiation today. He did have some recurrent atrial fibrillation on Thursday night but has been in sinus rhythm since then. Objective Vital Signs and I&Os Vital Signs Date Time Temp Pulse Resp B/P Pulse O2 O2 Flow FiO2 Ox Delivery Rate 04/28 09 82 138/68 04/28 0922 82 138/68 04/28 0800 97.6 82 20 138/68 96 Nasal 2.0L Cannula 04/28 0000 Nasal 2.0L Cannula 04/27 2355 97.7 84 20 140/70 93 Nasal 2.0L Cannula 04/27 1600 94 Nasal 2.0L Cannula 04/27 1600 97.8 82 20 124/82 92 Room Air Intake & Output 04/28 1600 04/28 0800 04/28 0000 04/27 1600 04/27 0800 04/27 0000 Intake Total 400 530 400 356 270 Output Total 400 250 100 180 Balance 0 280 300 356 90 Intake, IV 30 116 70 Intake, Oral 400 500 400 240 200 Number 1 Bowel Movements Output, Urine 400 250 100 180 Physical Exam: General: no apparent distress. Alert. Eyes: No obvious scleral icterus. HEENT: No jugular venous distention or abnormal jugular venous pulsations. Cardiovascular: Normal intensity S1/S2. Regular. Respiratory: No rales or rhonchi Musculoskeletal: No clubbing or cyanosis noted, no edema Skin: Warm Neurologic: No gross focal deficits noted. Current Medications: Current Medications Sig/Noemí Start time Last Medication Dose Route Stop Time Status Admin Alprazolam 0.25 MG BID PRN 04/24 1500 AC 04/28 PO 05/01 1459 1142 Amlodipine Besylate 5 MG DAILY 04/24 1000 AC 04/28 PO 0922 Aspirin 325 MG DAILY 04/26 1317 AC 04/28 PO 0921 Cyanocobalamin 1,000 MCG DAILY 04/24 1000 AC 04/28 PO 0922 Dexamethasone 4 MG Q6 04/28 1200 AC 04/28 PO 1141 Dexamethasone 4 MG Q6H 04/27 0730 DC 04/28 IV 0721 Escitalopram Oxalate 5 MG DAILY 04/24 1000 AC 04/28 PO 0921 Fentanyl Citrate 50 MCG Q72 04/25 1000 AC 04/28 TOP 0921 Hydromorphone HCl 2 MG Q3P PRN 04/25 1430 AC 04/28 IV 0721 Hydromorphone HCl 4 MG Q 3-4 HRS PRN PRN 04/23 2330 AC 04/28 PO 0921 Lorazepam 0.5 MG ONCE PRN 04/25 0900 AC 04/25 IV 1009 Metoprolol Succinate 50 MG DAILY 04/25 1602 AC 04/28 PO 0922 Polyethylene Glycol 17 GM DAILY 04/24 1000 AC 04/28 PO 1141 Senna/Docusate Sodium 1 TAB BID PRN 04/23 2330 AC 04/28 PO 1142 Results Last 48 Hrs of Labs/Mics: Laboratory Tests 04/28/16 0700: Anion Gap 5, Estimated GFR > 60, BUN/Creatinine Ratio 29.0 H, CBC w Diff NO MAN DIFF REQ, RBC 2.97 L, MCV 89.5, MCH 30.1, RDW 14.0, MPV 7.4, Gran % 80.7 H, Lymphocytes % 12.4 L, Monocytes % 6.4, Eosinophils % 0.3, Basophils % 0.2, Absolute Granulocytes 5.2, Absolute Lymphocytes 0.8 L, Absolute Monocytes 0.4, Absolute Eosinophils 0, Absolute Basophils 0, PUBS MCHC 33.7 04/28/16 0125: Troponin I 0.01 04/27/16 0615: Anion Gap 10, Estimated GFR > 60, BUN/Creatinine Ratio 23.0, CBC w Diff NO MAN DIFF REQ, RBC 2.94 L, MCV 88.8, MCH 30.6, RDW 14.1, MPV 7.5, Gran % 80.8 H, Lymphocytes % 12.4 L, Monocytes % 6.0, Eosinophils % 0.4, Basophils % 0.4, Absolute Granulocytes 5.8, Absolute Lymphocytes 0.9 L, Absolute Monocytes 0.4, Absolute Eosinophils 0, Absolute Basophils 0, PUBS MCHC 34.4 04/26/16 1700: APTT Cancelled Recent Imaging Studies: Telemetry tracings were personally reviewed and showed a period of atrial fibrillation on Thursday night with no recurrences since then Assessment/Plan Assessment/Plan 1. New onset paroxysmal atrial fibrillation, felt cannot be anticoagulated 2. 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 Hypertension/hyperlipidemia 4. Anemia/thrombocytopenia 5. History of CAD with remote PCI 6. History of partial nephrectomy Continue the patient on current metoprolol for the paroxysmal atrial fibrillation. Given the metastatic disease would use aspirin at 81 mg by mouth daily in the setting of spinal involvement. Agree that he is a high risk for full anticoagulation. Statin therapy is being held in the setting of liver metastases. He will be going to the cancer center again today for radiation therapy. I discussed the case with the medical attending and we are in agreement. Esdras Richards MD [facility] Continue telemetry? Yes
[2016-04-28] MEDS ORDERED: DEXAMETHASONE4 M1 PO (13:49)
--- NOTE | 2016-04-28 14:33 | RADIOLOGY REPORT ---
EXAMINATION: XR MODIFIED BARIUM SWALLOW CLINICAL INFORMATION: History of metastatic small cell lung cancer. Presented with dysphagia on admission but now worsening. Worse with solids. COMPARISON: None. TECHNIQUE: A modified barium swallow was performed with speech pathologist in attendance. Pur?e, nectar thick, thin, bread, and cracker consistencies were given to the patient and the swallowing mechanism was observed fluoroscopically with several spot films taken. FLUOROSCOPY TIME: 2 minutes 7 seconds. FINDINGS: With all consistencies, the oral phase of swallowing is normal. There is penetration of contrast seen with thin and puree substances with pooling of contrast in the left piriform sinus. This is improved with chin tuck and turning of the head to the left side. No dixie aspiration of contrast is seen. Only mild and inconstant cough reflex is elicited, which only partially clears the penetrated barium. IMPRESSION: 1. Penetration of contrast with thin and puree substances. 2. Pooling of contrast in the left piriform sinus. 3. Speech pathologist assessment issued separately.
[2016-04-28] MEDS ORDERED: DURAGESIC1 EAC3 TOP ×2 (15:12→15:31)
[2016-04-28] MEDS ORDERED: HYDROMORPHONE HC4 M1 PO (15:12)
[2016-04-28 15:54] VITALS: BP 130/80
--- NOTE | 2016-04-28 17:26 | Discharge Summary ---
Visit Information Visit Dates Admission Date: 04/23/16 Discharge Date: 04/29/16 Hospital Course Course Attending Physician: BRIAN JONES,REE Jane Primary Care Physician: MELISSA JONES,PANCHO Zaman Other Care Providers: Humberto Mullins MD loss prevention specialist Dr. Oreilly oncologist Dr. rahul Campbell radiation oncologist Consulting Request: Consulting Specialty: Hematology/Oncology Hospital Course: This is a 70-year-old man with past medical history of hypertension, diabetes mellitus, hyperlipidemia, recently diagnosed with small cell malignancy in his previous admission on 04/08/2016, partial right nephrectomy(2006), CAD with 2( 1997) stents ,hyperlipidemia, heavy smoker who quit about three and a half weeks ago, recently found with lung mass with liver metastasis, diverticulitis and was discharged 04/22/16 after 3 day hospitalization for abdominal pain and evaluated for pancreatitis versus diverticulitis, presents to [facility] ED with chief complaint of "food stuck in my throat". The event was sudden in onset, not associated with any pain, choking and he was able to cough up and expel the food bolus. Patient was admitted on March 30 for diverticulitis at [facility] Patient was readmitted again on April 08 for nausea and vomiting, abdominal pain.found liver metastases. Patient was readmitted again on April 19 for left-sided abdominal pain, nausea and constipation and treated for pancreatitis. VS on admission: BP 106/69, HR 116, RR 16, SPO2 95% on RA, T 97.2 Pertinent labs: WBC 7, 9.7/28.7, platelets 122, BUN/Cr CR 20/1.1, glucose 89 INR: 1.16 AST/ALT 108/107, alkaline phosphatase 325 Iron studies: Serum iron 71, TIBC 248L, ferritin 178 CXR: Persistent density at right lung base of infiltrate and/or atelectasis unchanged since prior studies. EKG: new onset Atrial fibrillation, HR 134. QTC 472 echo- CONCLUSIONS Normal left and right ventricular systolic function. Trace pericardial effusion could be a normal variant. No significant valvular abnormalities noted. lung v/q scan- RULED OUT PULMONARY EMBOLUS. At the ED, patient was found to be in A. fib with heart rates of 110s and received Cardizem 10 mg IV bolus and heparin drip started. New onset atrial fibrillation Patient presented to emergency department with chief complaint of food stuck in the throat. In the emergency room EKG showed new onset atrial fibrillation. He was admitted to telemetry floor for further monitoring and on on continuous groundwater monitoring technician. Serial EKGs and troponins negative. He was given 10 mg Cardizem IV push in the ER and the Rate was under control. Started on IV heparin drip, later discontinued when he was in sinus rhythm. He was started on toprol xl 50 mg orallly daily for paroxysmal atrial fibrillation. Continued aspirin 81. Given the metastatic disease would use aspirin at 81 mg by mouth daily in the setting of spinal involvement as he is a high risk for full anticoagulation. One more episode of atrial fibrillation 04/25/16. IV heparin was started and later discontinued because of bleeding risk. Dysphagia Patient presented after an episode of food getting stuck while swallowing. The event was sudden in onset, not associated with any pain, choking and he was able to cough up and expel the food bolus. Passed formal swallow evaluation. Started on chopped diet. later complained of dysphagia again And modified barium swallow was done. 1. Penetration of contrast with thin and puree substances. 2. Pooling of contrast in the left piriform sinus. 3. Speech pathologist assessment issued separately. Patient was started on ground and thin liquid diet and he was advised to follow- up outpatient speech therapy/swallow evaluation. Anemia H and h 9.7 and 28.7 on admission h and h 8.9 and 26.5 now thrombocytopenia 122 on admission 88 now Coronary artery disease Continued aspirin 81 Statins on hold- Statin therapy is being held in the setting of liver metastases. Chronic pain Continued iv hydromorphone Continued fentanyl patch Anxiety on Xanax prn for anxiety Diabetes mellitus Accu-Cheks before each meal NovoLog sliding scale Home dose of metformin was stopped at the time of discharge as the sugars were under control. Hypertension Patient usually takes losartan for hypertension Losartan was discontinued at the time of discharge as patient is on metoprolol now and blood pressures under control with metoprolol. 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 He is following Dr. Oreilly as outpatient and getting chemotherapy. mri spine- Extensive osseous metastatic disease throughout the anterior and posterior elements of the cervical, thoracic, and lumbar spine as well as the partially imaged sacrum and bony pelvis.here is enhancing ventral epidural tumor at multiple cervical, thoracic, and sacral levels, the most significant appreciated at T10 which is eccentric to the left side with enhancing epidural soft tissue tumor at T10 resulting in severe central canal stenosis with thoracic cord compression * He was started on Decadron 10 mg IV loading dose and 4mg every 6 hrs. * received focal radiation therapy at the level of t10- done with 4 schedules so far. * Needs 10 more days of radiation therapy. * Advised to follow-up with the radiation oncologist Dr. Rahul campbell Planning to discharge on Decadron 4 mg tablet orally every 6 hours and advised him to follow-up with Dr. Oreilly regarding tapering doses of Decadron, outpatient chemotherapy and bonescan. Constipation On aggressive bowel regimen as patient is on pain medications. Continued MiraLAX and senna whenever necessary. Depression continued home dose of Lexapro Full code DVT prophylaxis-alps ground and regular thin liquid diet Pain pathway-hydromorphone and fentanyl patch Complications: none Allergies: Coded Allergies: Iodinated Contrast Media - Oral and (UNKNOWN 03/30/16) Significant Procedures: on radiation therapy for spinal metastasis with cord compression- done with 4 schedules in the hospital. Pertinent Lab Results: Modified barium swallow 1. Penetration of contrast with thin and puree substances. 2. Pooling of contrast in the left piriform sinus. 3. Speech pathologist assessment issued separately. MRI spine IMPRESSION: - Extensive osseous metastatic disease throughout the anterior and posterior elements of the cervical, thoracic, and lumbar spine as well as the partially imaged sacrum and bony pelvis. There is enhancing ventral epidural tumor at multiple cervical, thoracic, and sacral levels, the most significant appreciated at T10 which is eccentric to the left side with enhancing epidural soft tissue tumor at T10 resulting in severe central canal stenosis with thoracic cord compression, left greater than right lateral recess effacement, and tumoral extension into the left greater than right T10-T11 neural foramen. At T12, enhancing epidural tumor results in asymmetric right lateral recess effacement. At S2 there is left ventral epidural tumor that compresses the left S2 nerve root within the left S2 lateral recess. Additional small volume epidural tumor as discussed above. Nondiagnostic assessment for cord signal abnormality given the degree of artifact. - Partially imaged mediastinal lymphadenopathy and right greater than left pleural effusions/ - Chronic severe right-sided hydronephrosis and right renal atrophy are stable. echo Normal left and right ventricular systolic function. Trace pericardial effusion could be a normal variant. No significant valvular abnormalities noted. v/q scan Low probability of pulmonary embolism. The perfusion abnormality in the right lower lobe is probably due to compression of the right lower lobe pulmonary arteries by mediastinal and perihilar lymphadenopathy evident on the recent CT scan. However, coexisting pulmonary embolism cannot be entirely ruled out. There are no abnormalities in the other lung frey suspicious for pulmonary emboli. cxr Persistent density at right lung base of infiltrate and/or atelectasis unchanged since prior studies. Disposition Summary Disposition Principal Diagnosis: New onset atrial fibrillation Small cell carcinoma of lung with liver metastasis and METASTSIS TO SPINE WITH cord compression Additional Diagnosis: dysphagia Discharge Disposition: home health services Discharge Instructions General Discharge Information Code Status: Full Code Patient's Diet: Ground and regular thin Liquid diet Patient's Activity: as tolerated Follow-Up Instructions/Appts: 1. follow up with your primary care doctor in 1-2 weeks. 2. follow up with your oncologist, in 1 week. Follow-up with Dr. Oreilly regarding tapering doses of Decadron, outpatient chemotherapy and outpatient bone scan. 3. follow up with your loss prevention specialist, Humberto Canchola in 1-2 weeks. 4. follow up with your RADIATION oncologist, in 1 week. Needs 10 MORE days of radiation therapy every day and follow-up with Dr. Rahul Campbell radiation oncologist. 5. Recommended outpatient speech/swallow therapy 6. Recommended ground and thin liquid diet because of dysphagia. 7. Metformin and losartan were discontinued at the time of discharge Medications at Discharge Discharge Medications: Stop taking the following medications: Metformin HCl (Metformin HCl) 500 MG TABLET ORAL TWICE DAILY Qty = 60 Losartan Potassium (Losartan Potassium) 100 MG TABLET ORAL DAILY Qty = 100 Continue taking these medications: Simvastatin (Simvastatin*) 20 MG TABLET 1 Tablet ORAL Every night Qty = 90 Comments: NOT GIVEN IN HOSPITAL ALTERNATIVE, LIPITOR Last Taken:04/13/16 Time: 4 PM Amlodipine Besylate (Amlodipine Besylate) 5 MG TABLET 1 Tablet ORAL DAILY Qty = 90 Comments: Last Taken:04/29/16 Time: 8:15AM Aspirin (Ecotrin*) 81 MG TABLET.DR 1 Tablet ORAL DAILY Days = 30 Comments: Last Taken:04/29/16 Time:8:14AM Multivitamin (Multi-Day Vitamins) 1 EACH TABLET 1 Tablet ORAL DAILY Comments: NOT GIVEN Cyanocobalamin (Vitamin B-12) 1,000 MCG TABLET 1 Tablet ORAL DAILY Comments: Last Taken:04/29/16 Time: 8:16AM Ascorbic Acid (Vitamin C) 1,000 MG TABLET 1 Tablet ORAL DAILY Days = 30 Comments: Last Taken:04/22/16 Time: 1000 Albuterol Sulfate (Proair Hfa) 90 MCG HFA.AER.AD 2 Puff Inhale through mouth EVERY 4-6 HOURS NEEDED as needed for COPD Qty = 1 Comments: ALBUTEROL NEB TX GIVEN IN HOSPITAL Last Taken: Time: NOT GIVEN IN HOSPITAL Ondansetron (Zofran Odt) 4 MG TAB.RAPDIS 1 Tablet SUBLINGUAL THREE TIMES DAILY as needed for NAUSEA Qty = 10 Comments: IV ZOFRAN GIVEN IN HOSPITAL Last Taken:04/08/16 Time: 9:30 PM Polyethylene Glycol 3350 (Miralax) 17 GRAM/DOSE POWDER 17 Gram ORAL DAILY Days = 28 Comments: Last Taken:04/29/16 Time:11:22AM Sennosides/Docusate Sodium (Senna Plus Tablet) 8.6 MG-50 MG TABLET 1 Tablet ORAL TWICE DAILY as needed for CONSTIPATION Days = 28 Comments: Last Taken:04/28/16 Time:11:42AM Nebulizer (Aeroeclipse II) 1 EACH EACH 1 Kit ORAL 4 TIMES A DAY as needed for WHEEZE Qty = 1 Instructions: ICD 10 J45...... PLEASE DISPENSE NEBULIZER WITH TUBING (WHATEVER BRAND IS COVERED BY INSURANCE) Comments: Last Taken:NOT GIVEN IN HOSPITAL Time: Albuterol Sulfate (Albuterol Sulfate) 1.25 MG/3 ML VIAL.NEB 1 Vial Inhale Solution EVERY 4-6 HOURS as needed for WHEEZE Qty = 150 Instructions: DISPENSE 1 BOX Comments: Last Taken:04/20/16 Time:0900 Escitalopram Oxalate (Escitalopram Oxalate) 5 MG TABLET 1 Tablet ORAL DAILY Days = 30 Comments: Last Taken:04/22/16 Time:1230 PM Fentanyl Citrate (Duragesic) 75 MCG/HOUR PATCH.TD72 75 Microgram On the skin Q72H Qty = 3 Comments: Last Taken:04/28/16 Time:9:21AM This prescription has been renewed Hydromorphone HCl (Hydromorphone HCl) 4 MG TABLET 1 Tablet ORAL Every 3-4 hours as needed for PAIN Qty = 20 Comments: Last Taken:04/28/16 Time: 19:10 This prescription has been renewed Start taking the following new medications: Dexamethasone (Dexamethasone) 4 MG TABLET 1 Tablet ORAL EVERY SIX HOURS Qty = 30 No Refills Comments: Last Taken:04/29/16 Time:11:26AM Metoprolol Succ XL (Toprol Xl) 50 MG TAB 1 Tablet ORAL DAILY Qty = 30 No Refills Comments: Last Taken:04/29/16 Time:8:15AM Alprazolam (Xanax) 0.25 MG TABLET 0.25 Milligram ORAL TWICE DAILY as needed for ANXIETY/AGITATION/INSOMNIA Qty = 20 No Refills Comments: Last Taken:04/29/16 Time:12:09PM Copies To: RAHUL JONES,MIGUEL Pulliam; BRIAN JONES,HUMBERTO Flores; HILLARY JONES,EDA Jane; MELISSA JONES, PANCHO Zaman
[2016-04-28 23:17] VITALS: BP 130/70
--- NOTE | 2016-04-29 07:15 | PN- Oncology ---
Subjective Subjective: Decreased radicular abdominal pain, decreased chest pain, able to tolerate pur ed food Review of Systems: 12 point review of systems otherwise unchanged Objective Vital Signs and I&Os Vital Signs Date Time Temp Pulse Resp B/P Pulse O2 O2 Flow FiO2 Ox Delivery Rate 04/29 0000 Nasal 2.0L Cannula 04/28 2317 98.5 88 16 130/70 96 Nasal 2.0L Cannula 04/28 1600 93 Nasal 2.0L Cannula 04/28 1554 97.5 80 18 130/80 94 04/28 0922 82 138/68 04/28 0922 82 138/68 04/28 0800 96 Nasal 2.0L Cannula 04/28 08 97.6 82 20 138/68 96 Nasal 2.0L Cannula Intake & Output 04/29 0800 04/29 0000 04/28 1600 04/28 0800 04/28 0000 04/27 1600 Intake Total 745 500 400 530 400 Output Total 200 150 400 250 100 Balance 545 350 0 280 300 Intake, IV 25 30 Intake, Oral 720 500 400 500 400 Number 1 Bowel Movements Output, Urine 200 150 400 250 100 Gen.: in NAD ENT: Sclera anicteric Chest: Normal respiratory effort, decreased breath sounds Cor: RRR, no extra sounds Abdomen: Soft, bowel sounds present, no tenderness, no rebound Extremities: Without clubbing, cyanosis, or asymmetric edema Neurology: Alert and oriented 3, no gross deficit Current Medications: Current Medications Sig/Noemí Start time Last Medication Dose Route Stop Time Status Admin Alprazolam 0.25 MG BID PRN 04/24 1500 AC 04/28 PO 05/01 1459 2304 Amlodipine Besylate 5 MG DAILY 04/24 1000 AC 04/28 PO 0922 Aspirin 81 MG DAILY 04/29 1000 AC PO Aspirin 325 MG DAILY 04/26 1317 DC 04/28 PO 0921 Cyanocobalamin 1,000 MCG DAILY 04/24 1000 AC 04/28 PO 0922 Dexamethasone 4 MG Q6 04/28 1200 AC 04/29 PO 0555 Dexamethasone 4 MG Q6H 04/27 0730 DC 04/28 IV 0721 Escitalopram Oxalate 5 MG DAILY 04/24 1000 AC 04/28 PO 0921 Fentanyl Citrate 50 MCG Q72 04/25 1000 AC 04/28 TOP 0921 Hydromorphone HCl 2 MG Q3P PRN 04/25 1430 AC 01/17 IV 0415 Hydromorphone HCl 4 MG Q 3-4 HRS PRN PRN 04/23 2330 AC 04/28 PO 1910 Lorazepam 0.5 MG ONCE PRN 04/25 0900 AC 04/25 IV 1009 Metoprolol Succinate 50 MG DAILY 04/25 1602 AC 04/28 PO 0922 Polyethylene Glycol 17 GM DAILY 04/24 1000 AC 04/28 PO 1141 Senna/Docusate Sodium 1 TAB BID PRN 04/23 2330 AC 04/28 PO 1142 Results Last 24 Hours of Lab Results: Lab-please see flow sheet Recent Imaging Studies: Barium swallow-no anatomic obstruction Assessment/Plan Assessment/Recommendations: Stage IV small cell lung cancer-clinically stable Recommend- Continue radiation therapy as Decadron Will need bone scan as outpatient chemotherapy as outpatient Follow-up my office Discussed with patient
--- NOTE | 2016-04-29 07:36 | PN- Housestaff ---
ANASTACIO JONES,BRITTANY 04/29/16 0736: Subjective Follow-up For: Paroxysmal atrial fibrillation Dysphagia with pooling of contrast in left pyriform fossa Non-small cell lung cancer with metastasis to spinal cord with compression Anemia of chronic disease Pancytopenia Coronary artery disease Type 2 diabetes Anxiety/depression Complaints: no any active complain, but had chest pain overnight, which was subsided after pain medication Subjective: Patient is seen and examined at the bedside. According to him, he had chest pain , in night around 4 o'clock and needed IV Dilaudid for it. He took 2 times IV Dilaudid in last 24-hour.He is otherwise feeling much better, at present, he is not having any chest pain, nausea, vomiting, abdominal pain, difficulty in urination. He is on 4 liters of oxygen, but SPO2 is 92%. Discussed with the nurse and the patient reports that he was saturating 92% after walking without oxygen, yesterday. He is going for radiation therapy today around 11 o'clock. He was asking about the discharge and pain medication. Review of Systems Constitutional: Denies: no symptoms. Comments: Patient denies of any active complaints. Objective Last 24 Hrs of Vital Signs/I&O Vital Signs Date Time Temp Pulse Resp B/P Pulse O2 O2 Flow FiO2 Ox Delivery Rate 04/29 0000 Nasal 2.0L Cannula 04/28 2317 98.5 88 16 130/70 96 Nasal 2.0L Cannula 04/28 1600 93 Nasal 2.0L Cannula 04/28 1554 97.5 80 18 130/80 94 04/28 0922 82 138/68 04/28 0922 82 138/68 04/28 0800 96 Nasal 2.0L Cannula 04/28 0800 97.6 82 20 138/68 96 Nasal 2.0L Cannula Intake & Output 04/29 0800 04/29 0000 04/28 1600 Intake Total 350 745 500 Output Total 400 200 150 Balance -50 545 350 Intake, IV 0 25 Intake, Oral 350 720 500 Number 0 Bowel Movements Output, Urine 400 200 150 Physical Exam General Appearance: Alert, Oriented X3, Cooperative, No Acute Distress Skin: multiple ecchymotic patches on, the skin HEENT: Atraumatic, PERRLA, EOMI, Mucous Membr. moist/pink Neck: Supple, No JVD Cardiovascular: Regular Rate, Normal S1, Normal S2, No Murmurs Lungs: Clear to Auscultation, Normal Air Movement Abdomen: Soft, No Tenderness, abdomen examination showed enlarged liver with irregular margin, hard in consistency Neurological: Normal Gait, Normal Speech, Strength at 5/5 X4 Ext, Normal Tone, Sensation Intact Extremities: No Clubbing, No Cyanosis, No Edema, Normal Pulses, right forearm cannula working well Vascular: Normal Pulses, Pulses Symmetrical Assessment/Plan Assessment: This is a 70-year-old man with past medical history of hypertension, diabetes mellitus, hyperlipidemia, recently diagnosed with small cell malignancy in his previous admission on 04/08/2016, partial right nephrectomy(2006), CAD with 2( 1997) stents ,hyperlipidemia, heavy smoker who quit about three and a half weeks ago, recently found with lung mass with liver metastasis, diverticulitis and was discharged 04/22/16 after 3 day hospitalization for abdominal pain and evaluated for pancreatitis versus diverticulitis, presents to [place] ED with chief complaint of "food stuck in my throat". It was sudden in onset, he was able to vomit and expel the food bolus. He denies of any associated chest pain and chocking sensation. Problem list: Paroxysmal/new onset atrial fibrillation Stage IV Small cell lung carcinoma with metastasis to liver/spinal cord with compression undergoing radiotherapy/chemotherapy Chronic pain, on Dilaudid Dysphagia - barium swallow shows no anatomic obstruction Normocytic Anemia Thrombocytopenia CAD s/p stent placement Diabetes mellitus Hypertension Hyperlipidemia Constipation Depression Plan - * Discharge today * Continue tablet Toprol XL 50 milligrams OD daily * [id number] Score - 3 * Continue aspirin 81 * Modified barium swallow showed no any anatomic obstruction with pooling of contrast in left pyriform fossa, may need outpatient speech and swallow evaluation * Continue IV Dilaudid/by mouth Dilaudid Every 4 when necessary/fentanyl patch for pain * Continue Xanax * Discussed with Dr. Joseph, according to him, patient ay need outpatient chemotherapy/Bone scan.He is good to go home. * Discussed with Dr. Blanco advised for to discuss diet with speech/swallow therapist. * Discussed with the therapist advised ground, mechanical soft and thin liquid diet * Discussed with the case resolution specialist/Samira that patient may need outpatient speech/ swallow evaluation, a written prescription was given to her and she will fax it to speech and swallow therapist. * We will continue tablet Decadron 4mg every 6 hrs * Today patient is undergoing radiation therapy at the level of t10- done with 3 schedules so far. * Needs 10 more days of radiation therapy. * Advised to follow-up with the radiation oncologist Dr. Rahul brunner. * Advise to follow-up with Dr. Oreilly regarding tapering doses of Decadron/ chemotherapy/Bone Scan. * We'll continue aggressive bowel regimen * We'll continue Xanax/Lexapro * We stopped metformin as the patient blood sugar level was within normal limits * We also stopped losartan and continue high dose of metoprolol XL. * Diet -ground, mechanical soft, thin liquid, we will need outpatient speech/ swallow evaluation * CODE STATUS -full code * DVT prophylaxis-ALP S Problem List: 1. Metastasis from malignant tumor of lung 2. Paroxysmal atrial fibrillation 3. Hypertension 4. Hyperlipidemia Pain Ratin Pain Location: Chest and abdomen Pain Goal: Remain pain free Pain Plan: Moderate to severe Tomorrow's Labs & Rationales: Not any DVT/Prophylaxis: mechanical Consulting Request: Consulting Specialty: Hematology/Oncology REE TORRES MD 04/29/16 1016: Attending MD Review Statement Attending Statement Attending MD Statement: examined this patient, discuss w/resident/PA/SAWMILL SUPERVISOR, agreed w/resident/PA/SAWMILL SUPERVISOR, discussed with family, reviewed EMR data (avail), discussed with nursing, discussed with case mgmt, reviewed images Attending Assessment/Plan: Patient is doing better. He is ambulating independently all over the unit and without oxygen his room air sat is 92%. He is a 70-year-old male with metastatic small cell lung CA with metastases to the liver and spinal metastases with cord compression. In addition he had a transient episode of A. fib. At this point he is on aspirin and a beta elke. The plan is likely discharge home today after his radiation treatment. He is to continue for a total of 10 radiation treatments. Continue the Decadron and he will speak to Dr. Oreilly about the taper. Will also give him his pain medications of fentanyl patch, oral Dilaudid and his Xanax to use when necessary. He needs to follow-up with Dr. Oreilly to start chemotherapy as soon as possible. pain.found liver metastases. Patient was readmitted again on April 19 for left-sided abdominal pain, nausea and constipation and treated for pancreatitis. Consulting Request: Consulting Specialty: Hematology/Oncology
[2016-04-29 08:00] VITALS: BP 132/70
[2016-04-29 08:15] VITALS: BP 130/70
--- NOTE | 2016-04-29 08:29 | PN- Cardiology ---
Subjective Subjective: Patient complains of right sided chest discomfort and shortnes of breath. Review of Systems: Eyes no blurred or double vision Ears no deafness or ringing Nose and throat no recurrent sinusitis Lungs per history of present illness Heart per history of present illness Abdomen no nausea vomiting Musculoskeletal back pain Psych no anxiety or depression Neuro without recurrent headache or seizures Endocrine no heat or cold intolerance Objective Vital Signs and I&Os Vital Signs Date Time Temp Pulse Resp B/P Pulse O2 O2 Flow FiO2 Ox Delivery Rate 04/29 0000 Nasal 2.0L Cannula 04/28 2317 98.5 88 16 130/70 96 Nasal 2.0L Cannula 04/28 1600 93 Nasal 2.0L Cannula 04/28 1554 97.5 80 18 130/80 94 04/28 0922 82 138/68 04/28 0922 82 138/68 Intake & Output 04/29 1600 04/29 0800 04/29 0000 04/28 1600 04/28 0800 04/28 0000 Intake Total 350 745 500 400 530 Output Total 400 200 150 400 250 Balance -50 545 350 0 280 Intake, IV 0 25 30 Intake, Oral 350 720 500 400 500 Number 0 Bowel Movements Output, Urine 400 200 150 400 250 Physical Exam: Patient is a well-developed well-nourished male appearing in no acute distress HEENT is unremarkable Neck is supple there is no JVD Lungs decreased breath sounds right lung field Heart regular rhythm S1 and S2 are normal no murmurs gallops or rubs Abdomen bowel sounds positive Extremities without edema Current Medications: Current Medications Sig/Noemí Start time Last Medication Dose Route Stop Time Status Admin Alprazolam 0.25 MG BID PRN 04/24 1500 AC 04/28 PO 05/01 1459 2304 Amlodipine Besylate 5 MG DAILY 04/24 1000 AC 04/28 PO 0922 Aspirin 81 MG DAILY 04/29 1000 AC PO Aspirin 325 MG DAILY 04/26 1317 DC 04/28 PO 0921 Cyanocobalamin 1,000 MCG DAILY 04/24 1000 AC 04/28 PO 0922 Dexamethasone 4 MG Q6 04/28 1200 AC 04/29 PO 0555 Dexamethasone 4 MG Q6H 04/27 0730 DC 04/28 IV 0721 Escitalopram Oxalate 5 MG DAILY 04/24 1000 AC 04/28 PO 0921 Fentanyl Citrate 50 MCG Q72 04/25 1000 AC 04/28 TOP 0921 Hydromorphone HCl 2 MG Q3P PRN 04/25 1430 04/29 IV 0415 Hydromorphone HCl 4 MG Q 3-4 HRS PRN PRN 04/23 2330 AC 04/28 PO 1910 Lorazepam 0.5 MG ONCE PRN 04/25 0900 AC 04/25 IV 1009 Metoprolol Succinate 50 MG DAILY 04/25 1602 AC 04/28 PO 0922 Polyethylene Glycol 17 GM DAILY 04/24 1000 AC 04/28 PO 1141 Senna/Docusate Sodium 1 TAB BID PRN 04/23 2330 AC 04/28 PO 1142 Results Last 48 Hrs of Labs/Mics: Laboratory Tests 04/28/16 0700: Anion Gap 5, Estimated GFR > 60, BUN/Creatinine Ratio 29.0 H, CBC w Diff NO MAN DIFF REQ, RBC 2.97 L, MCV 89.5, MCH 30.1, RDW 14.0, MPV 7.4, Gran % 80.7 H, Lymphocytes % 12.4 L, Monocytes % 6.4, Eosinophils % 0.3, Basophils % 0.2, Absolute Granulocytes 5.2, Absolute Lymphocytes 0.8 L, Absolute Monocytes 0.4, Absolute Eosinophils 0, Absolute Basophils 0, PUBS MCHC 33.7 04/28/16 0125: Troponin I 0.01 Telemetry personally reviewed sinus rhythm PVCs Assessment/Plan Assessment/Plan 1. New onset paroxysmal atrial fibrillation, cannot be anticoagulated 2. 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 Hypertension/hyperlipidemia 4. Anemia/thrombocytopenia 5. History of CAD with remote PCI 6. History of partial nephrectomy Recommendations 1. Continue metoprolol and aspirin for paroxysmal atrial fibrillation. He is felt not to be candidate for full anticoagulation 2. Radiation and chemotherapy per Dr. Oreilly Continue telemetry? Yes
[2016-04-29] MEDS ORDERED: XANAX0.25 M1 PO (09:32)
== END 2016-04-29 13:30 | disposition home health service (06) | DRG 309 ==
LOC: CANRESERV → ENRESERVDT → ENRESERVTM → ERH 17:21 → 1NO 19:17 → ENPENDDIS 19:17 → ERHI 19:17 → 1NO 04-24 16:39
PROVIDERS: Emergency Medicine; Internal Medicine; Physician Assistant Medical; Student in an Organized Health Care Education/Training Program; ADMIT Internal Medicine
DX: I48.0 Paroxysmal atrial fibrillation (principal); D61.818 Other pancytopenia; R64 Cachexia; C78.7 Secondary malignant neoplasm of liver and intrahepatic bile duct; C79.51 Secondary malignant neoplasm of bone; D69.6 Thrombocytopenia, unspecified; C34.90 Malignant neoplasm of unspecified part of unspecified bronchus or lung; G95.29 Other cord compression; I10 Essential (primary) hypertension; I25.10 Atherosclerotic heart disease of native coronary artery without angina pectoris; E78.5 Hyperlipidemia, unspecified; Z87.891 Personal history of nicotine dependence; I25.2 Old myocardial infarction; R13.12 Dysphagia, oropharyngeal phase; D64.9 Anemia, unspecified; E11.9 Type 2 diabetes mellitus without complications; F32.9 Major depressive disorder, single episode, unspecified; K59.00 Constipation, unspecified; Z79.84 Long term (current) use of oral hypoglycemic drugs
CPT/HCPCS: 1NSP; 72142; 72147; 72149; ERO; 36415; 72156; 72157; 72158; 74230; 77290-TC; 77307-TC; 77334-TC; 77412-TC; 78582; 81001; 82436; 93005; 93010; 93306; 96374; 96376; 99291; A9540; A9558; A9579; J1100; J1170; J1644; J2405; J2550; J3490

== ENCOUNTER 2016-05-15 16:22 | Emergency (ER) | payer OTHER, MEDICARE ==
[~2016-05-15] VITALS: Ht 180.3 cm; Wt 81.2 kg
[~2016-05-15 16:22] MED LIST changes: +ASPIRIN325 M2 PO; +DEXAMETHASONE4 M1 PO; +XANAX0.25 M1 PO
[2016-05-15] MEDS ORDERED: DEXAMETHASONE2 M1 PO (16:57)
[2016-05-15] MEDS ORDERED: ALPRAZOLAM0.25 M1 PO (16:59)
[2016-05-15] MEDS ORDERED: FENTANYL1 EAC5 TOP (17:00)
[2016-05-15 17:01] LABS: ABSOLUTE BASOPHIL COUNT 0 /CUMM (0.0-0.2); ABSOLUTE EOSINOPHIL COUNT 0 /CUMM (0.0-0.7); ABSOLUTE GRANULOCYTE CT 1.5 /CUMM (1.4-6.5); ABSOLUTE LYMPH COUNT 0.6 /CUMM (1.2-3.4); ABSOLUTE MONOCYTE COUNT 0.1 /CUMM (0.10-0.60); BASOPHIL % 1.5 % (0.0-2.0); GRANULOCYTE % 68.5 % (42.2-75.2); HEMATOCRIT 22.2 % (42-52); MEAN CORPUSCULAR HGB 29.5 PG (27.0-31.0); MEAN CORPUSCULAR HGB CONC 34.2 G/DL (33.0-37.0); MEAN CORPUSCULAR VOLUME 86.3 FL (80.0-94.0); MEAN PLATELET VOLUME 6.7 FL (7.4-10.4); PLATELET COUNT 35 /CUMM (130-400); RBC DISTRIBUTION WIDTH 15.2 % (11.5-14.5); RED BLOOD CELL CT 2.57 /CUMM (4.70-6.10); WHITE BLOOD CELL COUNT 2.2 /CUMM (4.8-10.8)
[2016-05-15] MEDS ORDERED: DILAUDID8 M1 PO (17:01)
[2016-05-15] MEDS ORDERED: PROCHLORPERAZIN10 MG PO (17:04)
[2016-05-15] MEDS ORDERED: PREVACID30 M1 PO (17:05)
--- NOTE | 2016-05-15 17:16 | ED GENERAL ADULT ---
History of Present Illness General Chief Complaint: Chest Pain Stated Complaint: MID STERNAL CHEST PAIN Source: patient Exam Limitations: no limitations Allergies Coded Allergies: Iodinated Contrast Media - Oral and (UNKNOWN 03/30/16) Reconcile Medications Albuterol Sulfate 1.25 MG/3 ML VIAL.NEB 1 Vial INH/RASHAAD Q4-6 PRN WHEEZE DISPENSE 1 BOX Albuterol Sulfate (Proair Hfa) 90 MCG HFA.AER.AD 2 PUF INH Q4-6 PRN PRN COPD Alprazolam 0.25 MG TABLET 1 TAB PO TIDPRN ANXIETY (Reported) Amlodipine Besylate 5 MG TABLET 1 TAB PO DAILY BP (Reported) Ascorbic Acid (Vitamin C) 1,000 MG TABLET 1 TAB PO DAILY SUPPLEMENT (Reported ) Aspirin (Ecotrin*) 81 MG TABLET.DR 1 TAB PO DAILY HEART/BLOOD (Reported) Cyanocobalamin (Vitamin B-12) 1,000 MCG TABLET 1 TAB PO DAILY SUPPLEMENT ( Reported) Dexamethasone 2 MG TABLET 1 TAB PO DAILY CORD COMPRESSION (Reported) Escitalopram Oxalate 5 MG TABLET 1 TAB PO DAILY DEPRESSION Fentanyl 100 MCG/HOUR PATCH.TD72 1 PAT TOP Q3D PAIN (Reported) Hydromorphone HCl (Dilaudid) 8 MG TABLET 1 TAB PO Q3-4H PRN PAIN (Reported) Lansoprazole (Prevacid) 30 MG CAPSULE.DR 1 CAP PO DAILY GI (Reported) Metoprolol Succ XL (Toprol Xl) 50 MG TAB 1 TAB PO DAILY atrial fibrillation Multivitamin (Multi-Day Vitamins) 1 EACH TABLET 1 TAB PO DAILY SUPPLEMENT ( Reported) Ondansetron (Zofran Odt) 4 MG TAB.RAPDIS 1 TAB SL TID PRN NAUSEA Polyethylene Glycol 3350 (Miralax) 17 GRAM/DOSE POWDER 17 GM PO DAILY constipation Prochlorperazine Maleate 10 MG TABLET 1 TAB PO Q6 NAUSEA (Reported) Sennosides/Docusate Sodium (Senna Plus Tablet) 8.6 MG-50 MG TABLET 1 TAB PO BID PRN CONSTIPATION Simvastatin (Simvastatin*) 20 MG TABLET 1 TAB PO QPM CHOLESTEROL (Reported) Triage Note: RECEIVED 70 YO MALE BIBA FROM HOME WITH REPORT OF MID STERNAL CHEST PAIN X APPROX 2 HOURS. PT HAS A HX OF LUNG CA WITH METS TO LIVER AND SPINE, STAGE 4. PT HAD A BLOOD TRANSFUSION TODAY AND [facility], PT STATES HE HAS A MASS PRESSING AGAINST HIS ESOPHAGUS AND HAS BEEN GETTING CHEST PAIN, WHICH READILY RESPONDS TO PO DILAUDID. BUT TODAY, HE GOT HOME FROM [facility] AND TOOK A NAP, WHEN HE WOKE UP, HE HAD SEVERE MID STERNAL CHEST PAIN WHICH FEELS LIKE A WEIGHT AND PRESSURE ON CHEST. PAIN PRESENTLY 7/10. STAT EKG DONE, PT CONNECTED TO - [facility] Triage Nurses Notes Reviewed? yes HPI: This patient is a 70-year-old male with a past medical history including hypertension, myocardial infarction requiring stent placement, atrial fibrillation, pancreatitis, liver carcinoma, lung carcinoma with mediastinal mass who presented to the emergency department today accompanied by his for evaluation of mid sternal chest pain. Patient reported that he was at [facility] today being seen by a physician covering for his regular doctor, Dr. Oreilly, where he was receiving a blood transfusion for anemia. He reported that he went home to take a nap. He reported that he was woken up from sleep with severe, 10 out of 10 pain under his sternum. He reported that the pain is nonradiating. It has been constant since onset. The patient was given nitroglycerin and 3 baby aspirin en route to the hospital with no relief of his symptoms. The patient denied any headaches, visual changes, chest pain, difficulty breathing, abdominal pain, nausea, vomiting, back pain, or any other associated symptoms. (LORIE JACOBS,MAHENDRA) Vital Signs & Intake/Output Vital Signs & Intake/Output Vital Signs Date Time Temp Pulse Resp B/P Pulse O2 O2 Flow FiO2 Ox Delivery Rate 05/15 2236 92 18 133/73 97 Room Air 05/15 2212 97 Room Air 05/15 2101 98.1 65 18 124/60 98 Room Air ED Intake and Output 05/16 0000 05/15 1200 Intake Total 1000 Output Total Balance 1000 Intake, IV 1000 Patient 179 lb Weight Past History Travel History Traveled to May past 21 day No Medical History Any Pertinent Medical History? 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 No (MAHENDRA MELO PA-C) Review of Systems Review of Systems Constitutional: Reports: no symptoms. EENTM: Reports: no symptoms. Respiratory: Reports: no symptoms. Cardiovascular: Reports: see HPI. GI: Reports: no symptoms. Genitourinary: Reports: no symptoms. Musculoskeletal: Reports: see HPI. Skin: Reports: no symptoms. Neurological/Psychological: Reports: no symptoms. Hematologic/Endocrine: Reports: see HPI. Immunologic/Allergic: Reports: see HPI. All Other Systems: Reviewed and Negative (MAHENDRA MELO PA-C) Physical Exam Physical Exam General Appearance: well developed/nourished, alert, awake, moderate distress Comments: Well-developed well-nourished person in moderate distress HEENT: Normal EENT exam, head normocephalic, moist mucous membranes Pupils equally round and reactive to light. Nose is atraumatic. Neck: Supple, no lymphadenopathy Back: Normal inspection Cardiovascular: Regular rate and rhythm with no murmurs, rubs, or gallops. No carotid bruits. Radial pulses 2+ and strong, equal Respiratory: Chest nontender tenderness to palpation over the sternum closest to the xiphoid process. No respiratory distress. Breath sounds clear to auscultation bilaterally with no wheezes, rales, rhonchi Abdomen: Soft, nontender and nondistended with no peritoneal signs. No organomegaly Extremity: No edema, no calf tenderness to palpation, normal and equal pulses. Neuro: Alert oriented x3, cranial nerves II through XII grossly intact. Skin: No appreciable rash on exposed skin, skin is warm and dry. Psych: Mood and affect is normal Core Measures ACS in differential dx? Yes CVA/TIA Diagnosis: No Severe Sepsis Present: No Septic Shock Present: No (MAHENDRA MELO PA-C) Progress Differential Diagnoses I considered the following diagnoses in my evaluation of the patient: [ACS, PE, aortic dissection, mass effect, malignancy, mesenteric ischemia] Diagnostic Imaging: Viewed by Me: CT Scan. Discussed w/RAD: CT Scan. Radiology Impression: PATIENT: MARJORIE GLASER PRESENT AGE: 70 PATIENT ACCOUNT NO: [id number] : 45 LOCATION: [facility] ORDERING PHYSICIAN: MAHENDRA MELO PA-C SERVICE DATE: 05/15/16 EXAM TYPE: CAT - CT ABD & PELVIS ANGIOGRAM; CTA CHEST EXAMINATION: CT ANGIOGRAM CHEST CT ABDOMEN AND PELVIS WITH CONTRAST CLINICAL INFORMATION: Midsternal chest pain. Abdominal pain. Elevated D-dimer. Metastatic small cell lung cancer. COMPARISON: CT 04/08/2016. TECHNIQUE: A noncontrast CT is performed through the chest. Postcontrast images are obtained at thin axial sections of the chest, abdomen, and pelvis with sagittal and coronal reformats. Multiplanar reformats and MIP reformatted images are performed of the chest. The patient received 95 mL Optiray 320 iodinated contrast intravenously. DLP: 1355 mGy-cm. FINDINGS: CHEST CTA: The proximal thoracic aorta is ectatic measuring 4.3 cm in diameter. There is no mediastinal hematoma. No thoracic aortic dissection. There are no pulmonary arterial filling defects to indicate embolic disease. No pericardial effusion. Mediastinal and hilar adenopathy is similar. Right perihilar soft tissue is slightly decreased, with slight decrease in narrowing of the bronchus intermedius. Persistent occlusion of the middle lobe bronchus and narrowing with soft tissue extending distally in the right lower lobe. Peripheral basilar consolidation is decreased. Trace right pleural effusion. Mild centrilobular and paraseptal emphysema. CT ABDOMEN/PELVIS: Diffuse atherosclerosis of the abdominal aorta with no aneurysmal dilatation or dissection. There are innumerable metastases throughout the liver as demonstrated on the previous study. These appear to be more numerous although direct comparison is difficult as the previous study was without contrast. There is a heterogeneous, peripherally enhancing lesion measuring 2 cm at the lateral aspect of the left kidney compatible with a metastasis or a renal cell primary. Chronic right hydronephrosis with marked atrophy. The spleen is enlarged with heterogeneous contrast opacification. The spleen and adrenal glands are unremarkable. Sigmoid diverticulosis. No focal inflammatory process or obstruction. IMPRESSION: 1. No aortic dissection. 2. No evidence of pulmonary embolism. 3. Metastatic lung carcinoma as detailed in the comments. DICTATED BY: TAPAN BARBA MD DATE/ TIME DICTATED:05/15/161939 ACCREDITED LEGAL SECRETARY:LENNOX DATE/TIME TRANSCRIBED: 05/15/161939 CONFIDENTIAL, DO NOT COPY WITHOUT APPROPRIATE AUTHORIZATION. < Electronically signed in Other Vendor System> SIGNED BY: JAMESON JONES TAPAN 05/15/162023 Initial ED EKG: sinus tachycardia, 101 bpm, PVC, LVH Repeat EKG: unchanged Comments: 05/15/2016 5:15:48 PM: Over the last 3 months this patient has had multiple imaging studies done with IV contrast. The patient's reported that he is fine with the contrast as long as he is premedicated. We'll give this patient IV Solu-Medrol and IV Benadryl for premedication to have a CT angiogram of the chest to rule out aortic dissection. This patient sees Dr. Oreilly. 05/15/2016 6:11:09 PM: I discussed this patient with the radiologist. His last known reaction according to the patient was approximately 30 years ago to contrast through the IV for imaging. He reported that he thinks that his reaction was a rash. He reported that he is typically premedicated with Benadryl proximally half hour prior to imaging and then is able to have IV contrast. I discussed this with radiologist was negative with the plan to wait approximately one hour after premedication with IV Benadryl and IV Solu-Medrol. Discussed this patient with Dr. Bouderaux who is in agreement with the plan. 05/15/2016 6:20:35 PM: Dr. Boudreaux is currently at the patient's bedside for face to face evaluation. 05/15/2016 9:15:36 PM: I spoke to Dr. Rodriguez, physician covering for Dr. Oreilly. Discussed the patient's workup with him. This patient will stay for a second troponin level and repeat EKG. All other blood work seems to be as patient's baseline. No evidence of metastasis to the chest wall based on CT angiogram of the chest. No acute intra-abdominal process. First troponin not elevated and EKG unremarkable. If this patient has a nonelevated second troponin, he will be discharged home. 05/15/2016 10:06:12 PM: Discussed this patient with Dr. LAWTON. Second troponin not elevated. Second EKG unremarkable. This patient will be discharged home. Discussed with this patient extensively the importance of returning to the emergency department should any of his symptoms worsen. (MAHENDRA MELO PA-C) Plan of Care: Orders Procedure Date/time Status TROPONIN LEVEL 05/15 2107 Complete EKG 05/15 2107 Active Laboratory Tests 05/15/162115: Troponin I < 0.01 Departure Departure Disposition: HOME OR SELF CARE Condition: Stable Clinical Impression Primary Impression: Chest pain Qualifiers: Chest pain type: unspecified Qualified Code: R07.9 - Chest pain, unspecified Referrals: MELSISA JONES,PANCHO Zaman (PCP/Family) Additional Instructions: Please continue to take all medication for pain as prescribed. Call Dr. Oreilly' s office tomorrow morning to schedule a follow-up appointment. Please also call your primary care physician to schedule a follow-up appointment. Return to the emergency department immediately for any worsening symptoms or concerns. Departure Forms: Customer Survey General Discharge Information (MAHENDRA MELO PA-C) PA/[employer]OSPITAL[employer]ERS Co-Sign Statement Statement: ED Attending supervision documentation- [x] I saw and evaluated the patient. I have also reviewed all the pertinent lab results and diagnostic results. I agree with the findings and the plan of care as documented in the PA's/HOSPITALITY WORKERS's documentation. [] I have reviewed the ED Record and agree with the PA's/HOSPITALITY WORKERS's documentation. [] Additions or exceptions (if any) to the PAs/HOSPITALITY WORKERS's note and plan are summarized below: [] (LATOYA JONES,LEOLA Chavarria) PA/HOSPITAL[employer] WORK[employer] Co-Sign Statement Statement: ED Attending supervision documentation- x I saw and evaluated the patient. I have also reviewed all the pertinent lab results and diagnostic results. I agree with the findings and the plan of care as documented in the PA's/HOSPITALITY WORKERS's documentation. [] I have reviewed the ED Record and agree with the PA's/HOSPITALITY WORKERS's documentation. [] Additions or exceptions (if any) to the PAs/HOSPITALITY WORKERS's note and plan are summarized below: [] (OSWALD LAWTON MD) Critical Care Note Critical Care Note Critical Care Time: 30-74 min (MAHENDRA MELO PA-C) (LEOLA BOUDREAUX MD) PA/[employer]OS[employer] Co-Sign Statement Statement: ED Attending supervision documentation- x I saw and evaluated the patient. I have also reviewed all the pertinent lab results and diagnostic results. I agree with the findings and the plan of care as documented in the PA's/HOSPITALITY WORKERS's documentation. [] I have reviewed the ED Record and agree with the PA's/HOSPITALITY WORKERS's documentation. [] Additions or exceptions (if any) to the PAs/HOSPITALITY WORKERS's note and plan are summarized below: [] (LEIGHANN JONES,OSWALD) Critical Care Note Critical Care Note Critical Care Time: 30-74 min (LORIE JACOBS,MAHENDRA)
[2016-05-15 17:19] LABS: PT 11.5 SEC (9.4-12.5); PTT 25 SEC (25-37)
--- NOTE | 2016-05-15 20:24 | CT SCAN REPORT ---
EXAMINATION: CT ANGIOGRAM CHEST CT ABDOMEN AND PELVIS WITH CONTRAST CLINICAL INFORMATION: Midsternal chest pain. Abdominal pain. Elevated D-dimer. Metastatic small cell lung cancer. COMPARISON: CT 04/08/2016. TECHNIQUE: A noncontrast CT is performed through the chest. Postcontrast images are obtained at thin axial sections of the chest, abdomen, and pelvis with sagittal and coronal reformats. Multiplanar reformats and MIP reformatted images are performed of the chest. The patient received 95 mL Optiray 320 iodinated contrast intravenously. DLP: 1355 mGy-cm. FINDINGS: CHEST CTA: The proximal thoracic aorta is ectatic measuring 4.3 cm in diameter. There is no mediastinal hematoma. No thoracic aortic dissection. There are no pulmonary arterial filling defects to indicate embolic disease. No pericardial effusion. Mediastinal and hilar adenopathy is similar. Right perihilar soft tissue is slightly decreased, with slight decrease in narrowing of the bronchus intermedius. Persistent occlusion of the middle lobe bronchus and narrowing with soft tissue extending distally in the right lower lobe. Peripheral basilar consolidation is decreased. Trace right pleural effusion. Mild centrilobular and paraseptal emphysema. CT ABDOMEN/PELVIS: Diffuse atherosclerosis of the abdominal aorta with no aneurysmal dilatation or dissection. There are innumerable metastases throughout the liver as demonstrated on the previous study. These appear to be more numerous although direct comparison is difficult as the previous study was without contrast. There is a heterogeneous, peripherally enhancing lesion measuring 2 cm at the lateral aspect of the left kidney compatible with a metastasis or a renal cell primary. Chronic right hydronephrosis with marked atrophy. The spleen is enlarged with heterogeneous contrast opacification. The spleen and adrenal glands are unremarkable. Sigmoid diverticulosis. No focal inflammatory process or obstruction. IMPRESSION: 1. No aortic dissection. 2. No evidence of pulmonary embolism. 3. Metastatic lung carcinoma as detailed in the comments.
[2016-05-15 22:36] VITALS: BP 133/73
== END 2016-05-15 22:40 ==
LOC: ERH 16:22
PROVIDERS: Physician Assistant
DX: R07.89 Other chest pain (principal)
CPT/HCPCS: 74174; 86920; 87040; 93005; 93010; 96374; 96375; 96376; EXP; J1200; J2930; P9016

== ENCOUNTER 2016-06-02 09:41 | Emergency (ER) | payer OTHER, MEDICARE ==
[~2016-06-02] VITALS: Ht 180.3 cm; Wt 81.6 kg
[~2016-06-02 09:41] MED LIST changes: +ALPRAZOLAM0.25 M1 PO; +DEXAMETHASONE2 M1 PO; +DILAUDID8 M1 PO; +FENTANYL1 EAC5 TOP; +PREVACID30 M1 PO; +PROCHLORPERAZIN10 MG PO
--- NOTE | 2016-06-02 10:22 | ED GENERAL ADULT ---
History of Present Illness General Chief Complaint: Fall Stated Complaint: FALL ON THURSDAY Source: patient, family Exam Limitations: no limitations Vital Signs & Intake/Output Vital Signs & Intake/Output Vital Signs Date Time Temp Pulse Resp B/P Pulse O2 O2 Flow FiO2 Ox Delivery Rate 06/02 1352 89 18 132/90 99 Room Air 06/02 1147 99 Room Air 06/02 0947 98.0 117 20 141/85 96 Room Air Allergies Coded Allergies: Iodinated Contrast Media - Oral and (UNKNOWN 03/30/16) Reconcile Medications Alprazolam 0.25 MG TABLET 1 TAB PO TIDPRN ANXIETY (Reported) Amlodipine Besylate 5 MG TABLET 1 TAB PO DAILY BP (Reported) Aspirin (Ecotrin*) 81 MG TABLET.DR 1 TAB PO DAILY HEART/BLOOD (Reported) Dexamethasone 2 MG TABLET 1 TAB PO DAILY CORD COMPRESSION (Reported) Escitalopram Oxalate 5 MG TABLET 1 TAB PO DAILY DEPRESSION Fentanyl 100 MCG/HOUR PATCH.TD72 1 PAT TOP Q3D PAIN (Reported) Hydromorphone HCl (Dilaudid) 8 MG TABLET 1 TAB PO Q3-4H PRN PAIN (Reported) Lansoprazole (Prevacid) 30 MG CAPSULE.DR 1 CAP PO DAILY GI (Reported) Metoprolol Succ XL (Toprol Xl) 50 MG TAB 1 TAB PO DAILY atrial fibrillation Multivitamin (Multi-Day Vitamins) 1 EACH TABLET 1 TAB PO DAILY SUPPLEMENT ( Reported) Ondansetron (Zofran Odt) 4 MG TAB.RAPDIS 1 TAB SL TID PRN NAUSEA Polyethylene Glycol 3350 (Miralax) 17 GRAM POWD.PACK 1 PAC PO DAILY PRN CONSTIPATION (Reported) dissolve in water Prochlorperazine Maleate 10 MG TABLET 1 TAB PO Q6 PRN NAUSEA/VOMITING ( Reported) Sennosides/Docusate Sodium (Senna Plus Tablet) 8.6 MG-50 MG TABLET 1 TAB PO BID PRN CONSTIPATION Simvastatin (Simvastatin*) 20 MG TABLET 1 TAB PO QPM CHOLESTEROL (Reported) Triage Note: PT TO ED C/O LEFT SHOULDER PAIN AND RIGHT SIDED HEAD PAIN. S/P TRIP AND FALL ON THURSDAY. PT STATES HE FELL FACE FIRST, NO LOC. PT TAKES ASA DAILY. PT WITH ABRASIONS TO FACE. Triage Nurses Notes Reviewed? yes Onset: Abrupt Duration: day(s): Timing: recent history HPI: 06/02/16 10:35 AM 70-year-old man presents to the emergency department status post fall on Thursday. The patient states he was in [employer] in [place] and he felt weak and fell. He landed on his face and had significant bleeding. No loss of consciousness. No chest pain. The onset of the symptoms were abrupt, the duration has been 3 days ago, the severity is significant as his symptoms required him to come to the emergency department for care. He complains of mild headache and left shoulder pain. He has a past medical history of metastatic lung cancer. He says he has cancer in his abdomen and his lungs. He is currently receiving hospice care. Upon examination he has abrasions to his nose. There is no septal hematoma. He also has left anterior shoulder tenderness. No neck pain or tenderness, no hip pain or tenderness. Past History Travel History Traveled to [place] past 21 day No Medical History Any Pertinent Medical History? 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 No Review of Systems Review of Systems Constitutional: Denies: fever. EENTM: Denies: visual changes. Respiratory: Reports: no symptoms. Cardiovascular: Reports: no symptoms. GI: Reports: abdominal pain (chronic). Genitourinary: Reports: no symptoms. Musculoskeletal: Reports: no symptoms. Skin: Reports: no symptoms. Neurological/Psychological: Reports: headache. Hematologic/Endocrine: Reports: bruising. Physical Exam Physical Exam General Appearance: alert, awake, anxious, mild distress Head: abrasions to the nose Eyes: Bilateral: normal appearance, PERRL, EOMI. Ears, Nose, Throat: normal pharynx, normal ENT inspection, hearing grossly normal Neck: supple, full range of motion, no midline tenderness (nexus criteria negative) Respiratory: chest non-tender, no respiratory distress, decreased breath sounds Cardiovascular: regular rate/rhythm Peripheral Pulses: 4+ radial (R), 4+ radial (L) Gastrointestinal: soft, non-tender Back: normal range of motion Extremities: normal inspection Neurologic/Psych: no motor/sensory deficits, awake, alert, oriented x 3 Skin: intact, normal color, warm/dry Comments: He has left anterior shoulder tenderness some decreased range of motion Core Measures ACS in differential dx? No CVA/TIA Diagnosis: No Severe Sepsis Present: No Septic Shock Present: No Progress Differential Diagnoses I considered the following diagnoses in my evaluation of the patient: [Fracture, intracranial bleed, contusion, dislocation, abdominal trauma] Plan of Care: Pain medication as needed. Follow-up with his primary care doctor. Initial ED EKG: none Departure Departure Disposition: HOME OR SELF CARE Condition: Stable Clinical Impression Primary Impression: Left shoulder strain Secondary Impressions: Abrasion, Head injury, Nasal contusion Referrals: MELISSA JONES,PANCHO Zaman (PCP/Family) Departure Forms: Customer Survey General Discharge Information Comments CT scan of the head showing below IMPRESSION: 1. There are no acute calvarial fractures. 2. There has been interval increase in the mastoid effusion on the left. 3. There is a fluid level in the right maxillary sinus, but no displaced maxillary sinus wall fractures are demonstrated. 4. There are no acute fractures or soft tissue abnormalities in the maxillofacial region. Suggestion of remote bilateral nasal bone fractures. DICTATED BY: LAUREN BOUDREAUX MD DATE/TIME DICTATED:06/02/161228 ASSISTANT COMMISSIONER:LENNOX DATE/TIME TRANSCRIBED:06/02/161228 CONFIDENTIAL, DO NOT COPY WITHOUT APPROPRIATE AUTHORIZATION. <Electronically signed in Other Vendor System> SIGNED BY: LAUREN BOUDREAUX MD 06/02/16 1258 Left shoulder x-rays negative for fracture Critical Care Note Critical Care Note Critical Care Time: non-applicable
[2016-06-02] MEDS ORDERED: MIRALAX17 G1 PO (11:00)
--- NOTE | 2016-06-02 11:34 | RADIOLOGY REPORT ---
EXAMINATION: XR SHOULDER, LEFT CLINICAL INFORMATION: Fall COMPARISON: None TECHNIQUE: Three views of the left shoulder. FINDINGS: No acute fracture or dislocation. Moderate acromioclavicular osteoarthritis. The glenohumeral joint is unremarkable. IMPRESSION: No acute fracture or dislocation.
--- NOTE | 2016-06-02 12:58 | CT SCAN REPORT ---
EXAMINATION: CT HEAD WITHOUT CONTRAST CT MAXILLOFACIAL WITHOUT CONTRAST CLINICAL INFORMATION: Fall. Assess for intracranial bleed or fracture. COMPARISON: CT scan of the head 04/22/2016. TECHNIQUE: Multidetector CT imaging of the head and maxillofacial region was performed without the use of intravenous contrast. Coronal and sagittal reformatted images were generated at the technologist workstation. DLP: 1081.6 mGy-cm. FINDINGS: CT head: There is no evidence of acute intracranial hemorrhage or territorial infarction. No abnormal mass-effect or midline shift is seen. Garces to white matter differentiation is well preserved. No extra-axial fluid collections are identified. The ventricles are normal in size. There is no abnormal attenuation within the brain parenchyma. The study redemonstrates bilateral Virchow-Rogelio spaces in the basal ganglia. There are no acute osseous findings. There are no large scalp contusions. There are no acute osseous findings. There is atheromatous calcification of the bilateral cavernous internal carotid and vertebral arteries. There has been slight interval increase in the left right-sided mastoid effusion, extending to the petrous apex. There is a retention cyst in the right sphenoid sinus and there is mucoperiosteal thickening in the inferomedial left frontal sinuses. CT maxillofacial region: The orbits, globes, and the lamina papyracea are intact. The orbital apices, optic canals, and retrobulbar fat planes are normal. There is slight irregularity of the nasal bones bilaterally without associated soft tissue swelling, consistent with prior trauma. The pterygoid plates and zygomatic arches are intact. There is mucoperiosteal thickening in the bilateral maxillary sinuses. There is a fluid level in the right maxillary sinus, but no displaced maxillary sinus wall fractures are demonstrated. The mandible and temporomandibular joints are intact. There is a lucency in the alveolar bone in the region of the right maxillary first premolar tooth without associated soft tissue abnormality. There is no significant soft tissue swelling. IMPRESSION: 1. There are no acute calvarial fractures. 2. There has been interval increase in the mastoid effusion on the left. 3. There is a fluid level in the right maxillary sinus, but no displaced maxillary sinus wall fractures are demonstrated. 4. There are no acute fractures or soft tissue abnormalities in the maxillofacial region. Suggestion of remote bilateral nasal bone fractures.
[2016-06-02 13:52] VITALS: BP 132/90
== END 2016-06-02 13:53 ==
LOC: ERH 09:41
DX: S46.912A Strain of unspecified muscle, fascia and tendon at shoulder and upper arm level, left arm, initial encounter (principal); S09.90XA Unspecified injury of head, initial encounter; S00.33XA Contusion of nose, initial encounter; S00.31XA Abrasion of nose, initial encounter; W19.XXXA Unspecified fall, initial encounter; Y92.512 Supermarket, store or market as the place of occurrence of the external cause
CPT/HCPCS: 73030-LT

== ENCOUNTER 2016-06-23 01:46 | Inpatient (IN) | payer OTHER, MEDICARE ==
[~2016-06-23] VITALS: Ht 180.3 cm; Wt 84.8 kg
--- NOTE | 2016-06-23 01:58 | ED DYSPNEA/ASTHMA COMPLAINT ---
History of Present Illness General Chief Complaint: Dyspnea (COPD, CHF, Other) Stated Complaint: BIBA DIFF BREATHING Source: patient, old records, EMS Exam Limitations: no limitations Vital Signs & Intake/Output Vital Signs & Intake/Output Vital Signs Date Time Temp Pulse Resp B/P Pulse O2 O2 Flow FiO2 Ox Delivery Rate 06/24 211 Nasal 2.0L Cannula 06/23 210 100 06/23 0151 97.9 78 20 125/70 100 Aerosol 7.0L Mask Allergies Coded Allergies: Iodinated Contrast Media - Oral and (UNKNOWN 03/30/16) Reconcile Medications Alprazolam 0.25 MG TABLET 1 TAB PO TIDPRN ANXIETY (Reported) Amlodipine Besylate 5 MG TABLET 1 TAB PO DAILY BP (Reported) Aspirin (Ecotrin*) 81 MG TABLET.DR 1 TAB PO DAILY HEART/BLOOD (Reported) Dexamethasone 2 MG TABLET 1 TAB PO DAILY CORD COMPRESSION (Reported) Escitalopram Oxalate 5 MG TABLET 1 TAB PO DAILY DEPRESSION Fentanyl 100 MCG/HOUR PATCH.TD72 1 PAT TOP Q3D PAIN (Reported) Hydromorphone HCl (Dilaudid) 8 MG TABLET 1 TAB PO Q3-4H PRN PAIN (Reported) Lansoprazole (Prevacid) 30 MG CAPSULE.DR 1 CAP PO DAILY GI (Reported) Metoprolol Succ XL (Toprol Xl) 50 MG TAB 1 TAB PO DAILY atrial fibrillation Multivitamin (Multi-Day Vitamins) 1 EACH TABLET 1 TAB PO DAILY SUPPLEMENT ( Reported) Ondansetron (Zofran Odt) 4 MG TAB.RAPDIS 1 TAB SL TID PRN NAUSEA Polyethylene Glycol 3350 (Miralax) 17 GRAM POWD.PACK 1 PAC PO DAILY PRN CONSTIPATION (Reported) dissolve in water Prochlorperazine Maleate 10 MG TABLET 1 TAB PO Q6 PRN NAUSEA/VOMITING ( Reported) Sennosides/Docusate Sodium (Senna Plus Tablet) 8.6 MG-50 MG TABLET 1 TAB PO BID PRN CONSTIPATION Simvastatin (Simvastatin*) 20 MG TABLET 1 TAB PO QPM CHOLESTEROL (Reported) Triage Note: PT BIBA C/O INCREASING SOB. PT HAS HX OF LUNG CANCER, RESTARTING CHEMO THIS WEEK. PT SATING 99% ON ROOM AIR UPON EMS ARRIVAL. RECIEVED A DUONEB IN THE FIELD. Triage Nurses Notes Reviewed? yes Onset: Abrupt Duration: minute(s): Timing: single episode today Severity: moderate Activities at Onset: none Prior Episodes/Possible Cause: frequent episodes Modifying Factors: Improves With: other (better with neb in route). Associated Symptoms: cough, wheezing HPI: 70-year-old gentleman history of COPD and lung cancer undergoing chemotherapy presents with cough wheezing and dyspnea at rest. He called 911 and the medics arrived and found him tachypneic. His O2 sat in the field was 99% on room air but he was short of breath, winded, unable to speak in complete sentences. He was given a DuoNeb which she reports improved his dyspnea. He has no chest pain vomiting diarrhea fever lower extremity edema. He is presently in between his chemotherapy treatments. Past History Travel History Traveled to [place] past 21 day No Medical History Any Pertinent Medical History? 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 No Review of Systems Review of Systems Constitutional: Reports: no symptoms. EENTM: Reports: no symptoms. Respiratory: Reports: no symptoms. Cardiovascular: Reports: no symptoms. GI: Reports: no symptoms. Genitourinary: Reports: no symptoms. Musculoskeletal: Reports: no symptoms. Skin: Reports: no symptoms. Neurological/Psychological: Reports: no symptoms. Hematologic/Endocrine: Reports: no symptoms. Immunologic/Allergic: Reports: no symptoms. All Other Systems: Reviewed and Negative Physical Exam Physical Exam General Appearance: well developed/nourished, moderate distress Head: atraumatic, normal appearance Eyes: Bilateral: normal appearance. Ears, Nose, Throat: normal pharynx, normal ENT inspection Neck: normal inspection Respiratory: accessory muscle use, respiratory distress Cardiovascular: regular rate/rhythm Gastrointestinal: normal bowel sounds, soft, non-tender, no organomegaly Extremities: normal inspection, normal capillary refill, normal range of motion, no edema Neurologic/Psych: no motor/sensory deficits, awake, alert, oriented x 3 Skin: intact, normal color Core Measures ACS in differential dx? No Severe Sepsis Present: No Septic Shock Present: No Progress Differential Diagnosis: asthma, AMI, CHF, COPD, musculoskeletal pain, pneumonia Plan of Care: Orders Procedure Date/time Status Nothing by Mouth 06/23 B Active TYPE & SCREEN (NOT X-MATCH) 06/23 313 Active LEUKOCYTE POOR (PACKED CELLS) 06/23 313 Active Saline Lock 06/23 308 Active Misc Message 06/23 308 Active ED Holding Orders 06/23 308 Active Vital Signs 06/23 308 Active Code Status 06/23 308 Active Admit to inpatient 06/24 307 Active BLOOD CULTURE 06/23 199 Active TROPONIN LEVEL 06/23 158 Complete COMPREHENSIVE METABOLIC PANEL 06/23 158 Complete CBC WITHOUT DIFFERENTIAL 06/23 158 Complete EKG 06/23 158 Active Laboratory Tests 06/23/16 0216: Anion Gap 8, Estimated GFR > 60, BUN/Creatinine Ratio 20.0, Glucose 83, Calcium 8.5, Total Bilirubin 0.3, AST 49, ALT 47, Alkaline Phosphatase 248 H, Troponin I < 0.01, Total Protein 5.8 L, Albumin 3.2 L, Globulin 2.6, Albumin/Globulin Ratio 1.2, CBC w Diff NO MAN DIFF REQ, RBC 2.17 L, MCV 88.6, MCH 30.0, RDW 18.5 H, MPV 7.0 L, Gran % 68.2, Lymphocytes % 23.7, Monocytes % 7.5, Eosinophils % 0.2, Basophils % 0.4, Absolute Granulocytes 3.8, Absolute Lymphocytes 1.3, Absolute Monocytes 0.4, Absolute Eosinophils 0, Absolute Basophils 0, PUBS MCHC 33.8 Microbiology 06/24 215 BLOOD: Blood Culture - RECD 06/23 209 BLOOD: Blood Culture - RECD Diagnostic Imaging: Viewed by Me: Radiology Read. Discussed w/RAD: Radiology Read. CXR Impression: right middle lobe opacity Initial ED EKG: normal axis, normal intervals, normal p-waves, normal QRS complex, normal sinus rhythm Departure Departure Disposition: STILL A PATIENT Condition: Stable Clinical Impression Primary Impression: COPD exacerbation Secondary Impressions: Anemia, Pneumonia Referrals: URCIUOLI MD,PANCHO Zaman (PCP/Family) Departure Forms: Customer Survey General Discharge Information Admission Note Spoke With: GERMAN DRUMMOND MD Documentation of Exam: Documentation of any treatments & extenuating circumstances including Concerns Regarding Discharge (functional status, medication knowledge or non-compliance, living conditions, etc.) that warrant an admission rather than observation: PT WITH STAGE IV LUNG CANCER WITH DYSPNEA, INCREASED RESPIRATORY RATE, REQUIRING INCREASED 02 TO MAINTAIN SAT'S. ALSO, WITH SYMPTOMATIC ANEMIA, LIKELY DUE TO CHEMO, AND REQUIRING BLOOD TRANSFUSIONS. PT STABLE FOR GEN MED. Critical Care Note Critical Care Note Critical Care Time: 30-74 min
--- NOTE | 2016-06-23 02:44 | RADIOLOGY REPORT ---
EXAMINATION: XR PORTABLE CHEST CLINICAL INFORMATION: Dyspnea COMPARISON: Multiple priors, most recently CT from 05/15/2016. TECHNIQUE: Portable AP view of the chest was obtained. FINDINGS: Surgical clips overlie the right apex. Patient has known emphysema. There is linear lucency overlying the lateral superior aspect of the left hemithorax. Lung markings are seen to extend beyond this line and therefore this is unlikely to represent pneumothorax. No pleural effusion. There is a right medial basilar opacity which may correspond to the opacity seen in the right lower lobe on prior CT. The cardiomediastinal silhouette is unchanged, with a calcified aorta. IMPRESSION: Right medial basilar airspace opacity. This could be associated with airspace disease in the right lower lobe.
[2016-06-23 02:52] LABS: ABSOLUTE BASOPHIL COUNT 0 /CUMM (0.0-0.2); ABSOLUTE EOSINOPHIL COUNT 0 /CUMM (0.0-0.7); ABSOLUTE LYMPH COUNT 1.3 /CUMM (1.2-3.4); ABSOLUTE MONOCYTE COUNT 0.4 /CUMM (0.10-0.60); MEAN CORPUSCULAR VOLUME 88.6 FL (80.0-94.0); WHITE BLOOD CELL COUNT 5.5 /CUMM (4.8-10.8)
[2016-06-23 02:56] LABS: ABSOLUTE GRANULOCYTE CT 3.8 /CUMM (1.4-6.5); BASOPHIL % 0.4 % (0.0-2.0); EOSINOPHIL % 0.2 % (0-5); GRANULOCYTE % 68.2 % (42.2-75.2); MEAN CORPUSCULAR HGB CONC 33.8 G/DL (33.0-37.0); PLATELET COUNT 52 /CUMM (130-400); RBC DISTRIBUTION WIDTH 18.5 % (11.5-14.5); RED BLOOD CELL CT 2.17 /CUMM (4.70-6.10)
[2016-06-23 02:58] LABS: HEMATOCRIT 19.3 % (42-52)
--- NOTE | 2016-06-23 03:33 | History & Physical ---
JOSEPH JONES,[facility] 06/23/16 0332: General Information and HPI MD Statement: I have seen and personally examined MARJORIE GLASER and documented this H&P. The patient is a 70 year old M who presented with a patient stated chief complaint of dyspnea. Exam Limitations: no limitations History of Present Illness: This is a 70-year-old gentleman with a past medical history of CAD s/p 2 stents (1982), hypertension, hyperlipidemia, partial right nephrectomy (1999), recent diagnosis of metastatic SCLC with cord compression, status post radiation and currently on etoposide chemotherapy, is BIBA for evaluation of shortness of breath. Patient reports waking up from sleep around 1 AM with sensation of sudden onset of shortness of breath. Associated symptoms included some chest pain (which pain states is chronic since cancer diagnosis), but no associated radiation, diaphoresis or upper extremity numbness. Patient reports that his spouse became concerned and decided to activate EMS. O2 sats obtain in the field showed saturation of 99% on room air, but patient was noted to be in respiratory distress and unable to speak in complete sentences, he was then given ipratropium/albuterol nebulizer with reported symptomatic relief. Patient denies any cough, fever, chills, recent URI, sick contacts, recent travels, hemoptysis, palpitation, dizziness, focal neurological deficit, abdominal pain, muscle pain or dysuria. Of note, patient reports that last week while at the cancer center he received 2 units of PRBC due to low H&H and his chemotherapy session was postponed. Patient reports being on etoposide for his lung malignancy. Allergies/Medications Allergies: Coded Allergies: Iodinated Contrast Media - Oral and (UNKNOWN 03/30/16) Home Med list Alprazolam 0.25 MG TABLET 1 TAB PO TIDPRN ANXIETY (Reported) Amlodipine Besylate 5 MG TABLET 1 TAB PO DAILY BP (Reported) Aspirin (Ecotrin*) 81 MG TABLET.DR 1 TAB PO DAILY HEART/BLOOD (Reported) Dexamethasone 2 MG TABLET 1 TAB PO DAILY CORD COMPRESSION (Reported) Escitalopram Oxalate 5 MG TABLET 1 TAB PO DAILY DEPRESSION Fentanyl 100 MCG/HOUR PATCH.TD72 1 PAT TOP Q3D PAIN (Reported) Hydromorphone HCl (Dilaudid) 8 MG TABLET 1 TAB PO Q3-4H PRN PAIN (Reported) Lansoprazole (Prevacid) 30 MG CAPSULE.DR 1 CAP PO DAILY GI (Reported) Metoprolol Succ XL (Toprol Xl) 50 MG TAB 1 TAB PO DAILY atrial fibrillation Multivitamin (Multi-Day Vitamins) 1 EACH TABLET 1 TAB PO DAILY SUPPLEMENT ( Reported) Ondansetron (Zofran Odt) 4 MG TAB.RAPDIS 1 TAB SL TID PRN NAUSEA Polyethylene Glycol 3350 (Miralax) 17 GRAM POWD.PACK 1 PAC PO DAILY PRN CONSTIPATION (Reported) dissolve in water Prochlorperazine Maleate 10 MG TABLET 1 TAB PO Q6 PRN NAUSEA/VOMITING ( Reported) Sennosides/Docusate Sodium (Senna Plus Tablet) 8.6 MG-50 MG TABLET 1 TAB PO BID PRN CONSTIPATION Simvastatin (Simvastatin*) 20 MG TABLET 1 TAB PO QPM CHOLESTEROL (Reported) Past History Travel History Traveled to [place] past 21 day No Medical History Neurological: NONE EENT: NONE Cardiovascular: hypertension, hyperlipidemia, myocardial infarction, STENTS Respiratory: bronchitis, lung cancer Gastrointestinal: diverticulitis Hepatic: LIVER CA Renal: right partial nephrectomy Musculoskeletal: NONE, disk herniation Psychiatric: anxiety Endocrine: BORDERLINE DIABETIC Blood Disorders: NONE Cancer(s): BENIGN KIDNEY TUMOR LUNG CANCER LIVER CA 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 spouse Services at Home: None Living Will? no Functional Ability ADLs Independent: dressing, eating, toileting, bathing. Ambulation: independent IADLs Independent: shopping, housework, finances, food prep, telephone, transportation , medication admin. Review of Systems Review of Systems Constitutional: Reports: see HPI. Exam & Diagnostic Data Last 24 Hrs of Vital Signs/I&O Vital Signs Date Time Temp Pulse Resp B/P Pulse O2 O2 Flow FiO2 Ox Delivery Rate 06/24 211 Nasal 2.0L Cannula 06/23 021 100 06/23 0151 97.9 78 20 125/70 100 Aerosol 7.0L Mask Intake & Output 06/23 0800 06/23 0000 06/22 1600 Intake Total 550 Output Total Balance 550 Intake, IV 550 Patient 79.379 kg Weight Physical Exam General Appearance Alert, Oriented X3, Cooperative, No Acute Distress Skin No Significant Lesion HEENT Atraumatic, PERRLA, EOMI, slightly dry oral mucosa Neck Supple, No JVD, No thryomegaly, +2 Carotid Pulse wo Bruit Lymphatic Cervical nl Cardiovascular Regular Rate, Normal S1, Normal S2 Lungs mild rhonci Bilaterally. 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 At the ED patient's vitals were unremarkable for any elevated temperatures and was saturating well on 2 L oxygen. His labs showed decreased hemoglobin and hematocrit (6.5/19.3). Check x-ray obtained is significant for right middle basilar opacity. Assessment and plan #Dyspnea Acute onset of dyspnea. Possible etiologies include symptomatic anemia as patient is found to have low hemoglobin requiring PRBC. Other possibility include pulmonary embolism as his dyspnea was sudden and patient has a predisposing hypercoagulable risk secondary to his malignancy. Acute coronary syndrome will also need to be ruled out. Chest x-ray is suggestive of right middle basilar opacity, which could suggest obstructive pneumonia. However patient is clinically not endorsing any cough, is afebrile and no leukocytosis is present. Plan Will admit to general medicine floor O2 supplementation to keep sats above 90% CTA TRC nebs Will hold off antibiotics Will obtain serial troponins and EKG to rule out ACS #Acute on chronic anemia Most likely etiology is myelosuppression from chemotherapy. During previous admission she was found to have heme positive stools,however he currently does not endorse any hematemesis, melena, or bright red blood per rectum. Plan We'll type and cross and infuse 2 units of PRBC Will monitor CBC every 12 with goal of hemoglobin above 8 Will guaiac stools Will monitor for any acute bleeding #Thrombocytopenia Most likely secondary to chemotherapy. Current levels are above 50,000. No acute bleeding noted. Plan Will trend CBC #History of SCLC with spinal metastases and cord compression Will inform Dr. Oreilly (patient's oncologist) Will continue fentanyl 100 g and hydromorphone for pain Will continue steroid #History of A. fib Patient's BARTOLOME-VASC2 is 3 (hypertension, diabetes and age) which normally will require anticoagulation. However due to risk of bleeding to the pericardium, during the previous admission it was recommended the patient be on aspirin therapy only and strict rate control. Plan Continue aspirin Continue beta elke for rate control #History of hypertension Will continue home meds meds As Ranked By This Provider Problem List: 1. Anemia 2. Dyspnea Core Measures/Miscellaneous Acute Coronary Syndrome ACS Diagnosis: No Cerebrovascular Accident CVA/TIA Diagnosis: No Congestive Heart Failure CHF Diagnosis: No Venous Thromboembolism VTE Risk Factors: Age > 40 No [facility] VTE prophylaxis d/t: No contraindications No VTE Pharm Prophylaxis d/t: Medical contraindication VTE Diagnosis: No VTE Type: NONE VTE Confirmed by (Test): NONE Severe Sepsis Severe Sepsis Present: No Septic Shock Septic Shock Present: No Miscellaneous Documentation Attending Case Discussed With: GERMAN DRUMMOND MD Primary Care Physician: PANCHO TORRES MD Patient sees these Specialists ONCOLOGY Level of Patient Care: General Medicine ENRIQUE CALLAHAN 06/23/16 0443: Resident Review Statement Resident Statement: examined this patient, discussed with recruitment intern, agreed with recruitment intern Other Findings: Patient is a 70-year-old man with past medical history of hypertension, diabetes mellitus, hyperlipidemia, recently diagnosed with small cell malignancy 2015status post 10 cycles of radiation currently on chemotherapy (etoposide), partial right nephrectomy(2006), CAD with 2(1997) stents ,hyperlipidemia, 40 years of smoking history presented to the ED for the evaluation of sudden onset dyspnea. Symptoms started at around midnight 1 AM, that woke him from sleep. Dyspnea was associated with intermittent chest discomfort(although chronic-related to lung cancer) without any palpitations. 911 was called, on the way to the hospital patient received DuoNebthat resulted in improvement of his symptoms. Patient denied any nausea vomiting or sweating. Denied any fever or chills. Denied any cough. No urinary bowel habit complaints.Patient denied any sick contacts recent travels recent infections On last admission patient was discharged on ground/thin liquid diet, he mentioned that he followed up with the speech therapy and was put on regular diet.Denies any trouble swallowing /choking episodes. Patient mentioned that he was supposed to get chemotherapy last week but his H&H dropped he received 2 units of packed RBC at the cancer center and he is due for next chemotherapy on coming Thursday. In the ED, patient was found to be anemic hematocrit dropped to 19.9(baseline 26.5). Vitals on admission temperature 97.9, pulse 70, respiratory rate 20 blood pressure 125/70 saturation was 92% on 7 L initially(now on 2 L)-after TRC / nebsand 1 dose of IV Solu-Medrol Appearance: Alert and oriented 3 ,not in acute distress. Skin: Grossly normal. HEENT: PEERLA Neck: Supple, No JVD Cardiovascular: Regular Rate, Normal S1, Normal S2, No Murmurs Lungs: some rhonchi on the right middle lung frey Abdomen: No abdominal discomfort positive bowel sounds Neurological: Neuro exam intact grossly Extremities: No Clubbing, No Cyanosis, No Edema. Vascular: Normal Pulses. Pertinent labs on admission: WBC count normal, H&H low 6.8/19.3 with baseline of 8.9/26.5, normal BEP, Chest x-ray:Right medial basilar airspace opacity. This could be associated with airspace disease in the right lower lobe. Assessment and plan: 1. Acute onset dyspnea differential include(pulmonary embolism/acute blood loss anemia/obstructive pneumonia from small cell lung carcinoma/ACS): * We'll admit the patient GenMed floor * Will do CTA of the chest to rule out any underlying pulmonary embolism versus obstructive pneumonia * Do serial troponin and EKG rule out any underlying ACS(provided extensive history of coronary artery disease and atrial fibrillation). * We'll check proBNP. * Patient received one-time dose of IV ceftriaxone and azithromycin with IV Solu -Medrol 125 mg in the ED, no need of antibiotics/steroids at this time. As patient is currently afebrile without any white count. Repeat for CAT scan results, pending blood cultures * Continue TRC nebs * Promote oral hydration * Watch her hemodynamic instability 2. Acute on chronic blood loss anemia(most likely due to myelosuppression from chemotherapy) * H&H low 6.8/19.3 with baseline of 8.9/26.5 * Patient received 2 packed RBC follow-up was transfusion CBC. * Monitor H&H * Check guaiac stool * Watch for any active signs of complete. 3. 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 Oreilly regarding his patient admission * Continue home dose of Dilaudid and fentanyl patch. * 4 history of coronary artery disease status post stent placement 1997 * Continue all medications * Hold for systolic blood pressure less than 90/and diastolic less than 60 5. History of borderline diabetes mellitus * Monitor finger sugar sticks. 6. History of anxiety and depression: * Continue home medications. 7. DVT prophylaxis Alps(due to severe sgkltcl-jenroqegt-irsxxxzfhbrx related) Moderate to severe pain control with IV and oral Dilaudid Patient is full code GERMAN DRUMMOND 06/23/16 0506: Attending MD Review Statement Attending Statement Attending MD Statement: examined this patient, discuss w/resident/PA/ONLINE ADVERTISING ANALYST, agreed w/resident/PA/ONLINE ADVERTISING ANALYST, reviewed EMR data (avail), reviewed images, amended to note Attending Assessment/Plan: CC: SOB PMH: Small cell lung cancer with metastases, HTN, HLD, right partial nephrectomy , CAD S/P stent, paroxysmal A. fib, Patient came to ER after acute worsening of SOB. He woke up from sleep around 1 AM with sensation of sudden onset of difficulty to catch breath, worsening chest tightness . Not associated with diaphoresis, palpitation, worsening cough or expectoration, fever, chills. Chest tightness was substernal, nonradiating, it is chronic but worsened from the baseline. called EMS , O2 sats obtained by EMS was 99% on RA, but patient was noted to be in respiratory distress, he received ipratropium/albuterol nebulizer in EMS and in ER which helped breathing. Patient is on chemotherapy, last dose the expected last week but H&H was low so he received transfusion and chemotherapy was deferred until Thursday. Vitals: Afebrile, HR 84, RR 20, blood pressure 120/70, saturating 100% initially on 7 L, tapered down to 2 L in ER. On exam: A O 3, no acute distress, anxious, neck supple, no lymphadenopathy, mucosa moist. CVS: S1-S2 regular, no JVD. RS: coarse sound on right side, no wheezing or rhonchi . Abdomen: Soft, NT, ND, BS present. No focal neurological deficit, no obvious skin rashes or inflammation, no dependent edema. No port Labs: WBC 5.5, with neutrophils 68%, hemoglobin 6.5 (7.6 on Feb 2), hematocrit 19.3, MCV 88.6, RDW 18.5, platelets 52 (35 on feb 2nd) BMP, LFT unremarkable, alkaline phosphatase 248, troponin less than 0.01, EKG: NSR. CXR: Right medial basilar airspace opacity. This could be associated with airspace disease in the right lower lobe. A and P #1 acute worsening of shortness of breath: -currently saturating well on 2 L NC, after bronchodilator nebulization treatment. Patient also received 125 mg of methylprednisolone in ER and ceftriaxone and azithromycin for suspected pneumonia. -Patient's symptoms are acute in onset, no progressive worsening of SOB or cough , sputum production, pleuritic chest pain. In this clinical condition less likely to be pneumonia, chest x-ray infiltrate probably corresponding to his pulmonary nodule visible on previous CT scan. - r/o PE in setting of acute worsening of shortness of breath with CTA chest, it will also give better picture about pneumonia. -Check proBNP. -Worsening of shortness of breath can be related to his worsening H&H. Type and crossmatch, transfuse 2 units PRBC, repeat CBC after transfusion. -Trend troponin, serial EKG to rule out demand related ischemia in setting of Hx CAD. Continue aspirin, statin -Continue albuterol and ipratropium nebulization, no IV methylprednisolone or antibiotics for now. #2 anemia: No Hx acute blood loss. Denies black colored stool, blood in stool. Normocytic, ?Related to chemotherapy. Check stool guaiac in a.m. continue with transfusion as mentioned above. Hx of history of multiple colonic polyps in the past, but refused recent GI workup. #3 small cell lung cancer, stage IV: On outpatient chemotherapy, inform oncologist about patient's admission. Patient is supposed to be on tapering dose of dexamethasone but does not remember the dose need to be confirmed in a.m. #4 HTN: Continue his home medications, amlodipine, metoprolol #5 adequate pain control with fentanyl patch and when necessary by mouth Dilaudid and IV Dilaudid. #6 paroxysmal A. fib, currently sinus rhythm, continue metoprolol, not candidate for AC #7 DVT prophylaxis: Pranay
[2016-06-23 04:21] VITALS: BP 120/70
--- NOTE | 2016-06-23 05:08 | Admission Certification ---
Admission Certification Certification Statement - As attending physician, I certify that at the time of - admission, based on clinical presentation, severity of - symptoms, need for further diagnostic testing and - therapeutic interventions, and risk of adverse outcomes - without in-hospital treatment, in my clinical assessment, - this patient requires an acute hospital stay for a minimum - of two nights or longer. I have also considered psychsocial - factors such as support system, advanced age, financial - issues, cognitive issues, and failed out-patient treatments, - past re-admission history, safety of patient, and lack of - compliance as applicable. Specific rationale supporting this admission is: Symptomatic anemia, worsening of shortness of breath. Stage IV small cell lung cancer
[2016-06-23 06:12] VITALS: BP 124/70
[2016-06-23 06:27] VITALS: BP 120/70
--- NOTE | 2016-06-23 07:34 | Cons- Oncology ---
General Information and HPI Consulting Request Date of Consult: 06/23/16 Requested By: GERMAN DRUMMOND MD History of Present Illness: 70-year-old man with extensive small cell lung cancer being treated with chemotherapy (carboplatin and CLAY MINER-16) now admitted with worsening shortness of breath and chest pain. denies fever chills, productive sputum, hemoptysis or leg swelling. Patient currently feels improved Allergies/Medications Allergies: Coded Allergies: Iodinated Contrast Media - Oral and (UNKNOWN 03/30/16) Home Med List: Alprazolam 0.25 MG TABLET 1 TAB PO TIDPRN ANXIETY (Reported) Amlodipine Besylate 5 MG TABLET 1 TAB PO DAILY BP (Reported) Aspirin (Ecotrin*) 81 MG TABLET.DR 1 TAB PO DAILY HEART/BLOOD (Reported) Dexamethasone 2 MG TABLET 1 TAB PO DAILY CORD COMPRESSION (Reported) Escitalopram Oxalate 5 MG TABLET 1 TAB PO DAILY DEPRESSION Fentanyl 100 MCG/HOUR PATCH.TD72 1 PAT TOP Q3D PAIN (Reported) Hydromorphone HCl (Dilaudid) 8 MG TABLET 1 TAB PO Q3-4H PRN PAIN (Reported) Lansoprazole (Prevacid) 30 MG CAPSULE.DR 1 CAP PO DAILY GI (Reported) Metoprolol Succ XL (Toprol Xl) 50 MG TAB 1 TAB PO DAILY atrial fibrillation Multivitamin (Multi-Day Vitamins) 1 EACH TABLET 1 TAB PO DAILY SUPPLEMENT ( Reported) Ondansetron (Zofran Odt) 4 MG TAB.RAPDIS 1 TAB SL TID PRN NAUSEA Polyethylene Glycol 3350 (Miralax) 17 GRAM POWD.PACK 1 PAC PO DAILY PRN CONSTIPATION (Reported) dissolve in water Prochlorperazine Maleate 10 MG TABLET 1 TAB PO Q6 PRN NAUSEA/VOMITING ( Reported) Sennosides/Docusate Sodium (Senna Plus Tablet) 8.6 MG-50 MG TABLET 1 TAB PO BID PRN CONSTIPATION Simvastatin (Simvastatin*) 20 MG TABLET 1 TAB PO QPM CHOLESTEROL (Reported) Current Medications: Current Medications Sig/Noemí Start time Last Medication Dose Route Stop Time Status Admin Acetaminophen 650 MG Q6P PRN 06/23 0415 AC PO Albuterol Sulfate 3 ML ONCE ONE 06/23 0200 DC 06/23 INH 06/23 200 0210 Alprazolam 0.25 MG TIDPRN PRN 06/23 0430 AC PO 06/30 0429 Amlodipine Besylate 5 MG DAILY 06/23 1000 AC PO Aspirin Buffered 81 MG DAILY 06/23 1000 AC PO Atorvastatin Calcium 10 MG 1700 06/23 1700 AC PO Azithromycin 500 MG ONCE ONE 06/23 0200 DC 06/23 Dextrose/Water 250 ML IV 06/23 0259 0252 Ceftriaxone Sodium 0 .STK-MED ONE 06/23 0237 DC .ROUTE Ceftriaxone Sodium 1,000 MG ONCE ONE 06/23 0200 DC 06/23 IV 06/23 0201 0252 Diphenhydramine HCl 50 MG ONCE ONE 06/23 0515 DC 06/23 IV 06/23 0516 0524 Diphenhydramine HCl 50 MG ONCE ONE 06/23 0500 CAN PO 06/23 0501 Escitalopram Oxalate 5 MG DAILY 06/23 1000 AC PO Fentanyl Citrate 100 MCG Q72H 06/23 0430 AC 06/23 TOP 0617 Hydromorphone HCl 2 MG Q4-6 PRN PRN 06/23 0415 AC IV Hydromorphone HCl 4 MG Q2-3 HRS PRN 06/23 0415 CAN PO Hydromorphone HCl 8 MG Q4P PRN 06/23 0300 AC 06/23 PO 0252 Hydromorphone HCl 0 .STK-MED ONE 06/23 0250 DC PO Ipratropium [place] 2.5 ML ONCE ONE 06/23 0200 DC 06/23 INH 06/23 0201 0210 Methylprednisolone 0 .STK-MED ONE 06/23 0237 DC .ROUTE Methylprednisolone 125 MG ONCE ONE 06/23 0200 DC 06/23 IV 06/23 0201 0252 Metoprolol Succinate 50 MG DAILY 06/23 1000 AC PO Multivitamins 1 TAB DAILY 06/23 1000 AC Therapeutic PO Omeprazole 40 MG DAILY AC 06/23 0700 AC PO Ondansetron HCl 4 MG TIDPRN PRN 06/23 0430 AC PO Oxycodone/ 0 .STK-MED ONE 06/23 0244 DC Acetaminophen PO Polyethylene Glycol 17 GM DAILY 06/23 1000 AC PO Prochlorperazine 10 MG Q6 PRN 06/23 0430 CAN PO Senna/Docusate Sodium 1 TAB BID PRN 06/23 0430 AC PO Review of Systems Review of Systems: Patient denies headaches or dizziness. Patient denies nausea vomiting or change in bowel habits. Patient denies GI or blood loss. Patient denies new bone aches or focal neurologic deficit Past History Travel History Traveled to [place] past 21 day No Medical History Blood Transfusion Hx: Yes Neurological: NONE EENT: NONE Cardiovascular: hypertension, hyperlipidemia, myocardial infarction, STENTS Respiratory: bronchitis, lung cancer Gastrointestinal: diverticulitis Hepatic: LIVER CA Renal: right partial nephrectomy Musculoskeletal: NONE, disk herniation Psychiatric: anxiety Endocrine: BORDERLINE DIABETIC Blood Disorders: anemia Cancer(s): BENIGN KIDNEY TUMOR LUNG CANCER LIVER [place] [employer] ACC[employer] DIRECTOR/Reproductive: NONE Surgical History Surgical History: PARTIAL RIGHT NEPHRECTOMY L4-L5 DISCECTOMY, UMBILICAL TUMOR BURST WHEN HE WAS 8YRS OLD Family History Relations & Conditions If Any: Relation not specified for: *No pertinent family history Psychosocial History Who Do You Live With? spouse Services at Home: Nursing Smoking Status: Former Smoker Living Will? no Functional Ability ADLs Independent: dressing, eating, toileting, bathing. Ambulation: independent IADLs Independent: shopping, housework, finances, food prep, telephone, transportation , medication admin. Exam & Diagnostic Data Vital Signs and I&O Vital Signs Date Time Temp Pulse Resp B/P Pulse O2 O2 Flow FiO2 Ox Delivery Rate 06/23 0632 97 Nasal 2.0L Cannula 06/23 0627 97.5 83 16 120/70 95 06/23 0612 97.8 85 16 124/70 06/23 0421 97.6 84 20 120/70 96 Nasal 2.0L Cannula 06/23 0212 Nasal 2.0L Cannula 06/23 0211 100 06/23 0151 97.9 78 20 125/70 100 Aerosol 7.0L Mask Intake & Output 06/23 0800 06/23 0000 06/22 1600 Intake Total 650 Output Total Balance 650 Intake, Blood 100 Product Intake, IV 550 Intake, Oral 0 Patient 187 lb Weight Gen.: in NAD ENT: Sclera anicteric Chest: Normal respiratory effort, decreased breath sounds Cor: RRR, no extra sounds Abdomen: Soft, bowel sounds present, no tenderness, no rebound Extremities: Without clubbing, cyanosis, or asymmetric edema Neurology: Alert and oriented 3, no gross deficit Skin: No rashes Last 48 Hours of Lab Results: Laboratory Tests 06/24 215 Chemistry Sodium (137 - 145 mmol/L) 142 Potassium (3.5 - 5.1 mmol/L) 3.6 Chloride (98 - 107 mmol/L) 108 H Carbon Dioxide (22 - 30 mmol/L) 26 Anion Gap (5 - 16) 8 BUN (9 - 20 mg/dL) 20 Creatinine (0.7 - 1.2 mg/dL) 1.0 Estimated GFR (>60 ml/min) > 60 BUN/Creatinine Ratio (7 - 25 %) 20.0 Glucose (65 - 99 mg/dL) 83 Calcium (8.4 - 10.2 mg/dL) 8.5 Total Bilirubin (0.2 - 1.3 mg/dL) 0.3 AST (17 - 59 U/L) 49 ALT (21 - 72 U/L) 47 Alkaline Phosphatase (< 127 U/L) 248 H Troponin I (<0.11 ng/ml) < 0.01 Ctn-S-[id number] Pept (<125 pg/mL) 1080 H Total Protein (6.3 - 8.2 g/dL) 5.8 L Albumin (3.5 - 5.0 g/dL) 3.2 L Globulin (1.9 - 4.2 gm/dL) 2.6 Albumin/Globulin Ratio (1.1 - 2.2 %) 1.2 Hematology CBC w Diff NO MAN DIFF REQ WBC (4.8 - 10.8 /CUMM) 5.5 RBC (4.70 - 6.10 /CUMM) 2.17 L Hgb (14.0 - 18.0 G/DL) 6.5 *L Hct (42 - 52 %) 19.3 *L MCV (80.0 - 94.0 FL) 88.6 MCH (27.0 - 31.0 PG) 30.0 RDW (11.5 - 14.5 %) 18.5 H Plt Count (130 - 400 /CUMM) 52 L MPV (7.4 - 10.4 FL) 7.0 L Gran % (42.2 - 75.2 %) 68.2 Lymphocytes % (20.5 - 51.1 %) 23.7 Monocytes % (1.7 - 9.3 %) 7.5 Eosinophils % (0 - 5 %) 0.2 Basophils % (0.0 - 2.0 %) 0.4 Absolute Granulocytes (1.4 - 6.5 /CUMM) 3.8 Absolute Lymphocytes (1.2 - 3.4 /CUMM) 1.3 Absolute Monocytes (0.10 - 0.60 /CUMM) 0.4 Absolute Eosinophils (0.0 - 0.7 /CUMM) 0 Absolute Basophils (0.0 - 0.2 /CUMM) 0 PUBS MCHC (33.0 - 37.0 G/DL) 33.8 Imaging/Other Studies: Chest x-ray-no change Assessment/Plan Assessment: 1. Chest pain/SOB-PE to be ruled out, cardiac status is being monitored, doubt pneumonia. ? Secondary to profound anemia and underlying lung cancer Recommend- Agree with CTA chest Rule out acute coronary syndrome Transfuse to hematocrit> 25% given current status and underlying cardiac issues 2. Anemia/thrombocytopenia-platelet count actually recovering from last office count Recommend- Transfuse as above Follow CBC Check stools for occult blood 3. Extensive small cell lung cancer-CTA will be helpful in understanding efficacy of chemotherapy Recommendations: .. Consult Acknowledgment - Thank you for your consult request.
--- NOTE | 2016-06-23 08:56 | CT SCAN REPORT ---
EXAMINATION: CT ANGIOGRAM CHEST CLINICAL INFORMATION: Preobstructive pneumonia. Metastatic small cell lung carcinoma. Sudden shortness of breath. COMPARISON: Chest radiograph 06/23/2016. CT angiogram of the chest 05/15/2016. TECHNIQUE: Multiple axial images were obtained through the chest after the administration of 74 mL of Optiray 350 intravenous contrast. Images were reviewed on a dedicated 3-D workstation. DLP: 544.27 mGy-cm FINDINGS: The timing of the contrast bolus provides adequate evaluation of the pulmonary arterial vasculature. There is no central luminal filling defect to suggest the presence of an acute pulmonary embolism. There is a spiculated pleural-based right lower lobe mass as well as extensive peribronchial thickening primarily involving the right lower lobe. There is circumferential narrowing of the right lower lobe bronchus. Bulky hilar, peribronchial, and mediastinal adenopathy remains largely unchanged when compared to the most recent prior examination from 05/15/2016. A small right pleural effusion has developed since the previous examination. The extent of groundglass disease involving the right lower lobe and now involving the right upper lobe has worsened when compared to prior imaging. Centrilobular emphysema and a few subpleural blebs within both lungs remain largely unchanged. Numerous hepatic metastases are partially included within the kkoiy-kn-ysge this examination. Splenomegaly is redemonstrated. There is severe hydroureteronephrosis of the right kidney. Limited visualization of the thoracic outlet reveals no abnormal finding. Thyroid gland is unremarkable. No worrisome lytic or blastic osseous lesions are visualized within the vysul-wi-fdld this examination. IMPRESSION: No evidence of acute pulmonary embolism. There is worsening groundglass disease involving the right upper and lower lobes which is nonspecific. This finding may simply represent a progression of infiltrative tumor however the possibility of a superimposed pneumonia cannot be definitively excluded on the basis of this examination. A small right pleural effusion has developed since prior imaging. Extensive hepatic and mediastinal ford metastatic disease is redemonstrated.
--- NOTE | 2016-06-23 11:22 | PN- Housestaff ---
LUIS CARLOS JONES,NEIL 06/23/16 1113: Subjective Follow-up For: dyspnea anemia Complaints: no complaints Subjective: Seen and examined at bedside. Reports dyspnea has improved since admission. He is currently undergoing blood transfusion. No other complaints lying comfortably in bed. Review of Systems Constitutional: Reports: see HPI. Objective Last 24 Hrs of Vital Signs/I&O Vital Signs Date Time Temp Pulse Resp B/P Pulse O2 O2 Flow FiO2 Ox Delivery Rate 06/23 1011 Room Air 06/23 0954 86 120/70 06/23 0953 86 120/70 06/23 0800 95 Nasal 2.0L Cannula 06/23 0632 97 Nasal 2.0L Cannula 06/23 0627 97.5 83 16 120/70 95 06/23 0612 97.8 85 16 124/70 06/23 0421 97.6 84 20 120/70 96 Nasal 2.0L Cannula 06/23 0212 Nasal 2.0L Cannula 06/23 0211 100 06/23 0151 97.9 78 20 125/70 100 Aerosol 7.0L Mask Intake & Output 06/23 1600 06/23 0800 06/23 0000 Intake Total 650 Output Total Balance 650 Intake, Blood 100 Product Intake, IV 550 Intake, Oral 0 Patient 187 lb Weight Physical Exam General Appearance: Alert, Oriented X3, Cooperative, No Acute Distress Skin: No Rashes HEENT: Atraumatic, PERRLA, EOMI Neck: Supple, No JVD Lymphatic: Cervical nl Cardiovascular: Regular Rate, Normal S1, Normal S2 Lungs: Clear to Auscultation Abdomen: Normal Bowel Sounds, Soft, No Tenderness Neurological: Normal Speech, Strength at 5/5 X4 Ext Extremities: No Edema, Normal Pulses Vascular: Pulses Symmetrical Current Medications: Current Medications Sig/Noemí Start time Last Medication Dose Route Stop Time Status Admin Acetaminophen 650 MG Q6P PRN 06/23 0415 AC PO Albuterol Sulfate 3 ML ONCE ONE 06/23 0200 DC 06/23 INH 06/23 200 0210 Alprazolam 0.25 MG TIDPRN PRN 06/23 0430 AC PO 06/30 042 Amlodipine Besylate 5 MG DAILY 06/23 1000 AC 06/23 PO 0954 Aspirin Buffered 81 MG DAILY 06/23 1000 AC 06/23 PO 0954 Atorvastatin Calcium 10 MG 1700 06/23 1700 AC PO Azithromycin 500 MG ONCE ONE 06/23 0200 DC 06/23 Dextrose/Water 250 ML IV 06/23 0259 0252 Ceftriaxone Sodium 0 .STK-MED ONE 06/23 0237 DC .ROUTE Ceftriaxone Sodium 1,000 MG ONCE ONE 06/23 0200 DC 06/23 IV 06/23 0201 0252 Diphenhydramine HCl 50 MG ONCE ONE 06/23 0815 DC 06/23 IV 06/23 0816 0805 Diphenhydramine HCl 50 MG ONCE ONE 06/23 0515 DC 06/23 IV 06/23 0516 0524 Diphenhydramine HCl 50 MG ONCE ONE 06/23 0500 CAN PO 06/23 0501 Escitalopram Oxalate 5 MG DAILY 06/23 1000 AC 06/23 PO 0954 Fentanyl Citrate 100 MCG Q72H 06/23 0430 AC 06/23 TOP 0617 Hydromorphone HCl 2 MG Q4-6 PRN PRN 06/23 0415 AC IV Hydromorphone HCl 4 MG Q2-3 HRS PRN 06/23 0415 CAN PO Hydromorphone HCl 8 MG Q4P PRN 06/23 0300 AC 06/23 PO 0252 Hydromorphone HCl 0 .STK-MED ONE 06/23 0250 DC PO Ipratropium [place] 2.5 ML ONCE ONE 06/23 0200 DC 06/23 INH 06/23 0201 0210 Methylprednisolone 0 .STK-MED ONE 06/23 0237 DC .ROUTE Methylprednisolone 125 MG ONCE ONE 06/23 0200 DC 06/23 IV 06/23 0201 0252 Metoprolol Succinate 50 MG DAILY 06/23 1000 AC 06/23 PO 0953 Multivitamins 1 TAB DAILY 06/23 1000 AC 06/23 Therapeutic PO 0954 Omeprazole 40 MG DAILY AC 06/23 0700 AC 06/23 PO 0954 Ondansetron HCl 4 MG TIDPRN PRN 06/23 0430 AC PO Oxycodone/ 0 .STK-MED ONE 06/23 0244 DC Acetaminophen PO Polyethylene Glycol 17 GM DAILY 06/23 1000 AC 06/23 PO 0954 Prochlorperazine 10 MG Q6 PRN 06/23 0430 CAN PO Senna/Docusate Sodium 1 TAB BID PRN 06/23 0430 AC PO Last 24 Hrs of Lab/Wiliam Results Last 24 Hrs of Labs/Mics: Laboratory Tests 06/23/16 0850: Troponin I < 0.01 06/23/16 0216: Anion Gap 8, Estimated GFR > 60, BUN/Creatinine Ratio 20.0, Glucose 83, Calcium 8.5, Total Bilirubin 0.3, AST 49, ALT 47, Alkaline Phosphatase 248 H, Troponin I < 0.01, Cmq-K-Csmhycfexyd Pept 1080 H, Total Protein 5.8 L, Albumin 3.2 L, Globulin 2.6, Albumin/Globulin Ratio 1.2, CBC w Diff NO MAN DIFF REQ, RBC 2.17 L, MCV 88.6, MCH 30.0, RDW 18.5 H, MPV 7.0 L, Gran % 68.2, Lymphocytes % 23.7, Monocytes % 7.5, Eosinophils % 0.2, Basophils % 0.4, Absolute Granulocytes 3.8, Absolute Lymphocytes 1.3, Absolute Monocytes 0.4, Absolute Eosinophils 0, Absolute Basophils 0, PUBS MCHC 33.8 Microbiology 06/24 215 BLOOD: Blood Culture - RECD 06/23 209 BLOOD: Blood Culture - RECD Assessment/Plan Assessment: 70-year-old male with a past nuchal history of small cell lung cancer with metastases, hypertension, hyperlipidemia, coronary artery disease status post stent, proximal A. fib, right partial nephrectomy presents to the ER complaining of acute onset of dyspnea. Denied fevers, chills, worsening cough or expectoration. Sees oncology undergoing chemotherapy, apparently last dose held due to low CBCD. Dyspnea improved with transfusion, does not appear to have infectious component to acute dyspenic episode. Dyspnea: Monitor vitals closely, will check labs in am, post transfusion. Dyspnea likely secondary to anemia in combination with inflitrative process from small cell lung ca. Chest CTA negative for PE, demonstrating worsening groundglass disease involving the RUQ and lower lobes. keep oxygen saturation >92%, titrate accordingly Anemia: secondary to chemotherapeutic agents? apparently better than office records will transfuse today and monitor counts, already improvement this morning after recieving 1 unit HTN: BP well controlled contine home medications h/o PAF currently in SR, not candidate for AC, continue home dose of metooprolol Problem List: 1. Anemia 2. Dyspnea 3. Hypertension 4. Paroxysmal atrial fibrillation Pain Ratin Pain Location: back pain Pain Goal: Pain 4 or less Pain Plan: continue with current management Tomorrow's Labs & Rationales: cbc EDUARDO JONES,JADE 06/23/16 1353: Attending MD Review Statement Attending Statement Attending MD Statement: examined this patient, discuss w/resident/PA/REINSPECTOR, agreed w/resident/PA/REINSPECTOR, reviewed EMR data (avail), discussed with nursing, discussed with case mgmt, amended to note Attending Assessment/Plan: Patient seen and examined. Lying comfortably in bed not in acute distress. He reports feeling better compared to his presentation. Denies chest pain. Denies shortness of breath. He reports his symptoms came on suddenly at home. Acute coronary syndrome has been ruled out with 2 sets of negative cardiac enzymes. Chest CT is currently negative for pulmonary embolism. CT shows worsening groundglass disease involving the right upper and lower lobes, findings are nonspecific and may represent infiltrative tomorrow versus superimposed pneumonia. Clinically however patient shows no evidence of infectious process. He is afebrile and hemodynamically stable. He has no leukocytosis on his labs. His symptoms have improved overnight without antibiotic therapy. Imaging also reveals extensive hepatic and mediastinal ford metastatic disease. Recommendations: -Patients dyspnea was likely secondary to his profound anemia on top of his underlying pulmonary malignancy. He is currently symptom-free. -He is scheduled to receive 2 units of blood today. Repeat CBC posttransfusion and in the morning to monitor hemoglobin and platelet levels. -Check stool guaiac to rule out gastrointestinal blood loss. His anemia however is likely secondary to chemotherapy. He has received blood transfusions in the past in the cancer center. -Wean off oxygen supplementation as tolerated. -Consultation and recommendations from the oncology service is appreciated.
[2016-06-23 15:13] LABS: ABSOLUTE BASOPHIL COUNT 0 /CUMM (0.0-0.2); ABSOLUTE EOSINOPHIL COUNT 0 /CUMM (0.0-0.7); ABSOLUTE GRANULOCYTE CT 7.4 /CUMM (1.4-6.5); ABSOLUTE LYMPH COUNT 0.7 /CUMM (1.2-3.4); ABSOLUTE MONOCYTE COUNT 0.3 /CUMM (0.10-0.60); BASOPHIL % 0.2 % (0.0-2.0); EOSINOPHIL % 0.1 % (0-5); GRANULOCYTE % 87.7 % (42.2-75.2); HEMATOCRIT 24.2 % (42-52); MEAN CORPUSCULAR HGB 30.3 PG (27.0-31.0); MEAN CORPUSCULAR VOLUME 89.2 FL (80.0-94.0); MEAN PLATELET VOLUME 7.2 FL (7.4-10.4); PLATELET COUNT 73 /CUMM (130-400)
[2016-06-23 15:35] VITALS: BP 124/78
[2016-06-23 15:55] LABS: RED BLOOD CELL CT 2.72 /CUMM (4.70-6.10); WHITE BLOOD CELL COUNT 8.5 /CUMM (4.8-10.8)
[2016-06-23 22:58] VITALS: BP 120/60
[2016-06-24 04:19] VITALS: BP 142/80
[2016-06-24 07:03] VITALS: BP 114/70
--- NOTE | 2016-06-24 08:51 | PN- Housestaff ---
LUIS CARLOS JONES,NEIL 06/24/16 0837: Subjective Follow-up For: Dyspnea Anemia Complaints: no complaints Subjective: Seen and examined at bedside. Dyspnea has improved, no longer requiring oxygen. Recieved two units of blood yesterday. HH stable yesterday, labs pending this morning. Review of Systems Constitutional: Reports: see HPI. Objective Last 24 Hrs of Vital Signs/I&O Vital Signs Date Time Temp Pulse Resp B/P Pulse O2 O2 Flow FiO2 Ox Delivery Rate 06/24 0703 114/70 06/24 0419 97.6 72 20 142/80 96 Room Air 06/24 0000 Room Air 06/23 2258 96.2 79 18 120/60 95 Room Air 06/23 1535 98.3 87 18 124/78 96 Room Air 06/23 1011 Room Air 06/23 0954 86 120/70 06/23 0953 86 120/70 Intake & Output 06/24 1600 06/24 0800 06/24 0000 Intake Total 370 700 Output Total Balance 370 700 Intake, IV 10 Intake, Oral 360 700 Physical Exam General Appearance: Alert, Oriented X3, Cooperative, No Acute Distress Skin: No Rashes HEENT: Atraumatic, EOMI, Mucous Membr. moist/pink Neck: Supple, No JVD Cardiovascular: Regular Rate, Normal S1, Normal S2 Lungs: Clear to Auscultation Abdomen: Normal Bowel Sounds, Soft, No Tenderness Neurological: Normal Speech, Strength at 5/5 X4 Ext Extremities: No Edema, Normal Pulses Current Medications: Current Medications Sig/Noemí Start time Last Medication Dose Route Stop Time Status Admin Acetaminophen 650 MG Q6P PRN 06/23 0415 AC 06/24 PO 0249 Alprazolam 0.25 MG TIDPRN PRN 06/23 0430 PO 06/30 0429 Amlodipine Besylate 5 MG DAILY 06/23 1000 AC 06/23 PO 0954 Aspirin Buffered 81 MG DAILY 06/23 1000 AC 06/23 PO 0954 Atorvastatin Calcium 10 MG 1700 06/23 1700 AC 06/23 PO 1842 Escitalopram Oxalate 5 MG DAILY 06/23 1000 AC 06/23 PO 0954 Fentanyl Citrate 100 MCG Q72H 06/23 0430 AC 06/23 TOP 0617 Hydromorphone HCl 2 MG Q4-6 PRN PRN 06/23 0415 AC 06/24 IV 0817 Hydromorphone HCl 8 MG Q4P PRN 06/23 0300 AC 06/23 PO 0252 Metoprolol Succinate 50 MG DAILY 06/23 1000 AC 06/23 PO 0953 Multivitamins 1 TAB DAILY 06/23 1000 AC 06/23 Therapeutic PO 0954 Omeprazole 40 MG DAILY AC 06/23 0700 AC 06/24 PO 0521 Ondansetron HCl 4 MG TIDPRN PRN 06/23 0430 AC PO Patient Medication 1 ED .STK-MED ONE 06/23 1414 [place] Teaching ED 06/23 1415 Polyethylene Glycol 17 GM DAILY 06/23 1000 AC 06/23 PO 0954 Senna/Docusate Sodium 1 TAB BID PRN 06/23 0430 AC PO Tramadol HCl 50 MG ONCE ONE 06/24 0500 DC 06/24 PO 06/24 0501 0522 Last 24 Hrs of Lab/Wiliam Results Last 24 Hrs of Labs/Mics: Laboratory Tests 06/24/16 0725: CBC w Diff Pending, WBC Pending, RBC Pending, Hgb Pending, Hct Pending, MCV Pending, MCH Pending, RDW Pending, Plt Count Pending, MPV Pending, PUBS MCHC Pending 06/23/16 1430: Troponin I Cancelled 06/23/16 1430: Anion Gap 9, Estimated GFR > 60, BUN/Creatinine Ratio 19.0, Troponin I < 0.01, CBC w Diff MAN DIFF ORDERED, RBC 2.72 L, MCV 89.2, MCH 30.3, RDW 17.0 H, MPV 7.2 L, Gran % 87.7 H, Lymphocytes % 8.3 L, Monocytes % 3.7, Eosinophils % 0.1 , Basophils % 0.2, Absolute Granulocytes 7.4 H, Segmented Neutrophils 79 H, Band Neutrophils 8 H, Absolute Lymphocytes 0.7 L, Lymphocytes 7 L, Monocytes 5, Absolute Monocytes 0.3, Absolute Eosinophils 0, Absolute Basophils 0, Metamyelocytes 1, Platelet Estimate DECREASED, Polychromasia 1+, Poikilocytosis 1+, Anisocytosis 1+, PUBS MCHC 34.0 06/23/16 0850: Troponin I < 0.01 Assessment/Plan Assessment: 70-year-old male with a past nuchal history of small cell lung cancer with metastases, hypertension, hyperlipidemia, coronary artery disease status post stent, proximal A. fib, right partial nephrectomy presents to the ER complaining of acute onset of dyspnea. Denied fevers, chills, worsening cough or expectoration. Sees oncology undergoing chemotherapy, apparently last dose held due to low CBCD. Dyspnea resolved with blood transfusion, now saturation 96% RA Dyspnea: Monitor vitals closely, will check labs in am, post transfusion. Dyspnea likely secondary to anemia in combination with inflitrative process from small cell lung ca. Chest CTA negative for PE, demonstrating worsening groundglass disease involving the RUQ and lower lobes. keep oxygen saturation >92% Anemia: secondary to chemotherapeutic agents? apparently better than office records transfused 1 unit, yesterday 8.2/24.2 morning labs pending HTN: BP well controlled contine home medications Headache: c/o headache this morning, 5/10 w/o visual disturbances will give motrin and monitor h/o PAF currently in SR, not candidate for AC, continue home dose of metooprolol Problem List: 1. Dyspnea 2. Anemia 3. Paroxysmal atrial fibrillation 4. Hypertension Pain Ratin Pain Location: headache Pain Goal: Pain 4 or less Pain Plan: cont current management Tomorrow's Labs & Rationales: maria isabel CLARK MD,JADE 06/24/16 1041: Attending MD Review Statement Attending Statement Attending MD Statement: examined this patient, discuss w/resident/PA/ELECTRO MECHANIC, agreed w/resident/PA/ELECTRO MECHANIC, reviewed EMR data (avail), discussed with nursing, amended to note Attending Assessment/Plan: Patient seen and examined. Resting comfortably not in any acute distress. No issues overnight reported by nursing staff. He reports feeling better. Denies chest or shortness of breath. Denies palpitations. Hemoglobin levels have improved following transfusion although slightly low at this morning. He remains afebrile and hemodynamically stable. Patient reports that this represents his 4th session of transfusion over the past few weeks totaling 8 bags of blood. Reports negative stool guaiac as an outpatient. He reports a negative colonoscopy about 2 years ago. Recommendations: -Monitor patient overnight to ensure that hemoglobin levels are stable. -Check stool guaiac to ensure that he is not having acute blood loss anemia. -If stable tomorrow he will be discharged to follow-up with the oncology service as an outpatient.
[2016-06-24 08:56] LABS: ABSOLUTE BASOPHIL COUNT 0 /CUMM (0.0-0.2); ABSOLUTE EOSINOPHIL COUNT 0 /CUMM (0.0-0.7); ABSOLUTE GRANULOCYTE CT 5.2 /CUMM (1.4-6.5); ABSOLUTE LYMPH COUNT 0.9 /CUMM (1.2-3.4); ABSOLUTE MONOCYTE COUNT 0.5 /CUMM (0.10-0.60); BASOPHIL % 0.2 % (0.0-2.0); EOSINOPHIL % 0.2 % (0-5); GRANULOCYTE % 77.6 % (42.2-75.2); HEMATOCRIT 23.7 % (42-52); MEAN CORPUSCULAR HGB 30.2 PG (27.0-31.0); MEAN CORPUSCULAR HGB CONC 33.7 G/DL (33.0-37.0); MEAN CORPUSCULAR VOLUME 89.7 FL (80.0-94.0); MEAN PLATELET VOLUME 6.9 FL (7.4-10.4); PLATELET COUNT 66 /CUMM (130-400); RBC DISTRIBUTION WIDTH 17.5 % (11.5-14.5); RED BLOOD CELL CT 2.65 /CUMM (4.70-6.10)
[2016-06-24 09:43] LABS: WHITE BLOOD CELL COUNT 6.3 /CUMM (4.8-10.8)
--- NOTE | 2016-06-24 10:40 | Discharge Summary ---
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 Reported increased chest discomfort (reports chest discomfort since cancer diagnosis) w/o radiation, diaphoresis or numbness. Oxygen saturation in the field he was found to be severly hypoxemic, noted to be in respiratory distress. He was admitted to the General Medicine floor. Due to acute shortness of breath, he was scanned for pulmonary embolism which was negative. He has a history of anemia that has resulted since starting chemotherapy. HH was found to be 6.5/19.3 on admission. He recieved units of PRBC and repeat HH was 8.2/24.2. Post transfusion there was resolution of his dyspnea and his oxygen satuation improved dramatically and he no longer required oxygen. Oncology consultation recommended CTA to 1. r/o PE 2. understand the efficacy of chemotherapy. He should f/u with oncology after discharge Vital Signs Date Time Temp Pulse Resp B/P Pulse O2 O2 Flow FiO2 Ox Delivery Rate 06/24 1428 98.9 90 20 120/70 95 06/24 0927 82 130/68 06/24 0927 80 130/68 06/24 0703 114/70 06/24 0419 97.6 72 20 142/80 96 Room Air 06/24 0000 Room Air 06/23 2258 96.2 79 18 120/60 95 Room Air 06/23 1535 98.3 87 18 124/78 96 Room Air Laboratory Tests 06/24 0725 Hematology CBC w Diff MAN DIFF ORDERED WBC (4.8 - 10.8 /CUMM) 6.3 RBC (4.70 - 6.10 /CUMM) 2.65 L Hgb (14.0 - 18.0 G/DL) 8.0 L Hct (42 - 52 %) 23.7 L MCV (80.0 - 94.0 FL) 89.7 MCH (27.0 - 31.0 PG) 30.2 RDW (11.5 - 14.5 %) 17.5 H Plt Count (130 - 400 /CUMM) 66 L MPV (7.4 - 10.4 FL) 6.9 L Gran % (42.2 - 75.2 %) 77.6 H Lymphocytes % (20.5 - 51.1 %) 13.8 L Monocytes % (1.7 - 9.3 %) 8.2 Eosinophils % (0 - 5 %) 0.2 Basophils % (0.0 - 2.0 %) 0.2 Absolute Granulocytes (1.4 - 6.5 /CUMM) 5.2 Segmented Neutrophils (42.2 - 75.2 %) 75 Band Neutrophils (0.0 - 5.0 %) 2 Absolute Lymphocytes (1.2 - 3.4 /CUMM) 0.9 L Lymphocytes (20.5 - 51.1 %) 14 L Monocytes (1.7 - 9.3 %) 5 Absolute Monocytes (0.10 - 0.60 /CUMM) 0.5 Eosinophils (0 - 5.0 %) 3 Absolute Eosinophils (0.0 - 0.7 /CUMM) 0 Absolute Basophils (0.0 - 0.2 /CUMM) 0 Myelocytes (0 - 0 %) 1 H Nucleated RBCs (0.0 - 0.0 /100WBC) 6 H Platelet Estimate (ADEQUATE) DECREASED Polychromasia 1+ Hypochromic-Microcytic 1+ Poikilocytosis 2+ Anisocytosis 1+ PUBS MCHC (33.0 - 37.0 G/DL) 33.7 Vital Signs Date Time Temp Pulse Resp B/P Pulse O2 O2 Flow FiO2 Ox Delivery Rate 06/24 1428 98.9 90 20 120/70 95 06/24 0927 82 130/68 06/24 0927 80 130/68 06/24 0703 114/70 Allergies: Coded Allergies: Iodinated Contrast Media - Oral and (UNKNOWN 03/30/16) Pertinent Lab Results: Laboratory Tests 06/24 06/23 0725 1430 Chemistry Troponin I Cancelled Hematology CBC w Diff MAN DIFF ORDERED WBC (4.8 - 10.8 /CUMM) 6.3 RBC (4.70 - 6.10 /CUMM) 2.65 L Hgb (14.0 - 18.0 G/DL) 8.0 L Hct (42 - 52 %) 23.7 L MCV (80.0 - 94.0 FL) 89.7 MCH (27.0 - 31.0 PG) 30.2 RDW (11.5 - 14.5 %) 17.5 H Plt Count (130 - 400 /CUMM) 66 L MPV (7.4 - 10.4 FL) 6.9 L Gran % (42.2 - 75.2 %) 77.6 H Lymphocytes % (20.5 - 51.1 %) 13.8 L Monocytes % (1.7 - 9.3 %) 8.2 Eosinophils % (0 - 5 %) 0.2 Basophils % (0.0 - 2.0 %) 0.2 Absolute Granulocytes (1.4 - 6.5 /CUMM) 5.2 Segmented Neutrophils (42.2 - 75.2 %) 75 Band Neutrophils (0.0 - 5.0 %) 2 Absolute Lymphocytes (1.2 - 3.4 /CUMM) 0.9 L Lymphocytes (20.5 - 51.1 %) 14 L Monocytes (1.7 - 9.3 %) 5 Absolute Monocytes (0.10 - 0.60 /CUMM) 0.5 Eosinophils (0 - 5.0 %) 3 Absolute Eosinophils (0.0 - 0.7 /CUMM) 0 Absolute Basophils (0.0 - 0.2 /CUMM) 0 Myelocytes (0 - 0 %) 1 H Nucleated RBCs (0.0 - 0.0 /100WBC) 6 H Platelet Estimate (ADEQUATE) DECREASED Polychromasia 1+ Hypochromic-Microcytic 1+ Poikilocytosis 2+ Anisocytosis 1+ PUBS MCHC (33.0 - 37.0 G/DL) 33.7 06/23 06/23 1430 0850 Chemistry Sodium (137 - 145 mmol/L) 138 Potassium (3.5 - 5.1 mmol/L) 4.1 Chloride (98 - 107 mmol/L) 106 Carbon Dioxide (22 - 30 mmol/L) 23 Anion Gap (5 - 16) 9 BUN (9 - 20 mg/dL) 19 Creatinine (0.7 - 1.2 mg/dL) 1.0 Estimated GFR (>60 ml/min) > 60 BUN/Creatinine Ratio (7 - 25 %) 19.0 Troponin I (<0.11 ng/ml) < 0.01 < 0.01 Hematology CBC w Diff MAN DIFF ORDERED WBC (4.8 - 10.8 /CUMM) 8.5 RBC (4.70 - 6.10 /CUMM) 2.72 L Hgb (14.0 - 18.0 G/DL) 8.2 L Hct (42 - 52 %) 24.2 L MCV (80.0 - 94.0 FL) 89.2 MCH (27.0 - 31.0 PG) 30.3 RDW (11.5 - 14.5 %) 17.0 H Plt Count (130 - 400 /CUMM) 73 L MPV (7.4 - 10.4 FL) 7.2 L Gran % (42.2 - 75.2 %) 87.7 H Lymphocytes % (20.5 - 51.1 %) 8.3 L Monocytes % (1.7 - 9.3 %) 3.7 Eosinophils % (0 - 5 %) 0.1 Basophils % (0.0 - 2.0 %) 0.2 Absolute Granulocytes (1.4 - 6.5 /CUMM) 7.4 H Segmented Neutrophils (42.2 - 75.2 %) 79 H Band Neutrophils (0.0 - 5.0 %) 8 H Absolute Lymphocytes (1.2 - 3.4 /CUMM) 0.7 L Lymphocytes (20.5 - 51.1 %) 7 L Monocytes (1.7 - 9.3 %) 5 Absolute Monocytes (0.10 - 0.60 /CUMM) 0.3 Absolute Eosinophils (0.0 - 0.7 /CUMM) 0 Absolute Basophils (0.0 - 0.2 /CUMM) 0 Metamyelocytes (0.0 - 1.0 %) 1 Platelet Estimate (ADEQUATE) DECREASED Polychromasia 1+ Poikilocytosis 1+ Anisocytosis 1+ PUBS MCHC (33.0 - 37.0 G/DL) 34.0 06/23 0216 Chemistry Sodium (137 - 145 mmol/L) 142 Potassium (3.5 - 5.1 mmol/L) 3.6 Chloride (98 - 107 mmol/L) 108 H Carbon Dioxide (22 - 30 mmol/L) 26 Anion Gap (5 - 16) 8 BUN (9 - 20 mg/dL) 20 Creatinine (0.7 - 1.2 mg/dL) 1.0 Estimated GFR (>60 ml/min) > 60 BUN/Creatinine Ratio (7 - 25 %) 20.0 Glucose (65 - 99 mg/dL) 83 Calcium (8.4 - 10.2 mg/dL) 8.5 Total Bilirubin (0.2 - 1.3 mg/dL) 0.3 AST (17 - 59 U/L) 49 ALT (21 - 72 U/L) 47 Alkaline Phosphatase (< 127 U/L) 248 H Troponin I (<0.11 ng/ml) < 0.01 Ijl-C-Bawogxanwxs Pept (<125 pg/mL) 1080 H Total Protein (6.3 - 8.2 g/dL) 5.8 L Albumin (3.5 - 5.0 g/dL) 3.2 L Globulin (1.9 - 4.2 gm/dL) 2.6 Albumin/Globulin Ratio (1.1 - 2.2 %) 1.2 Hematology CBC w Diff NO MAN DIFF REQ WBC (4.8 - 10.8 /CUMM) 5.5 RBC (4.70 - 6.10 /CUMM) 2.17 L Hgb (14.0 - 18.0 G/DL) 6.5 *L Hct (42 - 52 %) 19.3 *L MCV (80.0 - 94.0 FL) 88.6 MCH (27.0 - 31.0 PG) 30.0 RDW (11.5 - 14.5 %) 18.5 H Plt Count (130 - 400 /CUMM) 52 L MPV (7.4 - 10.4 FL) 7.0 L Gran % (42.2 - 75.2 %) 68.2 Lymphocytes % (20.5 - 51.1 %) 23.7 Monocytes % (1.7 - 9.3 %) 7.5 Eosinophils % (0 - 5 %) 0.2 Basophils % (0.0 - 2.0 %) 0.4 Absolute Granulocytes (1.4 - 6.5 /CUMM) 3.8 Absolute Lymphocytes (1.2 - 3.4 /CUMM) 1.3 Absolute Monocytes (0.10 - 0.60 /CUMM) 0.4 Absolute Eosinophils (0.0 - 0.7 /CUMM) 0 Absolute Basophils (0.0 - 0.2 /CUMM) 0 PUBS MCHC (33.0 - 37.0 G/DL) 33.8 Disposition Summary Disposition Principal Diagnosis: Anemia Additional Diagnosis: Small Cell Lung Carcinoma Hypertension Depression Anxiety Discharge Disposition: home or self care Discharge Instructions General Discharge Information Code Status: Full Code Patient's Diet: Regular Diet Patient's Activity: Independent Follow-Up Instructions/Appts: Please f/u with pcp and oncology within 1 week of discharge Medications at Discharge Discharge Medications: Continue taking these medications: Simvastatin (Simvastatin*) 20 MG TABLET 1 Tablet ORAL Every night Qty = 90 Comments: NOT GIVEN IN HOSPITAL ALTERNATIVE, LIPITOR Last Taken: 06/24/16 Time: 1700 Amlodipine Besylate (Amlodipine Besylate) 5 MG TABLET 1 Tablet ORAL DAILY Qty = 90 Comments: Last Taken: Time: 1000 Aspirin (Ecotrin*) 81 MG TABLET.DR 1 Tablet ORAL DAILY Days = 30 Comments: Last Taken:06/25/16 Time:1000 Multivitamin (Multi-Day Vitamins) 1 EACH TABLET 1 Tablet ORAL DAILY Comments: Last Taken: 06/25/16 Time: 1000 Ondansetron (Zofran Odt) 4 MG TAB.RAPDIS 1 Tablet SUBLINGUAL THREE TIMES DAILY as needed for NAUSEA Qty = 10 Comments: NOT GIVEN IN HOSPITAL Sennosides/Docusate Sodium (Senna Plus Tablet) 8.6 MG-50 MG TABLET 1 Tablet ORAL TWICE DAILY as needed for CONSTIPATION Days = 28 Comments: NOT TAKEN IN HOSPITAL Escitalopram Oxalate (Escitalopram Oxalate) 5 MG TABLET 1 Tablet ORAL DAILY Days = 30 Comments: Last Taken:06/25/16 Time: 1000 Metoprolol Succ XL (Toprol Xl) 50 MG TAB 1 Tablet ORAL DAILY Qty = 30 Comments: Last Taken: 06/25/16 Time: 1000 Dexamethasone (Dexamethasone) 2 MG TABLET 1 Tablet ORAL DAILY Comments: Last Taken: 06/25/16 Time: 1000 Alprazolam (Alprazolam) 0.25 MG TABLET 1 Tablet ORAL THREE TIMES A DAY NEEDED Comments: Last Taken: 06/25/16 Time: 0815 Fentanyl (Fentanyl) 100 MCG/HOUR PATCH.TD72 1 Patch On the skin Every 3 days Comments: CHANGE TOMORROW 06/26 IN AM PLACED 06/23 0615 Hydromorphone HCl (Dilaudid) 8 MG TABLET 1 Tablet ORAL Q3-4H as needed for PAIN Prochlorperazine Maleate (Prochlorperazine Maleate) 10 MG TABLET 1 Tablet ORAL EVERY SIX HOURS as needed for NAUSEA/VOMITING Comments: NOT TAKEN IN HOSPITAL Lansoprazole (Prevacid) 30 MG CAPSULE.DR 1 Capsule ORAL DAILY Comments: Last Taken: 06/25/16 Time: 0600 Polyethylene Glycol 3350 (Miralax) 17 GRAM POWD.PACK 1 Packet ORAL DAILY as needed for CONSTIPATION Instructions: dissolve in water Comments: Last Taken: 06/25/16 Time: 1000 Copies To: JADE CLARK M.D
[2016-06-24 14:28] VITALS: BP 120/70
[2016-06-24 22:16] VITALS: BP 125/70
[2016-06-25 07:19] VITALS: BP 140/80
--- NOTE | 2016-06-25 07:41 | PN- Housestaff ---
LALIT JONES,QUINN 06/25/16 0741: Subjective Follow-up For: symptomatic anemia Dyspnea Complaints: back pain and bilateral subcostal pain Subjective: Patient's dyspnea improved significantly. He denies any chest pain, palpitation , fever, chills, abdominal pain, nausea, vomiting, diarrhea or shortness of breath. Review of Systems Constitutional: Denies: chills, fever, weakness. EENTM: Denies: visual changes. Cardiovascular: Denies: chest pain, palpitations. Respiratory: Denies: cough, short of breath, sputum production. Gastrointestinal: Denies: abdominal pain, nausea, vomiting. Genitourinary: Denies: dysuria. Musculoskeletal: Reports: back pain. Skin: Denies: rash. Neurological/Psychological: Denies: confusion. Objective Last 24 Hrs of Vital Signs/I&O Vital Signs Date Time Temp Pulse Resp B/P Pulse O2 O2 Flow FiO2 Ox Delivery Rate 06/25 0719 96.3 71 20 140/80 96 Room Air 06/24 2216 97.7 68 19 125/70 97 06/24 2124 97 Room Air Room Air 06/24 1428 98.9 90 20 120/70 95 06/24 0927 82 130/68 06/24 0927 80 130/68 Intake & Output 06/25 1600 06/25 0800 06/25 0000 Intake Total 800 Output Total Balance 800 Intake, Oral 800 Physical Exam General Appearance: Alert, Oriented X3, Cooperative, No Acute Distress Skin: No Rashes HEENT: Atraumatic, PERRLA, EOMI, Mucous Membr. moist/pink Neck: Supple, No JVD Lymphatic: Cervical nl Cardiovascular: Regular Rate, Normal S1, Normal S2, No Murmurs Lungs: Clear to Auscultation, Normal Air Movement Abdomen: Normal Bowel Sounds, Soft, No Tenderness Neurological: Normal Speech, Normal Tone Extremities: No Edema Vascular: Normal Pulses, Pulses Symmetrical Current Medications: Current Medications Sig/Noemí Start time Last Medication Dose Route Stop Time Status Admin Acetaminophen 650 MG Q6P PRN 06/23 0415 AC 06/24 PO 0249 Albuterol Sulfate 3 ML Q4H PRN 06/24 2130 AC 06/24 INH 2129 Alprazolam 0.25 MG TIDPRN PRN 06/23 0430 AC 06/25 PO 06/30 0429 0816 Amlodipine Besylate 5 MG DAILY 06/23 1000 AC 06/24 PO 0927 Aspirin Buffered 81 MG DAILY 06/23 1000 AC 06/24 PO 0927 Atorvastatin Calcium 10 MG 1700 06/23 1700 AC 06/24 PO 1629 Dexamethasone 2 MG DAILY 06/24 1527 AC 06/24 PO 1733 Escitalopram Oxalate 5 MG DAILY 06/23 1000 AC 06/24 PO 0927 Fentanyl Citrate 100 MCG Q72H 06/23 0430 AC 06/23 TOP 0617 Hydromorphone HCl 2 MG Q4-6 PRN PRN 06/23 0415 AC 06/25 IV 0600 Hydromorphone HCl 8 MG Q4P PRN 06/23 0300 AC 06/23 PO 0252 Ibuprofen 400 MG ONCE ONE 06/24 0900 DC 06/24 PO 06/24 0901 0926 Metoprolol Succinate 50 MG DAILY 06/23 1000 AC 06/24 PO 0927 Multivitamins 1 TAB DAILY 06/23 1000 AC 06/24 Therapeutic PO 0926 Omeprazole 40 MG DAILY AC 06/23 0700 AC 06/25 PO 0558 Ondansetron HCl 4 MG TIDPRN PRN 06/23 0430 AC PO Polyethylene Glycol 17 GM DAILY 06/23 1000 AC 06/24 PO 0926 Senna/Docusate Sodium 1 TAB BID PRN 06/23 0430 AC 06/24 PO 1935 Last 24 Hrs of Lab/Wiliam Results Last 24 Hrs of Labs/Mics: Laboratory Tests 06/25/16 0622: CBC w Diff NO MAN DIFF REQ, RBC 2.64 L, MCV 89.7, MCH 30.7, RDW 18.1 H, MPV 6.9 L, Gran % 79.1 H, Lymphocytes % 12.3 L, Monocytes % 8.1, Eosinophils % 0.2, Basophils % 0.3, Absolute Granulocytes 5.4, Absolute Lymphocytes 0.8 L, Absolute Monocytes 0.6, Absolute Eosinophils 0, Absolute Basophils 0, PUBS MCHC 34.2 Assessment/Plan Assessment: 70-year-old male with a past nuchal history of small cell lung cancer with metastases on chemotherapy (carboplatin and PLASTICS PATTERNMAKER-16) 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 fib, right partial nephrectomy presents to the ER complaining of acute onset of dyspnea. Denied fevers, chills, worsening cough or expectoration. Sees oncology undergoing chemotherapy, apparently last dose held due to low CBCD. Dyspnea resolved with blood transfusion, now saturation 96% RA Dyspnea: Significantly improved after 2 units of blood transfusion Dyspnea likely secondary to symptomatic anemia in combination with inflitrative process from small cell lung ca. Chest CTA negative for PE, demonstrating worsening groundglass disease involving the RUQ and lower lobes. keep oxygen saturation >92%, currently on room air Symptomatic Anemia: secondary to chemotherapeutic agents? apparently better than office records H&H stable 8.1/23.7, will transfuse 1 unit PRBC prior to discharge HTN: BP well controlled, contine home medications including Toprol-XL 50 mg, Norvasc 5 mg Headache: Improved h/o PAF currently in SR, not candidate for AC, continue home dose of metooprolol XL Small cell lung cancer with metastases on chemotherapy carboplatin and PLASTICS PATTERNMAKER-16 - Further chemotherapy and management as per oncology as outpatient Appreciated oncology recommendation Back and chest pain secondary to malignancy Continue current pain regimen with Dilaudid and fentanyl DVT prophylaxis mechanical Problem List: 1. Lung cancer 2. Metastasis 3. Paroxysmal atrial fibrillation 4. Hypertension 5. Dyspnea 6. Anemia Pain Ratin Pain Location: Back and subcostal Pain Goal: Pain 4 or less Pain Plan: Dilaudid and fentanyl Tomorrow's Labs & Rationales: None DVT/Prophylaxis: mechanical EDUARDO JONES,JADE 06/25/16 1043: Attending MD Review Statement Attending Statement Attending MD Statement: examined this patient, discuss w/resident/PA/TOOL DESIGN DRAFTER, agreed w/resident/PA/TOOL DESIGN DRAFTER, reviewed EMR data (avail), discussed with nursing, discussed with case mgmt, amended to note Attending Assessment/Plan: Patient seen and examined. Resting comfortably and not in any acute distress. No issues overnight. Hemoglobin level stable posttransfusion. Patient has no complaints this morning. Case was discussed with his oncologist this morning. Plans are for continued chemotherapy upon discharge, in anticipation of further drop of his hemoglobin levels again he will be transfused 1 unit of PRBCs to further optimize his hemoglobin levels prior to discharge. He will be discharged home following blood transfusion today. He is to follow-up with Dr. Fierro are in the oncology center as an outpatient. He shows no evidence of an infectious process. Shortness of breath was likely secondary to symptomatic anemia.
[2016-06-25 08:08] LABS: ABSOLUTE BASOPHIL COUNT 0 /CUMM (0.0-0.2); ABSOLUTE EOSINOPHIL COUNT 0 /CUMM (0.0-0.7); ABSOLUTE GRANULOCYTE CT 5.4 /CUMM (1.4-6.5); ABSOLUTE LYMPH COUNT 0.8 /CUMM (1.2-3.4); ABSOLUTE MONOCYTE COUNT 0.6 /CUMM (0.10-0.60); BASOPHIL % 0.3 % (0.0-2.0); EOSINOPHIL % 0.2 % (0-5); GRANULOCYTE % 79.1 % (42.2-75.2); HEMATOCRIT 23.7 % (42-52); MEAN CORPUSCULAR HGB 30.7 PG (27.0-31.0); MEAN CORPUSCULAR HGB CONC 34.2 G/DL (33.0-37.0); MEAN CORPUSCULAR VOLUME 89.7 FL (80.0-94.0); MEAN PLATELET VOLUME 6.9 FL (7.4-10.4); PLATELET COUNT 66 /CUMM (130-400); RBC DISTRIBUTION WIDTH 18.1 % (11.5-14.5); RED BLOOD CELL CT 2.64 /CUMM (4.70-6.10); WHITE BLOOD CELL COUNT 6.8 /CUMM (4.8-10.8)
--- NOTE | 2016-06-25 09:42 | Patient Discharge Instructions ---
Discharge Instructions General Discharge Information You were seen/treated for: Symptomatic anemia Special Instructions: Please follow up with PCP within a week of discharge. Please follow up with Dr. Mosley within a week of discharge for further management of lung cancer chemotherapy. Diet Recommended Diet: Heart Healthy Activity Additional ACTIVITY Info: As tolerated Acute Coronary Syndrome Inclusion Criteria At DC or during hospital stay patient has or had the following: ACS DIAGNOSIS No Discharge Core Measures Meds if any: Prescribed or Continued at Discharge Meds if any: NOT Prescribed or Continued at Discharge Congestive Heart Failure Inclusion Criteria At DC or during hospital stay patient has or had the following: CHF DIAGNOSIS No Discharge Core Measures Meds if any: Prescribed or Continued at Discharge Meds if any: NOT Prescribed or Continued at Discharge Cerebrovascular accident Inclusion Criteria At DC or during hospital stay patient has or had the following: CVA/TIA Diagnosis No Discharge Core Measures Meds if any: Prescribed or Continued at Discharge Meds if any: NOT Prescribed or Continued at Discharge Venous thromboembolism Inclusion Criteria VTE Diagnosis No VTE Type NONE VTE Confirmed by (Test) CT CHEST ANGIOGRAM Discharge Core Measures - Per Current guidelines, there needs to be overlap - treatment for the first 5 days of Warfarin therapy. - If discharged on Warfarin prior to 5 days of - overlap therapy, the patient will need to be - assessed for post discharge needs including - *Post discharge parental anticoagulation - *Warfarin and/or parental anticoagulation education - *Follow up date to check INR post discharge At least 5 days overlap therapy as Inpatient No Meds if any: Prescribed or Continued at Discharge Note: Overlap Therapy is Warfarin and Anticoagulant Meds if any: NOT Prescribed or Continued at Discharge
--- NOTE | 2016-06-25 09:51 | PN- Oncology ---
Subjective Subjective: Self-limited chest pain, no shortness of breath Review of Systems: Point review of systems otherwise unchanged Objective Vital Signs and I&Os Vital Signs Date Time Temp Pulse Resp B/P Pulse O2 O2 Flow FiO2 Ox Delivery Rate 06/25 0832 97 Room Air 06/25 0719 96.3 71 20 140/80 96 Room Air 06/24 2216 97.7 68 19 125/70 97 06/24 2124 97 Room Air Room Air 06/24 1428 98.9 90 20 120/70 95 Intake & Output 06/25 1600 06/25 0800 06/25 0000 06/24 1600 06/24 0800 06/24 0000 Intake Total 800 800 370 700 Output Total Balance 800 800 370 700 Intake, IV 10 Intake, Oral 800 800 360 700 Output, Drainage Output, Urine Gen.: in NAD ENT: Sclera anicteric Chest: Normal respiratory effort, decreased breath sounds Cor: RRR, no extra sounds Abdomen: Soft, bowel sounds present, no tenderness, no rebound Extremities: Without clubbing, cyanosis, or asymmetric edema Neurology: Alert and oriented 3, no gross deficit Current Medications: Current Medications Sig/Noemí Start time Last Medication Dose Route Stop Time Status Admin Acetaminophen 650 MG Q6P PRN 06/23 0415 AC 06/24 PO 0249 Albuterol Sulfate 3 ML Q4H PRN 06/24 2130 AC 06/25 INH 0822 Alprazolam 0.25 MG TIDPRN PRN 06/23 0430 AC 06/25 PO 06/30 0429 0816 Amlodipine Besylate 5 MG DAILY 06/23 1000 AC 06/24 PO 0927 Aspirin Buffered 81 MG DAILY 06/23 1000 AC 06/24 PO 0927 Atorvastatin Calcium 10 MG 1700 06/23 1700 AC 06/24 PO 1629 Dexamethasone 2 MG DAILY 06/24 1527 AC 06/24 PO 1733 Escitalopram Oxalate 5 MG DAILY 06/23 1000 AC 06/24 PO 0927 Fentanyl Citrate 100 MCG Q72H 06/23 0430 AC 06/23 TOP 0617 Hydromorphone HCl 2 MG Q4-6 PRN PRN 06/23 0415 AC 06/25 IV 0600 Hydromorphone HCl 8 MG Q4P PRN 06/23 0300 AC 06/23 PO 0252 Metoprolol Succinate 50 MG DAILY 06/23 1000 AC 06/24 PO 0927 Multivitamins 1 TAB DAILY 06/23 1000 AC 06/24 Therapeutic PO 0926 Omeprazole 40 MG DAILY AC 06/23 0700 AC 06/25 PO 0558 Ondansetron HCl 4 MG TIDPRN PRN 06/23 429 AC PO Polyethylene Glycol 17 GM DAILY 06/23 1000 AC 06/24 PO 0926 Senna/Docusate Sodium 1 TAB BID PRN 06/23 429 AC 06/24 PO 1935 Results Last 24 Hours of Lab Results: Laboratory Tests 06/25 621 Hematology CBC w Diff NO MAN DIFF REQ WBC (4.8 - 10.8 /CUMM) 6.8 RBC (4.70 - 6.10 /CUMM) 2.64 L Hgb (14.0 - 18.0 G/DL) 8.1 L Hct (42 - 52 %) 23.7 L MCV (80.0 - 94.0 FL) 89.7 MCH (27.0 - 31.0 PG) 30.7 RDW (11.5 - 14.5 %) 18.1 H Plt Count (130 - 400 /CUMM) 66 L MPV (7.4 - 10.4 FL) 6.9 L Gran % (42.2 - 75.2 %) 79.1 H Lymphocytes % (20.5 - 51.1 %) 12.3 L Monocytes % (1.7 - 9.3 %) 8.1 Eosinophils % (0 - 5 %) 0.2 Basophils % (0.0 - 2.0 %) 0.3 Absolute Granulocytes (1.4 - 6.5 /CUMM) 5.4 Absolute Lymphocytes (1.2 - 3.4 /CUMM) 0.8 L Absolute Monocytes (0.10 - 0.60 /CUMM) 0.6 Absolute Eosinophils (0.0 - 0.7 /CUMM) 0 Absolute Basophils (0.0 - 0.2 /CUMM) 0 PUBS MCHC (33.0 - 37.0 G/DL) 34.2 Assessment/Plan Assessment/Recommendations: 1. Small cell lung cancer-stable for discharge 2. Anemia-chemotherapy induced-consider transfusion prior to discharge
[2016-06-25 14:33] VITALS: BP 125/66
== END 2016-06-25 15:05 | disposition home health service (06) | DRG 812 ==
LOC: ENRESERVTM → ENRESERVDT → ERH 01:46 → ERHI 03:08 → ENPENDDIS 03:08 → 2NA 03:08
PROVIDERS: Pediatrics; Student in an Organized Health Care Education/Training Program; ADMIT Internal Medicine
PROC: 30233N1 Transfusion of Nonautologous Red Blood Cells into Peripheral Vein, Percutaneous Approach (ICD-10-PCS; principal; 2016-06-23)
DX: D64.81 Anemia due to antineoplastic chemotherapy (principal); C79.51 Secondary malignant neoplasm of bone; D69.59 Other secondary thrombocytopenia; C34.90 Malignant neoplasm of unspecified part of unspecified bronchus or lung; I48.0 Paroxysmal atrial fibrillation; G95.29 Other cord compression; T45.1X5A Adverse effect of antineoplastic and immunosuppressive drugs, initial encounter; I25.10 Atherosclerotic heart disease of native coronary artery without angina pectoris; I10 Essential (primary) hypertension; E78.5 Hyperlipidemia, unspecified; I25.2 Old myocardial infarction; F41.9 Anxiety disorder, unspecified; F32.9 Major depressive disorder, single episode, unspecified; Z87.891 Personal history of nicotine dependence
CPT/HCPCS: 2NAP; 36415; 82436; 86920; 87040; 93005; 93010; 94799; 96374; 96375; 99291; J0456; J0696; J1200; J2930; J3101; J7060; P9016

== ENCOUNTER 2016-06-30 15:31 | Emergency (ER) | payer OTHER, MEDICARE ==
[~2016-06-30] VITALS: Ht 180.3 cm; Wt 83.9 kg
--- NOTE | 2016-06-30 15:46 | ED GENERAL ADULT ---
History of Present Illness General Chief Complaint: Nausea, Vomiting, Diarrhea Stated Complaint: N/V, HX STAGE IV LUNG CANCER Source: patient Exam Limitations: no limitations Vital Signs & Intake/Output Vital Signs & Intake/Output Vital Signs Date Time Temp Pulse Resp B/P Pulse O2 O2 Flow FiO2 Ox Delivery Rate 06/30 1756 97.6 82 18 159/89 97 Room Air 06/30 1600 99 Room Air Room Air 06/30 1543 97.7 90 24 175/97 98 Room Air Allergies Coded Allergies: Iodinated Contrast Media - Oral and (Mild, Rash 06/30/16) Reconcile Medications Alprazolam 0.25 MG TABLET 1 TAB PO TIDPRN ANXIETY (Reported) Amlodipine Besylate 5 MG TABLET 1 TAB PO DAILY BP (Reported) Aspirin (Ecotrin*) 81 MG TABLET.DR 1 TAB PO DAILY HEART/BLOOD (Reported) Dexamethasone 2 MG TABLET 0.5 TAB PO DAILY CORD COMPRESSION (Reported) Escitalopram Oxalate 5 MG TABLET 1 TAB PO DAILY DEPRESSION Fentanyl 100 MCG/HOUR PATCH.TD72 1 PAT TOP Q3D PAIN (Reported) Hydromorphone HCl (Dilaudid) 8 MG TABLET 1 TAB PO Q3-4H PRN PAIN (Reported) Lansoprazole (Prevacid) 30 MG CAPSULE.DR 1 CAP PO DAILY GI (Reported) Metoprolol Succ XL (Toprol Xl) 50 MG TAB 1 TAB PO DAILY atrial fibrillation Multivitamin (Multi-Day Vitamins) 1 EACH TABLET 1 TAB PO DAILY SUPPLEMENT ( Reported) Ondansetron (Zofran Odt) 4 MG TAB.RAPDIS 1 TAB SL TID PRN NAUSEA Polyethylene Glycol 3350 (Miralax) 17 GRAM POWD.PACK 1 PAC PO DAILY PRN CONSTIPATION (Reported) dissolve in water Prochlorperazine Maleate 10 MG TABLET 1 TAB PO Q6 PRN NAUSEA/VOMITING ( Reported) Sennosides/Docusate Sodium (Senna S Tablet) 8.6 MG-50 MG TABLET 2 TAB PO QPM PRN GI (Reported) Simvastatin (Simvastatin*) 20 MG TABLET 1 TAB PO QPM CHOLESTEROL (Reported) Triage Note: PT BIBA FROM HOME C/C N/V WITH 1 EPISODE OF DIARRHEA. VOMITING THE LAST 90 MINUTES. PMHX INCLUDES STAGE IV LUNG CANCER, DUE TO HAVE NEXT CHEMO TOMORROW. Triage Nurses Notes Reviewed? yes Onset: Gradual Duration: day(s): (1) Timing: recent history Injury Environment: home Severity: moderate No Modifying Factors: none HPI: Patient is a 70-year-old male with history of partial nephrectomy, lung cancer with metastasis presenting to the emergency department with family member with chief complaint of nausea vomiting and diarrhea that began this morning. He did report decreased by mouth intake yesterday with malaise. Denies any fevers but reports chills. Woke up this morning and was nauseous and had about 10 episodes of watery loose stool. No blood in the stool. He then had an episode of emesis several hours later that was dark in color. Unsure if it was blood or not. His family members had; a few days ago and now have improved. Periportal his central is chest pain, which has been chronic since been diagnosed with lung cancer 3 months ago, has increased this morning secondary to vomiting. He is also reporting right flank pain which she has had since the diagnosis of lung cancer for the past 3 months as well . He cannot get comfortable. He took by mouth Dilaudid 4 mg approximately 2 hours prior to arrival with no relief. Denies any urinary frequency urgency or dysuria. Denies any radiation of the chest pain. Venous constant worse with palpation and certain positions. No numbness. Denies any palpitations. No recent travel. Denies any recent antibiotic use. He states his next chemotherapy treatment tomorrow. (HODA SEALS) Past History Travel History Traveled to [place] past 21 day No Medical History Any Pertinent Medical History? 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 No (HODA SEALS) Review of Systems Review of Systems Constitutional: Reports: malaise. Comments Review of systems: See HPI, All other systems negative. Constitutional, no fever or weight loss HEENT: No visual changes no sore throat no congestion Cardiovascular: No palpitation , orthopnea or ankle swelling Skin, no jaundice no rashes Respiratory: No dyspnea cough sputum or hemoptysis GI: Positive nausea, vomiting, diarrhea : No dysuria No hematuria Muscle skeletal: no back pain, no neck pain, Neurologic: No numbness no confusion, no headache Psych: No stress anxiety or depression,. Heme/endocrine: No bruising no bleeding no polyuria or polydipsia Immunology: No splenectomy or history of AIDS (HODA SEALS) Physical Exam Physical Exam General Appearance: well developed/nourished, no apparent distress, alert, awake , comfortable Comments: Well-developed well-nourished person in no acute distress HEENT: Pupils equally round and reactive to light and accommodation. Nose is atraumatic. External auditory canal and Tympanic membranes clear. Pharynx normal. No swelling or edema. Slightly dry oral mucosa. Neck: Supple, no lymphadenopathy, normal range of motion without pain or tenderness Back: Nontender Cardiovascular: Regular rate and rhythms no murmurs rubs or gallops, normal JVP Respiratory: Chest nontender. No respiratory distress.breath sounds DIMINISHED to auscultation bilaterally Abdomen: Soft, tenderness to palpation in the upper quadrants bilaterally in the periumbilical region, mild guarding, nondistended, no appreciable organomegaly. Hyperactive bowel sounds. No ascites Extremity: No edema Neuro: Alert oriented x3 Skin: No appreciable rash on exposed skin, skin is warm and dry. Psych: Mood and affect is normal, memory and judgment is normal. Core Measures ACS in differential dx? No CVA/TIA Diagnosis: No Severe Sepsis Present: No Septic Shock Present: No (HODA SEALS) Progress Differential Diagnoses I considered the following diagnoses in my evaluation of the patient: Dehydration, electrolyte abnormality, exacerbation of chronic pain, pulmonary embolism, COPD exacerbation, muscle strain, ACS Plan of Care: Orders Procedure Date/time Status FingerStick- Glucose 06/30 1554 Active LACTIC ACID 06/30 1553 Complete EKG 06/30 1553 Active ARTERIAL BLOOD GAS (GEN) 06/30 1546 Active TROPONIN LEVEL 06/30 1546 Complete COMPREHENSIVE METABOLIC PANEL 06/30 1546 Complete CBC WITHOUT DIFFERENTIAL 06/30 1546 Complete ACETONE 06/30 1546 Complete Laboratory Tests 06/30/16 1853: Lactic Acid Cancelled 06/30/16 1612: Lactic Acid 1.1 06/30/16 1612: Anion Gap 11, Estimated GFR > 60, BUN/Creatinine Ratio 17.8, Glucose 90, Calcium 9.7, Total Bilirubin 0.9, AST 92 H, ALT 61, Alkaline Phosphatase 319 H, Troponin I < 0.01, Total Protein 6.8, Albumin 4.0, Globulin 2.8, Albumin/ Globulin Ratio 1.4, CBC w Diff NO MAN DIFF REQ, RBC 3.53 L, MCV 89.0, MCH 31.3 H, RDW 17.9 H, MPV 6.8 L, Gran % 79.2 H, Lymphocytes % 10.6 L, Monocytes % 9.8 H, Eosinophils % 0.1, Basophils % 0.3, Absolute Granulocytes 6.2, Absolute Lymphocytes 0.8 L, Absolute Monocytes 0.8 H, Absolute Eosinophils 0, Absolute Basophils 0, PUBS MCHC 35.1, Acetone Level NEGATIVE 06/30/16 1605: pH 7.51 H, pCO2 26 L, pO2 77 L, HCO3 20 L, ABG O2 Sat (Measured) 96.0, P-50 (Temp Corrected) N, Carboxyhemoglobin 0.3 L, O2 Concentration % R/A, Temperature 97.7, Phlebotomy Draw Site RIGHT RADIAL 06/30/16 1546: Urine Color Cancelled, Urine Clarity Cancelled, Urine pH Cancelled, Ur Specific [place] Cancelled, Urine Protein Cancelled, Urine Ketones Cancelled, Urine Nitrite Cancelled, Urine Bilirubin Cancelled, Urine Urobilinogen Cancelled, Ur Leukocyte Esterase Cancelled, Ur Microscopic Cancelled, Urine Hemoglobin Cancelled, Urine Glucose Cancelled Diagnostic Imaging: Viewed by Me: Radiology Read, CT Scan. Discussed w/RAD: Radiology Read, CT Scan. Radiology Impression: PATIENT: MARJORIE GLASER PRESENT AGE: 70 PATIENT ACCOUNT NO: [id number] : 45 LOCATION: [facility] ORDERING PHYSICIAN: HODA JACOBSEN SERVICE DATE: 06/30/16 EXAM TYPE: CAT - CT ABD & PELVIS W/O IV CONTRAS EXAMINATION: CT ABDOMEN AND PELVIS WITHOUT CONTRAST CLINICAL INFORMATION: Abdominal pain, nausea, vomiting, diarrhea. History of metastatic small cell lung cancer. COMPARISON: Chest CTA from 06/23/2016. Abdominal and pelvic CT from 05/15/2016. TECHNIQUE: Contiguous axial thin section helical images of the abdomen and pelvis were performed without oral or IV contrast. The data set was reformatted in the coronal and sagittal planes and reviewed on an independent workstation. DLP: 456 mGy-cm. FINDINGS: There is a small right pleural effusion. There is dependent atelectasis at the right lung base. Within the right lower lobe adjacent to the major fissure, there is a 4 mm nodule. Within the lateral segment of the right middle lobe adjacent to the pleura, there is a 3 mm nodule. Within the left lower lobe there is a 3 mm nodule. There is a small pericardial effusion. The liver is of overall normal size and attenuation with innumerable low-attenuation lesions. There is no intrahepatic biliary ductal dilation. A normal gallbladder is identified. The spleen, pancreas, adrenal glands are unremarkable. There is severe right hydronephrosis again identified. There is marked cortical thinning. There is no nephrolithiasis. A normal left kidney is present. There is no abdominal free fluid. There is neither mesenteric nor retroperitoneal lymphadenopathy. There is sigmoid diverticulosis without evidence of diverticulitis. Otherwise, unremarkable unopacified loops of small and large bowel are identified. There is no pelvic free fluid. The urinary bladder is unremarkable. There is neither pelvic nor inguinal lymphadenopathy. Bone windows : Neither sclerotic nor lytic bone lesions are identified. IMPRESSION: Sigmoid diverticulosis without evidence of diverticulitis. Extensive hepatic metastatic disease. Small right pleural effusion with associated airspace disease. Bilateral lower lobe pulmonary nodules. Severe right hydronephrosis with marked cortical thinning., PATIENT: MARJORIE GLASER PRESENT AGE: 70 PATIENT ACCOUNT NO: [id number] : 45 LOCATION: [facility] ORDERING PHYSICIAN: HODA JACOBSEN SERVICE DATE: 06/30/16 EXAM TYPE: CAT - CT ABD & PELVIS W/O IV CONTRAS EXAMINATION: CT ABDOMEN AND PELVIS WITHOUT CONTRAST CLINICAL INFORMATION: Abdominal pain, nausea, vomiting, diarrhea. History of metastatic small cell lung cancer. COMPARISON: Chest CTA from 2016. Abdominal and pelvic CT from 05/15/2016. TECHNIQUE: Contiguous axial thin section helical images of the abdomen and pelvis were performed without oral or IV contrast. The data set was reformatted in the coronal and sagittal planes and reviewed on an independent workstation. DLP: 456 mGy-cm. FINDINGS: There is a small right pleural effusion. There is dependent atelectasis at the right lung base. Within the right lower lobe adjacent to the major fissure, there is a 4 mm nodule. Within the lateral segment of the right middle lobe adjacent to the pleura, there is a 3 mm nodule. Within the left lower lobe there is a 3 mm nodule. There is a small pericardial effusion. The liver is of overall normal size and attenuation with innumerable low-attenuation lesions. There is no intrahepatic biliary ductal dilation. A normal gallbladder is identified. The spleen, pancreas, adrenal glands are unremarkable. There is severe right hydronephrosis again identified. There is marked cortical thinning. There is no nephrolithiasis. A normal left kidney is present. There is no abdominal free fluid. There is neither mesenteric nor retroperitoneal lymphadenopathy. There is sigmoid diverticulosis without evidence of diverticulitis. Otherwise, unremarkable unopacified loops of small and large bowel are identified. There is no pelvic free fluid. The urinary bladder is unremarkable. There is neither pelvic nor inguinal lymphadenopathy. Bone windows: Neither sclerotic nor lytic bone lesions are identified. IMPRESSION: Sigmoid diverticulosis without evidence of diverticulitis. Extensive hepatic metastatic disease. Small right pleural effusion with associated airspace disease. Bilateral lower lobe pulmonary nodules. Severe right hydronephrosis with marked cortical thinning. DICTATED BY: BRIANA MENDEZ MD DATE/TIME DICTATED:06/30/161918 USER EXPERIENCE RESEARCHER:LENNOX DATE/TIME TRANSCRIBED:06/30/161918 CONFIDENTIAL, DO NOT COPY WITHOUT APPROPRIATE AUTHORIZATION. <Electronically signed in Other Vendor System> SIGNED BY: BRIANA MENDEZ MD 06/30/161927 CXR Impression: PATIENT: MARJORIE GLASER PRESENT AGE: 70 PATIENT ACCOUNT NO: [id number] : 45 LOCATION: [facility] ORDERING PHYSICIAN: HODA JACOBSEN SERVICE DATE: 06/30/16 EXAM TYPE: RAD - XRY-CHEST XRAY, PA AND LATERAL EXAMINATION: XR CHEST CLINICAL INFORMATION: Cough and shortness of breath. COMPARISON: Chest x-ray and CTA of the chest 06/23/[address] scan of the abdomen and pelvis also obtained 06/30/2016. TECHNIQUE: AP and lateral views of the chest were obtained. FINDINGS: There has been no interval change in the surgical clips overlying the right lung apex. The lung frey are mildly hyperinflated bilaterally. There is a small area of opacity in the medial right lower lobe, similar compared to the prior study. The cardiac silhouette is prominent but stable. The aortic arch is calcified and unfolded. The hilar regions are unremarkable. On the lateral view there is a pleural effusion, lateralized to the right on the concurrent CT scan. There are multilevel degenerative changes in the thoracic spine. IMPRESSION: 1. There is likely a right-sided pleural effusion. 2. There is no focal consolidation. 3. There is stable mild prominence of the cardiac silhouette. DICTATED BY: LAUREN BOUDREAUX MD DATE/TIME DICTATED:06/30/161848 USER EXPERIENCE RESEARCHER:LENNOX DATE/TIME TRANSCRIBED:06/30/161848 CONFIDENTIAL, DO NOT COPY WITHOUT APPROPRIATE AUTHORIZATION. <Electronically signed in Other Vendor System> SIGNED BY: LAUREN BOUDREAUX MD 06/30/167 Initial ED EKG: NSR 83 BPM Prior EKG: unchanged Comments: On arrival patient in no acute distress with diffuse abdominal pain on exam. Patient has history of small cell carcinoma with metastasis to the liver and bone. Patient scheduled to have chemotherapy done tomorrow. Recently required blood transfusion secondary to anemia. IV initiated and fluids started on arrival. Patient will also be given pain medication. Usually takes by mouth Dilaudid at home reports IV usually works better. Patient feeling improved after IV Dilaudid. Family informed of imaging results and lab work results. H&H appears improved from previous discharge lab work. CT of the abdomen and pelvis show no acute infectious process. It did show metastasis to the liver which family was aware about. She'll be treated symptomatically with nausea medication and pain medication both of which the patient are he has at home. He is an appointment tomorrow morning at 10:15 with his oncologist. They will repeat blood work. They will return for any worsening symptoms or concerns. Discussed with Dr. Blank and he agrees to plan. (SHELBY PA,HODA) Departure Departure Time of Disposition: 1934 Disposition: HOME OR SELF CARE Condition: Stable Clinical Impression Primary Impression: Nausea and vomiting Qualifiers: Vomiting type: unspecified Vomiting Intractability: unspecified Qualified Code: R11.2 - Nausea with vomiting, unspecified Secondary Impressions: Abdominal pain Qualifiers: Abdominal location: generalized Qualified Code: R10.84 - Generalized abdominal pain Diarrhea Qualifiers: Diarrhea type: unspecified type Qualified Code: R19.7 - Diarrhea, unspecified Referrals: MELISSA JONES,PANCHO Zaman (PCP/Family) Additional Instructions: Follow-up with your oncologist tomorrow as scheduled at 10:15. Return for worsening symptoms or concerns. Increase fluid intake. Take at home nausea medication and pain medication as previously prescribed. Return for worsening symptoms or concerns. Departure Forms: Customer Survey General Discharge Information (HODA SEALS) PA/PHARMACY TECHNICIAN TRAINEE Co-Sign Statement Statement: ED Attending supervision documentation- [X] I saw and evaluated the patient. I have also reviewed all the pertinent lab results and diagnostic results. I agree with the findings and the plan of care as documented in the PA's/PHARMACY TECHNICIAN TRAINEE's documentation. [X] I have reviewed the ED Record and agree with the PA's/PHARMACY TECHNICIAN TRAINEE's documentation. [] Additions or exceptions (if any) to the PAs/PHARMACY TECHNICIAN TRAINEE's note and plan are summarized below: [] (KENNETH JONES,[place]ER[place] Zaman) Critical Care Note Critical Care Note Critical Care Time: non-applicable (HODA SEALS)
[2016-06-30] MEDS ORDERED: SENNA S TABLET1 EACH PO (16:23)
[2016-06-30 16:44] LABS: ABSOLUTE BASOPHIL COUNT 0 /CUMM (0.0-0.2); ABSOLUTE EOSINOPHIL COUNT 0 /CUMM (0.0-0.7); MEAN PLATELET VOLUME 6.8 FL (7.4-10.4); WHITE BLOOD CELL COUNT 7.9 /CUMM (4.8-10.8)
[2016-06-30 16:47] LABS: ABSOLUTE GRANULOCYTE CT 6.2 /CUMM (1.4-6.5); ABSOLUTE LYMPH COUNT 0.8 /CUMM (1.2-3.4); ABSOLUTE MONOCYTE COUNT 0.8 /CUMM (0.10-0.60); BASOPHIL % 0.3 % (0.0-2.0); EOSINOPHIL % 0.1 % (0-5); GRANULOCYTE % 79.2 % (42.2-75.2); MEAN CORPUSCULAR HGB 31.3 PG (27.0-31.0); MEAN CORPUSCULAR HGB CONC 35.1 G/DL (33.0-37.0); PLATELET COUNT 93 /CUMM (130-400); RBC DISTRIBUTION WIDTH 17.9 % (11.5-14.5)
[2016-06-30 16:50] LABS: HEMATOCRIT 31.4 % (42-52); RED BLOOD CELL CT 3.53 /CUMM (4.70-6.10)
--- NOTE | 2016-06-30 18:58 | RADIOLOGY REPORT ---
EXAMINATION: XR CHEST CLINICAL INFORMATION: Cough and shortness of breath. COMPARISON: Chest x-ray and CTA of the chest 06/23/[address] scan of the abdomen and pelvis also obtained 06/30/2016. TECHNIQUE: AP and lateral views of the chest were obtained. FINDINGS: There has been no interval change in the surgical clips overlying the right lung apex. The lung frey are mildly hyperinflated bilaterally. There is a small area of opacity in the medial right lower lobe, similar compared to the prior study. The cardiac silhouette is prominent but stable. The aortic arch is calcified and unfolded. The hilar regions are unremarkable. On the lateral view there is a pleural effusion, lateralized to the right on the concurrent CT scan. There are multilevel degenerative changes in the thoracic spine. IMPRESSION: 1. There is likely a right-sided pleural effusion. 2. There is no focal consolidation. 3. There is stable mild prominence of the cardiac silhouette.
--- NOTE | 2016-06-30 19:28 | CT SCAN REPORT ---
EXAMINATION: CT ABDOMEN AND PELVIS WITHOUT CONTRAST CLINICAL INFORMATION: Abdominal pain, nausea, vomiting, diarrhea. History of metastatic small cell lung cancer. COMPARISON: Chest CTA from 06/23/2016. Abdominal and pelvic CT from 05/15/2016. TECHNIQUE: Contiguous axial thin section helical images of the abdomen and pelvis were performed without oral or IV contrast. The data set was reformatted in the coronal and sagittal planes and reviewed on an independent workstation. DLP: 456 mGy-cm. FINDINGS: There is a small right pleural effusion. There is dependent atelectasis at the right lung base. Within the right lower lobe adjacent to the major fissure, there is a 4 mm nodule. Within the lateral segment of the right middle lobe adjacent to the pleura, there is a 3 mm nodule. Within the left lower lobe there is a 3 mm nodule. There is a small pericardial effusion. The liver is of overall normal size and attenuation with innumerable low-attenuation lesions. There is no intrahepatic biliary ductal dilation. A normal gallbladder is identified. The spleen, pancreas, adrenal glands are unremarkable. There is severe right hydronephrosis again identified. There is marked cortical thinning. There is no nephrolithiasis. A normal left kidney is present. There is no abdominal free fluid. There is neither mesenteric nor retroperitoneal lymphadenopathy. There is sigmoid diverticulosis without evidence of diverticulitis. Otherwise, unremarkable unopacified loops of small and large bowel are identified. There is no pelvic free fluid. The urinary bladder is unremarkable. There is neither pelvic nor inguinal lymphadenopathy. Bone windows: Neither sclerotic nor lytic bone lesions are identified. IMPRESSION: Sigmoid diverticulosis without evidence of diverticulitis. Extensive hepatic metastatic disease. Small right pleural effusion with associated airspace disease. Bilateral lower lobe pulmonary nodules. Severe right hydronephrosis with marked cortical thinning.
[2016-06-30 19:59] VITALS: BP 142/83
== END 2016-06-30 20:00 ==
LOC: ERH 15:31
PROVIDERS: Physician Assistant
DX: R11.2 Nausea with vomiting, unspecified (principal); R19.7 Diarrhea, unspecified; R10.11 Right upper quadrant pain; R10.12 Left upper quadrant pain; R10.33 Periumbilical pain; I10 Essential (primary) hypertension; E11.9 Type 2 diabetes mellitus without complications
CPT/HCPCS: 74176; 93005; 93010; 96361; 96374; 96375; 96376; J1200; J2765

== ENCOUNTER 2016-07-19 05:28 | Emergency (ER) | payer OTHER, MEDICARE ==
[~2016-07-19 05:28] MED LIST changes: +SENNA S TABLET1 EACH PO
--- NOTE | 2016-07-19 06:03 | ED DYSPNEA/ASTHMA COMPLAINT ---
History of Present Illness General Chief Complaint: General Adult Stated Complaint: CHEST PAIN, HX OF LUNG CANCER STAGE 4 Source: patient, family Exam Limitations: no limitations Vital Signs & Intake/Output Vital Signs & Intake/Output Vital Signs Date Time Temp Pulse Resp B/P Pulse O2 O2 Flow FiO2 Ox Delivery Rate 07/19 0608 83 22 139/73 96 Room Air Allergies Coded Allergies: Iodinated Contrast Media - Oral and (Mild, Rash 06/30/16) Reconcile Medications Alprazolam 0.25 MG TABLET 1 TAB PO TIDPRN ANXIETY (Reported) Amlodipine Besylate 5 MG TABLET 1 TAB PO DAILY BP (Reported) Aspirin (Ecotrin*) 81 MG TABLET.DR 1 TAB PO DAILY HEART/BLOOD (Reported) Dexamethasone 2 MG TABLET 0.5 TAB PO DAILY CORD COMPRESSION (Reported) Escitalopram Oxalate 5 MG TABLET 1 TAB PO DAILY DEPRESSION Fentanyl 100 MCG/HOUR PATCH.TD72 1 PAT TOP Q3D PAIN (Reported) Hydromorphone HCl (Dilaudid) 8 MG TABLET 1 TAB PO Q3-4H PRN PAIN (Reported) Lansoprazole (Prevacid) 30 MG CAPSULE.DR 1 CAP PO DAILY GI (Reported) Metoprolol Succ XL (Toprol Xl) 50 MG TAB 1 TAB PO DAILY atrial fibrillation Multivitamin (Multi-Day Vitamins) 1 EACH TABLET 1 TAB PO DAILY SUPPLEMENT ( Reported) Ondansetron (Zofran Odt) 4 MG TAB.RAPDIS 1 TAB SL TID PRN NAUSEA Polyethylene Glycol 3350 (Miralax) 17 GRAM POWD.PACK 1 PAC PO DAILY PRN CONSTIPATION (Reported) dissolve in water Prochlorperazine Maleate 10 MG TABLET 1 TAB PO Q6 PRN NAUSEA/VOMITING ( Reported) Sennosides/Docusate Sodium (Senna S Tablet) 8.6 MG-50 MG TABLET 2 TAB PO QPM PRN GI (Reported) Simvastatin (Simvastatin*) 20 MG TABLET 1 TAB PO QPM CHOLESTEROL (Reported) Triage Nurses Notes Reviewed? yes Onset: Gradual Duration: week(s):, waxing and waning Timing: recent history Severity: mild, moderate Activities at Onset: none Prior Episodes/Possible Cause: frequent episodes Modifying Factors: Improves With: pain medication. Associated Symptoms: lung cancer HPI: 70 yo gentleman with chronic chest pain due to stage iv lung cancer. He notes, "I take the dilaudid pills and they work for a little bit, but sometimes I need the liquid Dilaudid." He notes that he took extra pills of the oral dilaudid, "they worked for a little bit, but then the pain came back." His discomfort is consistent with his prior episodes. Past History Travel History Traveled to [place] past 21 day No Medical History Any Pertinent Medical History? see below for history Neurological: NONE EENT: NONE Cardiovascular: hypertension, hyperlipidemia, myocardial infarction, CARDIAC STENTS Respiratory: bronchitis, COPD, emphysema, lung cancer Gastrointestinal: diverticulitis Hepatic: LIVER CA Renal: right partial nephrectomy Musculoskeletal: disk herniation Psychiatric: anxiety Endocrine: diabetes Blood Disorders: anemia Cancer(s): BENIGN KIDNEY TUMOR LUNG CANCER LIVER CA TUBE MAN/Reproductive: NONE History of MRSA: No History of VRE: No History of CDIFF: No Surgical History Surgical History: PARTIAL RIGHT NEPHRECTOMY L4-L5 DISCECTOMY, UMBILICAL TUMOR BURST WHEN HE WAS 8YRS OLD Psychosocial History Who do you live with Family Services at Home Nursing What is your primary language Tongan Family History Family History, If Any: Relation not specified for: *No pertinent family history Hx Contributory? No Review of Systems Review of Systems Constitutional: Reports: no symptoms. EENTM: Reports: no symptoms. Respiratory: Reports: no symptoms. Cardiovascular: Reports: no symptoms. GI: Reports: no symptoms. Genitourinary: Reports: no symptoms. Musculoskeletal: Reports: no symptoms. Skin: Reports: no symptoms. Neurological/Psychological: Reports: no symptoms. Hematologic/Endocrine: Reports: no symptoms. Immunologic/Allergic: Reports: no symptoms. All Other Systems: Reviewed and Negative Physical Exam Physical Exam General Appearance: well developed/nourished, mild distress Head: atraumatic, normal appearance Eyes: Bilateral: normal appearance. Ears, Nose, Throat: normal pharynx, normal ENT inspection Neck: normal inspection Respiratory: chest non-tender, no respiratory distress, quiet respiration Cardiovascular: regular rate/rhythm Gastrointestinal: normal bowel sounds, soft, non-tender, no organomegaly Extremities: normal inspection Neurologic/Psych: no motor/sensory deficits, awake, alert, oriented x 3 Skin: intact, normal color, warm/dry Core Measures ACS in differential dx? No Severe Sepsis Present: No Septic Shock Present: No Progress Differential Diagnosis: lung cancer, nerve compression, vs other. i doubt cardiac issues. Plan of Care: Orders Procedure Date/time Status TROPONIN LEVEL 04/08 0534 Complete PARTIAL THROMBOPLASTIN TIME 07/19 533 Complete PROTHROMBIN TIME 07/19 533 Complete COMPREHENSIVE METABOLIC PANEL 07/19 533 Complete CBC WITHOUT DIFFERENTIAL 07/19 533 Complete B-TYPE NATRIURETIC PEP (BNP) 07/19 533 Complete EKG 07/19 533 Active Laboratory Tests 07/19/16 0545: Anion Gap 7, Estimated GFR > 60, BUN/Creatinine Ratio 16.0, Glucose 105 H, Calcium 9.3, Total Bilirubin 0.7, AST 109 H, ALT 87 H, Alkaline Phosphatase 292 H, Troponin I < 0.01, [id number] Pept 2410 H, Total Protein 6.7, Albumin 3.8, Globulin 2.9, Albumin/Globulin Ratio 1.3, PT 12.0, INR 1.14, APTT 27, CBC w Diff NO MAN DIFF REQ, RBC 3.22 L, MCV 89.7, MCH 30.7, RDW 18.2 H, MPV 6.6 L, Gran % 82.7 H, Lymphocytes % 10.2 L, Monocytes % 5.1, Eosinophils % 0.5, Basophils % 1.5, Absolute Granulocytes 9.4 H, Absolute Lymphocytes 1.2, Absolute Monocytes 0.6, Absolute Eosinophils 0.1, Absolute Basophils 0.2, PUBS MCHC 34.3 Diagnostic Imaging: Viewed by Me: Radiology Read, CT Scan. Discussed w/RAD: Radiology Read, CT Scan. Radiology Impression: 06/23/16... ct angio, chest... no PE... full report below. , 07/18/16 chest/abd pelvic ct w/o contrast... interval improvement in lung adenopathy... slight increase in hepatic mets... full report below. CXR Impression: 07/19/16, no acute change of chest. Initial ED EKG: normal axis, normal intervals, normal p-waves, normal QRS complex, normal sinus rhythm Comments: PATIENT: MARJORIE GLASER PRESENT AGE: 70 PATIENT ACCOUNT NO: [id number] : 45 LOCATION: [facility] ORDERING PHYSICIAN: KENNY BELLAMY MD SERVICE DATE: 07/19/16 EXAM TYPE: RAD - XRY-PORTABLE CHEST XRAY EXAMINATION: XR PORTABLE CHEST CLINICAL INFORMATION: Chest pain. Stage IV lung cancer. COMPARISON: Chest x-ray 06/30/2016 TECHNIQUE: Portable AP portable view of the chest was obtained. 5:44 AM FINDINGS: The right costophrenic angle is not included on study. The visualized portions of lung are clear. No pulmonary vascular congestion. No large pleural effusion or pneumothorax. Cardiac and mediastinal contours are normal. There are calcifications of thoracic aorta. Surgical clips over the right upper chest. IMPRESSION: No acute change of the chest. DICTATED BY: LORENA TEIXEIRA MD DATE/TIME DICTATED:07/19/16610 MARBLE MECHANIC HELPER:LENNOX DATE/TIME TRANSCRIBED:07/19/16610 CONFIDENTIAL, DO NOT COPY WITHOUT APPROPRIATE AUTHORIZATION. <Electronically signed in Other Vendor System> SIGNED BY: LORENA TEIXEIRA MD 07/19/16615 PATIENT: MARJORIE GLASER PRESENT AGE: 70 PATIENT ACCOUNT NO: [id number] : 45 LOCATION: [facility] ORDERING PHYSICIAN: EDA THORNTON MD SERVICE DATE: 07/18/16 EXAM TYPE: CAT - CT ABD & PELVIS W/O IV CONTRAS; CT CHEST WO IV CONTRAST EXAMINATION: CT CHEST WITHOUT IV CONTRAST CT ABDOMEN AND PELVIS WITHOUT IV CONTRAST CLINICAL INFORMATION: 70-year-old male for restaging of small cell lung carcinoma. COMPARISON: Multiple prior CT exams, including 06/30/2016, 05/15/2016 and 03/31/2016. TECHNIQUE: Noncontrast multidetector CT imaging examination of the chest, abdomen and pelvis was performed. The axial images are displayed at 5 mm and 0.625 mm slice thickness. Coronal and sagittal reformatted images were generated at the technologist's workstation and submitted for review. DLP: 626 mGy-cm FINDINGS: CHEST - LUNGS and PLEURA: Moderate centrilobular and paraseptal emphysema. A trace right pleural effusion has decreased in size compared to 06/23/2016. The findings in the right upper lobe include a stable 0.2 cm nodule in the anterior segment (image 192, series 4). Stable, small nodular opacities along the minor fissure likely represent lymph nodes. Stable, small noncalcified nodules are again seen within the right middle lobe, largest measuring up to 0.4 cm. There are a few small, stable nodular opacities in the right lower lobe. The groundglass opacities within the posterior segment of the right upper lobe and right lower lobe on 06/23/2016 have resolved. There is decreased atelectasis within the medial segment of the right lower lobe. A residual, irregular nodule extending to the medial pleura in the medial basal segment of the right lower lobe currently measures approximately 2 cm transverse, 1.8 cm AP (image 355, series 4) and is decreased compared to prior exams. A stable 0.3 cm nodule along the left major fissure is likely a lymph node (image 192, series 4). A stable 0.4 cm nodule is present within the inferior lingula (image 327, series 4). A stable 0.3 cm nodule is present within the left lower lobe (image 341, series 4). No acute findings within the left lung. No pneumothorax or left pleural effusion. MEDIASTINUM: The heart size is normal. There is extensive three-vessel coronary artery atherosclerotic calcification. Pulmonary arteries are normal in caliber. There is atherosclerotic calcification of the thoracic aorta. At the level of the right pulmonary artery, the dilated ascending aorta is 4.6 cm transverse and 4.6 and meter AP diameter, unchanged. The esophagus is unremarkable. LYMPHATICS: No pathologic sized axillary lymph nodes. The right hilar lymphadenopathy has decreased compared to 03/31/2016 and 06/23/2016. The subcarinal lymph nodes measure up to 1.3 cm AP and have decreased in size. Within the superior mediastinum at and above the level of the aortic arch, right paratracheal lymphadenopathy has decreased compared to 03/31/2016 but is not significantly changed from 06/23/2016. One of the right paratracheal lymph nodes in this region is 2.4 cm transverse dimension (image 81, series 4). CHEST WALL/BONES: No acute findings in the degenerated thoracic spine. No aggressive osseous lesions within the thorax. The thoracic vertebra have well preserved height and alignment. ABDOMEN AND PELVIS - HEPATOBILIARY: There is hepatomegaly. Liver contains innumerable hypodense metastases that have increased in size compared to 03/30/2016 but remain similar in size compared to 06/30/2016. For example, a 2.9 x 2.5 cm metastasis in the right lobe near the dome was approximately 1.6 x 1.5 cm on 03/30/2016 but is not appreciably changed compared to 06/30/2016 (image 48, series 2). Gallbladder is unremarkable; no radiopaque calculi or pericholecystic inflammatory change. PANCREAS: Unremarkable. No pancreatic ductal dilatation or peripancreatic edema. SPLEEN: Prominent spleen measures 13.8 cm AP. No focal splenic lesion. ADRENAL GLANDS: Unremarkable. KIDNEYS, URETERS, BLADDER: Chronic, severe right hydroureteronephrosis with severe right renal cortical atrophy. No renal calculi are identified. 1.2 cm cortical cyst is present in the upper pole of the left kidney. Urinary bladder is underdistended. The base of the urinary bladder is slightly compressed by the mildly enlarged prostate gland. GASTROINTESTINAL TRACT: Stomach is grossly unremarkable. Bowel loops are normal in size. There is colonic diverticulosis without diverticulitis. No ascites or pneumoperitoneum. ABDOMINAL WALL: No acute findings within the abdominal wall. VASCULAR: There is extensive atherosclerotic calcification of the abdominal aorta and iliac arteries without aneurysm. Splenic artery is calcified. LYMPH NODES: No pathologic sized lymph nodes within the abdomen or pelvis. PELVIC VISCERA: Prostate gland measures 4.9 cm transverse and 3.6 cm AP. No pelvic free fluid. OSSEOUS STRUCTURES: No acute findings within the lumbar spine. Chondrocalcinosis of intervertebral discs is present within the mildly degenerated spine. No acute fracture or malalignment. No aggressive osseous lesions within pelvic bones or proximal femurs. IMPRESSION: 1. Compared to 06/23/2016, there is been interval improvement in right pulmonary disease with resolution of previously noted groundglass opacities in the posterior segment of the right upper lobe and right lower lobe. These groundglass opacities could have represented pneumonitis on the prior exam. The atelectasis in the right lower lobe has decreased. The right pleural effusion has decreased in size, as well. 2. There is a residual, irregular nodule in the medial basal segment of the right lower lobe. This nodule was partially obscured by atelectatic lung on 06/23/2016 and has decreased in size compared to 03/31/2016. The peribronchial thickening in the right lower lobe has decreased. Also, right hilar and mediastinal lymph nodes have decreased in size. 3. Hepatic metastatic disease has progressed compared to 03/30/2016 but is not appreciably changed compared to 06/30/2016. There are no new sites of metastases identified in the abdomen or pelvis. 4. Chronic, severe right hydronephrosis and severe cortical atrophy. 5. Colonic diverticulosis without diverticulitis. DICTATED BY: CORBY RAMOS MD DATE/TIME DICTATED:07/18/161033 MARBLE MECHANIC HELPER:LENNOX DATE/TIME TRANSCRIBED:07/18/161033 CONFIDENTIAL, DO NOT COPY WITHOUT APPROPRIATE AUTHORIZATION. <Electronically signed in Other Vendor System> SIGNED BY: CORBY RAMOS MD 07/18/16 1106 PATIENT: MARJORIE GLASER PRESENT AGE: 70 PATIENT ACCOUNT NO: [id number] : 45 LOCATION: A ORDERING PHYSICIAN: ENRIQUE CALLAHAN MD SERVICE DATE: 06/23/16 EXAM TYPE: CAT - CTA CHEST Addendum: 3-dimensional imaging was not performed. Addendum Signed by: DENNIS GONZALES MD 07/07/16 1319 EXAMINATION: CT ANGIOGRAM CHEST CLINICAL INFORMATION: Preobstructive pneumonia. Metastatic small cell lung carcinoma. Sudden shortness of breath. COMPARISON: Chest radiograph 06/23/2016. CT angiogram of the chest 05/15/2016. TECHNIQUE: Multiple axial images were obtained through the chest after the administration of 74 mL of Optiray 350 intravenous contrast. Images were reviewed on a dedicated 3-D workstation. DLP: 544.27 mGy-cm FINDINGS: The timing of the contrast bolus provides adequate evaluation of the pulmonary arterial vasculature. There is no central luminal filling defect to suggest the presence of an acute pulmonary embolism. There is a spiculated pleural-based right lower lobe mass as well as extensive peribronchial thickening primarily involving the right lower lobe. There is circumferential narrowing of the right lower lobe bronchus. Bulky hilar, peribronchial, and mediastinal adenopathy remains largely unchanged when compared to the most recent prior examination from 05/15/2016. A small right pleural effusion has developed since the previous examination. The extent of groundglass disease involving the right lower lobe and now involving the right upper lobe has worsened when compared to prior imaging. Centrilobular emphysema and a few subpleural blebs within both lungs remain largely unchanged. Numerous hepatic metastases are partially included within the [id number] this examination. Splenomegaly is redemonstrated. There is severe hydroureteronephrosis of the right kidney. Limited visualization of the thoracic outlet reveals no abnormal finding. Thyroid gland is unremarkable. No worrisome lytic or blastic osseous lesions are visualized within the [id number] this examination. IMPRESSION: No evidence of acute pulmonary embolism. There is worsening groundglass disease involving the right upper and lower lobes which is nonspecific. This finding may simply represent a progression of infiltrative tumor however the possibility of a superimposed pneumonia cannot be definitively excluded on the basis of this examination. A small right pleural effusion has developed since prior imaging. Extensive hepatic and mediastinal ford metastatic disease is redemonstrated. DICTATED BY: DENNIS GONZALES MD DATE/TIME DICTATED:06/23/16840 MARBLE MECHANIC HELPER:LENNOX DATE/TIME TRANSCRIBED:06/23/16840 CONFIDENTIAL, DO NOT COPY WITHOUT APPROPRIATE AUTHORIZATION. <Electronically signed in Other Vendor System> SIGNED BY: DENNIS GONZALES MD 06/23 0856 Departure Departure Disposition: STILL A PATIENT Condition: Stable Clinical Impression Primary Impression: Chest pain Secondary Impressions: Chronic pain Referrals: MELISSA JONES,PANCHO Zaman (PCP/Family) Departure Forms: Customer Survey General Discharge Information Comments 07/19/16, 7:28am... pt feeling better ... benign labs/cxr/ekg... pt wishes to go home. Critical Care Note Critical Care Note Critical Care Time: non-applicable
[2016-07-19 06:13] LABS: ABSOLUTE BASOPHIL COUNT 0.2 /CUMM (0.0-0.2); ABSOLUTE EOSINOPHIL COUNT 0.1 /CUMM (0.0-0.7); ABSOLUTE GRANULOCYTE CT 9.4 /CUMM (1.4-6.5); ABSOLUTE LYMPH COUNT 1.2 /CUMM (1.2-3.4); ABSOLUTE MONOCYTE COUNT 0.6 /CUMM (0.10-0.60); BASOPHIL % 1.5 % (0.0-2.0); EOSINOPHIL % 0.5 % (0-5); GRANULOCYTE % 82.7 % (42.2-75.2); HEMATOCRIT 28.9 % (42-52); MEAN CORPUSCULAR HGB 30.7 PG (27.0-31.0); MEAN CORPUSCULAR HGB CONC 34.3 G/DL (33.0-37.0); MEAN CORPUSCULAR VOLUME 89.7 FL (80.0-94.0); MEAN PLATELET VOLUME 6.6 FL (7.4-10.4); PLATELET COUNT 87 /CUMM (130-400); RBC DISTRIBUTION WIDTH 18.2 % (11.5-14.5); RED BLOOD CELL CT 3.22 /CUMM (4.70-6.10); WHITE BLOOD CELL COUNT 11.4 /CUMM (4.8-10.8)
--- NOTE | 2016-07-19 06:16 | RADIOLOGY REPORT ---
EXAMINATION: XR PORTABLE CHEST CLINICAL INFORMATION: Chest pain. Stage IV lung cancer. COMPARISON: Chest x-ray 06/30/2016 TECHNIQUE: Portable AP portable view of the chest was obtained. 5:44 AM FINDINGS: The right costophrenic angle is not included on study. The visualized portions of lung are clear. No pulmonary vascular congestion. No large pleural effusion or pneumothorax. Cardiac and mediastinal contours are normal. There are calcifications of thoracic aorta. Surgical clips over the right upper chest. IMPRESSION: No acute change of the chest.
[2016-07-19 06:20] LABS: PTT 27 SEC (25-37)
[2016-07-19 07:31] VITALS: BP 129/79
== END 2016-07-19 07:33 ==
LOC: ERH 05:28
PROVIDERS: Pediatrics
DX: R07.9 Chest pain, unspecified (principal); G89.29 Other chronic pain
CPT/HCPCS: 93005; 93010; 96374; 96376

== ENCOUNTER 2016-07-24 23:18 | Inpatient (IN) | payer OTHER, MEDICARE ==
[~2016-07-24] VITALS: Ht 180.3 cm; Wt 83.9 kg
[2016-07-24 23:55] LABS: ABSOLUTE BASOPHIL COUNT 0 /CUMM (0.0-0.2); ABSOLUTE EOSINOPHIL COUNT 0 /CUMM (0.0-0.7); ABSOLUTE GRANULOCYTE CT 6.1 /CUMM (1.4-6.5); ABSOLUTE LYMPH COUNT 0.8 /CUMM (1.2-3.4); ABSOLUTE MONOCYTE COUNT 0.7 /CUMM (0.10-0.60); BASOPHIL % 0.1 % (0.0-2.0); EOSINOPHIL % 0.5 % (0-5); GRANULOCYTE % 79.7 % (42.2-75.2); HEMATOCRIT 24.4 % (42-52); MEAN CORPUSCULAR HGB 30.9 PG (27.0-31.0); MEAN CORPUSCULAR HGB CONC 34.4 G/DL (33.0-37.0); MEAN CORPUSCULAR VOLUME 89.7 FL (80.0-94.0); MEAN PLATELET VOLUME 6.6 FL (7.4-10.4); PLATELET COUNT 53 /CUMM (130-400); RBC DISTRIBUTION WIDTH 18.4 % (11.5-14.5); RED BLOOD CELL CT 2.72 /CUMM (4.70-6.10); WHITE BLOOD CELL COUNT 7.6 /CUMM (4.8-10.8)
--- NOTE | 2016-07-24 23:57 | ED GI/GU/ABDOMINAL COMPLAINT ---
History of Present Illness General Chief Complaint: General Adult Stated Complaint: BIBA PAIN AND OPIATE INDUCED CONSTIPATION, HX CA Source: patient, family, old records, EMS Exam Limitations: no limitations Vital Signs & Intake/Output Vital Signs & Intake/Output Vital Signs Date Time Temp Pulse Resp B/P Pulse O2 O2 Flow FiO2 Ox Delivery Rate 07/25 0342 98.1 100 18 135/66 95 Room Air 07/25 0215 96.8 102 18 149/79 96 Room Air 07/25 0050 98 Room Air 07/25 0045 98.1 93 18 148/75 98 Room Air 07/24 2338 97.2 90 16 133/62 98 Room Air Allergies Coded Allergies: Iodinated Contrast Media - Oral and (Mild, Rash 06/30/16) Reconcile Medications Alprazolam 0.25 MG TABLET 1 TAB PO TIDPRN ANXIETY (Reported) Amlodipine Besylate 5 MG TABLET 1 TAB PO DAILY BP (Reported) Aspirin (Ecotrin*) 81 MG TABLET.DR 1 TAB PO DAILY HEART/BLOOD (Reported) Dexamethasone 2 MG TABLET 0.5 TAB PO DAILY CORD COMPRESSION (Reported) Escitalopram Oxalate 5 MG TABLET 1 TAB PO DAILY DEPRESSION Fentanyl 100 MCG/HOUR PATCH.TD72 1 PAT TOP Q3D PAIN (Reported) Hydromorphone HCl (Dilaudid) 8 MG TABLET 1 TAB PO Q3-4H PRN PAIN (Reported) Lansoprazole (Prevacid) 30 MG CAPSULE.DR 1 CAP PO DAILY GI (Reported) Metoprolol Succ XL (Toprol Xl) 50 MG TAB 1 TAB PO DAILY atrial fibrillation Multivitamin (Multi-Day Vitamins) 1 EACH TABLET 1 TAB PO DAILY SUPPLEMENT ( Reported) Ondansetron (Zofran Odt) 4 MG TAB.RAPDIS 1 TAB SL TID PRN NAUSEA Polyethylene Glycol 3350 (Miralax) 17 GRAM POWD.PACK 1 PAC PO DAILY PRN CONSTIPATION (Reported) dissolve in water Prochlorperazine Maleate 10 MG TABLET 1 TAB PO Q6 PRN NAUSEA/VOMITING ( Reported) Sennosides/Docusate Sodium (Senna S Tablet) 8.6 MG-50 MG TABLET 2 TAB PO QPM PRN GI (Reported) Simvastatin (Simvastatin*) 20 MG TABLET 1 TAB PO QPM CHOLESTEROL (Reported) Triage Note: BIBA FROM HOME FOR SEVERE ABDOMINAL AND RIB AREA PAIN AND CONSTIPATION X3 DAYS. 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 LIVER RIGID AND TENDER ON PALPATION, ABDOMEN SLIGHTLY DISTENDED AND PAINFUL. TAKES DILAUDID 4MG PO Q4H FOR PAIN WITH VERY MINIMAL RELIEF. REPORTS SIGNIFICANTLY WORSE PAIN AFTER BLOOD TRANSFUSIONS. SEEN THURSDAY FOR SIMILAR SYMPTOMS. DECLINES MASK FOR NEUTRAPENIC PRECAUTIONS ON ARRIVAL. VSS AND NSR WITHOUT ECTOPY ON CM. DENIES SOB. NEUROS INTACT, SPEECH CLEAR AND ORGANIZED. Triage Nurses Notes Reviewed? yes Onset: 3 days Duration: day(s):, constant, continues in ED, getting worse Timing: recent history Quality/Severity: aching, fullness, severe Location: left lower quadrant, right lower quadrant Radiation: no radiation Activities at Onset: none Prior Abdominal Problems: similar symptoms Past Sexual History: Unobtainable at this time Modifying Factors: Worsens With: movement, palpation. Associated Symptoms: abdominal pain, loss of appetite HPI: 3 days prior to admission patient complains of not being up to move his stool with increasing lower abdominal pain described as sharp achy constant nonradiating associated with decreased appetite. He denies fever chills nausea vomiting diarrhea chest pain cough shortness of breath headache dysuria rash bleeding. Past History Travel History Traveled to [place] past 21 day No Medical History Any Pertinent Medical History? 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 No Review of Systems Review of Systems Constitutional: Reports: no symptoms. EENTM: Reports: no symptoms. Respiratory: Reports: no symptoms. Cardiovascular: Reports: no symptoms. GI: Reports: see HPI, abdominal pain, constipation. Genitourinary: Reports: no symptoms. Musculoskeletal: Reports: no symptoms. Skin: Reports: no symptoms. Neurological/Psychological: Reports: no symptoms. Hematologic/Endocrine: Reports: no symptoms. Immunologic/Allergic: Reports: no symptoms. All Other Systems: Reviewed and Negative Physical Exam Physical Exam General Appearance: well developed/nourished, alert, awake, anxious, severe distress Head: atraumatic, normal appearance Eyes: Bilateral: normal appearance, PERRL, EOMI, normal inspection. Ears, Nose, Throat, Mouth: hearing grossly normal, moist mucous membrane Neck: normal inspection, supple, full range of motion, normal alignment Respiratory: chest non-tender, no respiratory distress, quiet respiration, rales Cardiovascular: regular rate/rhythm, normal peripheral pulses, norml femoral pulses equa Peripheral Pulses: 4+ carotid (R), 4+ carotid (L) Gastrointestinal: normal bowel sounds, soft, no organomegaly, tenderness Male Genitals: normal genitalia Back: normal inspection, normal range of motion Extremities: normal range of motion, no ligament instability Neurologic/Psych: no motor/sensory deficits, awake, alert, oriented x 3, normal gait, normal mood/affect Skin: intact, normal color, warm/dry Core Measures ACS in differential dx? No Severe Sepsis Present: No Septic Shock Present: No Progress Differential Diagnosis: appendicitis, biliary colic, diverticulitis, gastritis, pancreatitis Plan of Care: Orders Procedure Date/time Status Consistent Carbohydrate 3 07/25 B Active Vital Signs 07/25 0430 Active Teach/Educate 07/25 0430 Active Pain Treatment and Response 07/25 0430 Active Nutritional Intake, Monitor 07/25 0430 Active Isolation 07/25 0430 Active Intake & Output 07/25 0430 Active Patient Care Conference 07/25 0430 Active Activity/Ambulation 07/25 0430 Active Lab Add-on Test 07/25 0304 Active EKG 07/25 0304 Active TRC EVALUATION (GEN) 07/25 0303 Active Pathway - chart 07/25 0303 Active House Staff 07/[address] in observation 07/25 0242 Active OXYGEN SETUP (GEN) 07/25 0237 Active Saline Lock 07/25 0237 Active Vital Signs 07/25 0237 Active Activity/Ambulation 07/25 0237 Active Code Status 07/25 0237 Active Patient Data 07/25 0226 Active VTE Mechanical Prophylaxis 07/25 UNK Active Vital Signs 07/25 UNK Active FingerStick- Glucose 07/25 UNK Active Intake & Output 04/13 2350 Active TROPONIN LEVEL 07/24 234 Complete LIPASE 07/24 2329 Complete LACTIC ACID 07/24 2329 Complete COMPREHENSIVE METABOLIC PANEL 07/24 2329 Complete CBC WITHOUT DIFFERENTIAL 07/24 2329 Complete BILIRUBIN TOTAL 07/24 2329 Complete Current Medications Sig/Noemí Start time Last Medication Dose Stop Time Status Admin Atorvastatin Calcium 10 MG 1700 07/25 1700 AC (Lipitor) Amlodipine Besylate 5 MG DAILY 07/25 1000 AC (Norvasc) Aspirin Buffered 81 MG DAILY 07/25 1000 AC (Ecotrin) Dexamethasone 1 MG DAILY 07/25 1000 AC (Decadron) Docusate Sodium 100 MG BID 07/25 1000 AC (Colace) Escitalopram Oxalate 5 MG DAILY 07/25 1000 AC (Lexapro) Metoprolol Succinate 50 MG DAILY 07/25 1000 AC (Toprol Xl) Polyethylene Glycol 17 GM DAILY 07/25 1000 AC (Miralax) Insulin Aspart 0 TIDAC 07/25 0800 AC (NovoLOG) Heparin Sodium 5,000 UNIT Q8 07/25 0600 CAN (Porcine) Hydromorphone HCl 8 MG Q4P PRN 07/25 0530 AC (Dilaudid) Alprazolam 0.25 MG TIDPRN 07/25 0315 AC (Xanax) 08/01 0314 Senna/Docusate Sodium 1 TAB BID PRN 07/25 0315 AC (Senokot S) Ondansetron HCl 4 MG Q6P PRN 07/25 0300 AC (Zofran) Laboratory Tests 07/25/16 0230: Lactic Acid Cancelled 07/24/16 2346: Anion Gap 11, Estimated GFR > 60, BUN/Creatinine Ratio 17.3, Glucose 85, Lactic Acid 1.1, Calcium 9.6, Total Bilirubin 0.9, AST 133 H, ALT 94 H, Alkaline Phosphatase 332 H, Troponin I < 0.01, Total Protein 6.2 L, Albumin 3.6, Globulin 2.6, Albumin/Globulin Ratio 1.4, Lipase 1406 H, CBC w Diff NO MAN DIFF REQ, RBC 2.72 L, MCV 89.7, MCH 30.9, RDW 18.4 H, MPV 6.6 L, Gran % 79.7 H, Lymphocytes % 10.6 L, Monocytes % 9.1, Eosinophils % 0.5, Basophils % 0.1, Absolute Granulocytes 6.1, Absolute Lymphocytes 0.8 L, Absolute Monocytes 0.7 H, Absolute Eosinophils 0, Absolute Basophils 0, PUBS MCHC 34.4 Diagnostic Imaging: Viewed by Me: Radiology Read. Discussed w/RAD: Radiology Read. Radiology Impression: Unremarkable bowel gas pattern. Clear lungs. Stable superior right paratracheal lymphadenopathy. Initial ED EKG: normal axis, normal intervals, normal p-waves, normal QRS complex, normal sinus rhythm, no ST T wave changes Prior EKG: unchanged Rhythm Strip: normal sinus rhythm Departure Departure Disposition: STILL A PATIENT Condition: Stable Clinical Impression Primary Impression: Abdominal pain Qualifiers: Abdominal location: lower abdomen, unspecified Qualified Code: R10.30 - Lower abdominal pain, unspecified Secondary Impressions: Intractable abdominal pain, Therapeutic opioid induced constipation Referrals: MELISSA JONES,PANCHO Zaman (PCP/Family) Departure Forms: Customer Survey General Discharge Information Observation Note Spoke With: BELGICA JONES,EBONY Physician Advisor Notified: LEOLA CISNEROS DO Place Patient In: Non-ED OBS Care Area Rationale for Observation: My rational for observation is as follows IV analgesia medication adjustment oncology evaluation serial lab exam continuing care discharge planning. Critical Care Note Critical Care Note Critical Care Time: 30-74 min (45)
--- NOTE | 2016-07-25 01:47 | RADIOLOGY REPORT ---
EXAMINATIONS: ABDOMEN 2 VIEWS AND CHEST 1 VIEW CLINICAL INFORMATION: Abdominal pain. History of liver cancer with lung metastases. COMPARISON: 07/19/2016. TECHNIQUE: Supine and upright views of the abdomen are provided. An AP view of the chest is provided. FINDINGS: There are no dilated loops of small bowel. There are no air-fluid levels. There is no appendicolith. The visualized lung bases are clear. Splenic arterial calcifications are again identified. The osseous structures are unremarkable. The cardiac silhouette is not enlarged. There is stable right paratracheal lymphadenopathy resulting in displacement of the trachea to the left. This is unchanged from prior exam. There are neither pleural effusions nor pneumothoraces. 2 clips overlie the right apex. There are no consolidations. The osseous structures are unremarkable. IMPRESSION: Unremarkable bowel gas pattern. Clear lungs. Stable superior right paratracheal lymphadenopathy.
--- NOTE | 2016-07-25 02:48 | History & Physical ---
BARRETT JONES,FREDA 07/25/16 0248: General Information and HPI MD Statement: I have seen and personally examined MARJORIE GLASER and documented this H&P. The patient is a 70 year old M who presented with a patient stated chief complaint of [abdominal pain]. 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 Patient states that he takes 4 mg of Dilaudid every 4 hours because of his metastatic lung cancer, he does have an adequate bowel movement every day however has not experienced one in the last 3 days. Also complains of diffuse abdominal pain and tenderness and also diffuse chest pain which is old. He was seen in the ER last week for the same. While in the ER he was given an injection of relistor and had a small bowel movement. Allergies/Medications Allergies: Coded Allergies: Iodinated Contrast Media - Oral and (Mild, Rash 06/30/16) Home Med list Alprazolam 0.25 MG TABLET 1 TAB PO TIDPRN ANXIETY (Reported) Amlodipine Besylate 5 MG TABLET 1 TAB PO DAILY BP (Reported) Aspirin (Ecotrin*) 81 MG TABLET.DR 1 TAB PO DAILY HEART/BLOOD (Reported) Dexamethasone 2 MG TABLET 0.5 TAB PO DAILY CORD COMPRESSION (Reported) Escitalopram Oxalate 5 MG TABLET 1 TAB PO DAILY DEPRESSION Fentanyl 100 MCG/HOUR PATCH.TD72 1 PAT TOP Q3D PAIN (Reported) Hydromorphone HCl (Dilaudid) 8 MG TABLET 1 TAB PO Q3-4H PRN PAIN (Reported) Lansoprazole (Prevacid) 30 MG CAPSULE.DR 1 CAP PO DAILY GI (Reported) Metoprolol Succ XL (Toprol Xl) 50 MG TAB 1 TAB PO DAILY atrial fibrillation Multivitamin (Multi-Day Vitamins) 1 EACH TABLET 1 TAB PO DAILY SUPPLEMENT ( Reported) Ondansetron (Zofran Odt) 4 MG TAB.RAPDIS 1 TAB SL TID PRN NAUSEA Polyethylene Glycol 3350 (Miralax) 17 GRAM POWD.PACK 1 PAC PO DAILY PRN CONSTIPATION (Reported) dissolve in water Prochlorperazine Maleate 10 MG TABLET 1 TAB PO Q6 PRN NAUSEA/VOMITING ( Reported) Sennosides/Docusate Sodium (Senna S Tablet) 8.6 MG-50 MG TABLET 2 TAB PO QPM PRN GI (Reported) Simvastatin (Simvastatin*) 20 MG TABLET 1 TAB PO QPM CHOLESTEROL (Reported) Past History Travel History Traveled to [place] past 21 day No Medical History Neurological: NONE EENT: NONE Cardiovascular: hypertension, hyperlipidemia, myocardial infarction, CARDIAC STENTS Respiratory: bronchitis, COPD, emphysema, lung cancer Gastrointestinal: diverticulitis Hepatic: LIVER CA Renal: right partial nephrectomy Musculoskeletal: disk herniation Psychiatric: anxiety Endocrine: diabetes Blood Disorders: anemia Cancer(s): BENIGN KIDNEY TUMOR 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 spouse Services at Home: Nursing Living Will? no Functional Ability ADLs Independent: dressing, eating, toileting, bathing. Ambulation: independent IADLs Independent: shopping, housework, finances, food prep, telephone, transportation , medication admin. Sexual History Past Sexual History Unobtainable at this time Review of Systems Review of Systems Constitutional: Reports: see HPI. Exam & Diagnostic Data Last 24 Hrs of Vital Signs/I&O Vital Signs Date Time Temp Pulse Resp B/P Pulse O2 O2 Flow FiO2 Ox Delivery Rate 07/25 0215 96.8 102 18 149/79 96 Room Air 07/25 0050 98 Room Air 07/25 0045 98.1 93 18 148/75 98 Room Air 07/24 2338 97.2 90 16 133/62 98 Room Air Physical Exam General Appearance Alert, Oriented X3, Cooperative, Mild Distress Skin No Rashes HEENT Atraumatic, PERRLA, EOMI Cardiovascular Regular Rate, Normal S1, Normal S2 Lungs Clear to Auscultation, Normal Air Movement Abdomen Normal Bowel Sounds, Soft, diffuse tenderness to palpation Last 24 Hrs of Labs/Wiliam: Laboratory Tests 04/13/17 2346: Anion Gap 11, Estimated GFR > 60, BUN/Creatinine Ratio 17.3, Glucose 85, Lactic Acid 1.1, Calcium 9.6, Total Bilirubin 0.9, AST 133 H, ALT 94 H, Alkaline Phosphatase 332 H, Total Protein 6.2 L, Albumin 3.6, Globulin 2.6, Albumin/ Globulin Ratio 1.4, Lipase 1406 H, CBC w Diff NO MAN DIFF REQ, RBC 2.72 L, MCV 89.7, MCH 30.9, RDW 18.4 H, MPV 6.6 L, Gran % 79.7 H, Lymphocytes % 10.6 L, Monocytes % 9.1, Eosinophils % 0.5, Basophils % 0.1, Absolute Granulocytes 6.1, Absolute Lymphocytes 0.8 L, Absolute Monocytes 0.7 H, Absolute Eosinophils 0, Absolute Basophils 0, PUBS MCHC 34.4 Diagnostic Data CXR Results PATIENT: MARJORIE GLASER PRESENT AGE: 70 PATIENT ACCOUNT NO: [id number] : 45 LOCATION: [facility] ORDERING PHYSICIAN: OSWALD LAWTON MD SERVICE DATE: 07/24/16 EXAM TYPE: RAD - XRY-ABD MULTI VIEW W/PA CHEST EXAMINATIONS: ABDOMEN 2 VIEWS AND CHEST 1 VIEW CLINICAL INFORMATION: Abdominal pain. History of liver cancer with lung metastases. COMPARISON: 07/19/2016. TECHNIQUE: Supine and upright views of the abdomen are provided. An AP view of the chest is provided. FINDINGS: There are no dilated loops of small bowel. There are no air-fluid levels. There is no appendicolith. The visualized lung bases are clear. Splenic arterial calcifications are again identified. The osseous structures are unremarkable. The cardiac silhouette is not enlarged. There is stable right paratracheal lymphadenopathy resulting in displacement of the trachea to the left. This is unchanged from prior exam. There are neither pleural effusions nor pneumothoraces. 2 clips overlie the right apex. There are no consolidations. The osseous structures are unremarkable. IMPRESSION: Unremarkable bowel gas pattern. Clear lungs. Stable superior right paratracheal lymphadenopathy. DICTATED BY: BRIANA MENDEZ MD DATE/TIME DICTATED:07/25/16140 DEGREASING SOLUTION RECLAIMER:LENNOX DATE/TIME TRANSCRIBED:07/25/16140 CONFIDENTIAL, DO NOT COPY WITHOUT APPROPRIATE AUTHORIZATION. <Electronically signed in Other Vendor System> SIGNED BY: BRIANA MENDEZ MD 07/25/16 0147 Assessment/Plan Assessment: Assessment- 1. Intractable chest and abdominal pain 2/2 metastatic SCLC 2. Chronic constipation 2/2 opidates 3. Paroxsymal Afib, not on AC 4. Spinal metastasis with cord compression 5. DM 6. Depression Plan- GM admit vitals per protocol Continue fentanyl patch Start dilaudid 2 mg IV q4p Keep PO Dilaudid 4 mg Q4P Start senna, colace, miralax Check troponin and EKG Continue home meds Heart healthy diet Heme/onc consult in AM Accuchecks, ISS ALPS for DVT PPx Full code As Ranked By This Provider Problem List: 1. Chronic pain Core Measures/Miscellaneous Acute Coronary Syndrome ACS Diagnosis: No Cerebrovascular Accident CVA/TIA Diagnosis: No Congestive Heart Failure CHF Diagnosis: No Venous Thromboembolism VTE Risk Factors: Age > 40, Cancer/chemo/oth therapy No Mech VTE prophylaxis d/t: No contraindications No VTE Pharm Prophylaxis d/t: No contraindications VTE Diagnosis: No VTE Type: NONE VTE Confirmed by (Test): NONE Severe Sepsis Severe Sepsis Present: No Septic Shock Septic Shock Present: No Miscellaneous Documentation Attending Case Discussed With: dr. mccall Primary Care Physician: PANCHO TORRES MD Patient sees these Specialists dr. neil Level of Patient Care: General Medicine Resident Review Statement Resident Statement: examined this patient, discussed with internet marketing consultant BELGICA JONES, [facility] 07/25/16 0530: Attending MD Review Statement Attending Statement Attending MD Statement: examined this patient, discuss w/resident/PA/MANAGER VEHICLE, agreed w/resident/PA/MANAGER VEHICLE Attending Assessment/Plan: 70 yo M with h/o metastatic small cell lung cancer with spinal mets-cord compression s/p radiation, currently on chemotherapy (carboplatin and MACHINE APPLICATOR CEMENTER-16, last received 2.5 weeks back), CAD s/p stents, HTN, paroxysmal Afib, is here with c/o lower abdominal pain, chest discomfort (likely chronic) and constipation for over 3 days. He was given relistor in the ER and he had a small BM. He was seen in the ER on July 19 for chest pain, and was discharged from ER after benign work up. CT C/A/P (July 18) showed interval improvement in pulmonary disease, hepatic metastatic disease. VSS. Labs: H/H 8.4/24.4 (Baseline), Plt 53, AST 133, ALT 94, alk phos 332, trop neg, lipase 1406. Chest/abd Xray: unremarkable bowel gas pattern, clear lungs. 1. Intractable abdominal pain and constipation in the setting of opiate use for metastatic cancer. 23 Obs on GM, pain management (dilaudid po 8 mg Q4 prn, fentanyl patch, add IV dilaudid for breakthrough pain), bowel regime, IV hydration. Check EKG and troponin to rule out ACS. Please inform Dr. Neil about patient's admission. 2. Chronically elevated lipase non specific finding as evaluated by GI in Apr 2016 likely secondary to metastatic disease. No acute intervention needed, not suggestive of pancreatitis. 3. Transaminitis in the setting of hepatic mets. Stable. DVT ppx Alps (thrombocytopenia in the setting of chemo). Full code.
--- NOTE | 2016-07-25 07:16 | Cons- Oncology ---
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 Patient's course is been complicated by significant abdominal pain, Now admitted marked increase of diffuse abdominal pain.. The patient initially presented with elevated pancreatic enzymes auto not to be clinically significant (as per GI). Recent CAT scan of the chest abdomen pelvis suggested stable to slightly improved overall disease burden with no abnormalities in the pancreas. Patient denies significant nausea vomiting, fever chills or sweats. Patient has persistent significant pain. Patient as well describes bright red blood per rectum with bowel movements yesterday. Allergies/Medications Allergies: Coded Allergies: Iodinated Contrast Media - Oral and (Mild, Rash 06/30/16) Home Med List: Alprazolam 0.25 MG TABLET 1 TAB PO TIDPRN ANXIETY (Reported) Amlodipine Besylate 5 MG TABLET 1 TAB PO DAILY BP (Reported) Aspirin (Ecotrin*) 81 MG TABLET.DR 1 TAB PO DAILY HEART/BLOOD (Reported) Dexamethasone 2 MG TABLET 0.5 TAB PO DAILY CORD COMPRESSION (Reported) Escitalopram Oxalate 5 MG TABLET 1 TAB PO DAILY DEPRESSION Fentanyl 100 MCG/HOUR PATCH.TD72 1 PAT TOP Q3D PAIN (Reported) Hydromorphone HCl (Dilaudid) 8 MG TABLET 1 TAB PO Q3-4H PRN PAIN (Reported) Lansoprazole (Prevacid) 30 MG CAPSULE.DR 1 CAP PO DAILY GI (Reported) Metoprolol Succ XL (Toprol Xl) 50 MG TAB 1 TAB PO DAILY atrial fibrillation Multivitamin (Multi-Day Vitamins) 1 EACH TABLET 1 TAB PO DAILY SUPPLEMENT ( Reported) Ondansetron (Zofran Odt) 4 MG TAB.RAPDIS 1 TAB SL TID PRN NAUSEA Polyethylene Glycol 3350 (Miralax) 17 GRAM POWD.PACK 1 PAC PO DAILY PRN CONSTIPATION (Reported) dissolve in water Prochlorperazine Maleate 10 MG TABLET 1 TAB PO Q6 PRN NAUSEA/VOMITING ( Reported) Sennosides/Docusate Sodium (Senna S Tablet) 8.6 MG-50 MG TABLET 2 TAB PO QPM PRN GI (Reported) Simvastatin (Simvastatin*) 20 MG TABLET 1 TAB PO QPM CHOLESTEROL (Reported) Current Medications: Current Medications Sig/Noemí Start time Last Medication Dose Route Stop Time Status Admin Alprazolam 0.25 MG TIDPRN 07/25 0315 AC PO 08/01 0314 Amlodipine Besylate 5 MG DAILY 07/25 1000 AC PO Aspirin Buffered 81 MG DAILY 07/25 1000 AC PO Atorvastatin Calcium 10 MG 1700 07/25 1700 AC PO Dexamethasone 1 MG DAILY 07/25 1000 AC PO Docusate Sodium 100 MG BID 07/25 1000 AC PO Escitalopram Oxalate 5 MG DAILY 07/25 1000 AC PO Fentanyl Citrate 100 MCG Q72H 07/25 0400 AC 07/25 TOP 0557 Fentanyl Citrate 0 .STK-MED ONE 07/24 233 DC .ROUTE Fentanyl Citrate 25 MCG ONCE ONE 07/24 2330 DC 07/24 IV 07/24 2330 2332 Heparin Sodium 5,000 UNIT Q8 07/25 0600 CAN (Porcine) SC Hydromorphone HCl 8 MG Q4P PRN 07/25 0530 AC PO Hydromorphone HCl 2 MG Q4P PRN 07/25 0315 AC 07/25 IV 0510 Hydromorphone HCl 0 .STK-MED ONE 07/25 0221 DC .ROUTE Hydromorphone HCl 2 MG ONCE ONE 07/25 0200 DC 07/25 IV 07/25 0201 0230 Hydromorphone HCl 0 .STK-MED ONE 07/25 0047 DC .ROUTE Hydromorphone HCl 2 MG ONCE ONE 07/25 0045 DC 07/25 IV 07/25 0046 0049 Hydromorphone HCl 0 .STK-MED ONE 07/24 233 DC .ROUTE Hydromorphone HCl 2 MG ONCE ONE 07/24 2330 DC 07/24 IV 07/24 2331 2332 Insulin Aspart 0 TIDAC 07/25 0800 AC SC Methylnaltrexone 12 MG ONCE ONE 07/24 2345 DC 07/25 Manning SC 07/24 2346 0049 Metoprolol Succinate 50 MG DAILY 07/25 1000 AC PO Omeprazole 20 MG DAILY AC 07/25 0700 AC 07/25 PO 0556 Ondansetron HCl 4 MG Q6P PRN 07/25 0300 AC IV Polyethylene Glycol 17 GM DAILY 07/25 1000 AC PO Prochlorperazine 10 MG ONCE ONE 07/25 0045 DC 07/25 IV 07/25 0046 0132 Promethazine HCl 0 .STK-MED ONE 07/25 0221 DC .ROUTE Promethazine HCl 25 MG ONCE ONE 07/25 0200 DC 07/25 IV 07/25 0201 0230 Senna/Docusate Sodium 1 TAB BID PRN 07/25 0315 AC PO Sodium Chloride 1,000 ML ONCE ONE 07/25 0245 AC 07/25 IV 07/25 0924 0230 Review of Systems Review of Systems: Patient denies headaches or dizziness. Patient denies shortness of breath cough or hemoptysis. Patient denies dysuria or hematuria. Patient denies new bone aches or focal neurologic deficit Past History Travel History Traveled to [place] past 21 day No Medical History Blood Transfusion Hx: Yes Type of Reaction: Other (see notes) Neurological: NONE EENT: NONE Cardiovascular: hypertension, hyperlipidemia, myocardial infarction, CARDIAC STENTS Respiratory: bronchitis, COPD, emphysema, lung cancer Gastrointestinal: diverticulitis Hepatic: LIVER CA Renal: right partial nephrectomy Musculoskeletal: disk herniation Psychiatric: anxiety Endocrine: diabetes Blood Disorders: anemia Cancer(s): BENIGN KIDNEY TUMOR LUNG CANCER LIVER CA PROGRAM CONSULTANT/Reproductive: NONE Surgical History Surgical History: PARTIAL RIGHT NEPHRECTOMY L4-L5 DISCECTOMY, UMBILICAL TUMOR BURST WHEN HE WAS 8YRS OLD Family History Relations & Conditions If Any: Relation not specified for: *No pertinent family history Psychosocial History Who Do You Live With? spouse Services at Home: Nursing Smoking Status: Former Smoker Living Will? no Functional Ability ADLs Independent: dressing, eating, toileting, bathing. Ambulation: independent IADLs Independent: shopping, housework, finances, food prep, telephone, transportation , medication admin. Exam & Diagnostic Data Vital Signs and I&O Vital Signs Date Time Temp Pulse Resp B/P Pulse O2 O2 Flow FiO2 Ox Delivery Rate 07/25 0342 98.1 100 18 135/66 95 Room Air 07/25 0215 96.8 102 18 149/79 96 Room Air 07/25 0050 98 Room Air 07/25 0045 98.1 93 18 148/75 98 Room Air 07/24 2338 97.2 90 16 133/62 98 Room Air Intake & Output 07/25 0800 07/25 0000 07/24 1600 Intake Total 50 Output Total 150 Balance -100 Intake, IV 50 Output, Urine 150 Patient 185 lb Weight Gen.: in NAD ENT: Sclera anicteric Chest: Normal respiratory effort, decreased breath sounds Cor: RRR, no extra sounds Abdomen: Soft, bowel sounds are diminished, diffuse tenderness, no definite rebound Extremities: Without clubbing, cyanosis, or edema Neurology: Alert and oriented 3, no gross deficit Skin: No rashes Last 48 Hours of Lab Results: Laboratory Tests 07/25 07/24 0230 2346 Chemistry Sodium (137 - 145 mmol/L) 138 Potassium (3.5 - 5.1 mmol/L) 4.1 Chloride (98 - 107 mmol/L) 103 Carbon Dioxide (22 - 30 mmol/L) 24 Anion Gap (5 - 16) 11 BUN (9 - 20 mg/dL) 19 Creatinine (0.7 - 1.2 mg/dL) 1.1 Estimated GFR (>60 ml/min) > 60 BUN/Creatinine Ratio (7 - 25 %) 17.3 Glucose (65 - 99 mg/dL) 85 Lactic Acid (0.7 - 2.1 mmol/L) Cancelled 1.1 Calcium (8.4 - 10.2 mg/dL) 9.6 Total Bilirubin (0.2 - 1.3 mg/dL) 0.9 AST (17 - 59 U/L) 133 H ALT (21 - 72 U/L) 94 H Alkaline Phosphatase (< 127 U/L) 332 H Troponin I (<0.11 ng/ml) < 0.01 Total Protein (6.3 - 8.2 g/dL) 6.2 L Albumin (3.5 - 5.0 g/dL) 3.6 Globulin (1.9 - 4.2 gm/dL) 2.6 Albumin/Globulin Ratio (1.1 - 2.2 %) 1.4 Lipase (23 - 300 U/L) 1406 H Hematology CBC w Diff NO MAN DIFF REQ WBC (4.8 - 10.8 /CUMM) 7.6 RBC (4.70 - 6.10 /CUMM) 2.72 L Hgb (14.0 - 18.0 G/DL) 8.4 L Hct (42 - 52 %) 24.4 L MCV (80.0 - 94.0 FL) 89.7 MCH (27.0 - 31.0 PG) 30.9 RDW (11.5 - 14.5 %) 18.4 H Plt Count (130 - 400 /CUMM) 53 L MPV (7.4 - 10.4 FL) 6.6 L Gran % (42.2 - 75.2 %) 79.7 H Lymphocytes % (20.5 - 51.1 %) 10.6 L Monocytes % (1.7 - 9.3 %) 9.1 Eosinophils % (0 - 5 %) 0.5 Basophils % (0.0 - 2.0 %) 0.1 Absolute Granulocytes (1.4 - 6.5 /CUMM) 6.1 Absolute Lymphocytes (1.2 - 3.4 /CUMM) 0.8 L Absolute Monocytes (0.10 - 0.60 /CUMM) 0.7 H Absolute Eosinophils (0.0 - 0.7 /CUMM) 0 Absolute Basophils (0.0 - 0.2 /CUMM) 0 PUBS MCHC (33.0 - 37.0 G/DL) 34.4 Imaging/Other Studies: Chest x-ray-no change Abdominal x-ray-no bowel obstruction Assessment/Plan Assessment: 1. Diffuse abdominal pain-1 needs a not suggestive of pain from his known to static liver disease. Although his lipase is elevated, it has diminished from previous determinations. Recent CT scan demonstrated stable hepatic metastatic disease and no pancreatic abnormalities. The patient also has bright red blood per rectum possibly due to constipation. Recommend- Analgesia Would recommend GI service to see patient Consider repeat CAT scan abdomen pelvis 2. Extensive small cell lung cancer-mode to continue was an outpatient 3. Anemia-this has been a chronic issue, multifactorial in origin including myelosuppression from chemotherapy. Patient has received red cell transfusions in the recent past Recommend- GI to comment on bright red blood per rectum Transfuse to keep hematocrit 24% or greater Recommendations: .. Consult Acknowledgment - Thank you for your consult request.
[2016-07-25 07:36] VITALS: BP 162/82
[2016-07-25 08:20] LABS: ABSOLUTE BASOPHIL COUNT 0 /CUMM (0.0-0.2); ABSOLUTE EOSINOPHIL COUNT 0 /CUMM (0.0-0.7); ABSOLUTE GRANULOCYTE CT 6.5 /CUMM (1.4-6.5); ABSOLUTE LYMPH COUNT 0.6 /CUMM (1.2-3.4); ABSOLUTE MONOCYTE COUNT 0.6 /CUMM (0.10-0.60); BASOPHIL % 0.2 % (0.0-2.0); EOSINOPHIL % 0.3 % (0-5); HEMATOCRIT 24.6 % (42-52); MEAN CORPUSCULAR HGB 30.8 PG (27.0-31.0); MEAN CORPUSCULAR HGB CONC 33.9 G/DL (33.0-37.0); MEAN CORPUSCULAR VOLUME 90.7 FL (80.0-94.0); MEAN PLATELET VOLUME 6.7 FL (7.4-10.4); RED BLOOD CELL CT 2.71 /CUMM (4.70-6.10); WHITE BLOOD CELL COUNT 7.7 /CUMM (4.8-10.8)
[2016-07-25 08:45] LABS: GRANULOCYTE % 84.8 % (42.2-75.2); PLATELET COUNT 54 /CUMM (130-400)
[2016-07-25 10:00] VITALS: BP 110/50
--- NOTE | 2016-07-25 11:26 | PN- Att Addend ---
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 He was given relistor in the ER and he had a small BM. He was seen in the ER on July 19 for chest pain, and was discharged from ER after benign work up. CT C/A/P (July 18) showed interval improvement in pulmonary disease, hepatic metastatic disease." ASSESSEMENT 1. Intractable abdominal pain 2. Constipation. 3. Metastatic cancer Non small cell lung cancer on chemotherapy. follows hem/onc 4. Opiod use 5. elevated lipase non speicfic 6. Transaminitis h/o liver mets 7. Thrombocytopenia multifactorial. 8. Anemia of chronic disease. PLAN 1. admit medical services for pain managment. 2. Cancer pain control dilaudid 8mg schedueld , prn meds i/v dialudid , fentanyl patch 100mcg can increase, hem/onc consulted. Increase pain meds as tolerated. 3. Constipation relieved, had bowel movement. 4. Recent CT scan negative for acute pathology, GI consult. 5. Chronically elevated lipase non specific finding as evaluated by GI in Apr 2016 likely secondary to metastatic disease. No acute intervention needed, not suggestive of pancreatitis. 6. Transaminitis in the setting of hepatic mets. Stable. 7. Anemia stable , H/h stable. DVT ppx Alps (thrombocytopenia in the setting of chemo). Full code. d/wed patient/family bedside for goals of care. hem/onc also following, discussed the plan of treatment and prognosis in this scenario. Palliative consult would be of great help!
[2016-07-25 14:28] VITALS: BP 120/80
--- NOTE | 2016-07-25 17:57 | Cons- Gastroenterology ---
General Information and HPI Consulting Request Date of Consult: 07/25/16 Requested By: BELGICA JONES,EBONY Reason for Consult: Called today to assess chronic lower abdominal pain, in a patient with known metastatic small cell lung CA, and probable incidental elevation of lipase, as well as scant rectal bleeding after straining at a hard brown bowel movement. Extensive records reviewed. Source of Information: patient, old records Exam Limitations: patient lethargic from pain meds History of Present Illness: Unfortunate 70-year-old male, history of extensive metastatic small cell lung cancer (dxd 04/08/16 via liver bx), with spine metastases- cord compression, post RT, & liver mets, ex-50 pk yr cigarette smoker, recently stopped at time of diagnosis of lung Ca, currently on chemotherapy (carboplatin and [facility] NURSE-16, last received 2.5 weeks back), CAD s/p stent x 2 (1997), HTN, HLD, paroxysmal Afib (w/o A/C tx), partial right nephrectomy- benign (2006), readmitted to [facility] today, 07/25/2016, for intractable diffuse lower abdominal pain (without radiation to the back), chronic dull midsternal chest discomfort (felt to be tumor related), and constipation for over 3 days, for which the patient was given Relistor in the ER, followed by small bowel movement. There was a small amount of BRBPR after straining at a hard brown stool, Otherwise, there was no significant GI bleeding. He has chronic multifactorial anemia, due in part to chronic disease, malignancy, and chemotherapy. He was seen in the ER on July 19 for chest pain, and was discharged from ER after benign work up. CT C/A/P ( July 18) showed interval improvement in pulmonary disease, hepatic metastatic disease. The patient has previously had chronic elevated lipase, which was previously felt not to be clinically significant per Dr. White, as the patient's abdominal symptoms were lower in nature, and there was no evidence of pancreatitis on CT imaging, albeit without IV contrast (iodine allergy). The patient's constipation improved after Relistor. He denied any diarrhea, obstipation, or tenesmus. He had no upper GI symptoms, except for one episode of mild nausea and vomiting, with bilious contents. There were no fevers or chills. He has chronic back and bone pain. He has had previous colonoscopies in [place], the last one reportedly in [address] Cohn. He has a history of diverticulosis and has had colon polyps removed. He noted 15 pound weight loss since 03/2016, undoubtedly related to his small cell lung cancer. There is no jaundice, dark urine, light stool, or pruritus. There is no family history of GI Ca or GI disease, however the patient's father in his 50's, reportedly from non-alcoholic related cirrhosis. 04/24/2016: nl TG 142 (*re: lipase) 07/19/2016: PT 12.0, INR 1.14, PTT 27 07/24/2016: Admission labs- glucose 85, BUN/Cr 19/1.1, GFR > 60, normal electrolytes including bicarbonate 24, AG 11, lactate 1.1, lipase 1406 (*chronic & previously > 5K), albumin 3.6, globulin 2.6, TBil 0.9, alk phos 332 (chronic & stable), AST 133, ALT 94, troponin < .01, WBC 7.6, H/H 8.4/24.4, nl MCV, PLT 53 07/25/2016: 8:08 a.m.- WBC 7.7, H/H 8.3/24.6, nl MCV, PLT 54 07/25/2016: 5:15 p.m.- WBC 9.5, H/H 8.2/24, nl MCV, PLT 64 07/18/2016: CT ABD & PELVIS W/O IV CONTRAS; CT CHEST WO IV CONTRAST- 1. Compared to 06/23/2016, there is been interval improvement in right pulmonary disease with resolution of previously noted groundglass opacities in the posterior segment of the right upper lobe and right lower lobe. These groundglass opacities could have represented pneumonitis on the prior exam. The atelectasis in the right lower lobe has decreased. The right pleural effusion has decreased in size, as well. 2. There is a residual, irregular nodule in the medial basal segment of the right lower lobe. This nodule was partially obscured by atelectatic lung on 06/23/2016 and has decreased in size compared to 03/31/2016. The peribronchial thickening in the right lower lobe has decreased. Also, right hilar and mediastinal lymph nodes have decreased in size. 3. Hepatic metastatic disease has progressed compared to 03/30/2016 but is not appreciably changed compared to 06/30/2016. There are no new sites of metastases identified in the abdomen or pelvis. 4. Chronic, severe right hydronephrosis and severe cortical atrophy. 5. Colonic diverticulosis without diverticulitis. 07/19/2016: XR PORTABLE CHEST- No acute change of the chest. Surgical clips over the right upper chest. 07/24/2016: ABDOMEN 2 VIEWS AND CHEST 1 VIEW- Unremarkable bowel gas pattern. Clear lungs. Stable superior right paratracheal lymphadenopathy. 07/25/2016: EKG- ST @ 113, normal axis, multifocal PVCs, nonspecific T-wave abnormalities anteriorly. Allergies/Medications Allergies: Coded Allergies: Iodinated Contrast Media - Oral and (Mild, Rash 06/30/16) Home Med List: Alprazolam 0.25 MG TABLET 1 TAB PO TIDPRN ANXIETY (Reported) Amlodipine Besylate 5 MG TABLET 1 TAB PO DAILY BP (Reported) Aspirin (Ecotrin*) 81 MG TABLET.DR 1 TAB PO DAILY HEART/BLOOD (Reported) Dexamethasone 2 MG TABLET 0.5 TAB PO DAILY CORD COMPRESSION (Reported) Escitalopram Oxalate 5 MG TABLET 1 TAB PO DAILY DEPRESSION Fentanyl 100 MCG/HOUR PATCH.TD72 1 PAT TOP Q3D PAIN (Reported) Hydromorphone HCl (Dilaudid) 8 MG TABLET 1 TAB PO Q3-4H PRN PAIN (Reported) Lansoprazole (Prevacid) 30 MG CAPSULE.DR 1 CAP PO DAILY GI (Reported) Metoprolol Succ XL (Toprol Xl) 50 MG TAB 1 TAB PO DAILY atrial fibrillation Multivitamin (Multi-Day Vitamins) 1 EACH TABLET 1 TAB PO DAILY SUPPLEMENT ( Reported) Ondansetron (Zofran Odt) 4 MG TAB.RAPDIS 1 TAB SL TID PRN NAUSEA Polyethylene Glycol 3350 (Miralax) 17 GRAM POWD.PACK 1 PAC PO DAILY PRN CONSTIPATION (Reported) dissolve in water Prochlorperazine Maleate 10 MG TABLET 1 TAB PO Q6 PRN NAUSEA/VOMITING ( Reported) Sennosides/Docusate Sodium (Senna S Tablet) 8.6 MG-50 MG TABLET 2 TAB PO QPM PRN GI (Reported) Simvastatin (Simvastatin*) 20 MG TABLET 1 TAB PO QPM CHOLESTEROL (Reported) Current Medications: Current Medications Sig/Noemí Start time Last Medication Dose Route Stop Time Status Admin Alprazolam 0.25 MG TIDPRN 07/25 0315 AC PO 08/01 0314 Amlodipine Besylate 5 MG DAILY 07/25 1000 AC 07/25 PO 1001 Aspirin Buffered 81 MG DAILY 07/25 1000 AC PO Atorvastatin Calcium 10 MG 1700 07/25 1700 AC 07/25 PO 1611 Dexamethasone 1 MG DAILY 07/25 1000 AC 07/25 PO 0956 Docusate Sodium 100 MG BID 07/25 1000 AC 07/25 PO 1000 Escitalopram Oxalate 5 MG DAILY 07/25 1000 AC 07/25 PO 1001 Fentanyl Citrate 50 MCG Q72H 07/28 1000 AC TOP Fentanyl Citrate 100 MCG Q72 07/28 1000 AC TOP Fentanyl Citrate 100 MCG ONCE ONE 07/25 1500 DC TOP 07/25 1501 Fentanyl Citrate 50 MCG Q72H 07/25 1115 AC 07/25 TOP 07/28 0959 1110 Fentanyl Citrate 100 MCG Q72H 07/25 1045 DC TOP Fentanyl Citrate 100 MCG Q72H 07/25 0400 DC 07/25 TOP 0557 Fentanyl Citrate 0 .STK-MED ONE 07/24 2331 DC .ROUTE Fentanyl Citrate 25 MCG ONCE ONE 07/24 2330 DC 07/24 IV 07/24 2331 2332 Heparin Sodium 5,000 UNIT Q8 07/25 0600 CAN (Porcine) SC Hydromorphone HCl 1 MG ONCE ONE 07/25 1615 DC 07/25 IV 07/25 1616 1611 Hydromorphone HCl 2 MG ONCE PRN 07/25 1045 AC 07/25 IV 1056 Hydromorphone HCl 8 MG Q3 07/25 0939 AC 07/25 PO 1817 Hydromorphone HCl 8 MG Q3P PRN 07/25 0930 DC PO Hydromorphone HCl 0.6 MG ONCE ONE 07/25 0730 DC 07/25 IV 07/25 0731 0734 Hydromorphone HCl 8 MG Q4P PRN 07/25 0530 DC PO Hydromorphone HCl 2 MG Q4P PRN 07/25 0315 AC 07/25 IV 1716 Hydromorphone HCl 0 .STK-MED ONE 07/25 0221 DC .ROUTE Hydromorphone HCl 2 MG ONCE ONE 07/25 0200 DC 07/25 IV 07/25 0201 0230 Hydromorphone HCl 0 .STK-MED ONE 07/25 0047 DC .ROUTE Hydromorphone HCl 2 MG ONCE ONE 07/25 0045 DC 07/25 IV 07/25 0046 0049 Hydromorphone HCl 0 .STK-MED ONE 07/24 2332 DC .ROUTE Hydromorphone HCl 2 MG ONCE ONE 07/24 2330 DC 07/24 IV 07/24 2331 2332 Insulin Aspart 0 TIDAC 07/25 0800 AC 07/25 SC 1707 Methylnaltrexone 12 MG ONCE ONE 07/24 2345 DC 07/25 [place] SC 07/24 2346 0049 Metoprolol Succinate 50 MG DAILY 07/25 1000 AC 07/25 PO 1001 Omeprazole 20 MG DAILY AC 07/25 0700 AC 07/25 PO 0556 Ondansetron HCl 4 MG Q6P PRN 07/25 0300 AC 07/25 IV 0739 Polyethylene Glycol 17 GM DAILY 07/25 1000 AC 07/25 PO 0957 Prochlorperazine 10 MG ONCE ONE 07/25 0045 DC 07/25 IV 07/25 0046 0132 Promethazine HCl 0 .STK-MED ONE 07/25 0221 DC .ROUTE Promethazine HCl 25 MG ONCE ONE 07/25 0200 DC 07/25 IV 07/25 0201 0230 Senna/Docusate Sodium 1 TAB BID PRN 07/25 0315 AC PO Sodium Chloride 1,000 ML Q8H 07/25 1945 UNVr IV Sodium Chloride 1,000 ML ONCE ONE 07/25 0245 DC 07/25 IV 07/25 0924 0230 Past History Travel History Traveled to [place] past 21 day No Medical History Blood Transfusion Hx: Yes Type of Reaction: Other (see notes) Neurological: NONE EENT: NONE Cardiovascular: hypertension, hyperlipidemia, myocardial infarction, CARDIAC STENTS Respiratory: bronchitis, COPD, emphysema, SC lung cancer Gastrointestinal: diverticulosis coli, hx colon polyps Hepatic: LIVER CA- METS FROM TN LUNG CA Renal: right partial nephrectomy benign Musculoskeletal: chronic back pain (spine mets/hx cord compression), disk herniation (L4/L5) Psychiatric: anxiety Endocrine: NONE Blood Disorders: anemia, thrombocytopenia Cancer(s): BENIGN R KIDNEY TUMOR LUNG CANCER LIVER CA 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 , Age 50-60; Cause: Cirrhosis. Relation not specified for: *No pertinent family history Psychosocial History Where Do You Live? Home Who Do You Live With? spouse (Adeline) Services at Home: Nursing Primary Language: Georgian Smoking Status: Former Smoker ETOH Use: occasional use Illicit Drug Use: denies illicit drug use Living Will? no Power of Director Of Estate/HCP? no Other Social History: . Lives wih , Adeline. Ex 50 pk yr cigarette smoker, D/C end of 2015. Rare EtOH. No street drugs. 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 Ambulation: independent IADLs Independent: shopping, housework, finances, food prep, telephone, transportation , medication admin. 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 Review of Systems Constitutional: Reports: weakness, unexplained weight loss. Denies: chills, diaphoresis, fever, malaise. EENTM: Denies: no symptoms (B/L supraclavicular pain), blurred vision, double vision, visual changes, eye pain, eye drainage, eye tearing, icterus, ear discharge, ear pain, ear redness, hearing changes, nasal congestion, epistaxis, nasal pain, throat pain, throat swelling, mouth pain, tooth pain. Cardiovascular: Denies: chest pain, edema, orthopena, palpitations, peripheral edema, syncope. Respiratory: Reports: short of breath (mild). Denies: cough, hemoptysis, orthopnea, sputum production, stridor, wheezing. GI: Reports: abdominal pain (chronic), constipation (narcs), bloody stool (scant BRBPR post defecation). Denies: bloating, diarrhea, distention, bowel incontinence, melena, nausea, changes in stool, vomiting, steatorrhea. Genitourinary: Denies: discharge, dysuria, frequency, hematuria, hesitation, nocturia, pain, urgency. Musculoskeletal: Reports: back pain. Denies: gout, joint pain, joint swelling, muscle pain, muscle stiffness, neck pain. Skin: Denies: cysts, change in skin color, change in hair/nails, dryness, erythema, jaundice, lesions, lymphangitis, lumps, moles, rash. Neurological/Psychological: Reports: anxiety, depressed, weakness. Denies: ataxia, cognitive dysfunction, confusion, dementia, emotional problems, headache, numbness, paresthesia, pre- existing deficit, petit mal seizures, tingling, tremors, tonic-clonic seizures, unable to move lower ext, unable to move upper ext. Hematologic/Endocrine: Denies: bruising, bleeding, polyuria, polydipsia. Immunologic/Allergic: Denies: splenectomy, HIV/AIDS, lymphadenopathy. All Other Systems: Reviewed and Negative Exam & Diagnostic Data Vital Signs and I&O Vital Signs Date Time Temp Pulse Resp B/P Pulse O2 O2 Flow FiO2 Ox Delivery Rate 07/25 1428 97.7 113 20 120/80 93 07/25 1001 156/90 07/25 1001 156/90 07/25 1000 97.8 62 16 110/50 96 Nasal 1.0L Cannula 07/25 0800 Room Air 07/25 0800 Room Air 07/25 0736 97.7 94 20 162/82 96 Room Air 07/25 0424 Room Air 07/25 0342 98.1 100 18 135/66 95 Room Air 07/25 0215 96.8 102 18 149/79 96 Room Air 07/25 0050 98 Room Air 07/25 0045 98.1 93 18 148/75 98 Room Air 07/24 2338 97.2 90 16 133/62 98 Room Air Intake & Output 07/25 1600 07/25 0400 07/24 1600 07/24 0400 07/23 1600 07/23 0400 Intake Total 50 Output Total 150 Balance -100 Intake, IV 50 Output, Urine 150 Patient 185 lb Weight Physical Exam: Well-developed, well-nourished, chronically ill appearing male, in no apparent distress. Sclera anicteric. Conjunctiva pink. Oropharynx clear. No oral thrush. No aphthous ulcers. There is no upper adenopathy, thyromegaly, or JVD. No peripheral stigmata of inflammatory bowel disease or chronic liver disease on exam. No spiders on the anterior chest wall. No gynecomastia. No CVA tenderness. No definite point spine tenderness. Lungs: clear to A&P, except for scant wheezing at the left posterior base, without rales or rhonchi. Heart exam : irregularly irregular rate rhythm, S1 and S2, without any murmur. Abdominal exam: normal bowel sounds, soft belly, except for rock hard, tender, nodular, enlarged liver (c/w mets), as well as mild RLQ tenderness on deep palpation ( with suggestion of either palpable stool or adenopathy in RLQ). Otherwise, nontender without guarding or rebound. No mass. No splenomegaly. No fluid shift. No pulsatile mass. Digital rectal exam: *refused by patient. Extremities: without C, C, or E. No palpable cords. Distal pulses 1+ bilaterally. DTRs 2+ bilaterally. Alert and oriented x 3. Motor 4/5 B/L. a detailed exam for peripheral neuropathy and/or cord compression was deferred. Results Pertinent Lab Results: Laboratory Tests 07/25 07/25 1715 0808 Chemistry Sodium (137 - 145 mmol/L) 140 Potassium (3.5 - 5.1 mmol/L) 3.9 Chloride (98 - 107 mmol/L) 106 Carbon Dioxide (22 - 30 mmol/L) 22 Anion Gap (5 - 16) 12 BUN (9 - 20 mg/dL) 17 Creatinine (0.7 - 1.2 mg/dL) 1.0 Estimated GFR (>60 ml/min) > 60 BUN/Creatinine Ratio (7 - 25 %) 17.0 Hematology CBC w Diff NO MAN DIFF REQ NO MAN DIFF REQ WBC (4.8 - 10.8 /CUMM) 9.5 7.7 RBC (4.70 - 6.10 /CUMM) 2.65 L 2.71 L Hgb (14.0 - 18.0 G/DL) 8.2 L 8.3 L Hct (42 - 52 %) 24.0 L 24.6 L MCV (80.0 - 94.0 FL) 90.9 90.7 MCH (27.0 - 31.0 PG) 31.1 H 30.8 RDW (11.5 - 14.5 %) 18.7 H 19.0 H Plt Count (130 - 400 /CUMM) 64 L 54 L MPV (7.4 - 10.4 FL) 6.9 L 6.7 L Gran % (42.2 - 75.2 %) 84.8 H 84.8 H Lymphocytes % (20.5 - 51.1 %) 7.4 L 7.2 L Monocytes % (1.7 - 9.3 %) 7.0 7.5 Eosinophils % (0 - 5 %) 0.5 0.3 Basophils % (0.0 - 2.0 %) 0.3 0.2 Absolute Granulocytes (1.4 - 6.5 /CUMM) 8.0 H 6.5 Absolute Lymphocytes (1.2 - 3.4 /CUMM) 0.7 L 0.6 L Absolute Monocytes (0.10 - 0.60 /CUMM) 0.7 H 0.6 Absolute Eosinophils (0.0 - 0.7 /CUMM) 0 0 Absolute Basophils (0.0 - 0.2 /CUMM) 0 0 PUBS MCHC (33.0 - 37.0 G/DL) 34.2 33.9 07/25 07/24 0230 2346 Chemistry Sodium (137 - 145 mmol/L) 138 Potassium (3.5 - 5.1 mmol/L) 4.1 Chloride (98 - 107 mmol/L) 103 Carbon Dioxide (22 - 30 mmol/L) 24 Anion Gap (5 - 16) 11 BUN (9 - 20 mg/dL) 19 Creatinine (0.7 - 1.2 mg/dL) 1.1 Estimated GFR (>60 ml/min) > 60 BUN/Creatinine Ratio (7 - 25 %) 17.3 Glucose (65 - 99 mg/dL) 85 Lactic Acid (0.7 - 2.1 mmol/L) Cancelled 1.1 Calcium (8.4 - 10.2 mg/dL) 9.6 Total Bilirubin (0.2 - 1.3 mg/dL) 0.9 AST (17 - 59 U/L) 133 H ALT (21 - 72 U/L) 94 H Alkaline Phosphatase (< 127 U/L) 332 H Troponin I (<0.11 ng/ml) < 0.01 Total Protein (6.3 - 8.2 g/dL) 6.2 L Albumin (3.5 - 5.0 g/dL) 3.6 Globulin (1.9 - 4.2 gm/dL) 2.6 Albumin/Globulin Ratio (1.1 - 2.2 %) 1.4 Lipase (23 - 300 U/L) 1406 H Hematology CBC w Diff NO MAN DIFF REQ WBC (4.8 - 10.8 /CUMM) 7.6 RBC (4.70 - 6.10 /CUMM) 2.72 L Hgb (14.0 - 18.0 G/DL) 8.4 L Hct (42 - 52 %) 24.4 L MCV (80.0 - 94.0 FL) 89.7 MCH (27.0 - 31.0 PG) 30.9 RDW (11.5 - 14.5 %) 18.4 H Plt Count (130 - 400 /CUMM) 53 L MPV (7.4 - 10.4 FL) 6.6 L Gran % (42.2 - 75.2 %) 79.7 H Lymphocytes % (20.5 - 51.1 %) 10.6 L Monocytes % (1.7 - 9.3 %) 9.1 Eosinophils % (0 - 5 %) 0.5 Basophils % (0.0 - 2.0 %) 0.1 Absolute Granulocytes (1.4 - 6.5 /CUMM) 6.1 Absolute Lymphocytes (1.2 - 3.4 /CUMM) 0.8 L Absolute Monocytes (0.10 - 0.60 /CUMM) 0.7 H Absolute Eosinophils (0.0 - 0.7 /CUMM) 0 Absolute Basophils (0.0 - 0.2 /CUMM) 0 PUBS MCHC (33.0 - 37.0 G/DL) 34.4 Imaging/Other Studies: 07/18/2016: CT ABD & PELVIS W/O IV CONTRAS; CT CHEST WO IV CONTRAST- 1. Compared to 06/23/2016, there is been interval improvement in right pulmonary disease with resolution of previously noted groundglass opacities in the posterior segment of the right upper lobe and right lower lobe. These groundglass opacities could have represented pneumonitis on the prior exam. The atelectasis in the right lower lobe has decreased. The right pleural effusion has decreased in size, as well. 2. There is a residual, irregular nodule in the medial basal segment of the right lower lobe. This nodule was partially obscured by atelectatic lung on 06/23/2016 and has decreased in size compared to 03/31/2016. The peribronchial thickening in the right lower lobe has decreased. Also, right hilar and mediastinal lymph nodes have decreased in size. 3. Hepatic metastatic disease has progressed compared to 03/30/2016 but is not appreciably changed compared to 06/30/2016. There are no new sites of metastases identified in the abdomen or pelvis. 4. Chronic, severe right hydronephrosis and severe cortical atrophy. 5. Colonic diverticulosis without diverticulitis. 07/19/2016: XR PORTABLE CHEST- No acute change of the chest. Surgical clips over the right upper chest. 07/24/2016: ABDOMEN 2 VIEWS AND CHEST 1 VIEW- Unremarkable bowel gas pattern. Clear lungs. Stable superior right paratracheal lymphadenopathy. 07/25/2016: EKG- ST @ 113, normal axis, multifocal PVCs, nonspecific T-wave abnormalities anteriorly. Assessment/Plan Assessment/Recommendations: Unfortunate 70-year-old male, history of extensive metastatic small cell lung cancer (dxd 04/08/16 via liver bx), with spine metastases- cord compression, post RT, & liver mets, ex-50 pk yr cigarette smoker, recently stopped at time of diagnosis of lung Ca, currently on chemotherapy (carboplatin and [facility] NURSE-16, last received 2.5 weeks back), CAD s/p stent x 2 (1997), HTN, HLD, paroxysmal Afib (w/o A/C tx), partial right nephrectomy- benign (2006), readmitted to [facility] today, 07/25/2016, for intractable diffuse lower abdominal pain (without radiation to the back), chronic dull midsternal chest discomfort (felt to be tumor related), and constipation for over 3 days, for which the patient was given Relistor in the ER, followed by small bowel movement. There was a small amount of BRBPR after straining at a hard brown stool, Otherwise, there was no significant GI bleeding. He has chronic multifactorial anemia, due in part to chronic disease, malignancy, and chemotherapy. He was seen in the ER on July 19 for chest pain, and was discharged from ER after benign work up. CT C/A/P ( July 18) showed interval improvement in pulmonary disease, hepatic metastatic disease. The patient has previously had chronic elevated lipase, which was previously felt not to be clinically significant per Dr. White, as the patient's abdominal symptoms were lower in nature, and there was no evidence of pancreatitis on CT imaging, albeit without IV contrast (iodine allergy). The patient's constipation improved after Relistor. He denied any diarrhea, obstipation, or tenesmus. He had no upper GI symptoms, except for one episode of mild nausea and vomiting, with bilious contents. There were no fevers or chills. He has chronic back and bone pain. He has had previous colonoscopies in [place], the last one reportedly in [address] Cohn. He has a history of diverticulosis and has had colon polyps removed. He noted 15 pound weight loss since 03/2016, undoubtedly related to his small cell lung cancer. There is no jaundice, dark urine, light stool, or pruritus. There is no family history of GI Ca or GI disease, however the patient's father in his 50's, reportedly from non-alcoholic related cirrhosis. 04/24/2016: nl TG 142 (*re: lipase) 07/19/2016: PT 12.0, INR 1.14, PTT 27 07/24/2016: Admission labs- glucose 85, BUN/Cr 19/1.1, GFR > 60, normal electrolytes including bicarbonate 24, AG 11, lactate 1.1, lipase 1406 (*chronic & previously > 5K), albumin 3.6, globulin 2.6, TBil 0.9, alk phos 332 (chronic & stable), AST 133, ALT 94, troponin < .01, WBC 7.6, H/H 8.4/24.4, nl MCV, PLT 53 07/25/2016: 8:08 a.m.- WBC 7.7, H/H 8.3/24.6, nl MCV, PLT 54 07/25/2016: 5:15 p.m.- WBC 9.5, H/H 8.2/24, nl MCV, PLT 64 07/18/2016: CT ABD & PELVIS W/O IV CONTRAS; CT CHEST WO IV CONTRAST- 1. Compared to 06/23/2016, there is been interval improvement in right pulmonary disease with resolution of previously noted groundglass opacities in the posterior segment of the right upper lobe and right lower lobe. These groundglass opacities could have represented pneumonitis on the prior exam. The atelectasis in the right lower lobe has decreased. The right pleural effusion has decreased in size, as well. 2. There is a residual, irregular nodule in the medial basal segment of the right lower lobe. This nodule was partially obscured by atelectatic lung on 06/23/2016 and has decreased in size compared to 03/31/2016. The peribronchial thickening in the right lower lobe has decreased. Also, right hilar and mediastinal lymph nodes have decreased in size. 3. Hepatic metastatic disease has progressed compared to 03/30/2016 but is not appreciably changed compared to 06/30/2016. There are no new sites of metastases identified in the abdomen or pelvis. 4. Chronic, severe right hydronephrosis and severe cortical atrophy. 5. Colonic diverticulosis without diverticulitis. 07/19/2016: XR PORTABLE CHEST- No acute change of the chest. Surgical clips over the right upper chest. 07/24/2016: ABDOMEN 2 VIEWS AND CHEST 1 VIEW- Unremarkable bowel gas pattern. Clear lungs. Stable superior right paratracheal lymphadenopathy. 07/25/2016: EKG- ST @ 113, normal axis, multifocal PVCs, nonspecific T-wave abnormalities anteriorly. *It is difficult to tell for certain what the patient's lower abdominal pain is from. Some of his abdominal discomfort certainly could be from narcotic-induced constipation, which is somewhat better after having a bowel movement, post- Relistor. Some of it could be from paraneoplastic syndrome, or perhaps from radicular pain, with known spine metastases. Additionally, he could have a component of painful diverticular disease, although this is probably a smaller component. *He last had a colonoscopy in [place] by Dr. Cohn in 2014 "without polyps or lesions," & with his overwhelming metastatic disease, I do not feel a repeat colonoscopy is warranted for his scant rectal bleeding. He may have a stercoral ulcer from chronic constipation. Some of the rectal bleeding could be from post-Carboplatin mucositis. There could be a component of RT proctitis, post RT for cord compression. It is also possible he could be having a slow diverticular bleed vs. hemorrhoidal. His anemia is chronic and stable. His chronically elevated lipase appears unrelated to his current issues , and could be from micro-metastases to the pancreas vs. paraneoplastic effect from small cell lung CA. According to my discussion with Dr. Mosley, the patient' s most recent CTX is not known to cause pancreatitis, & CT images have not demonstrated pancreatitis, albeit without IV contrast, due to iodine allergy. He has had normal TG levels. His LFTs are chronically elevated in a stable pattern, with normal TBil, most likely from liver metastases. There have been no dilated ducts on imaging studies, and the patient has no signs or symptoms of cholangitis. SUGGEST: Clears po & advance diet as tolerated. *Continue Relistor 12 mg sc Q48 hrs. *If no relief from Relisor regarding narcotic-induced constipation, other therapeutic modalities could include Movantik 25 mg po daily vs. Amitiza 24 mcg po BID with food. Continue MiraLAX 17 mg daily, Colace 100 mg BID, & Senna S BID. *Consider enema therapy to help prevent fecal impaction. *Colonoscopy on hold for now, in view of numerous mitigating factors, and the patient agrees. Zofran as needed. Continue anxiolytics and antidepressants. Narcotic analgesics as needed. Consider pain management consult. Consider readdressing goals of care and/or palliative care, with widespread Ca. Follow up CBC. Transfuse as needed. Keep Hgb > 8, with history of ASHD. Strict I/O's. Supplemental O2 as needed. Assuming the lower GI bleeding stabilizes, may carefully continue baby aspirin in view of ASHD and remote cardiac stents. With regards to the elevated lipase, which seems to be unrelated to the patient's current situation, I doubt that outpatient EUS will gear changer, & again, the patient has no signs or symptoms of cholangitis, nor pancreatitis. The above was discussed with Dr. Mosley earlier today, and again this evening, with the medical house staff. Further inpatient GI follow up as needed. Problem List: 1. Intractable abdominal pain 2. Therapeutic opioid induced constipation 3. Anemia 4. Metastasis from malignant tumor of lung 5. Elevated LFTs 6. Elevated lipase 7. Rectal bleeding 8. Diverticula of colon Copies To: KRISTIN JONES,SUNIL; HILLARY JONES,EDA Jane; BELGICA JONES,EBONY; MELISSA JONES,PANCHO Alexander. Consult Acknowledgment - Thank you for your consult request.
[2016-07-25 17:58] LABS: ABSOLUTE BASOPHIL COUNT 0 /CUMM (0.0-0.2); ABSOLUTE EOSINOPHIL COUNT 0 /CUMM (0.0-0.7); ABSOLUTE LYMPH COUNT 0.7 /CUMM (1.2-3.4); ABSOLUTE MONOCYTE COUNT 0.7 /CUMM (0.10-0.60); BASOPHIL % 0.3 % (0.0-2.0); EOSINOPHIL % 0.5 % (0-5); GRANULOCYTE % 84.8 % (42.2-75.2); MEAN CORPUSCULAR HGB 31.1 PG (27.0-31.0); MEAN CORPUSCULAR HGB CONC 34.2 G/DL (33.0-37.0); MEAN CORPUSCULAR VOLUME 90.9 FL (80.0-94.0); MEAN PLATELET VOLUME 6.9 FL (7.4-10.4); PLATELET COUNT 64 /CUMM (130-400); RBC DISTRIBUTION WIDTH 18.7 % (11.5-14.5); RED BLOOD CELL CT 2.65 /CUMM (4.70-6.10); WHITE BLOOD CELL COUNT 9.5 /CUMM (4.8-10.8)
[2016-07-25 22:06] VITALS: BP 116/70
[2016-07-25 23:18] LABS: ABSOLUTE BASOPHIL COUNT 0 /CUMM (0.0-0.2); ABSOLUTE EOSINOPHIL COUNT 0 /CUMM (0.0-0.7); ABSOLUTE GRANULOCYTE CT 7.8 /CUMM (1.4-6.5); ABSOLUTE LYMPH COUNT 0.7 /CUMM (1.2-3.4); BASOPHIL % 0.2 % (0.0-2.0); EOSINOPHIL % 0.4 % (0-5); GRANULOCYTE % 81.7 % (42.2-75.2); HEMATOCRIT 23.8 % (42-52); MEAN CORPUSCULAR HGB 30.6 PG (27.0-31.0); MEAN CORPUSCULAR HGB CONC 33.5 G/DL (33.0-37.0); MEAN CORPUSCULAR VOLUME 91.3 FL (80.0-94.0); MEAN PLATELET VOLUME 6.6 FL (7.4-10.4); PLATELET COUNT 69 /CUMM (130-400); RBC DISTRIBUTION WIDTH 19.1 % (11.5-14.5); WHITE BLOOD CELL COUNT 9.6 /CUMM (4.8-10.8)
[2016-07-26 07:11] VITALS: BP 120/72
--- NOTE | 2016-07-26 08:30 | PN- Housestaff ---
[facility]29: Subjective Follow-up For: 1. Intractable abdominal pain 2. Constipation. 3. Metastatic cancer Non small cell lung cancer on chemotherapy. follows hem/onc 4. Opiod use 5. elevated lipase non speicfic 6. Transaminitis h/o liver mets 7. Thrombocytopenia multifactorial. 8. Anemia of chronic disease. Subjective: Afebrile, hemodynamically stable, saturating well on room air, no acute overnight events reported. Patient reported significant improvement in his back pain. Patient H&H dropped 7.5 and 21. Review of Systems Constitutional: Reports: see HPI. Objective Last 24 Hrs of Vital Signs/I&O Vital Signs Date Time Temp Pulse Resp B/P Pulse O2 O2 Flow FiO2 Ox Delivery Rate 07/26 08 101 120/72 07/26 0857 101 120/72 07/26 0711 97.5 101 20 120/72 95 Room Air 07/25 2206 97.9 97 20 116/70 92 Room Air 07/25 1428 97.7 113 20 120/80 93 Intake & Output 07/26 1600 07/26 0800 07/26 0000 Intake Total 1040 Output Total 300 Balance 1040 -300 Intake, IV 800 Intake, Oral 240 Number 1 Bowel Movements Output, Urine 300 Physical Exam General Appearance: Alert, Oriented X3, Cooperative, No Acute Distress HEENT: Atraumatic, PERRLA, EOMI, Mucous Membr. moist/pink Cardiovascular: Regular Rate, Normal S1, Normal S2, No Murmurs Lungs: decreased air entry over both lungs Abdomen: Normal Bowel Sounds, Soft, No Tenderness Neurological: Normal Speech Extremities: No Clubbing, No Cyanosis, No Edema Current Medications: Current Medications Sig/Noemí Start time Last Medication Dose Route Stop Time Status Admin Alprazolam 0.25 MG TIDPRN 07/25 0315 AC 07/26 PO 08/01 0314 0410 Amlodipine Besylate 5 MG DAILY 07/25 1000 AC 07/26 PO 0857 Aspirin Buffered 81 MG DAILY 07/25 1000 AC 07/26 PO 0857 Atorvastatin Calcium 10 MG 1700 07/25 1700 AC 07/25 PO 1611 Dexamethasone 1 MG DAILY 07/25 1000 AC 07/26 PO 0858 Docusate Sodium 100 MG BID 07/25 1000 AC 07/26 PO 0857 Escitalopram Oxalate 5 MG DAILY 07/25 1000 AC 07/26 PO 0857 Fentanyl Citrate 50 MCG Q72H 07/28 1000 TOP Fentanyl Citrate 100 MCG Q72 07/28 1000 AC TOP Fentanyl Citrate 100 MCG ONCE ONE 07/25 1500 DC TOP 07/25 1501 Fentanyl Citrate 50 MCG Q72H 07/25 1115 AC 07/25 TOP 07/28 0959 1110 Fentanyl Citrate 100 MCG Q72H 07/25 1045 DE TOP Fentanyl Citrate 100 MCG Q72H 07/25 0400 DE 07/25 TOP 0557 Hydromorphone HCl 1 MG ONCE ONE 07/25 2000 DC 07/25 IV 07/25 Hydromorphone HCl 1 MG ONCE ONE 07/25 1615 DE 07/25 IV 07/25 1616 1611 Hydromorphone HCl 2 MG ONCE PRN 07/25 1045 07/25 IV 1056 Hydromorphone HCl 8 MG Q3 07/25 0939 07/26 PO 0858 Hydromorphone HCl 2 MG Q4P PRN 07/25 0315 07/26 IV 0858 Insulin Aspart 0 TIDAC 07/25 0800 07/25 SC 1707 Metoprolol Succinate 50 MG DAILY 07/25 1000 AC 07/26 PO 0857 Omeprazole 20 MG DAILY AC 07/25 0700 AC 07/26 PO 0556 Ondansetron HCl 4 MG Q6P PRN 07/25 0300 07/25 IV 0739 Polyethylene Glycol 17 GM DAILY 07/25 1000 AC 07/26 PO 0857 Senna/Docusate Sodium 1 TAB BID PRN 07/25 0315 07/26 PO 0859 Sodium Chloride 1,000 ML Q8H 07/25 1945 07/26 IV 0803 Last 24 Hrs of Lab/Wiliam Results Last 24 Hrs of Labs/Mics: Laboratory Tests 07/26/16 0730: CBC w Diff NO MAN DIFF REQ, RBC 2.35 L, MCV 91.6, MCH 31.4 H, RDW 19.3 H, MPV 7.2 L, Gran % 79.9 H, Lymphocytes % 9.0 L, Monocytes % 10.1 H, Eosinophils % 0.8, Basophils % 0.2, Absolute Granulocytes 5.6, Absolute Lymphocytes 0.6 L, Absolute Monocytes 0.7 H, Absolute Eosinophils 0.1, Absolute Basophils 0, PUBS MCHC 34.3 07/25/16 2250: CBC w Diff NO MAN DIFF REQ, RBC 2.60 L, MCV 91.3, MCH 30.6, RDW 19.1 H, MPV 6.6 L, Gran % 81.7 H, Lymphocytes % 7.3 L, Monocytes % 10.4 H, Eosinophils % 0.4, Basophils % 0.2, Absolute Granulocytes 7.8 H, Absolute Lymphocytes 0.7 L, Absolute Monocytes 1.0 H, Absolute Eosinophils 0, Absolute Basophils 0, PUBS MCHC 33.5 07/25/16 1715: CBC w Diff NO MAN DIFF REQ, RBC 2.65 L, MCV 90.9, MCH 31.1 H, RDW 18.7 H, MPV 6.9 L, Gran % 84.8 H, Lymphocytes % 7.4 L, Monocytes % 7.0, Eosinophils % 0.5 , Basophils % 0.3, Absolute Granulocytes 8.0 H, Absolute Lymphocytes 0.7 L, Absolute Monocytes 0.7 H, Absolute Eosinophils 0, Absolute Basophils 0, PUBS MCHC 34.2 Assessment/Plan Assessment: # Intractable abdominal pain mostly secondary to severe constipation caysed by opioids use Recent CT scan negative for acute pathology, GI consulted. * pain control dilaudid 8mg schedueld , prn meds i/v dialudid , fentanyl patch 150mcg increase. * Clears po & advance diet as tolerated * Patient will be instructed to follow-up with pain management as an outpatient #Constipation. * Continue Relistor 12 mg sc Q48 hrs * Continue MiraLAX 17 mg daily, Colace 100 mg BID, & Senna S BID # Metastatic cancer Non small cell lung cancer on chemotherapy. follows hem/onc * NTD * We will follow #Elevated lipase and transaminitis (h/o liver mets) Patient has small cell lung metastasis to the liver, his liver enzyme elevation has been stable. CT on July 18 shows that the metastasis size is stable. Patient lipase has been elevated since last admission. * GI is on board, we will follow their recommendation. #Anemia and thrombocytopenia Patient presented with constipation that was followed by mild lower GI bleeding. Patient hemoglobin dropped from 7.9 yesterday to 7.5 today, most likely a big part of this drop is secondary to hemodilution however given his recent GI bleed, we will keep his hemoglobin above 8. * We will transfuse 1 packed RBCs * We will repeat CBC posttransfusion Diabetic diet DVT ppx Alps only Full code. Problem List: 1. Rectal bleeding 2. Elevated LFTs 3. Therapeutic opioid induced constipation 4. Chronic pain 5. 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 He was given relistor in the ER and he had a small BM. He was seen in the ER on July 19 for chest pain, and was discharged from ER after benign work up. CT C/A/P (July 18) showed interval improvement in pulmonary disease, hepatic metastatic disease." ASSESSEMENT 1. Intractable abdominal pain 2. Constipation. 3. Metastatic cancer Non small cell lung cancer on chemotherapy. follows hem/onc 4. Opiod use 5. elevated lipase non speicfic 6. Transaminitis h/o liver mets 7. Thrombocytopenia multifactorial. 8. Anemia of chronic disease. 9. BRBPR 10. Acute blood loss anemia PLAN 1. admit medical services for pain managment. 2. Cancer pain control dilaudid 8mg schedueld , prn meds i/v dialudid , fentanyl patch 100mcg can increase, hem/onc consulted. Increase pain meds as tolerated. 3. Constipation relieved, had bowel movement. c/w relistor 12 sc q 48, convert to amitiza 24 bid at d/c. 4. Recent CT scan negative for acute pathology, GI appreicated 5. Chronically elevated lipase non specific finding as evaluated by GI in Apr 2016 likely secondary to metastatic disease. No acute intervention needed, not suggestive of pancreatitis. 6. Transaminitis in the setting of hepatic mets. Stable. 7. Anemia stable , H/h slow drift, transfuse PRBC 1 unit. 8. BRBPR GI recommend, hold colonsocpy for now vast differential. DVT ppx Alps (thrombocytopenia in the setting of chemo). Full code. d/wed patient/family bedside for goals of care. hem/onc also following, GI consulted. discussed the plan of treatment and prognosis in this scenario. Palliative consult would be of great help!
[2016-07-26 08:36] LABS: ABSOLUTE BASOPHIL COUNT 0 /CUMM (0.0-0.2); ABSOLUTE GRANULOCYTE CT 5.6 /CUMM (1.4-6.5); ABSOLUTE LYMPH COUNT 0.6 /CUMM (1.2-3.4); ABSOLUTE MONOCYTE COUNT 0.7 /CUMM (0.10-0.60); RED BLOOD CELL CT 2.35 /CUMM (4.70-6.10)
[2016-07-26 08:45] LABS: ABSOLUTE EOSINOPHIL COUNT 0.1 /CUMM (0.0-0.7); BASOPHIL % 0.2 % (0.0-2.0); EOSINOPHIL % 0.8 % (0-5); GRANULOCYTE % 79.9 % (42.2-75.2); HEMATOCRIT 21.5 % (42-52); MEAN CORPUSCULAR HGB 31.4 PG (27.0-31.0); MEAN CORPUSCULAR HGB CONC 34.3 G/DL (33.0-37.0); MEAN CORPUSCULAR VOLUME 91.6 FL (80.0-94.0); MEAN PLATELET VOLUME 7.2 FL (7.4-10.4); PLATELET COUNT 56 /CUMM (130-400); RBC DISTRIBUTION WIDTH 19.3 % (11.5-14.5)
[2016-07-26 13:27] VITALS: BP 114/68
[2016-07-26 15:05] LABS: ABSOLUTE BASOPHIL COUNT 0 /CUMM (0.0-0.2); ABSOLUTE EOSINOPHIL COUNT 0.1 /CUMM (0.0-0.7); ABSOLUTE GRANULOCYTE CT 5.5 /CUMM (1.4-6.5); ABSOLUTE LYMPH COUNT 0.6 /CUMM (1.2-3.4); ABSOLUTE MONOCYTE COUNT 0.6 /CUMM (0.10-0.60); BASOPHIL % 0.1 % (0.0-2.0); GRANULOCYTE % 80.8 % (42.2-75.2); MEAN CORPUSCULAR HGB 30.9 PG (27.0-31.0); PLATELET COUNT 59 /CUMM (130-400); RBC DISTRIBUTION WIDTH 18.7 % (11.5-14.5); RED BLOOD CELL CT 2.53 /CUMM (4.70-6.10); WHITE BLOOD CELL COUNT 6.8 /CUMM (4.8-10.8)
[2016-07-26 20:17] LABS: ABSOLUTE BASOPHIL COUNT 0 /CUMM (0.0-0.2); ABSOLUTE EOSINOPHIL COUNT 0.1 /CUMM (0.0-0.7); ABSOLUTE GRANULOCYTE CT 5.8 /CUMM (1.4-6.5); ABSOLUTE LYMPH COUNT 0.7 /CUMM (1.2-3.4); ABSOLUTE MONOCYTE COUNT 0.8 /CUMM (0.10-0.60); BASOPHIL % 0.1 % (0.0-2.0); EOSINOPHIL % 1.2 % (0-5); HEMATOCRIT 23.6 % (42-52); MEAN CORPUSCULAR HGB 30.8 PG (27.0-31.0); MEAN CORPUSCULAR HGB CONC 33.5 G/DL (33.0-37.0); MEAN CORPUSCULAR VOLUME 91.8 FL (80.0-94.0); MEAN PLATELET VOLUME 6.7 FL (7.4-10.4); PLATELET COUNT 65 /CUMM (130-400); RBC DISTRIBUTION WIDTH 19.6 % (11.5-14.5); RED BLOOD CELL CT 2.57 /CUMM (4.70-6.10); WHITE BLOOD CELL COUNT 7.4 /CUMM (4.8-10.8)
[2016-07-26 21:44] VITALS: BP 118/70
--- NOTE | 2016-07-27 06:46 | PN- Oncology ---
Subjective Subjective: Decreased pain, relieved with flatus Review of Systems: 12 point review of systems otherwise unchanged Objective Vital Signs and I&Os Vital Signs Date Time Temp Pulse Resp B/P Pulse O2 O2 Flow FiO2 Ox Delivery Rate 07/27 2143 98.1 90 20 118/70 92 07/26 1327 97.5 90 22 114/68 93 Room Air 07/26 0857 101 120/72 07/26 0857 101 120/72 07/26 0711 97.5 101 20 120/72 95 Room Air Intake & Output 07/27 0800 07/27 0000 07/26 1600 07/26 0800 07/26 0000 07/25 1600 Intake Total 1240 1240 1950 1040 Output Total 300 300 Balance 940 1240 1950 1040 -300 Intake, Blood 350 Product Intake, IV 1000 1000 1000 800 Intake, Oral 240 240 600 240 Number 1 3 1 Bowel Movements Output, Urine 300 300 Patient 185 lb Weight Gen.: in NAD ENT: Sclera anicteric Chest: Normal respiratory effort, decreased breath sounds Cor: RRR, no extra sounds Abdomen: Soft, bowel sounds present, no tenderness, no rebound Extremities: Without clubbing, cyanosis, or asymmetric edema Neurology: Alert and oriented 3, no gross deficit Skin: No rashes Current Medications: Current Medications Sig/Noemí Start time Last Medication Dose Route Stop Time Status Admin Alprazolam 0.25 MG Q6-PRN PRN 07/27 0400 AC PO 08/03 0347 Alprazolam 0.25 MG TIDPRN 07/25 0315 DC 07/27 PO 08/01 0314 0158 Amlodipine Besylate 5 MG DAILY 07/25 1000 AC 07/26 PO 0857 Aspirin Buffered 81 MG DAILY 07/25 1000 AC 07/26 PO 0857 Atorvastatin Calcium 10 MG 1700 07/25 1700 AC 07/26 PO 1752 Dexamethasone 1 MG DAILY 07/25 1000 AC 07/26 PO 0858 Docusate Sodium 100 MG BID 07/25 1000 AC 07/26 PO 2047 Escitalopram Oxalate 5 MG DAILY 07/25 1000 AC 07/26 PO 0857 Fentanyl Citrate 50 MCG Q72H 07/28 1000 AC TOP Fentanyl Citrate 100 MCG Q72 07/28 1000 AC TOP Fentanyl Citrate 50 MCG Q72H 07/25 1115 AC 07/25 TOP 07/28 0959 1110 Hydromorphone HCl 2 MG ONCE PRN 07/27 0345 AC IV Hydromorphone HCl 1 MG ONCE ONE 07/27 0300 DC 07/27 IV 07/27 0301 0305 Hydromorphone HCl 2 MG ONCE PRN 07/25 1045 AC 07/27 IV 0342 Hydromorphone HCl 8 MG Q3 07/25 0939 AC 07/27 PO 0555 Hydromorphone HCl 2 MG Q4P PRN 07/25 0315 AC 07/27 IV 0446 Insulin Aspart 0 TIDAC 07/25 0800 AC 07/25 SC 1707 Lidocaine 1 PAT DAILY PRN 07/27 0400 AC EXT Methylnaltrexone 12 MG Q48 07/26 1100 AC 07/26 [place] SC 1203 Metoprolol Succinate 50 MG DAILY 07/25 1000 AC 07/26 PO 0857 Omeprazole 20 MG DAILY AC 07/25 0700 AC 07/27 PO 0555 Ondansetron HCl 4 MG .STK-MED ONE 07/26 1750 DC IM 07/26 1751 Ondansetron HCl 4 MG Q6P PRN 07/25 0300 AC 07/26 IV 1752 Polyethylene Glycol 17 GM DAILY 07/25 1000 AC 07/26 PO 0857 Senna/Docusate Sodium 1 TAB BID PRN 07/25 0315 AC 07/26 PO 0859 Sodium Chloride 1,000 ML Q8H 07/25 1945 AC 07/27 IV 0250 Results Last 24 Hours of Lab Results: Laboratory Tests 07/27 07/26 0600 1999 Hematology CBC w Diff Pending NO MAN DIFF REQ WBC (4.8 - 10.8 /CUMM) Pending 7.4 RBC (4.70 - 6.10 /CUMM) Pending 2.57 L Hgb (14.0 - 18.0 G/DL) Pending 7.9 L Hct (42 - 52 %) Pending 23.6 L MCV (80.0 - 94.0 FL) Pending 91.8 MCH (27.0 - 31.0 PG) Pending 30.8 RDW (11.5 - 14.5 %) Pending 19.6 H Plt Count (130 - 400 /CUMM) Pending 65 L MPV (7.4 - 10.4 FL) Pending 6.7 L Gran % (42.2 - 75.2 %) 79.0 H Lymphocytes % (20.5 - 51.1 %) 9.2 L Monocytes % (1.7 - 9.3 %) 10.5 H Eosinophils % (0 - 5 %) 1.2 Basophils % (0.0 - 2.0 %) 0.1 Absolute Granulocytes (1.4 - 6.5 /CUMM) 5.8 Absolute Lymphocytes (1.2 - 3.4 /CUMM) 0.7 L Absolute Monocytes (0.10 - 0.60 /CUMM) 0.8 H Absolute Eosinophils (0.0 - 0.7 /CUMM) 0.1 Absolute Basophils (0.0 - 0.2 /CUMM) 0 PUBS MCHC (33.0 - 37.0 G/DL) Pending 33.5 07/26 07/26 1330 0730 Hematology CBC w Diff NO MAN DIFF REQ NO MAN DIFF REQ WBC (4.8 - 10.8 /CUMM) 6.8 7.0 RBC (4.70 - 6.10 /CUMM) 2.53 L 2.35 L Hgb (14.0 - 18.0 G/DL) 7.8 L 7.4 *L Hct (42 - 52 %) 23.0 L 21.5 L MCV (80.0 - 94.0 FL) 91.0 91.6 MCH (27.0 - 31.0 PG) 30.9 31.4 H RDW (11.5 - 14.5 %) 18.7 H 19.3 H Plt Count (130 - 400 /CUMM) 59 L 56 L MPV (7.4 - 10.4 FL) 7.0 L 7.2 L Gran % (42.2 - 75.2 %) 80.8 H 79.9 H Lymphocytes % (20.5 - 51.1 %) 9.0 L 9.0 L Monocytes % (1.7 - 9.3 %) 9.1 10.1 H Eosinophils % (0 - 5 %) 1.0 0.8 Basophils % (0.0 - 2.0 %) 0.1 0.2 Absolute Granulocytes (1.4 - 6.5 /CUMM) 5.5 5.6 Absolute Lymphocytes (1.2 - 3.4 /CUMM) 0.6 L 0.6 L Absolute Monocytes (0.10 - 0.60 /CUMM) 0.6 0.7 H Absolute Eosinophils (0.0 - 0.7 /CUMM) 0.1 0.1 Absolute Basophils (0.0 - 0.2 /CUMM) 0 0 PUBS MCHC (33.0 - 37.0 G/DL) 34.0 34.3 Assessment/Plan Assessment/Recommendations: 1. Abdominal pain-unclear etiology but generally improved Recommend- Continue current analgesic regimen 2. Extensive small cell lung cancer-chemotherapy to continue as an outpatient 3. Lfexjv-[id number]-[id number] post 1 unit red cell transfusion Hopefully can be discharged soon
[2016-07-27 06:55] VITALS: BP 120/70
[2016-07-27 08:02] LABS: ABSOLUTE BASOPHIL COUNT 0 /CUMM (0.0-0.2); ABSOLUTE EOSINOPHIL COUNT 0.1 /CUMM (0.0-0.7); ABSOLUTE GRANULOCYTE CT 4.2 /CUMM (1.4-6.5); ABSOLUTE LYMPH COUNT 0.6 /CUMM (1.2-3.4); ABSOLUTE MONOCYTE COUNT 0.6 /CUMM (0.10-0.60); BASOPHIL % 0.3 % (0.0-2.0); EOSINOPHIL % 1.3 % (0-5); GRANULOCYTE % 76.6 % (42.2-75.2); HEMATOCRIT 22.5 % (42-52); MEAN CORPUSCULAR HGB 30.9 PG (27.0-31.0); MEAN CORPUSCULAR HGB CONC 33.9 G/DL (33.0-37.0); MEAN CORPUSCULAR VOLUME 91.1 FL (80.0-94.0); MEAN PLATELET VOLUME 7.5 FL (7.4-10.4); RBC DISTRIBUTION WIDTH 19.1 % (11.5-14.5); RED BLOOD CELL CT 2.47 /CUMM (4.70-6.10); WHITE BLOOD CELL COUNT 5.4 /CUMM (4.8-10.8)
--- NOTE | 2016-07-27 08:23 | PN- Housestaff ---
[facility] 07[facility] 0823: Subjective Follow-up For: 1. Intractable abdominal pain 2. Constipation. 3. Metastatic cancer Non small cell lung cancer on chemotherapy. follows hem/onc 4. Opiod use 5. elevated lipase non speicfic 6. Transaminitis h/o liver mets 7. Thrombocytopenia multifactorial. 8. Anemia of chronic disease. Subjective: Afebrile, hemodynamically stable, saturating well on room air, no acute overnight events reported. Patient reported significant improvement in his abdominal pain, however he had one episode of lower abdominal pain earlier today. Patient hemoglobin is stable at 7.6 today Review of Systems Constitutional: Reports: no symptoms. Objective Last 24 Hrs of Vital Signs/I&O Vital Signs Date Time Temp Pulse Resp B/P Pulse O2 O2 Flow FiO2 Ox Delivery Rate 07/27 1029 84 118/74 07/27 1029 84 118/74 07/27 0655 97.9 81 20 120/70 91 Room Air 07/26 2144 98.1 90 20 118/70 92 07/26 1327 97.5 90 22 114/68 93 Room Air Intake & Output 07/27 1600 07/27 0800 07/27 0000 Intake Total 1240 1240 Output Total 100 300 Balance -056 485 7225 Intake, IV 1000 1000 Intake, Oral 240 240 Number 1 1 Bowel Movements Output, Urine 100 300 Physical Exam General Appearance: Alert, Oriented X3, Cooperative, No Acute Distress Cardiovascular: Regular Rate, Normal S1, Normal S2, No Murmurs Lungs: Clear to Auscultation, Normal Air Movement Abdomen: Normal Bowel Sounds, Soft, epigastric tenderness Neurological: Normal Gait, Normal Speech Extremities: No Clubbing, No Cyanosis, No Edema Current Medications: Current Medications Sig/Noemí Start time Last Medication Dose Route Stop Time Status Admin Alprazolam 0.25 MG Q6-PRN PRN 07/27 0400 AC PO 08/03 0347 Alprazolam 0.25 MG TIDPRN 07/25 0315 DC 07/27 PO 08/01 0314 0158 Amlodipine Besylate 5 MG DAILY 07/25 1000 AC 07/27 PO 1029 Aspirin Buffered 81 MG DAILY 07/25 1000 AC 07/27 PO 1029 Atorvastatin Calcium 10 MG 1700 07/25 1700 AC 07/26 PO 1752 Dexamethasone 1 MG DAILY 07/25 1000 AC 07/27 PO 1030 Docusate Sodium 100 MG BID 07/25 1000 AC 07/27 PO 1029 Escitalopram Oxalate 5 MG DAILY 07/25 1000 AC 07/27 PO 1029 Fentanyl Citrate 50 MCG Q72H 07/28 1000 AC TOP Fentanyl Citrate 100 MCG Q72 07/28 1000 AC TOP Fentanyl Citrate 50 MCG Q72H 07/25 1115 AC 07/25 TOP 07/28 0959 1110 Hydromorphone HCl 2 MG ONCE PRN 07/27 0345 AC IV Hydromorphone HCl 1 MG ONCE ONE 07/27 0300 DC 07/27 IV 07/27 0301 0305 Hydromorphone HCl 2 MG ONCE PRN 07/25 1045 AC 07/27 IV 0342 Hydromorphone HCl 8 MG Q3 07/25 0939 AC 07/27 PO 1124 Hydromorphone HCl 2 MG Q4P PRN 07/25 0315 AC 07/27 IV 0851 Insulin Aspart 0 TIDAC 07/25 0800 AC 07/25 SC 1707 Lidocaine 1 PAT DAILY PRN 07/27 0400 AC EXT Methylnaltrexone 12 MG Q48 07/26 1100 AC 07/26 [place] SC 1203 Metoprolol Succinate 50 MG DAILY 07/25 1000 AC 07/27 PO 1029 Omeprazole 20 MG DAILY AC 07/25 0700 AC 07/27 PO 0555 Ondansetron HCl 4 MG .STK-MED ONE 07/26 1750 DC IM 07/26 1751 Ondansetron HCl 4 MG Q6P PRN 07/25 0300 AC 07/26 IV 1752 Polyethylene Glycol 17 GM DAILY 07/25 1000 AC 07/27 PO 1028 Senna/Docusate Sodium 1 TAB BID PRN 07/25 0315 AC 07/26 PO 0859 Sodium Chloride 1,000 ML Q8H 07/25 1945 AC 07/27 IV 1124 Last 24 Hrs of Lab/Wiliam Results Last 24 Hrs of Labs/Mics: Laboratory Tests 07/27/16 0600: CBC w Diff NO MAN DIFF REQ, RBC 2.47 L, MCV 91.1, MCH 30.9, RDW 19.1 H, MPV 7.5, Gran % 76.6 H, Lymphocytes % 11.1 L, Monocytes % 10.7 H, Eosinophils % 1.3, Basophils % 0.3, Absolute Granulocytes 4.2, Absolute Lymphocytes 0.6 L, Absolute Monocytes 0.6, Absolute Eosinophils 0.1, Absolute Basophils 0, PUBS MCHC 33.9 07/26/161999: CBC w Diff NO MAN DIFF REQ, RBC 2.57 L, MCV 91.8, MCH 30.8, RDW 19.6 H, MPV 6.7 L, Gran % 79.0 H, Lymphocytes % 9.2 L, Monocytes % 10.5 H, Eosinophils % 1.2, Basophils % 0.1, Absolute Granulocytes 5.8, Absolute Lymphocytes 0.7 L, Absolute Monocytes 0.8 H, Absolute Eosinophils 0.1, Absolute Basophils 0, PUBS MCHC 33.5 07/26/16 1330: CBC w Diff NO MAN DIFF REQ, RBC 2.53 L, MCV 91.0, MCH 30.9, RDW 18.7 H, MPV 7.0 L, Gran % 80.8 H, Lymphocytes % 9.0 L, Monocytes % 9.1, Eosinophils % 1.0 , Basophils % 0.1, Absolute Granulocytes 5.5, Absolute Lymphocytes 0.6 L, Absolute Monocytes 0.6, Absolute Eosinophils 0.1, Absolute Basophils 0, PUBS MCHC 34.0 Assessment/Plan Assessment: # Intractable abdominal pain mostly secondary to severe constipation caysed by opioids use Recent CT scan negative for acute pathology, GI consulted. * pain control dilaudid 8mg schedueld , prn meds i/v dialudid , fentanyl patch 150mcg increase. * Clears po & advance diet as tolerated * Patient will be instructed to follow-up with pain management as an outpatient #Constipation. * Continue Relistor 12 mg sc Q48 hrs * Continue MiraLAX 17 mg daily, Colace 100 mg BID, & Senna S BID # Metastatic cancer Non small cell lung cancer on chemotherapy. follows hem/onc * NTD * We will follow #Elevated lipase and transaminitis (h/o liver mets) Patient has small cell lung metastasis to the liver, his liver enzyme elevation has been stable. CT on July 18 shows that the metastasis size is stable. Patient lipase has been elevated since last admission. * GI is on board, we will follow their recommendation. #Anemia and thrombocytopenia Patient presented with constipation that was followed by mild lower GI bleeding. Patient hemoglobin dropped from 7.9 yesterday to 7.5 today, most likely a big part of this drop is secondary to hemodilution. * We will repeat CBC in am Diabetic diet DVT ppx Alps only Full code. Problem List: 1. 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 He was given relistor in the ER and he had a small BM. He was seen in the ER on July 19 for chest pain, and was discharged from ER after benign work up. CT C/A/P (July 18) showed interval improvement in pulmonary disease, hepatic metastatic disease." ASSESSEMENT 1. Intractable abdominal pain 2. Constipation. 3. Metastatic cancer Non small cell lung cancer on chemotherapy. follows hem/onc 4. Opiod use 5. elevated lipase non speicfic 6. Transaminitis h/o liver mets 7. Thrombocytopenia multifactorial. 8. Anemia of chronic disease. 9. BRBPR 10. Acute blood loss anemia PLAN 1. admit medical services for pain managment. 2. Cancer pain control dilaudid 8mg schedueld , prn meds i/v dialudid , fentanyl patch 100mcg can increase, hem/onc consulted. Increase pain meds as tolerated. 3. Constipation relieved, had bowel movement. c/w relistor 12 sc q 48, convert to amitiza 24 bid at d/c. 4. Recent CT scan negative for acute pathology, GI appreicated 5. Chronically elevated lipase non specific finding as evaluated by GI in Apr 2016 likely secondary to metastatic disease. No acute intervention needed, not suggestive of pancreatitis. 6. Transaminitis in the setting of hepatic mets. Stable. 7. Anemia stable , H/h slow drift, s/p transfusion PRBC 1 unit. monitor 8. BRBPR GI recommend, hold colonsocpy for now vast differential. check cbc in am. DVT ppx Alps (thrombocytopenia in the setting of chemo). Full code. d/wed patient/family bedside for goals of care. hem/onc also following, GI consulted. discussed the plan of treatment and prognosis in this scenario. Palliative consult would be of great help!
[2016-07-27 08:51] LABS: PLATELET COUNT 46 /CUMM (130-400)
[2016-07-27 13:42] VITALS: BP 122/80
--- NOTE | 2016-07-27 17:55 | Event Note ---
Event Note Event Note: Around 5:15 PM went to assess the patient as informed by nursing staff that he was having some amount of pain. was at bedside. patient complained of drooling of right side of the mouth along with difficulty swallowing. noticed that he has been slurring his speech this evening. also reported numbness of fingertip of left hand. denied weakness or tingling of upper or lower extremities, vision changes. Vitals afebrile, pulse rate 87, blood pressure 122/80 saturating 90% on room air Alert oriented 3 Neurological examination: no deviation of tongue, slight drooping of right side of the mouth present No pronator drift Plan As patient has history of PAF there is concern for stroke, [id number] Vasc score is 3 (3.2% risk of stroke), he is also on multiple pain medications and this cannot be ruled out as a cause of his symptoms. Extensive discussion was had by attending and myself with and patient. They verbalized understanding of the risk of stroke and they did not wish to persue TPA or aspirin. They also did not wish any decrease in his pain meds and would like to keep him as comfortable as possible. Stat CT head ordered to rule out any intracranial bleeding. If CT head is negative will go ahead with 1 unit of PRBC
--- NOTE | 2016-07-27 18:09 | CT SCAN REPORT ---
EXAMINATION: CT HEAD WITHOUT CONTRAST CLINICAL INFORMATION: Slurred speech. Evaluate for bleed. COMPARISON: CT scan of the head dated 06/02/2016. TECHNIQUE: Contiguous axial imaging was performed from the skull base to vertex without intravenous administration of contrast. DLP: 600.71 mGy-cm FINDINGS: Evaluation limited by motion artifact. There is no evidence of acute intracranial hemorrhage or territorial infarction. No abnormal mass effect or midline shift is seen. Garces to white matter differentiation is well preserved. No extra-axial fluid collections are identified. The ventricles are normal in size. There is no abnormal attenuation within the brain parenchyma. The osseous structures and soft tissues are normal. Atherosclerotic calcifications of the vertebral arteries and minimally of the carotid siphons are seen. Again seen is a small mucous retention cyst in the right sphenoid sinus and fluid in the left mastoid air cells, extending into the petrous apex, similar to the previous exam. IMPRESSION: 1. Slightly limited exam by motion. However, no acute intracranial pathology seen. Specifically, no evidence of intracranial hemorrhage. 2. Stable mucous retention cyst in the right sphenoid sinus and fluid in the left mastoid air cells.
[2016-07-27 19:25] VITALS: BP 108/62
[2016-07-27 22:01] VITALS: BP 138/74
--- NOTE | 2016-07-28 06:54 | PN- Oncology ---
Subjective Subjective: Complaining of intractable abdominal pain unrelieved by current analgesic regimen Review of Systems: Patient now denies headaches or dizziness, speech is improved, patient denies new shortness of breath cough chest pain or hemoptysis, patient denies dysuria hematuria,agent denies new focal neurologic deficitm, is complaining of some back pain Objective Vital Signs and I&Os Vital Signs Date Time Temp Pulse Resp B/P Pulse O2 O2 Flow FiO2 Ox Delivery Rate 07/28 0000 95 Room Air 07/27 2201 97.9 100 20 138/74 95 07/27 1925 97.9 82 18 108/62 94 Room Air 07/27 1342 97.6 87 18 122/80 90 Room Air 07/27 1029 84 118/74 07/27 1029 84 118/74 07/27 0655 97.9 81 20 120/70 91 Room Air Intake & Output 07/28 0800 07/28 0000 07/27 1600 07/27 0800 07/27 0000 07/26 1600 Intake Total 840 1000 1600 1240 1240 1950 Output Total 300 300 100 300 Balance 902 401 4552 940 1240 1950 Intake, Blood 350 350 Product Intake, IV 853 758 6290 1000 1000 1000 Intake, Oral 240 500 600 240 240 600 Number 1 3 Bowel Movements Output, Urine 300 300 100 300 Gen.: in distress ENT: Sclera anicteric Chest: Normal respiratory effort, clear breath sounds Cor: RRR, no extra sounds Abdomen: Soft, bowel sounds present, diffuse tenderness, no rebound,tender liver without change Extremities: Without clubbing, cyanosis, or edema Neurology: Alert and oriented 3, no gross deficit Skin: No rashes Current Medications: Current Medications Sig/Noemí Start time Last Medication Dose Route Stop Time Status Admin Alprazolam 0.25 MG Q6-PRN PRN 07/27 0400 AC 07/28 PO 08/03 0347 0623 Amlodipine Besylate 5 MG DAILY 07/25 1000 AC 07/27 PO 1029 Aspirin Buffered 81 MG DAILY 07/25 1000 AC 07/27 PO 1029 Atorvastatin Calcium 10 MG 1700 07/25 1700 AC 07/27 PO 1715 Dexamethasone 1 MG DAILY 07/25 1000 AC 07/27 PO 1030 Docusate Sodium 100 MG BID 07/25 1000 AC 07/27 PO 2138 Escitalopram Oxalate 5 MG DAILY 07/25 1000 AC 07/27 PO 1029 Fentanyl Citrate 50 MCG Q72H 07/28 1000 AC TOP Fentanyl Citrate 100 MCG Q72 07/28 1000 AC TOP Fentanyl Citrate 50 MCG Q72H 07/25 1115 AC 07/25 TOP 07/28 0959 1110 Hydromorphone HCl 2 MG ONCE ONE 07/28 0530 DC 07/28 IV 07/28 0531 0524 Hydromorphone HCl 2 MG ONCE PRN 07/28 0515 DC IV 07/28 0516 Hydromorphone HCl 2 MG ONCE PRN 07/28 0015 DC 07/28 IV 0008 Hydromorphone HCl 2 MG ONCE PRN 07/27 0345 DC IV Hydromorphone HCl 2 MG ONCE PRN 07/25 1045 AC 07/27 IV 0342 Hydromorphone HCl 8 MG Q3 07/25 0939 AC 07/28 PO 0648 Hydromorphone HCl 2 MG Q4P PRN 07/25 0315 AC 07/28 IV 0147 Insulin Aspart 0 TIDAC 07/25 0800 AC 07/25 SC 1707 Lidocaine 1 PAT DAILY PRN 07/27 0400 AC EXT Methylnaltrexone 12 MG Q48 07/26 1100 AC 07/26 [place] SC 1203 Metoprolol Succinate 50 MG DAILY 07/25 1000 AC 07/27 PO 1029 Omeprazole 20 MG DAILY AC 07/25 0700 AC 07/28 PO 0623 Ondansetron HCl 4 MG Q6P PRN 07/25 0300 AC 07/28 IV 0623 Polyethylene Glycol 17 GM DAILY 07/25 1000 AC 07/27 PO 1028 Senna/Docusate Sodium 1 TAB BID PRN 07/25 0315 AC 07/26 PO 0859 Sodium Chloride 1,000 ML Q13H 07/27 1845 07/28 IV 0146 Sodium Chloride 1,000 ML Q8H 07/25 1945 DC 07/27 IV 1124 Results Last 24 Hours of Lab Results: Please see lab sheet Recent Imaging Studies: CT head-no gross bleeding Assessment/Plan Assessment/Recommendations: 1.Marked pain syndrome of unclear etiology. patient in the past has had radiation to his spine, CT scans do not identify a clearcut etiology for his pain.I asked the patient's consider repeat MRI of his spine but herespectively refused. Recommend- Increase analgesia Psychiatry consultation Palliative care evaluation 2. Small cell lung cancer-chemotherapy on hold 3.Neuro status-appears stable
[2016-07-28 06:56] VITALS: BP 140/70
--- NOTE | 2016-07-28 08:22 | PN- Housestaff ---
LINN JONES,[facility] 07/28/16 0822: Subjective Follow-up For: 1. Intractable abdominal pain 2. Constipation. 3. Metastatic cancer Non small cell lung cancer on chemotherapy. follows hem/onc 4. Opiod use 5. elevated lipase non speicfic 6. Transaminitis h/o liver mets 7. Thrombocytopenia multifactorial. 8. Anemia of chronic disease. Subjective: Afebrile, hemodynamically stable, saturating well on room air, patient still complaining of abdominal pain. He was distressed and crying because of pain. He keeps repeating I would rather be than living such a pain. He received 1 packed RBCs overnight Hb this morning is 8.6. Review of Systems Constitutional: Reports: see HPI. Objective Last 24 Hrs of Vital Signs/I&O Vital Signs Date Time Temp Pulse Resp B/P Pulse O2 O2 Flow FiO2 Ox Delivery Rate 07/28 1404 97.7 97 20 140/80 92 Room Air 07/28 0935 106 140/82 07/28 0656 98.1 104 20 140/70 96 Room Air 07/28 0000 95 Room Air 07/27 2201 97.9 100 20 138/74 95 07/27 1925 97.9 82 18 108/62 94 Room Air Intake & Output 07/28 1600 07/28 0800 07/28 0000 Intake Total 840 1000 Output Total 300 300 Balance 540 700 Intake, Blood 350 Product Intake, IV 600 150 Intake, Oral 240 500 Output, Urine 300 300 Patient 83.915 kg Weight Physical Exam General Appearance: Alert, Oriented X3, Cooperative, No Acute Distress Skin: No Rashes HEENT: Atraumatic, PERRLA, EOMI, Mucous Membr. moist/pink Cardiovascular: Regular Rate, Normal S1, Normal S2, No Murmurs Lungs: Clear to Auscultation, Normal Air Movement Abdomen: Soft, epigastric tenderness Neurological: Normal Gait, Normal Speech Extremities: No Clubbing, No Cyanosis, No Edema Current Medications: Current Medications Sig/Noemí Start time Last Medication Dose Route Stop Time Status Admin Alprazolam 0.25 MG Q6-PRN PRN 07/27 0400 AC 07/28 PO 08/03 0347 0623 Amlodipine Besylate 5 MG DAILY 07/25 1000 AC 07/28 PO 0936 Aspirin Buffered 81 MG DAILY 07/25 1000 AC 07/28 PO 0936 Atorvastatin Calcium 10 MG 1700 07/25 1700 AC 07/27 PO 1715 Dexamethasone 1 MG DAILY 07/25 1000 AC 07/28 PO 0936 Docusate Sodium 100 MG BID 07/25 1000 AC 07/28 PO 0935 Escitalopram Oxalate 5 MG DAILY 07/25 1000 AC 07/28 PO 0936 Fentanyl Citrate 50 MCG Q72H 07/28 1000 AC 07/28 TOP 0802 Fentanyl Citrate 100 MCG Q72 07/28 1000 AC 07/28 TOP 0803 Fentanyl Citrate 50 MCG Q72H 07/25 1115 DC 07/25 TOP 07/28 0959 1110 Hydromorphone HCl 2 MG ONCE PRN 07/28 1530 DC IV 07/28 1531 Hydromorphone HCl 0.6 MG ONCE ONE 07/28 1145 DC 07/28 IV 07/28 1146 1345 Hydromorphone HCl 2 MG ONCE PRN 07/28 1030 AC 07/28 IV 1035 Hydromorphone HCl 2 MG ONCE PRN 07/28 0730 AC 07/28 IV 0720 Hydromorphone HCl 4 MG Q4P PRN 07/28 0715 AC 07/28 IV 1529 Hydromorphone HCl 2 MG ONCE ONE 07/28 0530 DC 07/28 IV 07/28 0531 0524 Hydromorphone HCl 2 MG ONCE PRN 07/28 0515 DC IV 07/28 0516 Hydromorphone HCl 2 MG ONCE PRN 07/28 0015 DC 07/28 IV 0008 Hydromorphone HCl 2 MG ONCE PRN 07/27 0345 DC IV Hydromorphone HCl 2 MG ONCE PRN 07/25 1045 AC 07/27 IV 0342 Hydromorphone HCl 8 MG Q3 07/25 0939 AC 07/28 PO 1414 Hydromorphone HCl 2 MG Q4P PRN 07/25 0315 DC 07/28 IV 0147 Insulin Aspart 0 TIDAC 07/25 0800 AC 07/25 SC 1707 Lidocaine 1 PAT DAILY PRN 07/27 0400 AC EXT Lorazepam 2 MG ONE ONE 07/28 1145 DC 07/28 IV 07/28 1146 1529 Lubiprostone 24 MCG BID 07/28 1028 AC 07/28 PO 1151 Methylnaltrexone 12 MG Q48 07/26 1100 AC 07/26 [place] SC 1203 Metoprolol Succinate 50 MG DAILY 07/25 1000 07/28 PO 0935 Omeprazole 20 MG DAILY AC 07/25 0700 AC 07/28 PO 0623 Ondansetron HCl 4 MG .STK-MED ONE 07/28 0624 DC IM 07/28 0625 Ondansetron HCl 4 MG .STK-MED ONE 07/27 2352 DC IM 07/27 2353 Ondansetron HCl 4 MG Q6P PRN 07/25 0300 07/28 IV 1529 Patient Medication 1 ED ONE ONE 07/28 1400 DC Teaching ED 07/28 1401 Polyethylene Glycol 17 GM DAILY 07/25 1000 07/28 PO 0936 Senna/Docusate Sodium 1 TAB BID PRN 07/25 0315 07/26 PO 0859 Sodium Chloride 1,000 ML Q13H 07/27 1845 07/28 IV 1530 Sodium Chloride 1,000 ML Q8H 07/25 1945 DC 07/27 IV 1124 Last 24 Hrs of Lab/Wiliam Results Last 24 Hrs of Labs/Mics: Laboratory Tests 07/28/16 0756: CBC w Diff NO MAN DIFF REQ, RBC 2.79 L, MCV 91.8, MCH 31.0, RDW 18.7 H, MPV 8.3, Gran % 81.5 H, Lymphocytes % 8.0 L, Monocytes % 9.6 H, Eosinophils % 0.8 , Basophils % 0.1, Absolute Granulocytes 5.0, Absolute Lymphocytes 0.5 L, Absolute Monocytes 0.6, Absolute Eosinophils 0, Absolute Basophils 0, PUBS MCHC 33.8 Assessment/Plan Assessment: # Intractable abdominal pain mostly secondary to severe constipation caysed by opioids use Recent CT scan negative for acute pathology, GI consulted. * pain control dilaudid 8mg schedueld , prn meds i/v dialudid , fentanyl patch 150mcg increase. * Continue diet as tolerated * Consulted pain management * Oncology asked for abdominal MRI #Constipation. * Continue Relistor 12 mg sc Q48 hrs * Continue MiraLAX 17 mg daily, Colace 100 mg BID, & Senna S BID # Metastatic cancer Non small cell lung cancer on chemotherapy. follows hem/onc * NTD * We will follow #Elevated lipase and transaminitis (h/o liver mets) Patient has small cell lung metastasis to the liver, his liver enzyme elevation has been stable. CT on July 18 shows that the metastasis size is stable. Patient lipase has been elevated since last admission. * GI is on board, we will follow their recommendation. #Anemia and thrombocytopenia Patient presented with constipation that was followed by mild lower GI bleeding. Patient hemoglobin dropped from 7.9 yesterday to 7.5 today, most likely a big part of this drop is secondary to hemodilution. Overnight patient received 1 bage of packed RBCs morning his hemoglobin is 8.6 Diabetic diet DVT ppx Alps only Full code. Problem List: 1. 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 He was given relistor in the ER and he had a small BM. He was seen in the ER on July 19 for chest pain, and was discharged from ER after benign work up. CT C/A/P (July 18) showed interval improvement in pulmonary disease, hepatic metastatic disease." ASSESSEMENT 1. Intractable abdominal pain 2. Constipation. 3. Metastatic cancer Non small cell lung cancer on chemotherapy. follows hem/onc 4. Opiod use 5. elevated lipase non speicfic 6. Transaminitis h/o liver mets 7. Thrombocytopenia multifactorial. 8. Anemia of chronic disease. 9. BRBPR 10. Acute blood loss anemia PLAN 1. admit medical services for pain managment. 2. Cancer pain control dilaudid 8mg schedueld , prn meds i/v dialudid , fentanyl patch 100mcg can increase, hem/onc consulted. Increase pain meds as tolerated. 3. Constipation relieved, had bowel movement. c/w relistor 12 sc q 48, add amitiza 24 bid if no improvement. 4. Recent CT scan negative for acute pathology, GI appreicated 5. Chronically elevated lipase non specific finding as evaluated by GI in Apr 2016 likely secondary to metastatic disease. No acute intervention needed, not suggestive of pancreatitis. 6. Transaminitis in the setting of hepatic mets. Stable. 7. Anemia stable , H/h slow drift, s/p transfusion PRBC 2 unit. Transfusion as per hem/onc. 8. BRBPR GI recommend, hold colonsocpy for now vast differential. check cbc in am. DVT ppx Alps (thrombocytopenia in the setting of chemo). Full code. d/wed patient/family bedside for goals of care. hem/onc also following, GI consulted. discussed the plan of treatment and prognosis in this scenario. Pyschiatry consult. Palliative consult would be of great help!
[2016-07-28 09:37] LABS: ABSOLUTE BASOPHIL COUNT 0 /CUMM (0.0-0.2); ABSOLUTE EOSINOPHIL COUNT 0 /CUMM (0.0-0.7); ABSOLUTE LYMPH COUNT 0.5 /CUMM (1.2-3.4); ABSOLUTE MONOCYTE COUNT 0.6 /CUMM (0.10-0.60); BASOPHIL % 0.1 % (0.0-2.0); EOSINOPHIL % 0.8 % (0-5); GRANULOCYTE % 81.5 % (42.2-75.2); HEMATOCRIT 25.6 % (42-52); MEAN CORPUSCULAR HGB CONC 33.8 G/DL (33.0-37.0); MEAN CORPUSCULAR VOLUME 91.8 FL (80.0-94.0); MEAN PLATELET VOLUME 8.3 FL (7.4-10.4); RBC DISTRIBUTION WIDTH 18.7 % (11.5-14.5); RED BLOOD CELL CT 2.79 /CUMM (4.70-6.10); WHITE BLOOD CELL COUNT 6.1 /CUMM (4.8-10.8)
[2016-07-28 10:36] LABS: PLATELET COUNT 30 /CUMM (130-400)
[2016-07-28 14:04] VITALS: BP 140/80
--- NOTE | 2016-07-28 18:12 | Event Note ---
Event Note Event Note: Around 6pm I was paged that pt was significantly agitated on table and unable to get MRI. His mental status did not permit further sedation. Procedure had to be post-poned.
--- NOTE | 2016-07-28 20:47 | Event Note ---
Event Note Event Note: Late documentation for the Event occurring at 17 30 while the patient was awaiting the MRI. We were asked by the digital tech to evlauate the patient while he was getting MRI. He was given 4 mg of IV dilaudid and 2 mg of IV ativan 30 mins prior to the procedure. He was complaining of persistent pain during the whole time of examination and was not able to tolerate the procedure. The was emtional and requested the patient to be transferred back to the floors. She was apparntley upset at the digital tech and the delay in testing ,as she thinks the pain meds effects has worn off. After the patient was settled back on floors I sat down with the patient and his and discussed further options of testing. The was upset and s requesting the patient to be transferred to anithert facility where MRI could be performed,(as [facility] on Tuesdays) She was also wiling to discuss this in detail in the morning .
[2016-07-28 22:51] VITALS: BP 136/80
[2016-07-29 06:21] VITALS: BP 132/80
--- NOTE | 2016-07-29 07:01 | PN- Oncology ---
Subjective Subjective: Complaining of pain, events of yesterday reviewed Review of Systems: 12 point review of systems otherwise unchanged Objective Vital Signs and I&Os Vital Signs Date Time Temp Pulse Resp B/P Pulse O2 O2 Flow FiO2 Ox Delivery Rate 07/29 0621 97.6 104 20 132/80 91 Room Air 07/28 2251 98.3 105 20 136/80 91 Room Air 07/28 1404 97.7 97 20 140/80 92 Room Air 07/28 0935 106 140/82 Intake & Output 07/29 0800 07/29 0000 07/28 1600 07/28 0800 07/28 0000 07/27 1600 Intake Total 900 800 002 607 3684 1600 Output Total 300 300 100 Balance 900 800 960 552 861 0806 Intake, Blood 350 Product Intake, IV 600 300 600 058 031 4621 Intake, Oral 300 500 360 240 500 600 Number 1 1 Bowel Movements Output, Urine 300 300 100 Patient 185 lb Weight Gen.: in NAD ENT: Sclera anicteric Chest: Normal respiratory effort, decreased breath sounds Cor: RRR, no extra sounds Abdomen: Soft, bowel sounds present, moderate diffuse tenderness, no rebound Extremities: Without clubbing, cyanosis, or edema Neurology: Alert and oriented 3, no gross deficit Skin: No rashes Current Medications: Current Medications Sig/Noemí Start time Last Medication Dose Route Stop Time Status Admin Alprazolam 0.25 MG Q6-PRN PRN 07/27 0400 AC 07/29 PO 08/03 0347 0118 Amlodipine Besylate 5 MG DAILY 07/25 1000 AC 07/28 PO 0936 Aspirin Buffered 81 MG DAILY 07/25 1000 AC 07/28 PO 0936 Atorvastatin Calcium 10 MG 1700 07/25 1700 AC 07/28 PO 1909 Dexamethasone 1 MG DAILY 07/25 1000 AC 07/28 PO 0936 Docusate Sodium 100 MG BID 07/25 1000 AC 07/28 PO 2135 Escitalopram Oxalate 5 MG DAILY 07/25 1000 AC 07/28 PO 0936 Fentanyl Citrate 50 MCG Q72H 07/28 1000 AC 07/28 TOP 191 Fentanyl Citrate 100 MCG Q72 07/28 1000 AC 07/28 TOP 191 Fentanyl Citrate 50 MCG Q72H 07/25 1115 DC 07/25 TOP 07/28 0959 1110 Hydromorphone HCl 2 MG ONCE PRN 07/28 1615 AC 07/28 IV 1420 Hydromorphone HCl 2 MG ONCE PRN 07/28 1530 DC IV 07/28 1531 Hydromorphone HCl 0.6 MG ONCE ONE 07/28 1145 DC 07/28 IV 07/28 1146 1345 Hydromorphone HCl 2 MG ONCE PRN 07/28 1030 DC 07/28 IV 1035 Hydromorphone HCl 2 MG ONCE PRN 07/28 0730 DC 07/28 IV 0720 Hydromorphone HCl 4 MG Q4P PRN 07/28 0715 AC 07/29 IV 0129 Hydromorphone HCl 2 MG ONCE PRN 07/25 1045 DC 07/27 IV 0342 Hydromorphone HCl 8 MG Q3 07/25 0939 AC 07/29 PO 0546 Hydromorphone HCl 2 MG Q4P PRN 07/25 0315 DC 07/28 IV 0147 Insulin Aspart 0 TIDAC 07/25 0800 AC 07/25 SC 1707 Lidocaine 1 PAT DAILY PRN 07/27 0400 DC EXT Lorazepam 2 MG ONE ONE 07/28 1145 DC 07/28 IV 07/28 1146 1529 Lubiprostone 24 MCG BID 07/28 1028 AC 07/28 PO 2135 Methylnaltrexone 12 MG Q48 07/26 1100 AC 07/26 [place] SC 1203 Metoprolol Succinate 50 MG DAILY 07/25 1000 AC 07/28 PO 0935 Omeprazole 20 MG DAILY AC 07/25 0700 AC 07/28 PO 0623 Ondansetron HCl 4 MG .STK-MED ONE 07/28 1530 DC IM 07/28 1531 Ondansetron HCl 4 MG Q6P PRN 07/25 0300 AC 07/28 IV 1529 Patient Medication 1 ED ONE ONE 07/28 1400 DC Teaching ED 07/28 1401 Polyethylene Glycol 17 GM DAILY 07/25 1000 AC 07/28 PO 0936 Senna/Docusate Sodium 1 TAB BID PRN 07/25 0315 AC 07/26 PO 0859 Sodium Chloride 1,000 ML Q13H 07/27 1845 AC 07/28 IV 1530 Results Last 24 Hours of Lab Results: Laboratory Tests 07/28 0756 Hematology CBC w Diff NO MAN DIFF REQ WBC (4.8 - 10.8 /CUMM) 6.1 RBC (4.70 - 6.10 /CUMM) 2.79 L Hgb (14.0 - 18.0 G/DL) 8.6 L Hct (42 - 52 %) 25.6 L MCV (80.0 - 94.0 FL) 91.8 MCH (27.0 - 31.0 PG) 31.0 RDW (11.5 - 14.5 %) 18.7 H Plt Count (130 - 400 /CUMM) 30 L MPV (7.4 - 10.4 FL) 8.3 Gran % (42.2 - 75.2 %) 81.5 H Lymphocytes % (20.5 - 51.1 %) 8.0 L Monocytes % (1.7 - 9.3 %) 9.6 H Eosinophils % (0 - 5 %) 0.8 Basophils % (0.0 - 2.0 %) 0.1 Absolute Granulocytes (1.4 - 6.5 /CUMM) 5.0 Absolute Lymphocytes (1.2 - 3.4 /CUMM) 0.5 L Absolute Monocytes (0.10 - 0.60 /CUMM) 0.6 Absolute Eosinophils (0.0 - 0.7 /CUMM) 0 Absolute Basophils (0.0 - 0.2 /CUMM) 0 PUBS MCHC (33.0 - 37.0 G/DL) 33.8 Assessment/Plan Assessment/Recommendations: 1. Pain syndrome-poorly understood MRI attempted but unsuccessful Recommend- MRI when possible Psychiatry consult Pain consult 2. Extensive small cell lung cancer-for any change in future plans, need resolution of pain syndrome 3. Anemia-improved after transfusion
--- NOTE | 2016-07-29 08:26 | PN- Housestaff ---
See Addendum Subjective Follow-up For: 1. Intractable abdominal pain 2. Constipation. 3. Metastatic cancer Non small cell lung cancer on chemotherapy. follows hem/onc 4. Opiod use 5. elevated lipase non speicfic 6. Transaminitis h/o liver mets 7. Thrombocytopenia multifactorial. 8. Anemia of chronic disease. Subjective: Stable, saturating well on room air. Patient still complaining of severe abdominal pain. Patient looks lethargic and distressed. His hemoglobin improved to 8.7 post one packed RBCs transfusion today. Yesterday patient had an events reported while he was waiting for MRI(is referred to event note). Review of Systems Constitutional: Reports: see HPI. Objective Last 24 Hrs of Vital Signs/I&O Vital Signs Date Time Temp Pulse Resp B/P Pulse O2 O2 Flow FiO2 Ox Delivery Rate 07/29 0621 97.6 104 20 132/80 91 Room Air 07/28 2251 98.3 105 20 136/80 91 Room Air 07/28 1404 97.7 97 20 140/80 92 Room Air 07/28 0935 106 140/82 Intake & Output 07/29 1600 07/29 0800 07/29 0000 Intake Total 900 800 Output Total 100 Balance -100 900 800 Intake, IV 600 300 Intake, Oral 300 500 Number 1 1 Bowel Movements Output, Urine 100 Physical Exam General Appearance: Alert, Oriented X3, Cooperative, Moderate Distress HEENT: Atraumatic, PERRLA, EOMI, Mucous Membr. moist/pink Cardiovascular: Regular Rate, Normal S1, Normal S2, No Murmurs Lungs: Clear to Auscultation, Normal Air Movement Abdomen: Soft, epigastric tenderness Neurological: Normal Speech, looks lethargic and tired Extremities: No Clubbing, No Cyanosis, No Edema Current Medications: Current Medications Sig/Noemí Start time Last Medication Dose Route Stop Time Status Admin Alprazolam 0.25 MG Q6-PRN PRN 07/27 0400 AC 07/29 PO 08/03 0347 0118 Amlodipine Besylate 5 MG DAILY 07/25 1000 AC 07/28 PO 0936 Aspirin Buffered 81 MG DAILY 07/25 1000 AC 07/28 PO 0936 Atorvastatin Calcium 10 MG 1700 07/25 1700 AC 07/28 PO 1909 Dexamethasone 1 MG DAILY 07/25 1000 AC 07/28 PO 0936 Docusate Sodium 100 MG BID 07/25 1000 AC 07/28 PO 2135 Escitalopram Oxalate 5 MG DAILY 07/25 1000 AC 07/28 PO 0936 Fentanyl Citrate 50 MCG Q72H 07/28 1000 AC 07/28 TOP 1913 Fentanyl Citrate 100 MCG Q72 07/28 1000 AC 07/28 TOP 1913 Fentanyl Citrate 50 MCG Q72H 07/25 1115 DC 07/25 TOP 07/28 0959 1110 Glycerin 2 SPRAY Q2P PRN 07/29 0815 AC PO Hydromorphone HCl 2 MG ONCE PRN 07/28 1615 AC 07/28 IV 1420 Hydromorphone HCl 2 MG ONCE PRN 07/28 1530 DC IV 07/28 1531 Hydromorphone HCl 0.6 MG ONCE ONE 07/28 1145 DC 07/28 IV 07/28 1146 1345 Hydromorphone HCl 2 MG ONCE PRN 07/28 1030 DC 07/28 IV 1035 Hydromorphone HCl 2 MG ONCE PRN 07/28 0730 DC 07/28 IV 0720 Hydromorphone HCl 4 MG Q4P PRN 07/28 0715 AC 07/29 IV 0129 Hydromorphone HCl 2 MG ONCE PRN 07/25 1045 DC 07/27 IV 0342 Hydromorphone HCl 8 MG Q3 07/25 0939 AC 07/29 PO 0546 Insulin Aspart 0 TIDAC 07/25 0800 AC 07/25 SC 1707 Lidocaine 1 PAT DAILY PRN 07/27 0400 DC EXT Lorazepam 2 MG ONE ONE 07/28 1145 DC 07/28 IV 07/28 1146 1529 Lubiprostone 24 MCG BID 07/28 1028 AC 07/28 PO 2135 Methylnaltrexone 12 MG Q48 07/26 1100 AC 07/26 [place] 1203 Metoprolol Succinate 50 MG DAILY 07/25 1000 AC 07/28 PO 0935 Omeprazole 20 MG DAILY AC 07/25 0700 AC 07/29 PO 0754 Ondansetron HCl 4 MG .STK-MED ONE 07/28 1530 DC IM 07/28 1531 Ondansetron HCl 4 MG Q6P PRN 07/25 0300 AC 07/28 IV 1529 Patient Medication 1 ED ONE ONE 07/28 1400 DC Teaching ED 07/28 1401 Polyethylene Glycol 17 GM DAILY 07/25 1000 AC 07/28 PO 0936 Senna/Docusate Sodium 1 TAB BID PRN 07/25 0315 AC 07/26 PO 0859 Sodium Chloride 1,000 ML Q13H 07/27 1845 AC 07/28 IV 1530 Last 24 Hrs of Lab/Wiliam Results Last 24 Hrs of Labs/Mics: Laboratory Tests 07/29/16 0710: CBC w Diff Pending, WBC Pending, RBC Pending, Hgb Pending, Hct Pending, MCV Pending, MCH Pending, RDW Pending, Plt Count Pending, MPV Pending, PUBS MCHC Pending Assessment/Plan Assessment: # Intractable abdominal pain mostly secondary to severe constipation caysed by opioids use Recent CT scan on July 18 was negative for any new acute pathology. Initially patient presented with 10 /10 abdominal pain. He received Relistor constipation while he was still in the ED, on the next day he had a large bowel movement covered with some blood after which his pain significantly improved. Patient did not have bowel movement for the last 2 days. Now he is complaining of [id number]/ 10 abdominal pain even though he is receiving high-dose of pain medication * Pain control dilaudid 8mg schedueld , prn meds i/v dialudid , fentanyl patch 150mcg . * Continue diet as tolerated * Pain management was consulted, they will see the patient today * Continue Relistor 12 mg sc Q48 hrs * Continue MiraLAX 17 mg daily, Colace 100 mg BID, & Senna S BID * We will try to get abdominal MRI IRASEMA # Metastatic cancer Non small cell lung cancer on chemotherapy. follows hem/onc * NTD * We will follow oncology recommendations #Elevated lipase and transaminitis (h/o liver mets) Patient has small cell lung metastasis to the liver, his liver enzyme elevation has been stable. CT on July 18 shows that the metastasis size is stable. Patient has elevated lipase since last admission. * GI is on board, we will follow their recommendation. #Anemia and thrombocytopenia Patient presented with constipation that was followed by mild lower GI bleeding. At some point during this admission his hemoglobin dropped to 7.4, most likely a big part of this drop is secondary to hemodilution. After 2 packed RBCs transfusion his hemoglobin was 8.6 yesterday. * F/U pending H&H Diabetic diet DVT ppx Alps only Full code. Problem List: 1. Rectal bleeding 2. Chronic pain 3. Metastasis from malignant tumor of lung 4. Intractable abdominal pain 5. Therapeutic opioid induced constipation Pain Ratin Pain Location: Abdomen Pain Goal: Pain 4 or less Pain Plan: See A&P Tomorrow's Labs & Rationales: CBC
[2016-07-29 08:37] LABS: ABSOLUTE BASOPHIL COUNT 0 /CUMM (0.0-0.2); ABSOLUTE LYMPH COUNT 0.6 /CUMM (1.2-3.4); ABSOLUTE MONOCYTE COUNT 0.7 /CUMM (0.10-0.60); WHITE BLOOD CELL COUNT 6.4 /CUMM (4.8-10.8)
--- NOTE | 2016-07-29 09:09 | Cons- Psychiatry ---
Psychiatric Consult Date of Consult: 07/29/16 Reason for Consult: "Pt said he would raher be . Pt has end stage lung cancer with metastasis to liver and poor prognosis." History of Present Illness: 70-year-old gentleman with a medical history of coronary artery disease status post stents, hypertension, hyperlipidemia, paroxysmal atrial fibrillation not on anticoagulation, recent diagnosis of metastatic small cell lung cancer with cord compression, status post radiation and currently on carboplatin and HR GENERALIST-16 chemotherapy (most recent chemotherapy was 2-1/2 weeks ago). Patient has had exacerbations of depression, anxiety and hopelessness in the context of signifcant illness. Allergies: Coded Allergies: Iodinated Contrast Media - Oral and (Mild, Rash 06/30/16) Current Medications: Current Medications Sig/Noemí Start time Last Medication Dose Route Stop Time Status Admin Alprazolam 0.25 MG Q6-PRN PRN 07/27 0400 AC 07/29 PO 08/03 0347 0118 Amlodipine Besylate 5 MG DAILY 07/25 1000 AC 07/28 PO 0936 Aspirin Buffered 81 MG DAILY 07/25 1000 AC 07/28 PO 0936 Atorvastatin Calcium 10 MG 1700 07/25 1700 AC 07/28 PO 1909 Dexamethasone 1 MG DAILY 07/25 1000 AC 07/28 PO 0936 Docusate Sodium 100 MG BID 07/25 1000 AC 07/28 PO 2135 Escitalopram Oxalate 5 MG DAILY 07/25 1000 AC 07/28 PO 0936 Fentanyl Citrate 50 MCG Q72H 07/28 1000 AC 07/28 TOP 1913 Fentanyl Citrate 100 MCG Q72 07/28 1000 07/28 TOP 1913 Fentanyl Citrate 50 MCG Q72H 07/25 1115 [place] 07/25 TOP 07/28 0959 1110 Glycerin 2 SPRAY Q2P PRN 07/29 0815 AC PO Hydromorphone HCl 2 MG ONCE PRN 07/28 1615 AC 07/28 IV 1420 Hydromorphone HCl 2 MG ONCE PRN 07/28 1530 DC IV 07/28 1531 Hydromorphone HCl 0.6 MG ONCE ONE 07/28 1145 DC 07/28 IV 07/28 1146 1345 Hydromorphone HCl 2 MG ONCE PRN 07/28 1030 DC 07/28 IV 1035 Hydromorphone HCl 2 MG ONCE PRN 07/28 0730 DC 07/28 IV 0720 Hydromorphone HCl 4 MG Q4P PRN 07/28 0715 AC 07/29 IV 0129 Hydromorphone HCl 2 MG ONCE PRN 07/25 1045 DC 07/27 IV 0342 Hydromorphone HCl 8 MG Q3 07/25 0939 AC 07/29 PO 0546 Insulin Aspart 0 TIDAC 07/25 0800 AC 07/25 SC 1707 Lidocaine 1 PAT DAILY PRN 07/27 0400 DC EXT Lorazepam 2 MG ONE ONE 07/28 1145 DC 07/28 IV 07/28 1146 1529 Lubiprostone 24 MCG BID 07/28 1028 AC 07/28 PO 2135 Methylnaltrexone 12 MG Q48 07/26 1100 AC 07/26 [place] SC 1203 Metoprolol Succinate 50 MG DAILY 07/25 1000 AC 07/28 PO 0935 Omeprazole 20 MG DAILY AC 07/25 0700 AC 07/29 PO 0754 Ondansetron HCl 4 MG .STK-MED ONE 07/28 1530 DC IM 07/28 1531 Ondansetron HCl 4 MG Q6P PRN 07/25 0300 07/28 IV 1529 Patient Medication 1 ED ONE ONE 07/28 1400 DC Teaching ED 07/28 1401 Polyethylene Glycol 17 GM DAILY 07/25 1000 AC 07/28 PO 0936 Senna/Docusate Sodium 1 TAB BID PRN 07/25 0315 AC 07/26 PO 0859 Sodium Chloride 1,000 ML Q13H 07/27 1845 AC 07/28 IV 1530 Past History Past Medical History Neurological: NONE EENT: NONE Cardiovascular: hypertension, hyperlipidemia, myocardial infarction, CARDIAC STENTS Respiratory: bronchitis, COPD, emphysema, SC lung cancer Gastrointestinal: diverticulosis coli hx colon polyps Hepatic: LIVER CA- METS FROM SC LUNG CA Renal: right partial nephrectomy benign Musculoskeletal: chronic back pain (spine mets/hx cord compression), disk herniation (L4/L5) Psychiatric: anxiety Endocrine: NONE Blood Disorders: anemia, thrombocytopenia Cancer(s): BENIGN R KIDNEY TUMOR LUNG CANCER LIVER CA [employer] 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 Psychiatric Treatment History Psych Treatment Psychiatric Treatment No Substance Use/Abuse History Drug Use/Abuse Substances Used/Abused No Substance Abuse Treatment Substance Abuse Treatment Past Substance Abuse [place] No Assessment/Plan Mental Status Orientation: Person, Place, Situation Affect: Anxious, Angry, Sad Speech: Normal, WNL Neuro-vegetative: Sleep Disturbance, WNL Mental Status Exam: Patient complains of continuing significant depression and anxiety. Denies suicidal ideation, but reports intermittent hopelessness. "I know I'm going to , just let it happpen." He then said "I don't want to , I have responsibilities." and "I don't have the guts to harm myself. I'm just scared." Denies homicidal ideation, auditory hallucinations, visual hallucinations, paranoid ideation. Speech is well articulated, goal-directed, average in rate, volume and tone. Alert and oriented to person, place, time and situation. Cooperative. Logical. Lab Results: Laboratory Tests 07/29 07/28 0710 0756 Hematology CBC w Diff NO MAN DIFF REQ NO MAN DIFF REQ WBC (4.8 - 10.8 /CUMM) 6.4 6.1 RBC (4.70 - 6.10 /CUMM) 2.74 L 2.79 L Hgb (14.0 - 18.0 G/DL) 8.5 L 8.6 L Hct (42 - 52 %) 25.4 L 25.6 L MCV (80.0 - 94.0 FL) 92.7 91.8 MCH (27.0 - 31.0 PG) 30.9 31.0 RDW (11.5 - 14.5 %) 19.3 H 18.7 H Plt Count (130 - 400 /CUMM) 36 L 30 L MPV (7.4 - 10.4 FL) 7.9 8.3 Gran % (42.2 - 75.2 %) 78.9 H 81.5 H Lymphocytes % (20.5 - 51.1 %) 9.4 L 8.0 L Monocytes % (1.7 - 9.3 %) 10.6 H 9.6 H Eosinophils % (0 - 5 %) 0.8 0.8 Basophils % (0.0 - 2.0 %) 0.3 0.1 Absolute Granulocytes (1.4 - 6.5 /CUMM) 5.0 5.0 Absolute Lymphocytes (1.2 - 3.4 /CUMM) 0.6 L 0.5 L Absolute Monocytes (0.10 - 0.60 /CUMM) 0.7 H 0.6 Absolute Eosinophils (0.0 - 0.7 /CUMM) 0 0 Absolute Basophils (0.0 - 0.2 /CUMM) 0 0 PUBS MCHC (33.0 - 37.0 G/DL) 33.3 33.8 04/16 07/26 0600 2000 Hematology CBC w Diff NO MAN DIFF REQ NO MAN DIFF REQ WBC (4.8 - 10.8 /CUMM) 5.4 7.4 RBC (4.70 - 6.10 /CUMM) 2.47 L 2.57 L Hgb (14.0 - 18.0 G/DL) 7.6 L 7.9 L Hct (42 - 52 %) 22.5 L 23.6 L MCV (80.0 - 94.0 FL) 91.1 91.8 MCH (27.0 - 31.0 PG) 30.9 30.8 RDW (11.5 - 14.5 %) 19.1 H 19.6 H Plt Count (130 - 400 /CUMM) 46 L 65 L MPV (7.4 - 10.4 FL) 7.5 6.7 L Gran % (42.2 - 75.2 %) 76.6 H 79.0 H Lymphocytes % (20.5 - 51.1 %) 11.1 L 9.2 L Monocytes % (1.7 - 9.3 %) 10.7 H 10.5 H Eosinophils % (0 - 5 %) 1.3 1.2 Basophils % (0.0 - 2.0 %) 0.3 0.1 Absolute Granulocytes (1.4 - 6.5 /CUMM) 4.2 5.8 Absolute Lymphocytes (1.2 - 3.4 /CUMM) 0.6 L 0.7 L Absolute Monocytes (0.10 - 0.60 /CUMM) 0.6 0.8 H Absolute Eosinophils (0.0 - 0.7 /CUMM) 0.1 0.1 Absolute Basophils (0.0 - 0.2 /CUMM) 0 0 PUBS MCHC (33.0 - 37.0 G/DL) 33.9 33.5 07/26 1330 Hematology CBC w Diff NO MAN DIFF REQ WBC (4.8 - 10.8 /CUMM) 6.8 RBC (4.70 - 6.10 /CUMM) 2.53 L Hgb (14.0 - 18.0 G/DL) 7.8 L Hct (42 - 52 %) 23.0 L MCV (80.0 - 94.0 FL) 91.0 MCH (27.0 - 31.0 PG) 30.9 RDW (11.5 - 14.5 %) 18.7 H Plt Count (130 - 400 /CUMM) 59 L MPV (7.4 - 10.4 FL) 7.0 L Gran % (42.2 - 75.2 %) 80.8 H Lymphocytes % (20.5 - 51.1 %) 9.0 L Monocytes % (1.7 - 9.3 %) 9.1 Eosinophils % (0 - 5 %) 1.0 Basophils % (0.0 - 2.0 %) 0.1 Absolute Granulocytes (1.4 - 6.5 /CUMM) 5.5 Absolute Lymphocytes (1.2 - 3.4 /CUMM) 0.6 L Absolute Monocytes (0.10 - 0.60 /CUMM) 0.6 Absolute Eosinophils (0.0 - 0.7 /CUMM) 0.1 Absolute Basophils (0.0 - 0.2 /CUMM) 0 PUBS MCHC (33.0 - 37.0 G/DL) 34.0 Diffential Diagnosis: 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 Generalized anxiety disorder. Impression: This is a 70-year-old male, for the past 40 years. He has been diagnosed with stage IV lung cancer with metastases to the liver. At the time of our conversation this morning, he presented as upset and angry. He states "I know I'm going to ... I want to go somewhere where they will tell me the truth. I'm just asking for a fair shot." He complains that he has not had adequate time to discuss his own case with his doctors. He also expresses anger towards his . During our conversation this morning, he was at times tearful, reporting depression and anxiety, at times hopeful and at times hopeless. The patient alternates between making hopeless comments such as "I know I'm going to . Just let it happen.", and also making clear that he has no suicidal intention or plan, stating "I want to live, I have responsibilities." The patient states and also believes that he will not kill himself. Patient verbalizes understanding that he has a terminal illness, states that he is declining palliative care, however wants his pain under control. Provisional Treatment Plan: 1. Lexapro can be increased to 10mg daily for depression and anxiety, with the option of increasing Lexapro eventually to 20mg daily as clinically indicated. 2. Consider increasing Xanax for continuing anxiety in a patient with a terminal illness. 3. Patient is requesting additional time to speak with his medical doctors about his prognosis, and course of treatment. 4. I do not believe that the patient is a danger to himself, and he does not require 1:1 sitter at this time. illness. Patient states that he feels that medical staff has not spent
[2016-07-29 09:22] LABS: ABSOLUTE EOSINOPHIL COUNT 0 /CUMM (0.0-0.7); BASOPHIL % 0.3 % (0.0-2.0); EOSINOPHIL % 0.8 % (0-5); GRANULOCYTE % 78.9 % (42.2-75.2); HEMATOCRIT 25.4 % (42-52); MEAN CORPUSCULAR HGB 30.9 PG (27.0-31.0); MEAN CORPUSCULAR HGB CONC 33.3 G/DL (33.0-37.0); MEAN CORPUSCULAR VOLUME 92.7 FL (80.0-94.0); MEAN PLATELET VOLUME 7.9 FL (7.4-10.4); RBC DISTRIBUTION WIDTH 19.3 % (11.5-14.5); RED BLOOD CELL CT 2.74 /CUMM (4.70-6.10)
[2016-07-29 09:29] LABS: PLATELET COUNT 36 /CUMM (130-400)
[2016-07-29 14:07] VITALS: BP 150/84
--- NOTE | 2016-07-29 15:14 | Cons- Pain Management ---
General Information and HPI Consulting Request Date of Consult: 07/29/16 Requested By: SUNIL FOSTER MD History of Present Illness: I was asked to consult on this patient who is admitted on the floor. He has a history of stage IV small cell lung cancer. He is alert and oriented times three. He is resting comfortably slightly elevated in ashlie bed when I enter the room and I wake him up from sleep. He is no distress. He has a history of hyperlipidemia and HTN. It appears that he was admitted about one week prior for intractable chronic pain. He is currently on an opioid regimen managed by Dr. Mosley. This includes fentanyl patch 150mcg Q72 hours and prn dilaudid 8mg qid. He states he was having an issue with constipation and when I examined his abdomen he is slightly distended and his abdomen is firm and tender with hyperactive bowels.Unclear on exact plan going forward in terms of his cancer treatment. Patient states he has had 10-13 rounds of radiation treatment and 3-5 round of chemo therapy but appears to be on hold at this time. Allergies/Medications Allergies: Coded Allergies: Iodinated Contrast Media - Oral and (Mild, Rash 06/30/16) Home Med List: Alprazolam 0.25 MG TABLET 1 TAB PO TIDPRN ANXIETY (Reported) Amlodipine Besylate 5 MG TABLET 1 TAB PO DAILY BP (Reported) Aspirin (Ecotrin*) 81 MG TABLET.DR 1 TAB PO DAILY HEART/BLOOD (Reported) Dexamethasone 2 MG TABLET 0.5 TAB PO DAILY CORD COMPRESSION (Reported) Escitalopram Oxalate 5 MG TABLET 1 TAB PO DAILY DEPRESSION Fentanyl 100 MCG/HOUR PATCH.TD72 1 PAT TOP Q3D PAIN (Reported) Hydromorphone HCl (Dilaudid) 8 MG TABLET 1 TAB PO Q3-4H PRN PAIN (Reported) Lansoprazole (Prevacid) 30 MG CAPSULE.DR 1 CAP PO DAILY GI (Reported) Metoprolol Succ XL (Toprol Xl) 50 MG TAB 1 TAB PO DAILY atrial fibrillation Multivitamin (Multi-Day Vitamins) 1 EACH TABLET 1 TAB PO DAILY SUPPLEMENT ( Reported) Ondansetron (Zofran Odt) 4 MG TAB.RAPDIS 1 TAB SL TID PRN NAUSEA Polyethylene Glycol 3350 (Miralax) 17 GRAM POWD.PACK 1 PAC PO DAILY PRN CONSTIPATION (Reported) dissolve in water Prochlorperazine Maleate 10 MG TABLET 1 TAB PO Q6 PRN NAUSEA/VOMITING ( Reported) Sennosides/Docusate Sodium (Senna S Tablet) 8.6 MG-50 MG TABLET 2 TAB PO QPM PRN GI (Reported) Simvastatin (Simvastatin*) 20 MG TABLET 1 TAB PO QPM CHOLESTEROL (Reported) Past History Medical History Blood Transfusion Hx Yes Type of Reaction Other (see notes) Neurological: NONE EENT: NONE Cardiovascular: hypertension, hyperlipidemia, myocardial infarction, CARDIAC STENTS Respiratory: bronchitis, COPD, emphysema, SC lung cancer Gastrointestinal: diverticulosis coli hx colon polyps Hepatic: LIVER CA- METS FROM SC LUNG CA Renal: right partial nephrectomy benign Musculoskeletal: chronic back pain (spine mets/hx cord compression), disk herniation (L4/L5) Psychiatric: anxiety Endocrine: NONE Blood Disorders: anemia, thrombocytopenia Cancer(s): BENIGN R KIDNEY TUMOR LUNG CANCER LIVER 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 , Age 50-60; Cause: Cirrhosis. Relation not specified for: *No pertinent family history Psychosocial History Where Do You Live? Home Who Do You Live With? spouse (Adeline) Services at Home: Nursing Primary Language: Telugu Smoking Status: Former Smoker ETOH Use: occasional use Illicit Drug Use: denies illicit drug use Living Will? no Power of Telephone Operator Chief/HCP? no Other Social History: . Lives wih , Adeline. Ex 50 pk yr cigarette smoker, D/C end of 03/2016. Rare EtOH. No street drugs. 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 Ambulation: independent IADLs Independent: shopping, housework, finances, food prep, telephone, transportation , medication admin. 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 He is sitting comfortably in bed. No signs of distress. Abdomen is tender, mostly over the right lower quadrant. Abdomen in all 4 quadrants is firm. Hyperactive bowel sounds. Assessment/Plan Assessment/Plan: The following are my reccommendations for this patient: - Continue current bowel regimen which seems to be allowing for more regular bowel movements - Continue fentanyl patches 150mcg but change patches to Q48 hours instead of Q72 hours due to possible absorption issues - Wean down IV Dilaudid by the following schedule (dilaudid 3mg Q3 hours prn X 2 dose; 2mg Q3 hours prn X 2 Doses; 1mg Q3 hours prn X 2 Doses; D/C) - D/C PO Dilaudid - Trial MSIR 30mg PO Q6 hours prn for break through pain - [place] increased activity and walking to stimulate bowels - [place] increased po fluid and fiber in diet - Consider PT consult - Discharge patient from hospital and consider consult with Dr. Rivera at [facility] for take over of pain management on discharge Consult Acknowledgment - Thank you for your consult request.
[2016-07-29 22:07] VITALS: BP 132/72
[2016-07-30 06:25] VITALS: BP 160/88
--- NOTE | 2016-07-30 06:53 | PN- Oncology ---
Subjective Subjective: Patient states pain improved, some lower extremity discomfort Review of Systems: 12 point review of systems otherwise nonspecific Objective Vital Signs and I&Os Vital Signs Date Time Temp Pulse Resp B/P B/P Pulse O2 O2 Flow FiO2 Mean Ox Delivery Rate 07/30 0625 98.2 105 20 160/88 94 Room Air 07/29 2207 98.1 100 20 132/72 92 07/29 1600 Room Air 07/29 1407 98.9 100 20 150/84 92 Room Air 07/29 0909 97.6 104 20 122/70 07/29 0909 104 122/70 Intake & Output 07/30 0800 07/30 0000 07/29 1600 07/29 0800 07/29 0000 07/28 1600 Intake Total 540 1005 900 800 960 Output Total 300 Balance 540 705 900 800 960 Intake, IV 300 525 600 300 600 Intake, Oral 240 480 300 500 360 Number 4 1 1 Bowel Movements Output, Urine 300 Patient 185 lb Weight Gen.: in NAD ENT: Sclera anicteric Chest: Normal respiratory effort, decreased breath sounds Cor: RRR, no extra sounds Abdomen: Soft, bowel sounds present, minimal tenderness, no rebound Extremities: Without clubbing, cyanosis, or asymmetric edema Neurology: Alert and oriented 3, no gross deficit Skin: No rashes Current Medications: Current Medications Sig/Noemí Start time Last Medication Dose Route Stop Time Status Admin Alprazolam 0.5 MG .STK-MED ONE 07/29 1831 DC PO 07/29 183 Alprazolam 0.5 MG Q6-PRN PRN 07/29 1830 AC 07/29 PO 08/03 0359 2130 Alprazolam 0.25 MG Q6-PRN PRN 07/27 0400 DC 07/29 PO 08/03 0347 0118 Amlodipine Besylate 5 MG DAILY 07/25 1000 AC 07/29 PO 0909 Aspirin Buffered 81 MG DAILY 07/25 1000 AC 07/29 PO 0908 Atorvastatin Calcium 10 MG 1700 07/25 1700 AC 07/29 PO 1732 Dexamethasone 1 MG DAILY 07/25 1000 AC 07/29 PO 0909 Docusate Sodium 100 MG BID 07/25 1000 AC 07/29 PO 2130 Enoxaparin Sodium 40 MG DAILY 07/29 1526 AC 07/29 SC 1730 Escitalopram Oxalate 10 MG DAILY 07/30 1000 AC PO Escitalopram Oxalate 5 MG DAILY 07/25 1000 DC 07/29 PO 0908 Fentanyl Citrate 100 MCG Q48 07/30 1000 AC TOP Fentanyl Citrate 50 MCG Q72H 07/28 1000 AC 07/28 TOP 1913 Fentanyl Citrate 100 MCG Q72 07/28 1000 DC 07/28 TOP 1913 Glycerin 2 SPRAY Q2P PRN 07/29 0815 AC PO Hydromorphone HCl 3 MG Q3P PRN 07/29 1815 AC 07/30 IV 07/30 1816 0352 Hydromorphone HCl 8 MG .STK-MED ONE 07/29 1813 DC PO 07/29 1814 Hydromorphone HCl 2 MG ONCE PRN 07/28 1615 AC 07/30 IV 0155 Hydromorphone HCl 4 MG Q4P PRN 07/28 0715 DC 07/29 IV 1727 Hydromorphone HCl 8 MG Q3 07/25 0939 DC 07/29 PO 1503 Insulin Aspart 0 TIDAC 07/25 0800 AC 07/25 SC 1707 Lubiprostone 24 MCG BID 07/28 1028 AC 07/29 PO 2130 Methylnaltrexone 12 MG Q48 07/29 1000 AC 07/29 [place] SC 1729 Methylnaltrexone 12 MG Q48 07/26 1100 DC 07/26 [place] SC 1203 Metoprolol Succinate 50 MG DAILY 07/25 1000 AC 07/29 PO 0909 Morphine Sulfate 30 MG Q6PRN PRN 07/29 1815 AC 07/30 PO 0632 Omeprazole 20 MG DAILY AC 07/25 0700 AC 07/30 PO 0631 Ondansetron HCl 4 MG Q6P PRN 07/25 0300 AC 07/29 IV 1425 Polyethylene Glycol 17 GM DAILY 07/25 1000 AC 07/29 PO 0909 Senna/Docusate Sodium 1 TAB BID PRN 07/25 0315 AC 07/26 PO 0859 Sodium Chloride 1,000 ML Q13H 07/27 1845 AC 07/29 IV 2306 Results Last 24 Hours of Lab Results: Laboratory Tests 07/29 0710 Hematology CBC w Diff NO MAN DIFF REQ WBC (4.8 - 10.8 /CUMM) 6.4 RBC (4.70 - 6.10 /CUMM) 2.74 L Hgb (14.0 - 18.0 G/DL) 8.5 L Hct (42 - 52 %) 25.4 L MCV (80.0 - 94.0 FL) 92.7 MCH (27.0 - 31.0 PG) 30.9 RDW (11.5 - 14.5 %) 19.3 H Plt Count (130 - 400 /CUMM) 36 L MPV (7.4 - 10.4 FL) 7.9 Gran % (42.2 - 75.2 %) 78.9 H Lymphocytes % (20.5 - 51.1 %) 9.4 L Monocytes % (1.7 - 9.3 %) 10.6 H Eosinophils % (0 - 5 %) 0.8 Basophils % (0.0 - 2.0 %) 0.3 Absolute Granulocytes (1.4 - 6.5 /CUMM) 5.0 Absolute Lymphocytes (1.2 - 3.4 /CUMM) 0.6 L Absolute Monocytes (0.10 - 0.60 /CUMM) 0.7 H Absolute Eosinophils (0.0 - 0.7 /CUMM) 0 Absolute Basophils (0.0 - 0.2 /CUMM) 0 PUBS MCHC (33.0 - 37.0 G/DL) 33.3 Assessment/Plan Assessment/Recommendations: 1. Pain syndrome-appears improved, and service seen the patient and made appropriate recommendations 2. Extensive small cell lung cancer-chemotherapy hopefully can be continued as an outpatient 3. Slightly worsening thrombocytopenia-patient has documented thrombocytopenia repeated to both chemotherapy and likely his underlying disease. I think this is unlikely H IT Recommend- Follow CBC Discontinue Lovenox, increase ambulation Overall status-I carefully reviewed psychiatry's note. Again had a lengthy discussion with Mr. Morales. Patient certainly, my perspective, understands is current status. He is well aware that is cancer is incurable but seeks continued care. The patient is most concerned but conflicting data given to him by multiple caregivers. Significant time was spent with the patient discussing all these issues. Hopefully he can be discharged soon
--- NOTE | 2016-07-30 07:10 | PN- Housestaff ---
See Addendum Subjective Follow-up For: 1. Intractable abdominal pain 2. Constipation. 3. Metastatic cancer Non small cell lung cancer on chemotherapy. follows hem/onc 4. Opiod use 5. elevated lipase non speicfic 6. Transaminitis h/o liver mets 7. Thrombocytopenia multifactorial. 8. Anemia of chronic disease. Subjective: Hemodynamically stable. Patient is still complaining of severe and intractable abdominal pain. This morning he started to complain of burning sensation over both thighs anteriorly and shoulders. Patient had one episode of vomiting during physical examined. Review of Systems Constitutional: Reports: see HPI. Objective Last 24 Hrs of Vital Signs/I&O Vital Signs Date Time Temp Pulse Resp B/P B/P Pulse O2 O2 Flow FiO2 Mean Ox Delivery Rate 07/30 0625 98.2 105 20 160/88 94 Room Air 07/29 2207 98.1 100 20 132/72 92 07/29 1600 Room Air 07/29 1407 98.9 100 20 150/84 92 Room Air Intake & Output 07/30 1600 07/30 0800 07/30 0000 Intake Total 840 540 Output Total Balance 840 540 Intake, IV 600 300 Intake, Oral 240 240 Physical Exam General Appearance: Alert, Oriented X3, Cooperative, Moderate Distress HEENT: Atraumatic, PERRLA, EOMI, Mucous Membr. moist/pink Cardiovascular: Regular Rate, Normal S1, Normal S2, No Murmurs Lungs: Clear to Auscultation, Normal Air Movement Abdomen: Soft, epigastric tenderness Neurological: Normal Speech Extremities: No Clubbing, No Cyanosis, No Edema Current Medications: Current Medications Sig/Noemí Start time Last Medication Dose Route Stop Time Status Admin Alprazolam 0.5 MG .STK-MED ONE 07/29 1831 DC PO 07/29 1832 Alprazolam 0.5 MG Q6-PRN PRN 07/29 1830 AC 07/29 PO 08/03 0359 2130 Alprazolam 0.25 MG Q6-PRN PRN 07/27 0400 DC 07/29 PO 08/03 0347 0118 Amlodipine Besylate 5 MG DAILY 07/25 1000 AC 07/29 PO 0909 Aspirin Buffered 81 MG DAILY 07/25 1000 AC 07/29 PO 0908 Atorvastatin Calcium 10 MG 1700 07/25 1700 AC 07/29 PO 1732 Dexamethasone 1 MG DAILY 07/25 1000 AC 07/29 PO 0909 Docusate Sodium 100 MG BID 07/25 1000 AC 07/29 PO 2130 Enoxaparin Sodium 40 MG DAILY 07/29 1526 AC 07/29 SC 1730 Escitalopram Oxalate 10 MG DAILY 07/30 1000 AC PO Escitalopram Oxalate 5 MG DAILY 07/25 1000 DC 07/29 PO 0908 Fentanyl Citrate 100 MCG Q48 07/30 1000 DC TOP Fentanyl Citrate 150 MCG Q48 07/30 1000 AC TOP Fentanyl Citrate 50 MCG Q72H 07/28 1000 DC 07/28 TOP 1913 Fentanyl Citrate 100 MCG Q72 07/28 1000 DC 07/28 TOP 1913 Glycerin 2 SPRAY Q2P PRN 07/29 0815 AC PO Hydromorphone HCl 2 MG ONCE ONE 07/30 0830 DC IV 07/30 0831 Hydromorphone HCl 2 MG Q3P PRN 07/30 0730 AC IV Hydromorphone HCl 3 MG Q3P PRN 07/29 1815 DC 07/30 IV 07/30 1816 0725 Hydromorphone HCl 8 MG .STK-MED ONE 07/29 1813 DC PO 07/29 1814 Hydromorphone HCl 2 MG ONCE PRN 07/28 1615 AC 07/30 IV 0155 Hydromorphone HCl 4 MG Q4P PRN 07/28 0715 DC 07/29 IV 1727 Hydromorphone HCl 8 MG Q3 07/25 0939 DC 07/29 PO 1503 Insulin Aspart 0 TIDAC 07/25 0800 AC 07/25 SC 1707 Lorazepam 1 MG ONE ONE 07/30 0815 DC IV 07/30 0816 Lubiprostone 24 MCG BID 07/28 1028 AC 07/29 PO 2130 Methylnaltrexone 12 MG Q48 07/29 1000 AC 07/29 [place] 1729 Methylnaltrexone 12 MG Q48 07/26 1100 DC 07/26 [place] SC 1203 Metoprolol Succinate 50 MG DAILY 07/25 1000 AC 07/29 PO 0909 Morphine Sulfate 30 MG Q6PRN PRN 07/29 1815 AC 07/30 PO 0632 Omeprazole 20 MG DAILY AC 07/25 0700 AC 07/30 PO 0631 Ondansetron HCl 4 MG Q6P PRN 07/25 0300 AC 07/30 IV 0834 Polyethylene Glycol 17 GM DAILY 07/25 1000 AC 07/29 PO 0909 Senna/Docusate Sodium 1 TAB BID PRN 07/25 0315 AC 07/26 PO 0859 Sodium Chloride 1,000 ML Q13H 07/27 1845 07/29 IV 2306 Assessment/Plan Assessment: # Intractable abdominal pain mostly secondary to severe constipation caused by opioids use Recent CT scan on July 18 was negative for any new acute pathology. Initially patient presented with 10 /10 abdominal pain. He received Relistor constipation while he was still in the ED, on the next day he had a large bowel movement covered with some blood after which his pain significantly improved. This morning he reported that his abdominal pain slightly improved, but she started to complain of burning sensation over both thighs and shoulders. Pain management was consulted yesterday, and he recommended the following pain management regimen. * Continue fentanyl patch 150mcg every 48. * Tapered down Dilaudid as 3mg Q3 PRN maximum 2 doses, then 2mg IV Q3 PRN, maximum 2 doses, then 1mg IV Q3 PRN maximum 2 doses. * Continue MSIR 30mg PO Q6 hours prn for break through pain * Continue diet as tolerated * Continue Relistor 12 mg sc Q48 hrs * Continue MiraLAX 17 mg daily, Colace 100 mg BID, & Senna S BID * We will try to get lumbosacral and thoracic spinal MRI later today # Metastatic cancer Non small cell lung cancer on chemotherapy. follows hem/onc * NTD * We will follow oncology recommendations #Elevated lipase and transaminitis (h/o liver mets) Patient has small cell lung metastasis to the liver, his liver enzyme elevation has been stable. CT on July 18 shows that the metastasis size is stable. Patient has elevated lipase since last admission. * GI is on board, we will follow their recommendation. #Anemia and thrombocytopenia Patient presented with constipation that was followed by mild lower GI bleeding. At some point during this admission his hemoglobin dropped to 7.4, most likely part of this drop is secondary to hemodilution. After 2 packed RBCs transfusion his hemoglobin was stable around 8.5, his last hemoglobin was 8.5 yesterday. * CBC daily Diabetic diet DVT ppx Alps only Full code. Problem List: 1. Chronic pain Pain Ratin Pain Location: Abdominal Pain Goal: Remain pain free Pain Plan: see A&P Tomorrow's Labs & Rationales: CBC and BEP
[2016-07-30 14:23] VITALS: BP 140/64
[2016-07-30 22:42] VITALS: BP 160/80
--- NOTE | 2016-07-31 02:34 | Event Note ---
Event Note Event Note: Rapid response called at 2:30AM after a witnessed mechanical fall. Per the sitter and nursing staff, the patient got out of bed and stood up to "call the police" in a confused and agitated state. He was reportedly trying to "swing" at the sitter. The nursing staff then came into the room and patient fell on the knees as he turned around to look at her. No head trauma or loss of consciousness. He got up and went back to his bed. Vitals WNL. He reported pain in the knees but he had full ROM and was able to bear weight on both feet with no issues. We'll monitor for now.
[2016-07-31 06:38] VITALS: BP 156/80
--- NOTE | 2016-07-31 06:58 | PN- Oncology ---
See Addendum Subjective Subjective: Patient lethargic after being medicated, events reviewed Review of Systems: 12 point review of systems unobtainable Objective Vital Signs and I&Os Vital Signs Date Time Temp Pulse Resp B/P B/P Pulse O2 O2 Flow FiO2 Mean Ox Delivery Rate 07/31 0638 98.4 110 18 156/80 93 Room Air 07/31 0237 96 Room Air 07/30 2242 98.1 107 18 160/80 92 Room Air 07/30 1600 Room Air 07/30 1423 97.5 113 20 140/64 92 Room Air 07/30 0940 98.2 105 20 160/88 07/30 0940 98.2 105 20 160/88 Intake & Output 07/31 0800 07/31 0000 07/30 1600 07/30 0800 07/30 0000 07/29 1600 Intake Total 720 1050 610 116 568 5851 Output Total 200 100 200 300 Balance 520 950 410 840 540 705 Intake, IV 600 600 450 600 300 525 Intake, Oral 120 450 160 240 240 480 Number 0 1 1 4 Bowel Movements Output, Urine 200 100 200 300 Gen.: in NAD ENT: Sclera anicteric Chest: Normal respiratory effort, decreased breath sounds Cor: RRR, no extra sounds Abdomen: Soft, bowel sounds present, no significant tenderness, no rebound Extremities: Without clubbing, cyanosis, or edema Neurology: Lethargic Skin: No rashes Current Medications: Current Medications Sig/Noemí Start time Last Medication Dose Route Stop Time Status Admin Alprazolam 0.5 MG Q6-PRN PRN 07/29 1830 AC 07/31 PO 08/03 0359 0546 Amlodipine Besylate 5 MG DAILY 07/25 1000 AC 07/30 PO 0940 Aspirin Buffered 81 MG DAILY 07/25 1000 AC 07/30 PO 0940 Atorvastatin Calcium 10 MG 1700 07/25 1700 AC 07/30 PO 1748 Dexamethasone 1 MG DAILY 07/31 1000 AC PO Dexamethasone 1 MG DAILY 07/25 1000 DC 07/30 PO 0940 Docusate Sodium 100 MG BID 07/25 1000 AC 07/30 PO 2115 Enoxaparin Sodium 40 MG DAILY 07/29 1526 AC 07/30 SC 0940 Escitalopram Oxalate 10 MG DAILY 07/30 1000 AC 07/30 PO 0940 Fentanyl Citrate 100 MCG Q48 07/30 1000 DC TOP Fentanyl Citrate 150 MCG Q48 07/30 1000 AC 07/30 TOP 0948 Fentanyl Citrate 50 MCG Q72H 07/28 1000 DC 07/28 TOP 1913 Glycerin 2 SPRAY Q2P PRN 07/29 0815 AC PO Hydromorphone HCl 1 MG Q3P PRN 07/30 1800 AC 07/31 IV 0358 Hydromorphone HCl 2 MG .STK-MED ONE 07/30 1116 DC IV 07/30 1117 Hydromorphone HCl 2 MG ONCE ONE 07/30 0830 DC 07/30 IV 07/30 0831 1020 Hydromorphone HCl 2 MG Q3P PRN 07/30 0730 DC 07/30 IV 1503 Hydromorphone HCl 3 MG Q3P PRN 07/29 1815 DC 07/30 IV 07/30 1816 0725 Hydromorphone HCl 2 MG ONCE PRN 07/28 1615 AC 07/30 IV 0155 Insulin Aspart 0 TIDAC 07/25 0800 AC 07/25 SC 1707 Lorazepam 1 MG ONCE ONE 07/30 1130 DC 07/30 IV 07/30 1131 1204 Lorazepam 1 MG ONCE ONE 07/30 1100 DC 07/30 IV 07/30 1101 1204 Lorazepam 1 MG ONE ONE 07/30 0815 DC 07/30 IV 07/30 0816 1025 Lubiprostone 24 MCG BID 07/28 1028 AC 07/30 PO 2115 Methylnaltrexone 12 MG Q48 07/29 1000 AC 07/29 [place] SC 1729 Metoprolol Succinate 50 MG DAILY 07/25 1000 AC 07/30 PO 0940 Morphine Sulfate 30 MG Q6PRN PRN 07/29 1815 AC 07/31 PO 0248 Omeprazole 20 MG DAILY AC 07/25 0700 AC 07/31 PO 0544 Ondansetron HCl 4 MG Q6P PRN 07/25 0300 AC 07/30 IV 0834 Polyethylene Glycol 17 GM DAILY 07/25 1000 AC 07/29 PO 0909 Senna/Docusate Sodium 1 TAB BID PRN 07/25 0315 AC 07/26 PO 0859 Sodium Chloride 1,000 ML Q13H 07/27 1845 AC 07/31 IV 0621 Results Last 24 Hours of Lab Results: Lab pending from today Assessment/Plan Assessment/Recommendations: Extensive small cell lung cancer-despite continuing efforts to achieve comfort/ palliation and to consider further chemotherapy, patient's overall status continues to decline Recommend- Continue supportive care Hopefully can speak to the patient's today to discuss his overall situation and consideration of comfort care only
[2016-07-31 08:21] LABS: ABSOLUTE BASOPHIL COUNT 0 /CUMM (0.0-0.2); ABSOLUTE EOSINOPHIL COUNT 0.1 /CUMM (0.0-0.7); ABSOLUTE LYMPH COUNT 0.6 /CUMM (1.2-3.4); ABSOLUTE MONOCYTE COUNT 0.6 /CUMM (0.10-0.60); BASOPHIL % 0.2 % (0.0-2.0); EOSINOPHIL % 1.2 % (0-5); GRANULOCYTE % 75.8 % (42.2-75.2); HEMATOCRIT 23.3 % (42-52); MEAN CORPUSCULAR HGB 31.4 PG (27.0-31.0); MEAN CORPUSCULAR HGB CONC 34.2 G/DL (33.0-37.0); MEAN CORPUSCULAR VOLUME 91.9 FL (80.0-94.0); MEAN PLATELET VOLUME 7.7 FL (7.4-10.4); RBC DISTRIBUTION WIDTH 19.7 % (11.5-14.5); RED BLOOD CELL CT 2.54 /CUMM (4.70-6.10); WHITE BLOOD CELL COUNT 5.3 /CUMM (4.8-10.8)
[2016-07-31 09:26] LABS: PLATELET COUNT 46 /CUMM (130-400)
[2016-07-31 09:34] VITALS: BP 158/86
--- NOTE | 2016-07-31 12:52 | PN- Housestaff ---
LINN JONES,[facility] 07/31/16 1252: Subjective Follow-up For: 1. Intractable abdominal pain 2. Constipation. 3. Metastatic cancer Non small cell lung cancer on chemotherapy. follows hem/onc 4. Opiod use 5. elevated lipase non speicfic 6. Transaminitis h/o liver mets 7. Thrombocytopenia multifactorial. 8. Anemia of chronic disease. Subjective: Hemodynamically stable. Patient is still complaining of severe and intractable abdominal pain. Patient looks lethargic, sleepy, and mildly confused. Patient agreed this morning to change his CODE STATUS to comfort. Review of Systems Constitutional: Reports: no symptoms. Objective Last 24 Hrs of Vital Signs/I&O Vital Signs Date Time Temp Pulse Resp B/P B/P Pulse O2 O2 Flow FiO2 Mean Ox Delivery Rate 07/31 0934 112 18 158/86 07/31 0934 112 18 158/86 07/31 0638 98.4 110 18 156/80 93 Room Air 07/31 0237 96 Room Air 07/30 2242 98.1 107 18 160/80 92 Room Air 07/30 1600 Room Air 07/30 1423 97.5 113 20 140/64 92 Room Air Intake & Output 07/31 1600 07/31 0800 07/31 0000 Intake Total 720 1050 Output Total 100 200 100 Balance -100 520 950 Intake, IV 600 600 Intake, Oral 120 450 Number 0 1 Bowel Movements Output, Urine 100 200 100 Physical Exam General Appearance: Alert, Oriented X3, Cooperative, No Acute Distress HEENT: Atraumatic, PERRLA, EOMI, Mucous Membr. moist/pink Cardiovascular: Regular Rate, Normal S1, Normal S2, No Murmurs Lungs: Clear to Auscultation, Normal Air Movement Abdomen: Soft, diffuse tenderness Neurological: Normal Speech Extremities: No Clubbing, No Cyanosis, No Edema Current Medications: Current Medications Sig/Noemí Start time Last Medication Dose Route Stop Time Status Admin Alprazolam 0.5 MG Q6-PRN PRN 07/29 1830 DCD 07/31 PO 08/03 0359 0934 Amlodipine Besylate 5 MG DAILY 07/25 1000 DCD 07/31 PO 0934 Aspirin Buffered 81 MG DAILY 07/25 1000 DCD 07/31 PO 0934 Atorvastatin Calcium 10 MG 1700 07/25 1700 DCD 07/30 PO 1748 Dexamethasone 1 MG DAILY 07/31 1000 DCD 07/31 PO 0933 Docusate Sodium 100 MG BID 07/25 1000 DCD 07/31 PO 0934 Enoxaparin Sodium 40 MG DAILY 07/29 1526 DCD 07/31 SC 0933 Escitalopram Oxalate 10 MG DAILY 07/30 1000 DCD 07/31 PO 0934 Fentanyl Citrate 150 MCG Q48 07/30 1000 DCD 07/30 TOP 0948 Glycerin 2 SPRAY Q2P PRN 07/29 0815 DCD PO Haloperidol 0.5 MG Q6-PRN PRN 07/31 1200 DCD SC Hydromorphone HCl 1 MG Q1P PRN 07/31 1200 DCD 07/31 IV 1253 Hydromorphone HCl 2 MG Q2P PRN 07/31 1030 DC 07/31 IV 1145 Hydromorphone HCl 2 MG ONCE PRN 07/31 0815 DC 07/31 IV 07/31 0820 0811 Hydromorphone HCl 1 MG Q3P PRN 07/30 1800 DCD 07/31 IV 1010 Hydromorphone HCl 2 MG Q3P PRN 07/30 0730 DC 07/30 IV 1503 Insulin Aspart 0 TIDAC 07/25 0800 DCD 07/25 SC 1707 Lubiprostone 24 MCG BID 07/28 1028 DCD 07/31 PO 0933 Methylnaltrexone 12 MG Q48 07/29 1000 DCD 07/31 [place] 0932 Metoprolol Succinate 50 MG DAILY 07/25 1000 DCD 07/31 PO 0934 Morphine Sulfate 30 MG Q6PRN PRN 07/29 1815 DCD 07/31 PO 0248 Omeprazole 20 MG DAILY AC 07/25 0700 DCD 07/31 PO 0544 Ondansetron HCl 4 MG Q6P PRN 07/25 0300 DCD 07/31 IV 1049 Patient Medication 1 ED .STK-MED ONE 07/31 1336 DC Teaching ED 07/31 1337 Polyethylene Glycol 17 GM DAILY 07/25 1000 DCD 07/29 PO 0909 Senna/Docusate Sodium 1 TAB BID PRN 07/25 0315 DCD 07/26 PO 0859 Sodium Chloride 1,000 ML Q13H 07/27 1845 DCD 07/31 IV 0621 Last 24 Hrs of Lab/Wiliam Results Last 24 Hrs of Labs/Mics: Laboratory Tests 07/31/16 0703: Anion Gap 8, Estimated GFR > 60, BUN/Creatinine Ratio 15.0, CBC w Diff NO MAN DIFF REQ, RBC 2.54 L, MCV 91.9, MCH 31.4 H, RDW 19.7 H, MPV 7.7, Gran % 75.8 H, Lymphocytes % 11.1 L, Monocytes % 11.7 H, Eosinophils % 1.2, Basophils % 0.2, Absolute Granulocytes 4.0, Absolute Lymphocytes 0.6 L, Absolute Monocytes 0.6, Absolute Eosinophils 0.1, Absolute Basophils 0, PUBS MCHC 34.2 Assessment/Plan Assessment: # Intractable abdominal pain mostly secondary to severe constipation caused by opioids use Patient has a lung cancer with metastasis to the spine and liver. He initially patient presented with 10 /10 abdominal pain. He received Relistor constipation while he was still in the ED which relieved his pain. After different pain management regimens since still complaining of severe intractable pain. The decision was made to change the CODE STATUS to comfort, it was discussed and agreed by the . * We will start 1 mg Dilaudid Q1 when necessary * 0.5 haloperidol subcutaneous every 6 when necessary * We will continue bowel regimen Diabetic diet DVT ppx Alps only Comfort measure Problem List: 1. Metastasis from malignant tumor of lung Pain Ratin Pain Location: abdomina Pain Goal: Remain pain free Pain Plan: See A&P Tomorrow's Labs & Rationales: NONE SUNIL FOSTER 07/31/16 1301: Attending MD Review Statement Attending Statement Attending MD Statement: examined this patient, discuss w/resident/PA/[facility]OSPICE [facility], agreed w/resident/PA/HOSPICE [facility]ER[facility], discussed with family, reviewed EMR data (avail), discussed with nursing, discussed with case mgmt, reviewed images, amended to note Attending Assessment/Plan: "70 yo M with h/o metastatic small cell lung cancer with spinal mets-cord compression s/p radiation, currently on chemotherapy (carboplatin and SEGREGATOR-16, last received 2.5 weeks back), CAD s/p stents, HTN, paroxysmal Afib, is here with c/o lower abdominal pain, chest discomfort (likely chronic) and constipation for over 3 days. He was given relistor in the ER and he had a small BM. He was seen in the ER on July 19 for chest pain, and was discharged from ER after benign work up. CT C/A/P (July 18) showed interval improvement in pulmonary disease, hepatic metastatic disease." ASSESSEMENT 1. Intractable abdominal pain/pain syndrome 2. Constipation. 3. Metastatic cancer Non small cell lung cancer on chemotherapy. follows hem/onc 4. Opiod use 5. elevated lipase non speicfic 6. Transaminitis h/o liver mets 7. Thrombocytopenia multifactorial. 8. Anemia of chronic disease. 9. BRBPR 10. Acute blood loss anemia PLAN 1. admit medical services for pain managment. 2. Cancer pain control. Consulted pain management service. follow recommendations. 3. Constipation relieved, had bowel movement. c/w relistor 12 sc q 48, add amitiza 24 bid if no improvement. 4. Recent CT scan negative for acute pathology, GI appreicated 5. Chronically elevated lipase non specific finding as evaluated by GI in Apr 2016 likely secondary to metastatic disease. No acute intervention needed, not suggestive of pancreatitis. 6. Transaminitis in the setting of hepatic mets. Stable. 7. Anemia stable , H/h slow drift, s/p transfusion PRBC 2 unit. Transfusion as per hem/onc. 8. BRBPR GI recommend, hold colonsocpy for now vast differential. DVT ppx Alps (thrombocytopenia in the setting of chemo). Full code. d/wed patient/family bedside for goals of care. hem/onc also following, GI consulted. discussed the plan of treatment and prognosis in this scenario. Pyschiatry consulted. Palliative consult would be of great help! MRI planned but patient non cooperative attempted twice. Hematology/oncology spoke at length about treatment and prognosis , patient/ family chose to be comfort care. provide comfort care and plan to d/c to hospice.
--- NOTE | 2016-08-07 12:18 | Discharge Summary ---
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 # Intractable abdominal pain mostly secondary to severe constipation caused by opioids use Recent CT scan on July 18 was negative for any new acute pathology. Initially patient presented with 10 /10 abdominal pain. He received Relistor constipation while he was still in the ED, on the next day he had a large bowel movement covered with some blood after which his pain significantly improved. Patient continued to require high live doses of pain medication including fentanyl patch 150 MCG and IV and oral Dilaudid. To avoid constipation patient was continued on Relistor 12 mg sc Q48 hrs, MiraLAX 17 mg daily, Colace 100 mg BID, & Senna S BID. Pain management was consulted and they recommended continuing fentanyl 150 MCG every 48 hours, taper Dilaudid and start morphine. Patient continued to complain of severe uncontrolled pain. A meeting was conducted with the family and the decidua were made to change the patient's CODE STATUS to comfort then it was changed to hospice. # Metastatic cancer Non small cell lung cancer on chemotherapy. follows hem/onc Oncology was involved in the treatment plan throughout this admission. We tried to perform MRI for the spine, however given the patient continuous pain and claustrophobia, he could not stay still during MRI. #Elevated lipase and transaminitis (h/o liver mets) Patient has small cell lung metastasis to the liver, his liver enzyme elevation has been stable. CT on July 18 shows that the metastasis size is stable. Patient has elevated lipase since last admission. #Anemia and thrombocytopenia Patient presented with constipation that was followed by mild lower GI bleeding. At some point during this admission his hemoglobin dropped to 7.4, most likely part of this drop is secondary to hemodilution. After 2 packed RBCs transfusion his hemoglobin was stable around 8.5. GI was consulted and recommended to continue with medication for constipation as mentioned above. No other interventions was recommended by GI. Allergies: Coded Allergies: Iodinated Contrast Media - Oral and (Mild, Rash 06/30/16) Disposition Summary Disposition Principal Diagnosis: Metastatic lung cancer(stage IV) Intractable abdominal pain most likely secondary to constipation and metastasis to cancer. Additional Diagnosis: GI bleed Discharge Disposition: hospice - medical facilit Discharge Instructions General Discharge Information Code Status: Hospice Patient's Diet: Regular as tolerated Patient's Activity: As tolerated Follow-Up Instructions/Appts: Please follow up with oncology recommendations Copies To: HILLARY JONES,EDA Jane
== END 2016-07-31 13:42 | disposition hospice, home (50) | DRG 392 ==
LOC: ENRESERVDT → ENRESERVTM → ERH 23:18 → ERHI 23:39 → 2NA 07-25 04:15
PROVIDERS: Emergency Medicine; Internal Medicine Interventional Cardiology; Student in an Organized Health Care Education/Training Program; ADMIT Student in an Organized Health Care Education/Training Program
PROC: 30233N1 Transfusion of Nonautologous Red Blood Cells into Peripheral Vein, Percutaneous Approach (ICD-10-PCS; principal; 2016-07-26)
DX: K59.03 Drug induced constipation (principal); C78.7 Secondary malignant neoplasm of liver and intrahepatic bile duct; C79.51 Secondary malignant neoplasm of bone; C79.89 Secondary malignant neoplasm of other specified sites; D69.59 Other secondary thrombocytopenia; D63.8 Anemia in other chronic diseases classified elsewhere; C34.91 Malignant neoplasm of unspecified part of right bronchus or lung; D62 Acute posthemorrhagic anemia; K62.5 Hemorrhage of anus and rectum; Z51.5 Encounter for palliative care; I48.0 Paroxysmal atrial fibrillation; J44.9 Chronic obstructive pulmonary disease, unspecified; E11.9 Type 2 diabetes mellitus without complications; I25.10 Atherosclerotic heart disease of native coronary artery without angina pectoris; I10 Essential (primary) hypertension; E78.5 Hyperlipidemia, unspecified; I25.2 Old myocardial infarction; T40.605A Adverse effect of unspecified narcotics, initial encounter; F32.9 Major depressive disorder, single episode, unspecified; Z87.891 Personal history of nicotine dependence
CPT/HCPCS: 2NAP; 2NASP; 36415; 74022; 82436; 86920; 93005; 93010; 94799; 96372; 96374; 96375; 96376; J0780; J1170; J1630; J1644; J1650; J2405; J2550; P9016

== ENCOUNTER 2016-07-31 13:55 | Inpatient (IN) | payer OTHER ==
--- NOTE | 2016-07-31 14:56 | NUR ---
14:45- PT MADE HOSPICE. AT BEDSIDE. RR 18, PAIN 9/10 TO ABDOMEN. SCHEDULED DIALUDID GIVEN. LBM 07/31/16. #20 TO MARIAH PLACED 07/27/16. FLUSHING WELL. PT IMPULSIVE, AGITATED AT TIMES. DROWSY/ ARROUSABLE. ASSIST X2.
[2016-07-31 14:57] VITALS: BP 140/90
--- NOTE | 2016-07-31 16:06 | History & Physical ---
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 He has had pain management and consultation and continues to have intractable abdominal pain. Pt is confused currently, had a fall last night and now has a sitter. Has been nauseous today, still with intermittent constipation, agitated at times. Family has met with Dr. Mosley and given current condition and poor prognosis has opted for hospice care. Allergies/Medications Allergies: Coded Allergies: Iodinated Contrast Media - Oral and (Mild, Rash 06/30/16) Past History Medical History Neurological: NONE EENT: NONE Cardiovascular: hypertension, hyperlipidemia, myocardial infarction, CARDIAC STENTS Respiratory: bronchitis, COPD, emphysema, SC lung cancer Gastrointestinal: diverticulosis coli hx colon polyps Hepatic: LIVER CA- METS FROM SC LUNG CA Renal: right partial nephrectomy benign Musculoskeletal: chronic back pain (spine mets/hx cord compression), disk herniation (L4/L5) Psychiatric: anxiety Endocrine: NONE Blood Disorders: anemia, thrombocytopenia Cancer(s): BENIGN R KIDNEY TUMOR LUNG CANCER LIVER CA 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 Ex-smoker, rare alcohol. No living will or POA. 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 Review of Systems Review of Systems Constitutional: Reports: see HPI. Exam & Diagnostic Data Last 24 Hrs of Vital Signs/I&O Vital Signs Date Time Temp Pulse Resp B/P B/P Pulse O2 O2 Flow FiO2 Mean Ox Delivery Rate 07/31 1457 98.2 114 22 140/90 93 Physical Exam General Appearance Sitting in chair, asleep, moaning at times. states this is longest she has seen him comfortable and asked not to wake him. HEENT oral mucosa dry Cardiovascular Normal S1, Normal S2, No Murmurs, tachycardic Lungs Clear to Auscultation (not labored), Normal Air Movement Abdomen slightly distended, decreased bowel sounds Extremities No Clubbing, No Cyanosis, No Edema Last 24 Hrs of Labs/Wiliam: 07/31/16: Hgb 8.0, Hct 23.3, plt 46, K 3.4 07/24/16: AST 133, ALT 94, Alk Phos 332, lipase 1406 Diagnostic Data CXR Results CXR and abd film: IMPRESSION: Unremarkable bowel gas pattern. Clear lungs. Stable superior right paratracheal lymphadenopathy. Assessment/Plan Assessment: 70 [id number] with stage IV small cell lung cancer with mets to spinal cord and liver with intractable abdominal pain, intermittent constipation, nausea and confusion admitted to hospice for symptom management. Plan: Admitted to hospice and conferred with hospice pharmacy for pain management. Continue fentanyl patch 150mcg every 48 hrs. Start scheduled dilaudid 3mg IV every 3 hrs, and 3mg IV every 4 hrs as needed for pain (If ineffective will go up to 4mg) Haldol 1mg SC every 6 hours scheduled and every 4 hours as needed for agitation. Ativan 1mg every 4 hrs as needed for anxiety Zofran 4mg IV every 6 hrs as needed for nausea Continue Relistor 12mg SC every 48 hrs for opioid -induced constipation and dulcolax UT daily
--- NOTE | 2016-07-31 18:49 | NUR ---
PT CURRENTLY RESTING COMFORTABLY. FAMILY AT BEDSIDE. NO DISTRESS NOTED. CONVERSATION HAD WITH FAMILY ABOUT HOSPICE CARE-INCLUDING REPOSITIONING, MEDICATIONS, AND RICE CATHETER. RICE ORDERED, AT THIS TIME, FAMILY WOULD LIKE TO HOLD OFF BUT ARE OK WITH IT BEING PLACED IF THE STAFF FEELS IT IS BEST FOR THE PATIENT. PT CURRENTLY MINIMALLY AROUSABLE BUT WAS CONVERSIVE SHORTLY BEFORE. SIZEWIZE MATTRESS ORDERED. NO REPOSITIONING DONE AT THIS TIME. FAMILY EDUCATED ABOUT DYING PROCESS, MEDICATION MANAGEMENT, AND INTRAVENOUS FLUIDS. MIX CHEMIST IN FOR LAST RIGHTS. EMOTIONAL SUPPORT OFFERED TO ALL FAMILY MEMBERS, WILL MONITOR.
[2016-08-01 06:30] VITALS: BP 136/62
--- NOTE | 2016-08-01 13:38 | PN- Hospice ---
Subjective Subjective: Family and friends at bedside. Pt. more comfortable overnight. Receiving scheduled dilaudid every 3 hrs. with prn x3. Also receiving scheduled Haldol, and ativan x1. Eating small amounts of pureed fruit, drinking some liquids. Objective Last 24 Hrs of Vital Signs/I&O Vital Signs Date Time Temp Pulse Resp B/P B/P Pulse O2 O2 Flow FiO2 Mean Ox Delivery Rate 08/01 0630 98.8 108 23 136/62 92 Room Air 07/31 1457 98.2 114 22 140/90 93 Intake & Output 08/01 1600 08/01 0800 08/01 0000 Intake Total 120 240 Output Total 100 Balance 120 140 Intake, Oral 120 240 Output, Urine 100 Physical Exam General Appearance: no apparent distress, alert (alternating with drowsiness) Head: atraumatic, normal appearance Ears, Nose, Throat: moist mucus membranes Respiratory: no respiratory distress, lungs clear Cardiovascular: tachycardia Extremities: no edema Neurologic/Psychiatric: alert, and conversant, then sleeping short naps Assessment/Plan Assessment/Recommendations: 70 [id number] with stage IV small cell lung cancer with mets to spinal cord and liver with intractable abdominal pain, intermittent constipation, nausea and confusion admitted to hospice for symptom management. Currently comfortable. At times not able to wait 4 hrs between as needed dosing for Dilauded. Will change from every 4 to every 3 hours. Problem List: 1. Intractable abdominal pain 2. Therapeutic opioid induced constipation 3. Metastasis from malignant tumor of lung
[2016-08-02 06:04] VITALS: BP 162/90
--- NOTE | 2016-08-02 10:00 | NUR ---
PT REMAINS UNCOMFORTABLE DESPITE MULTIPLE DOSES OF IV DILAUDID. STATES HE IS HAVING SEVERE LOWER ABDOMINAL PAIN AND RECTAL PAIN. ASSISTED X 2 TO BSC, HAD MEDIUM SIZED SOFT BM AND URINATED. INCREASED PAIN AFTER BOWEL MOVEMENT. CALL PLACED TO SEMAJ GANDHI MD. MD UP TO ASSESS PT, DILAUDID X 1 AND DILAUDID GTT ORDERED. FAMILY EDUCATED ON DRIP PROTOCOLS AND AGREEABLE TO HAVING THE GTT IN PLACE. DILAUDID 1MG/ML GTT HUNG STARTING AT 4MG/HR. WILL MONITOR.
--- NOTE | 2016-08-02 12:00 | NUR ---
PT MEDICATED WITH 4MG IV DILAUDID BOLUS X 3 PER PROTOCOL FOR PAIN 10/10 TO ABDOMEN. PT MOANING AND CRYING OUT IN PAIN. DILAUDID GTT INCREASED TO 8MG/HR PER TITRATION PROTOCOL. POSITIONED FOR COMFORT. SC HALDOL GIVEN ORDERED. AT BEDSIDE. WILL MONITOR.
--- NOTE | 2016-08-02 12:28 | PN- Hospice ---
Subjective Subjective: Patient is in pain he is very uncomfortable. Has been receiving Dilaudid every 3 hours and also the when necessary in between. at the bedside. Review of Systems Constitutional: Reports: see HPI. Objective Last 24 Hrs of Vital Signs/I&O Vital Signs Date Time Temp Pulse Resp B/P B/P Pulse O2 O2 Flow FiO2 Mean Ox Delivery Rate 08/02 0604 98.2 112 20 162/90 92 Room Air Intake & Output 08/02 1600 08/02 0800 08/02 0000 Intake Total 150 100 Output Total 180 Balance 150 -80 Intake, Oral 150 100 Output, Urine 180 Physical Exam General Appearance: alert, awake, anxious, moderate distress Head: atraumatic, normal appearance Ears, Nose, Throat: moist mucus membranes Neck: normal inspection Respiratory: normal breath sounds Cardiovascular: regular rate/rhythm, tachycardia Abdomen: soft, tenderness Extremities: no edema Current Medications: Current Medications Sig/Noemí Start time Last Medication Dose Route Stop Time Status Admin Acetaminophen 650 MG Q4P PRN 07/31 1415 AC IL Artificial Tears 2 GTT Q2P PRN 07/31 1415 AC OU Bisacodyl 10 MG DAILY 08/01 1000 AC 08/01 IL 1100 Fentanyl Citrate 150 MCG Q48H 08/01 1000 AC 08/01 TOP 1100 Glycerin 2 SPRAY Q4P PRN 07/31 1415 AC PO Glycerin/Mineral Oil 1 GISELE Q8P PRN 07/31 1415 AC TOP Haloperidol 1 MG Q6 07/31 1800 AC 08/02 SC 1201 Haloperidol 1 MG Q4P PRN 07/31 1430 AC 08/02 SC 0953 Hydromorphone HCl 4 MG Q3 08/02 1200 DC IV Hydromorphone HCl 50 MG PER PROTOCL 08/02 1015 AC 08/02 Dextrose/Water 45 ML IV 1033 Hydromorphone HCl 2 MG .Q20MIN PRN 08/02 1000 AC IV Hydromorphone HCl 4 MG .Q20MIN PRN 08/02 1000 AC 08/02 IV 1149 Hydromorphone HCl 4 MG ONCE PRN 08/02 0945 DC 08/02 IV 08/02 1000 0949 Hydromorphone HCl 4 MG Q3 08/01 1500 DC 08/02 IV 0851 Hydromorphone HCl 4 MG Q3P PRN 08/01 1500 DC 08/02 IV 1025 Hydromorphone HCl 3 MG Q3P PRN 08/01 1400 DC IV Hydromorphone HCl 3 MG Q3 07/31 1500 DC 08/01 IV 1436 Hydromorphone HCl 3 MG Q4P PRN 07/31 1415 DC 08/01 IV 1230 Lorazepam 1 MG Q4P PRN 07/31 1415 AC 08/02 IV 0106 Methylnaltrexone 12 MG Q48 08/02 1000 AC 08/02 [place] 0851 Ondansetron HCl 4 MG Q6P PRN 07/31 1430 AC IV Diagnostic Data Lab/Micro/Pathology Results: none Assessment/Plan Assessment/Recommendations: 70 M with stage IV metastatic SCL cancer with mets to spinal cord and liver with intractable abdominal pain, intermittent constipation, nausea and confusion admitted to hospice for symptom management. Currently in extreme pain in spite of being on Dilaudid. We will start her on Dilaudid drip. The plan has been discussed with the RN and patient's . Problem List: 1. Intractable abdominal pain 2. Therapeutic opioid induced constipation 3. Metastasis from malignant tumor of lung
--- NOTE | 2016-08-02 14:00 | NUR ---
PT APPEARS CALM AND RESTFULL. RR 18 AND NON-LABORED. DILAUDID GTT INFUSING AT 8MG/HR. FAMILY AT BEDSIDE. WILL MONITOR.
--- NOTE | 2016-08-02 16:00 | NUR ---
PT APPEARS CALM AND PEACEFUL. STAFF IN TO ASSIST WITH TURNING AND CHECKING FOR INCONTINENCE. PT BECAME MORE ALERT WITH REPOSITIONING. ABLE TO VERBALIZE HAVING MINIMAL PAIN. ATTEMPTED TO REPOSITION TO SIDE BUT PT REMOVED PILLOWS, PREFERS TO REMAIN ON BACK. NO INCONTINENCE NOTED. AFTER REPOSITIONING PT MOANING SLIGHTLY, IV DILAUDID BOLUS GIVEN PER PROTOCOL. WILL MONITOR.
--- NOTE | 2016-08-03 00:58 | NUR ---
PT MOANING, AUDIBLE SECRETIONS. AT BEDSIDE. SCOP PATCH, ROBINUL ADMINISTERED. DILAUDID DRIP RATE INCREASED R/T PROTOCOL. MD BHANU AND PHARMACY NOTIFIED. WILL CONTINUE TO MONITOR THIS SHIFT.
--- NOTE | 2016-08-03 01:41 | NUR ---
PT STILL NO RELIEF FROM Rx Tx. RESPIRATORY SUCTIONED WITH POSITIVE RESULTS. AT BEDSIDE. WILL CONTINUE TO MONITOR THIS SHIFT.
[2016-08-03 05:39] VITALS: BP 96/60
--- NOTE | 2016-08-03 07:44 | NUR ---
CARE ASSUMED BY THIS RN. UPON ASSESSMENT, PT UNRESPONSIVE WITH LABORED RESPIRATIONS. RR 22 AND RANGES FROM SLOW AND SHALLOW TO HEAVY AND DEEP WITH ACCESSORY MUSCLE USAGE. DILAUDID GTT CURRENTLY INFUSING AT 12MG/HR VIA IV LINE TO LEFT UPPER ARM. DILAUDID 4MG IV BOLUS GIVEN PER PROTOCOL. RUBNIOL 0.2MG ALSO GIEVN FOR INCREASED CONGESTION. ASLEEP AT BEDSIDE. WILL MONITOR.
--- NOTE | 2016-08-03 11:21 | NUR ---
PT AGAIN HAVING LABORED BREATHING. RR 20 WITH SHORT PERIODS OF APNEA. PT HAVING A GASPING BREATH ABOUT EVERY 5 BREATHS. 4MG IV DILAUDID ADMINISTERED PER GTT PROTOCOL. FAMILY AND FRIENDS AT BEDSIDE. EMOTIONAL SUPPORT PRN. WILL MONITOR.
--- NOTE | 2016-08-03 14:27 | PN- Hospice ---
Subjective Subjective: Patient having labored breathing. Not responsive to verbal stimuli . Brother-in -law at bedside Review of Systems Constitutional: Reports: see HPI. Objective Last 24 Hrs of Vital Signs/I&O Vital Signs Date Time Temp Pulse Resp B/P B/P Pulse O2 O2 Flow FiO2 Mean Ox Delivery Rate 08/03 0539 98.8 118 28 96/60 85 Room Air Intake & Output 08/03 1600 08/03 0800 08/03 0000 Intake Total 96 64 Output Total Balance 96 64 Intake, IV 96 64 Physical Exam General Appearance: labored breathing Head: atraumatic Respiratory: respiratory distress Cardiovascular: regular rate/rhythm, normal peripheral pulses Abdomen: soft Current Medications: Current Medications Sig/Noemí Start time Last Medication Dose Route Stop Time Status Admin Acetaminophen 650 MG Q4P PRN 07/31 1415 AC AL Artificial Tears 2 GTT Q2P PRN 07/31 1415 AC OU Bisacodyl 10 MG DAILY 08/01 1000 AC 08/01 AL 1100 Fentanyl Citrate 150 MCG Q48H 08/01 1000 AC 08/03 TOP 0929 Glycerin 2 SPRAY Q4P PRN 07/31 1415 AC PO Glycerin/Mineral Oil 1 GISELE Q8P PRN 07/31 1415 AC TOP Glycopyrrolate 200 MCG 5 TIMES A DAY PRN 08/02 2345 AC 08/03 IV 1403 Haloperidol 1 MG Q6 07/31 1800 AC 08/03 SC 1236 Haloperidol 1 MG Q4P PRN 07/31 1430 AC 08/02 SC 0953 Hydromorphone HCl 50 MG Q3H 08/03 1300 AC 08/03 Dextrose/Water 45 ML IV 1412 Hydromorphone HCl 50 MG Q6H 08/02 2030 DC 08/03 Dextrose/Water 45 ML IV 0608 Hydromorphone HCl See Dose .Q20MIN PRN 08/02 1815 AC 08/03 Insts (1) IV 1403 Hydromorphone HCl 50 MG PER PROTOCL 08/02 1015 DC 08/02 Dextrose/Water 45 ML IV 1033 Hydromorphone HCl 2 MG .Q20MIN PRN 08/02 1000 DC IV Hydromorphone HCl 4 MG .Q20MIN PRN 08/02 1000 DC 08/02 IV 1655 Lorazepam 1 MG Q4P PRN 07/31 1415 AC 08/03 IV 1403 Methylnaltrexone 12 MG Q48 08/02 1000 AC 08/02 [place] 0851 Ondansetron HCl 4 MG Q6P PRN 07/31 1430 AC IV Scopolamine HBr 1 PAT Q72H 08/02 2345 08/02 TOP 2357 Dose Instructions: (1)Hydromorphone HCl: DOSE PER HOSPICE PROTOCOL Diagnostic Data Lab/Micro/Pathology Results: none recent Assessment/Plan Assessment/Recommendations: 70 M with stage IV metastatic SCL cancer with mets to spinal cord and liver with intractable abdominal pain, intermittent constipation, nausea and confusion admitted to hospice for symptom management. Currently has laboured breathing On Dilaudid drip. Recieveing Dilaudid push & ativan PRN for comfort. Problem List: 1. Metastatic disease 2. Metastasis from malignant tumor of lung 3. Therapeutic opioid induced constipation 4. Intractable abdominal pain
--- NOTE | 2016-08-04 14:53 | Discharge Summary ---
Visit Information Visit Dates Admission Date: 07/31/16 Discharge Date: 08/03/16 Hospital Course Course Attending Physician: SUNIL FOSTER MD Primary Care Physician: PACNHO TORRES MD Hospital Course: 70 [id number] with stage IV small cell lung cancer with mets to spinal cord and liver with intractable abdominal pain, intermittent constipation, nausea and confusion admitted to hospice for symptom management. He was kept comfortable with scheduled fentanyl, dilaudid, haldol and ativan, and eventually dilaudid drip until he passed peacefully. Allergies: Coded Allergies: Iodinated Contrast Media - Oral and (Mild, Rash 06/30/16) Disposition Summary Disposition Principal Diagnosis: Intractable abdominal pain Metastases to spinal cord and liver Stage IV small cell carcinoma of lung Additional Diagnosis: Constipation, acute opioid-induced Nausea Discharge Disposition: Discharge Instructions General Discharge Information Code Status: Hospice Patient's Diet: N/A Patient's Activity: N/A Follow-Up Instructions/Appts: N/A Copies To: PANCHO TORRES MD
== END 2016-08-03 14:45 | disposition expired | DRG 181 ==
LOC: 2NA 13:55
PROVIDERS: ADMIT Internal Medicine
DX: C34.90 Malignant neoplasm of unspecified part of unspecified bronchus or lung (principal); C79.51 Secondary malignant neoplasm of bone; C78.7 Secondary malignant neoplasm of liver and intrahepatic bile duct; Z51.5 Encounter for palliative care; R10.9 Unspecified abdominal pain; K59.00 Constipation, unspecified
CPT/HCPCS: 2NAP; J1170; J1630; J2405